=== PATIENT | female | born 2005 | race Caucasian/White ===

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

== ENCOUNTER 2024-03-15 19:47 | Emergency (ER) | payer SELFPAY ==
[2024-03-15 19:48] VITALS: BP 137/76; PULSE 86; RESP 18; TEMP 36.6; O2SAT 100; BMI 19.6
--- NOTE | 2024-03-15 20:03 | US_ITS ---
INDICATION: vaginal bleeding EXAMINATION: US OB Transvaginal TECHNIQUE: Transvaginal (for optimal evaluation of the adnexa) pelvic ultrasound was performed. Grayscale, spectral waveform, and color flow Doppler evaluation of the adnexa. COMPARISON: None. FINDINGS: UTERUS: Measures 6.8 cm in length.. RIGHT OVARY: Measures 2.8 x 2.5 x 2.4 cm. Normal. LEFT OVARY: Measures 3.8 x 2.1 x 1.5 cm. Normal. FREE FLUID: None. INTRAUTERINE GESTATIONAL SAC(s) (size/shape): Not visualized. No adnexal ectopic visualized. US/Transvaginal w/Preg US IMPRESSION: of unknown location. No intrauterine gestational sac or adnexal ectopic visualized. Recommend serial beta hCGs and follow-up OB ultrasound in 2 weeks. Electronically Signed: Donte Jimenez MD at 22:51 EST ,
--- NOTE | 2024-03-15 20:08 | ED.VIS.FEGU ---
HPI <ANNI rCuz - Last Filed: 03/15/24 22:04> HPI - Female History of Present Illness Chief Complaint: Vag Bld, Preg Narrative Narrative: Patient presenting today due to concerns for vaginal bleeding that started yesterday. She reports that she is about 6 weeks , her LMP was about 2 months ago. She has not yet had an ultrasound to confirm intrauterine , she does not have an OB. She reports that the bleeding is mild in severity, she has had a pad on but has not had to change this pad today. She reports morning sickness throughout her with intermittent nausea and vomiting. She denies any fevers or chills. She reports low back pain. She denies any chronic medical conditions. PFSH <ANNI Cruz - Last Filed: 03/15/24 22:04> [facility] Medical History (Updated 03/15/24 @ 23:[address] Marcello Huggins MD) Substance abuse Bipolar disorder Anxiety Depression Home Medications ?Medication ?Instructions ?Recorded ?Last Taken ?Type cephalexin 500 mg capsule 500 mg PO Q6 #40 caps 07/18/20 Unknown Rx ondansetron 4 mg disintegrating 4 mg PO Q8H PRN nausea and 07/18/20 Unknown Rx tablet vomiting #14 tabs multivitamin (Daily Multi-Vitamin 1 tab PO DAILY 03/15/24 Unknown History tablet) Allergy/AdvReac Type Severity Reaction Status Date / Time No Known Allergies Allergy Verified 07/18/20 12:51 Social History Smoking Status: Never smoker ROS <ANNI Cruz - Last Filed: 03/15/24 22:04> ROS ED Constitutional Constitutional ED: Denies chills or fever(s) Cardiovascular Cardiovascular: Denies chest pain Respiratory/Chest Respiratory/Chest: Denies dyspnea Gastrointestinal Gastrointestinal: Denies abdominal pain, nausea or vomiting Genitourinary Genitourinary ED: Denies dysuria, hematuria or urinary frequency Musculoskeletal Musculoskeletal: Reports back pain; Denies arthralgias or myalgias Integumentary Denies rash Neurologic Neurologic: Denies weakness EXAM <ANNI Cruz - Last Filed: 03/15/24 22:04> Physical Exam Const Vital Signs: 03/15/24 19:48 Temperature 97.8 F Temperature Source Temporal Pulse Rate 86 Respiratory Rate 18 Blood Pressure 137/76 H Blood Pressure Mean 96 Pulse Ox 100 Oxygen Delivery Method Room Air Positive well nourished, well developed and no apparent distress General Appearance ED: well developed HEENT Reports normocephalic and head/scalp atraumatic Mouth ED: Yes moist mucous membranes normal Eyes PERRL and EOMs intact bilaterally Neck full ROM and supple Chest Wall inspection of chest normal Resp normal respiratory effort and clear to auscultation bilaterally Cardio regular rate and regular rhythm GI soft to palpation, non-tender, non-distended and no masses Back/Spine normal ROM and normal to inspection Extremity normal to inspection and full ROM Neuro oriented x3, CN's II-XII intact bilaterally, moves all extremities, no focal motor deficits and no sensory deficits noted Sensorium / Orientation: awake and alert Psych mental status grossly normal and thought process normal Skin no rashes or lesions noted and no wounds <Dr. Marcello Huggins MD - Last Filed: 03/15/24 23:03> Physical Exam Const Vital Signs: 03/15/24 19:48 Temperature 97.8 F Temperature Source Temporal Pulse Rate 86 Respiratory Rate 18 Blood Pressure 137/76 H Blood Pressure Mean 96 Pulse Ox 100 Oxygen Delivery Method Room Air MDM <ANNI Cruz - Last Filed: 03/15/24 22:04> [facility] Narrative Medical decision making narrative: Patient presenting today with vaginal spotting that started yesterday. She has not bled enough to soak a pad. She has not yet had an ultrasound to confirm intrauterine . Therefore, transvaginal ultrasound will be obtained. Serum quant obtained and is less than 1. UA does not show any evidence of UTI. Her H&H is 14.2 and 42.3. She is Rh+. Transvaginal ultrasound is pending. Lab Data Labs: Laboratory Results - last 24 hr 03/15/24 03/15/24 20:17 20:24 Hgb 14.2 Hct 42.3 HCG, Quant < 1 Urine Color Yellow Urine Clarity Sl. Cloudy Urine pH 6.5 Ur Specific [place] 1.020 Urine Protein Negative Urine Glucose (UA) Normal Urine Ketones Negative Urine Occult Blood 250 H Urine Nitrite Negative Urine Bilirubin Negative Urine Urobilinogen Normal Ur Leukocyte Esterase Negative Urine RBC 5-10 SEEN Urine WBC 0-5 SEEN Ur Squamous Epith Cells 5-10 SEEN Amorphous Sediment 4+ Urine Bacteria 0 SEEN Urine Mucus 0 SEEN Blood Type O POSITIVE Radiography Diagnostic Testing: Clinical Impression(s) from Imaging Studies Obstetrics Ultrasound 03/15/24 20:03 IMPRESSION: of unknown location. No intrauterine gestational sac or adnexal ectopic visualized. Recommend serial beta hCGs and follow-up OB ultrasound in 2 weeks. Electronically Signed: Donte Jimenez MD at 22:51 EST , <Dr. Marcello Huggins MD - Last Filed: 03/15/24 23:03> [facility] Lab Data Labs: Laboratory Results - last 24 hr 03/15/24 03/15/24 20:17 20:24 Hgb 14.2 Hct 42.3 HCG, Quant < 1 Urine Color Yellow Urine Clarity Sl. Cloudy Urine pH 6.5 Ur Specific [place] 1.020 Urine Protein Negative Urine Glucose (UA) Normal Urine Ketones Negative Urine Occult Blood 250 H Urine Nitrite Negative Urine Bilirubin Negative Urine Urobilinogen Normal Ur Leukocyte Esterase Negative Urine RBC 5-10 SEEN Urine WBC 0-5 SEEN Ur Squamous Epith Cells 5-10 SEEN Amorphous Sediment 4+ Urine Bacteria 0 SEEN Urine Mucus 0 SEEN Blood Type O POSITIVE Radiography Diagnostic Testing: Clinical Impression(s) from Imaging Studies Obstetrics Ultrasound 03/15/24 20:03 IMPRESSION: of unknown location. No intrauterine gestational sac or adnexal ectopic visualized. Recommend serial beta hCGs and follow-up OB ultrasound in 2 weeks. Electronically Signed: Donte Jimenez MD at 22:51 EST , Treatment and Re-Evaluation Narrative: I have personally performed a face to face assessment of the patient and have reviewed the BEATRICE Note. I performed a substantive portion of the visit including all aspects of the following. My nuñez findings include: History is light vaginal bleeding today along with some low back discomfort no abdominal pain, syncope, fevers, chills, urinary symptoms. , last normal menstrual cycle was approximately 10-11 weeks ago. Exam is well-appearing, abdomen soft nontender nondistended no tachycardia. Medical Decison Making quantitative hCG, ultrasound, type and screen. Blood type O positive, no RhoGAM indicated at this time. Patient's quantitative hCG came back less than 1. Accordingly her ultrasound, is completely normal. I reviewed the images and the result which I agree with. There is no evidence of an ectopic nor intrauterine . The patient states her cycles are usually regular. She had a positive home test, has not seen a doctor before today, and her last cycle was almost 3 months ago. This is the first time she has had any bleeding. It is possible that she had intrauterine demise early on in , and she is either miscarrying now or having her next normal menstrual cycle, and as I discussed with her it is possible that she had a false positive test and never was in the first place. At any rate she is stable to be discharged home and follow-up with OB within the next couple weeks at the most. Other additions or changes: [None] Discharge Plan Triage Chief Complaint: Vag Bld, Preg ED Midlevel Provider: Karla Claros ED Provider: Marcello Huggins Dx/Rx/DC Orders Clinical Impression: Complete Instructions: Miscarriage Dc Prescriptions: No Action ondansetron 4 mg tablet,disintegrating 4 mg PO Q8H PRN (Reason: nausea and vomiting) Qty: 14 0RF cephalexin 500 mg capsule 500 mg PO Q6 Qty: 40 0RF multivitamin [Daily Multi-Vitamin] Tablet 1 tab PO DAILY Primary Care Provider: Trinh Hirsch Referrals: Trinh Hirsch MD [Primary Care Provider] - Yessy Centeno DO [Med Staff - Active Staff] - (call for appt for 1-2 wks) Print Language: Luxembourgish Disposition Disposition: Home, Self Care
[2024-03-15 20:27] LABS: Hematocrit 42.3 % (37-47); Hemoglobin 14.2 g/dL (12.0-15.0)
[2024-03-15 20:33] LABS: Bacteria 0 SEEN /hpf (None Seen); Mucous, Urine 0 SEEN /hpf (<or=2+)
[2024-03-15 20:35] LABS: Color, Urine Yellow (Yellow); Glucose, Dipstick Normal (Normal); Ketone-Dipstick Negative (Negative); Leukocyte Esterase-Dipstick Negative /ul (Negative); Nitrite-Dipstick Negative (Negative); Occult Blood-Urine 250 /ul (Negative); Protein-Dipstick Negative (Negative); Urine Bilirubin Dipstick Negative (Negative); Urine Clarity Sl. Cloudy (Clear); Urine Urobilinogen Normal (Normal); Urine pH 6.5 (5.0 - 8.0)
[2024-03-15 20:42] LABS: Amorphous Sediment 4+; Red Blood Cells-Urine 5-10 SEEN /hpf (0-5); Squamous Epithelial Cells - UA 5-10 SEEN /hpf (5-10); White Blood Cells 0-5 SEEN /hpf (0-5)
[2024-03-15 20:46] LABS: hCG Titer Quant., Serum < 1 mIU/mL (1-3)
[2024-03-15] MEDS: Ibuprofen 600 MG Tablet PO (23:08)
[2024-03-15 23:12] VITALS: BP 129/74; PULSE 78; RESP 16; TEMP 36.8; O2SAT 97; O2SAT 98
== END 2024-03-15 23:16 | disposition home or self-care (01) ==
PROVIDERS: Physician Assistant; Emergency Provider Emergency Medicine; PCP Pediatrics; Referring Provider Emergency Medicine; Visit Provider Emergency Medicine
DX: O03.9 Complete or unspecified spontaneous abortion without complication (principal)
CPT/HCPCS: 76817; 81001; 84702; 85014; 85018; 86900; 86901; 99283; A4216

== ENCOUNTER 2024-07-26 10:18 | Emergency (ER) | payer OTHER, SELFPAY ==
[2024-07-26 10:19] VITALS: BP 134/99; PULSE 85; RESP 14; TEMP 35.6; O2SAT 98; BMI 21.1
--- NOTE | 2024-07-26 11:23 | US_ITS ---
EXAM: US First Trimester , Transabdominal CLINICAL INDICATION: CRAMPING, 7 WEEKS BY DATES TECHNIQUE: Real-time transabdominal obstetrical ultrasound of the maternal pelvis and a first trimester with image documentation. COMPARISON: No relevant prior studies available. FINDINGS: GESTATION: Just no sac 0.16 cm. Gestational age 6 weeks and 3 days. Yolk sac 0.3 cm. CRL 0.4 cm. heart rate 109 beats per minute. ANA MARIA: ANA MARIA 03/09/25. PLACENTA/AMNIOTIC FLUID: Cannot be adequately evaluated due to the early gestational age. UTERUS/CERVIX: Unremarkable. No myometrial mass. The uterus measures 9.2 x 6.5 x 5.2 cm. OVARIES: Unremarkable. No mass. The right ovary measures 4.0 x 1.7 x 1.4 cm. The left ovary measures 2.2 x 2.0 x 1.3 cm. FREE FLUID: No free fluid. US/Transvaginal w/Preg US IMPRESSION: A single live intrauterine as above. Reading Location: [id number]
--- NOTE | 2024-07-26 11:25 | EDS_ITS ---
HPI HPI - Female History of Present Illness Chief Complaint: Female C/O Informant: patient Narrative Narrative: G2, P0 7 weeks gestation by dates. Her OB follow-up was on the 14th and [address] [facility]. Noting lower pelvic cramping for the past week on and off. No vaginal bleeding. No urinary symptoms. She history of marijuana use stopped after find out she was . Denies alcohol use. Concern for months ago similar presentation that led to a miscarriage. Denies any trauma. Denies any vaginal discharge. Denies any urinary symptoms. Prior similar symptoms: Yes PFSH PFSH Medical History Substance abuse Bipolar disorder Anxiety Depression Home Medications ?Medication ?Instructions ?Recorded ?Last Taken ?Type cephalexin 500 mg capsule 500 mg PO Q6 #40 caps Unknown Rx ondansetron 4 mg disintegrating 4 mg PO Q8H PRN nausea and 07/18/20 Unknown Rx tablet vomiting #14 tabs multivitamin (Daily Multi-Vitamin 1 tab PO DAILY 03/15 Unknown History tablet) Allergy/AdvReac Type Severity Reaction Status Date / Time No Known Allergies Allergy Verified 07/18/20 12:51 Social History Smoking Status: Never smoker ROS ROS ED Constitutional Constitutional ED: Denies chills, fever(s) or sweats ENT ENT ED: Denies sore throat Cardiovascular Cardiovascular: Denies chest pain, leg edema, palpitations or racing heartbeat Respiratory/Chest Respiratory/Chest: Denies cough, dyspnea or dyspnea on exertion Gastrointestinal Gastrointestinal: Denies abdominal pain, diarrhea, nausea or vomiting Genitourinary Genitourinary ED: Reports other Details: Pelvic cramping ; Denies dysuria, hematuria or urinary frequency Musculoskeletal Musculoskeletal: Denies back pain, extremity pain or neck pain Integumentary Denies rash or wounds Neurologic Neurologic: Denies headache(s), paresthesias or weakness EXAM Physical Exam Const Vital Signs: 07/26/24 10:19 07/26/24 12:18 07/26/24 13:39 Temperature 96.1 F L 98 F Temperature Source Temporal Pulse Rate 85 66 66 Respiratory Rate 14 18 Blood Pressure 134/99 H 118/75 118/75 Blood Pressure Mean 110 89 89 Pulse Ox 98 100 100 Oxygen Delivery Method Room Air Positive well nourished and well developed General Appearance ED: well developed and NAD HEENT Reports moist mucous membranes normocephalic and atraumatic Eyes General Eye ED: Yes normal appearance of both eyes Neck full ROM Chest Wall Chest: Negative for tenderness Resp normal respiratory effort and normal air movement Effort and Inspection: symmetric chest movement; Negative for respiratory distress Cardio regular rate, regular rhythm and no murmurs Peripheral Pulses: pulses 2+ throughout GI normal to inspection, nondistended, normoactive bowel sounds GI Narrative: Minimal tenderness lower pelvic. No guarding or rebound. Palpation: Negative for guarding or rebound tenderness present Extremity normal to inspection General Extremety ED: Negative for edema or tenderness General Extremity: Negative for edema Neuro oriented x3 and no sensory deficits noted Sensorium / Orientation: awake and alert Skin no rashes or lesions noted and no wounds MDM MDM MDM Narrative Medical decision making narrative: Interventions / MDM: Differential diagnosis: , pelvic pain Diagnosis considered but do not suspect: Ectopic however ultrasound negative. My EKG interpretation: N/A Imaging independently reviewed and interpreted by myself: Transvaginal ultrasound: 6 weeks 3-day intrauterine heart tones 109. External documents reviewed: N/A Test considered but not ordered:N/A ED course: Patient pelvic cramping over the past week no vaginal bleeding. With reported and reporting new pains,Workup initiated rule out ectopic . urine ordered, hCG quant and transvaginal ultrasound. Urine negative for infection. hCG 32,858. Transvaginal ultrasound interpreted by myself intrauterine 6 weeks 3 days with heart tones 109. Patient reassured on findings. She will continue prenatals. Discussed pelvic rest. She will keep her OB appointment in 6 days. All questions were answered. Re-evaluation: stable Disposition discussed with patient/family/significant other: Patient Case discussed with consulting clinician: N/A This note was generated with [employer] dictation software. It may contain incorrect words, spelling, and punctuation that were not noted in checking the note before signing. Lab Data Attestation: I reviewed the patient's lab results. Labs: Laboratory Results - last 24 hr 07/26/24 10:50 HCG, Quant 52471 H Urine Color Straw Urine Clarity Clear Urine pH 7.0 Ur Specific [place] 1.010 Urine Protein 15 H Urine Glucose (UA) Normal Urine Ketones Negative Urine Occult Blood Negative Urine Nitrite Negative Urine Bilirubin Negative Urine Urobilinogen Normal Ur Leukocyte Esterase Negative Urine RBC 0 SEEN Urine WBC 0-5 SEEN Ur Squamous Epith Cells 5-10 SEEN Urine Bacteria 1+ Urine Mucus 0 SEEN Discharge Plan Triage Chief Complaint: Female C/O ED Provider: Chip Ring Dx/Rx/DC Orders Clinical Impression: First trimester , Pelvic cramping Instructions: 1st Trimester Prescriptions: No Action ondansetron 4 mg tablet,disintegrating 4 mg PO Q8H PRN (Reason: nausea and vomiting) Qty: 14 0RF cephalexin 500 mg capsule 500 mg PO Q6 Qty: 40 0RF multivitamin [Daily Multi-Vitamin] Tablet 1 tab PO DAILY Primary Care Provider: Trinh Hirsch Referrals: Trinh Hirsch MD [Primary Care Provider] - Activity Restrictions/Additional Instructions: hCG 62735. Urine negative for infection. Ultrasound 6 weeks 3 days with heart rate 109. Keep your follow-up with your [facility] OB team on the . May use Tylenol as needed for cramping pain. Avoid NSAIDs with . Continue your vitamins daily. Print Language: Georgian Disposition Disposition: Home, Self Care Discharge Date/Time: 07/26/24 13:48
[2024-07-26 11:55] LABS: Mucous, Urine 0 SEEN /hpf (<or=2+); Red Blood Cells-Urine 0 SEEN /hpf (0-5)
[2024-07-26 12:09] LABS: Color, Urine Straw (Yellow); Glucose, Dipstick Normal (Normal); Ketone-Dipstick Negative (Negative); Leukocyte Esterase-Dipstick Negative /ul (Negative); Nitrite-Dipstick Negative (Negative); Occult Blood-Urine Negative /ul (Negative); Protein-Dipstick 15 mg/dl (Negative); Urine Bilirubin Dipstick Negative (Negative); Urine Clarity Clear (Clear); Urine Urobilinogen Normal (Normal)
[2024-07-26 12:18] VITALS: BP 118/75; PULSE 66; O2SAT 100
[2024-07-26 12:28] LABS: Bacteria 1+ /hpf (None Seen); Squamous Epithelial Cells - UA 5-10 SEEN /hpf (5-10); White Blood Cells 0-5 SEEN /hpf (0-5)
[2024-07-26 12:54] LABS: hCG Titer Quant., Serum 32858 mIU/mL (<9 non-preg)
[2024-07-26 13:39] VITALS: BP 118/75; PULSE 66; RESP 18; TEMP 36.6; O2SAT 100
== END 2024-07-26 13:48 | disposition home or self-care (01) ==
PROVIDERS: Emergency Provider Emergency Medicine; PCP Pediatrics; Visit Provider Emergency Medicine
DX: O26.891 Other specified pregnancy related conditions, first trimester (principal); R10.2 Pelvic and perineal pain; Z3A.01 Less than 8 weeks gestation of pregnancy
CPT/HCPCS: 76817; 81001; 84702; 99282

== ENCOUNTER 2025-02-16 13:05 | Outpatient (CLI) | payer MEDICAID, SELFPAY ==
--- OUTSIDE RECORDS SUMMARY | 2025-02-16 13:25 | XMS RPT_ITS | CCD ---
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 Congestion Onset: 09-07-2024 Unclassified (1 source) History of non-suicidal self-harm; Translations: [History of non-suicidal self-harm] Onset: 08-01-2024 Urinary tract infections (1 source) Pyelonephritis; Translations: [Tubulo-interstitial nephritis, not specified as acute or chronic] 07-19-2020 Episodic Viral infection (2 sources) Disease caused by 2019-nCoV; Translations: [COVID-19] 12-08-2023 Episodic Past or Other Problems Problem Classification Problem Date Documented Date Episodic/Chronic Fever of unknown origin (3 sources) Fever; Translations: [Fever, unspecified] Onset: 07-26-2024 07-22-2020 Episodic Immunizations and screening for infectious disease (1 source) Encounter for screening for infections with a predominantly sexual mode of transmission; Translations: [Screen for STD (sexually transmitted disease)] Onset: 08-01-2024 Episodic Inflammatory diseases of female pelvic organs (20 sources) Acute vaginitis; Translations: [Acute vaginitis] Onset: 08-01-2024 08-01-2024 Episodic Joint disorders and dislocations; trauma-related (4 sources) Unspecified subluxation of left patella, 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; Translations: [Dislocation of patella, closed] Onset: 07-04-2024 07-04-2024 Episodic Other complications of (20 sources) Vomiting of , unspecified; Translations: [Unspecified vomiting of , unspecified as to episode of care or not applicable] Onset: 08-01-2024 08-01-2024 Episodic Other complications of (1 source) Supervision of high risk , unspecified, first trimester; Translations: [Encounter for supervision of high risk in first trimester, antepartum (HCC)] Onset: 08-01-2024 Episodic Other female genital disorders (1 source) Other specified noninflammatory disorders of vagina; Translations: [Vaginal discharge] Onset: 10-22-2024 Episodic Other injuries and conditions due to external causes (19 sources) History of clinical finding in subject; Translations: [History of non-suicidal self-harm] Onset: 08-01-2024 08-01-2024 Episodic Other non-traumatic joint disorders (3 sources) Pain in left knee; Translations: [Pain in joint, lower leg] Onset: 06-29-2024 06-29-2024 Episodic Other and delivery including normal (20 sources) First trimester ; Translations: [Encounter for supervision of normal , unspecified, first trimester] Onset: 08-01-2024 07-26-2024 Episodic Residual codes; unclassified (1 source) 16 weeks gestation of ; Translations: [16 weeks gestation of ([facility])] Onset: 10-10-2024 Episodic Residual codes; unclassified (1 source) 12 weeks gestation of ; Translations: [12 weeks gestation of ([facility])] Onset: 09-12-2024 Episodic Residual codes; unclassified (1 source) Less than 8 weeks gestation of ; Translations: [6 weeks gestation of ([facility])] Onset: 09-12-2024 Episodic Screening and history of mental health and substance abuse codes (18 sources) H/O: anxiety state; Translations: [Personal history of other mental and behavioral disorders] Onset: 05-08-2018 08-01-2024 Episodic Skin and subcutaneous tissue infections (2 sources) Cellulitis of skin; Translations: [Cellulitis, unspecified] Onset: 07-24-2024 07-24-2024 Episodic Unclassified (3 sources) Acute pain of left knee 06-29-2024 Results Test Name Value Interpretation Reference Range Facility GLUCOSE GESTATIONAL, 1 HOURo n 01-07-2025 Glucose 1 Hr post Unsp challenge [Mass/Vol] 166 mg/dL Normal 74-179 [facility] Comment on above: Order Comment: Speci men Type: BLOOD SPECIMENOrdering Facility: [facility] Address: [address] [place] [address] Result Comment: [facility] Congress of Obstetricians and Gynecologists (Mehul/Leah) guidelines state gestational diabetes mellitus is present when 2 or more of the plasma glucose concentrations meet or exceed the following levels: fastin mg/dl, 1 hr: 180 mg/dl, 2 hr: 155 mg/dl, and 3 hr: 140 mg/dl. Performed By: #### G TGST1 ####[facility] [id number] [place] [address] [place] GLUCOSE GESTATIONAL, 2 HOURo n 01-07-2025 Glucose 2 Hr post Unsp challenge [Mass/Vol] 139 mg/dL Normal 74-154 [facility] Comment on above: Order Comment: Speci men Type: SWAB [facility] Address: [address] [place] [address] Result Comment: [facility] Congress of Obstetricians and Gynecologists (Carver/Leah) guidelines state gestational diabetes mellitus is present when 2 or more of the plasma glucose concentrations meet or exceed the following levels: fastin mg/dl, 1 hr: 180 mg/dl, 2 hr: 155 mg/dl, and 3 hr: 140 mg/dl. Performed By: #### B KINGSLEY CVTV #### [facility] CLIA [id number] [address] [place] [address] [place] GLUCOSE GESTATIONAL, 3 HOURo n 01-07-2025 Glucose 3 Hr post Unsp challenge [Mass/Vol] 112 mg/dL Normal 74-139 [facility] Comment on above: Order Comment: Speci men Type: BLOOD SPECIMENOrdering Facility: [facility] Address: [address] [place] [address] Result Comment: [facility] Congress of Obstetricians and Gynecologists (Carver/Leah) guidelines state gestational diabetes mellitus is present when 2 or more of the plasma glucose concentrations meet or exceed the following levels: fastin mg/dl, 1 hr: 180 mg/dl, 2 hr: 155 mg/dl, and 3 hr: 140 mg/dl. Performed By: #### G TGST3 ####[facility] [id number] [address] [facility] GLUCOSE GESTATIONAL, FASTING on 01-07-2025 Glucose post fast [Mass/Vol] 84 mg/dL Normal 74-94 [facility] Comment on above: Order Comment: Speci men Type: BLOOD SPECIMENOrdering Facility: [facility] Address: [facility] [place] [address] Result Comment: [facility] Congress of Obstetricians and Gynecologists (Mehul/Leah) guidelines state gestational diabetes mellitus is present when 2 or more of the plasma glucose concentrations meet or exceed the following levels: fastin mg/dl, 1 hr: 180 mg/dl, 2 hr: 155 mg/dl, and 3 hr: 140 mg/dl. Performed By: #### G TGSTF ####[facility] [id number] [address] CNPNon 01-04-2025 [facility] MANJINDER WINTER ([id number]) 3 F Date Time Provider Department 01/04/25 MARU ALEXANDER OBGYWM During your visit today, we recorded the following information about you: Kayleen Vizcaino RN 01/04/2025 3:38 PM Signed Maru Alexander MD to [facility] Ob-Inside Trucker Pool 01/01/25 6:18 PM Result Note Abnormal 1 hr. Needs 3hr gtt. Order entered. Maru Alexander MD GESTATIONAL GLUCOSE SCREEN, 1-HOUR, 50 GRAM, NON-FASTING ___ Kayleen Vizcaino RN 01/04/2025 3:38 PM Signed Maru Alexander MD to [facility] Ob-Inside Trucker Pool 01/01/25 6:19 PM Result Note labs are normal other than anemia. See my chart message. COMPLETE BLOOD COUNT; EXTRA TUBE ORTEGA Kayleen Vizcaino RN 01/04/2025 3:38 PM Signed Left message for patient to call office. VALERIE Vora Jennifer, RN 01/04/2025 3:44 PM Signed Patient notified of both abnormal 1 hour glucose and anemia. Reviewed Evi messages sent by . Need a 3 hour glucose order. Please file. We will then contact patient and schedule her for Tuesday. Thank you. VALERIE Monroe Jennifer, RN 01/04/2025 3:44 PM Signed Addended by: NAOMI GUERIN on: 01/04/2025 03:44 PM Modules accepted: Alana Pedro APRN.CNM 01/04/2025 4:05 PM Signed Order signed. MATTHEW Stephens Jessica, APRN.CNM 01/04/2025 4:05 PM Signed Addended by: ALANA BACON on: 01/04/2025 04:05 PM Modules accepted: Naomi Merrill RN 01/04/2025 4:13 PM Signed Thank you. Called patient and scheduled her lab visit. Naomi Guerin RN Allergies As of Date: 01/04/2025 (No Known Allergies) Date Reviewed: 01/01/2025 Reviewed by: Ang Bradley MD - Fully Assessed Reason for Visit: Results [95] Primary Visit Diagnosis:Abnormal glucose complicating (HCC) [O99.810] Order(s):GEST GLUC DIPIKA, 3-HR, 100 GM, FASTING [SQGTGST3] Order #: [id number] FUTURE Prescriptions as of 01/04/2025 - haloperidol (HALDOL) 2 mg tablet Take 2 mg by mouth daily at bedtime. - lamoTRIgine (LAMICTAL) 25 mg tablet Take 1 tablet by mouth once daily. - cyproheptadine (PERIACTIN) 4 mg tablet Take 1 tablet by mouth three times a day as needed. - ondansetron (ZOFRAN) 4 mg tablet Take 1 tablet by mouth every 8 hours as needed for nausea/vomiting. - aspirin, enteric coated (ECOTRIN LOW STRENGTH) 81 mg EC tablet Take 1 tablet by mouth once daily. - vit no.124/iron/folic ( VITAMIN ORAL) Take 1 tablet by mouth once daily. Problem List As Of Date 01/04/2025 Noted Resolved Depression with anxiety [F41.8] 05/08/2018 History of anxiety [Z86.59] 05/08/2018 with uncertain dates in first trimest*08/01/2024 01/01/2025 Acute vaginitis [N76.0] 08/01/2024 01/01/2025 Marijuana use during (HCC) [O99.320, *08/01/2024 Nausea and vomiting during (HCC) [O21*08/01/2024 History of non-suicidal self-harm [Z91.52] 08/01/2024 Bipolar 1 disorder (HCC) [F31.9] 09/12/2024 Abnormal glucose complicating (HCC) [*01/01/2025 Antepartum anemia complicating in thi*01/01/2025 Encounter Status:Closed by KAYLEEN VIZCAINO on 01/04/25 Normal [facility] CBC panel Auto (Bld)on 01-01 Erythrocyte distribution width (RBC) [Ratio] 13.2 % Normal 11.5-15.0 [facility] Comment on above: Order Comment: Speci men Type: BLOOD SPECIMENOrdering Facility: [facility] Address: [address] [place] [address] Performed By: #### 5 8410-2 ####[facility] GISEL ISRAELDILCIA [id number] [place] [id number] [place] Hematocrit (Bld) [Volume fraction] 27.4 % Low 36.0-46.0 [facility] Comment on above: Order Comment: Speci men Type: BLOOD SPECIMENOrdering Facility: [facility] Address: [address] [place] [address] Performed By: #### 5 8410-2 ####[facility] ELIUDSAVANNAHDILCIA [id number] [place] [address] [place] Hemoglobin (Bld) [Mass/Vol] 9.6 g/dL Low 11.5-15.5 [facility] Comment on above: Order Comment: Speci men Type: BLOOD SPECIMENOrdering Facility: [facility] Address: [address] [place] [address] Performed By: #### 5 8410-2 ####[facility] [id number] [place] [address] [place] MCH (RBC) [Entitic mass] 29.6 pg Normal 26.0-34.0 [facility] Comment on above: Order Comment: Speci men Type: BLOOD SPECIMENOrdering Facility: [facility] Address: [address] [place] [address] Performed By: #### 5 8410-2 ####[facility] [id number] [address] [place] MCHC (RBC) [Mass/Vol] 35.0 g/dL Normal 30.5-36.0 [facility] Comment on above: Order Comment: Speci men Type: BLOOD SPECIMENOrdering Facility: [facility] Address: [address] [place] [address] Performed By: #### 5 8410-2 ####[facility] [id number] [place] [address] [place] MCV (RBC) [Entitic vol] 84.6 fL Normal 80.0-100.0 [facility] Comment on above: Order Comment: Speci men Type: BLOOD SPECIMENOrdering Facility: [facility] Address: [address] [place] [address] Performed By: #### 5 8410-2 ####[facility] MILLWNCLIA [id number] [place] [address] [place] Nucleated RBC (Bld) [#/Vol] 10*3/uL Normal <0.01 [facility] Comment on above: Order Comment: Speci men Type: BLOOD SPECIMENOrdering Facility: [facility] Address: [address] [place] [address] Performed By: #### 5 8410-2 ####[facility] [id number] [place] [address] [place] Platelet mean volume (Bld) [Entitic vol] 9.8 fL Normal 9.0-12.7 [facility] Comment on above: Order Comment: Speci men Type: BLOOD SPECIMENOrdering Facility: [facility] Address: [address] [place] [address] Performed By: #### 5 8410-2 ####[facility] [id number] [place] [address] [place] Platelets (Bld) [#/Vol] 242 10*3/uL Normal 150-400 [facility] Comment on above: Order Comment: Speci men Type: BLOOD SPECIMENOrdering Facility: [facility] Address: [address] [place] [address] Performed By: #### 5 8410-2 ####[facility] [id number] [place] [address] [place] RBC (Bld) [#/Vol] 3.24 10*6/uL Low 3.90-5.20 [facility] Comment on above: Order Comment: Speci men Type: BLOOD SPECIMENOrdering Facility: [facility] Address: [address] [place] [address] Performed By: #### 5 8410-2 ####[facility] [id number] [place] [address] [place] WBC (Bld) [#/Vol] 8.74 10*3/uL Normal 3.70-11.00 [facility] Comment on above: Order Comment: Speci men Type: BLOOD SPECIMENOrdering Facility: [facility] Address: [facility] [place] [address] Performed By: #### 5 8410-2 ####[facility] [id number] [place] [address] [place] CNPNon 01-01-2025 CNPN Telephone (OBGYWM) MANJINDER WINTER ([id number]) 3 F Date Time Provider Department 01/01/25 ANG BRADLEY OBGYWM During your visit today, we recorded the following information about you: Naomi Guerin, VALERIE 01/01/2025 11:10 AM Signed 28w4d Patient was seen in office with Dr. Bradley today for routine OB visit. She is needing a refill of her Haldol and Lamictal. Dr. Bradley placed a consult order for behavioral health. She is asking if patient could be seen urgently as she is almost out of her medications. Thank you. VALERIE Monroe Teresa, RN 01/04/2025 8:22 AM Signed Patient called back in. Referral to Behavioral Services still pending authorization. [facility] . Patient was given ab appointment on this coming Tuesday 9:30am with Dr Hill in psychiatry. Patient informed and very receptive and accepted appointment. FYI Allergies As of Date: 01/01/2025 (No Known Allergies) Date Reviewed: 01/01/2025 Reviewed by: Ang Bradley MD - Fully Assessed Reason for Visit: Behavioral Health Consult [Other] Prescriptions as of 01/04/2025 - haloperidol (HALDOL) 2 mg tablet Take 2 mg by mouth daily at bedtime. - lamoTRIgine (LAMICTAL) 25 mg tablet Take 1 tablet by mouth once daily. - cyproheptadine (PERIACTIN) 4 mg tablet Take 1 tablet by mouth three times a day as needed. - ondansetron (ZOFRAN) 4 mg tablet Take 1 tablet by mouth every 8 hours as needed for nausea/vomiting. - aspirin, enteric coated (ECOTRIN LOW STRENGTH) 81 mg EC tablet Take 1 tablet by mouth once daily. - vit no.124/iron/folic ( VITAMIN ORAL) Take 1 tablet by mouth once daily. Problem List As Of Date 01/01/2025 Noted Resolved Depression with anxiety [F41.8] 05/08/2018 History of anxiety [Z86.59] 05/08/2018 with uncertain dates in first trimest*08/01/2024 01/01/2025 Acute vaginitis [N76.0] 08/01/2024 01/01/2025 Marijuana use during (HCC) [O99.320, *08/01/2024 Nausea and vomiting during (HCC) [O21*08/01/2024 History of non-suicidal self-harm [Z91.52] 08/01/2024 Bipolar 1 disorder (HCC) [F31.9] 09/12/2024 Abnormal glucose complicating (HCC) [*01/01/2025 Antepartum anemia complicating in thi*01/01/2025 Encounter Status:Closed by GIL MARTÍNEZ on 01/04/25 Normal [facility] Ferritin SerPl-mCncon 2024 Ferritin [Mass/Vol] 13.5 ng/mL Low 14.7-205.1 [facility] Comment on above: Order Comment: Speci men Type: BLOOD SPECIMENOrdering Facility: [facility] Address: [address] [place] [address] Performed By: #### 5 0190-8, 2276-4 ####[facility] MAIN LABCLIA [id number] [place] [address] [place] GESTATIONAL GLUCOSE SCREEN, 1-HOUR, 50 GRAM, NON-FASTINGon 01-01-2025 Glucose [Mass/Vol] 156 mg/dL High 74-134 [facility] Comment on above: Order Comment: Speci men Type: BLOOD SPECIMENOrdering Facility: [facility] Address: [address] [place] [address] Result Comment: [facility] Congress of Obstetricians and Gynecologists (Mehul/Leah) guidelines state a gestational diabetes mellitus positive screen is made, in women not previously diagnosed with overt diabetes, when the 1 hr plasma glucose level is equal to or above 140 mg/dL. The [facility] [employer] Machine T[employer] and [facility] [place] recommends a 135 mg/dL cutoff. Performed By: #### G LTGST ####[facility] [id number] [place] [address] [place] Iron and Iron binding capaci ty panelon 01-01-2025 Iron [Mass/Vol] 40 ug/dL Low 41-186 [facility] Comment on above: Order Comment: Speci men Type: BLOOD SPECIMENOrdering Facility: [facility] Address: [address] [place] [address] Performed By: #### 5 0190-8, 2275-4 ####[facility] LABCLIA [id number] [place] [address] [place] Iron binding capacity [Mass/Vol] 524 ug/dL High 232-386 [facility] Comment on above: Order Comment: Speci men Type: BLOOD SPECIMENOrdering Facility: [facility] Address: [address] [place] [address] Performed By: #### 5 0190-8, 2275-4 ####[facility] LABCLIA [id number] [place] [address] [place] Iron/TIBC [Molar ratio] 7.6 % Low 15.0-57.0 [facility] Comment on above: Order Comment: Speci men Type: BLOOD SPECIMENOrdering Facility: [facility] Address: [address] [place] [address] Performed By: #### 5 0190-8, 2276-4 ####[facility] LABCLIA [id number] [place] [address] [place] Reagin and Treponema pallidu m IgG and IgM [Interp]on 01-01-2025 T. pallidum IgG+IgM IA Ql (S) Non-Reactive Normal Nonreactive [facility] Comment on above: Order Comment: Speci men Type: BLOOD SPECIMENOrdering Facility: [facility] Address: [address] [place] [address] Performed By: #### 7 3752-8 ####[facility] LABCLIA [id number] [place] [address] [place] Reagin+T pallidum IgG+IgM Se rPl-Impon 01-01-2025 Reagin and Treponema pallidum IgG and IgM [Interp] Cannot exclude recent Treponemal infection if specimen collected within 7-10 days after appearance of suspect lesions or 2-3 weeks after an exposure. Clinical correlation is required. 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 Allergies Given mg (NOW x1) verified and confirmed 5 rights. IV patency established. IV 22:38 12/05/2024 site checked: no pain, redness, or swelling. IV flushed Maritza Mack R.N. thoroughly pre-medication administration. IVP given by Scanned nurse. Information reviewed with patient including reason for taking this medication, signs of allergic reaction and precautions. Verbalizes understanding. - 22:38 Maritza Mack R.N. Reglan IVP 10 05:50 12/06 Reglan IVP 10 mg given via Site# 1. Allergies Given mg (NOW x1) verified and confirmed 5 rights. IV patency established. IV 05:50 12/06/2024 site checked: no pain, redness, or swelling. IV flushed Maritza Mack R.N. thoroughly pre-medication administration. IVP given by Scanned nurse. Information reviewed with patient including reason for taking this medication, signs of allergic reaction and precautions. Verbalizes understanding. - 05:51 Maritza Mack R.N. 1 of 2 Human Machine Interface Engineer - MOY, FELICEHeather, : 2005, , Zofran IVP 4 mg 08:30 12/06 Zofran IVP 4 mg given via Site# 1. Allergies Given (NOW x1) verified and confirmed 5 rights. IV patency established. IV 08:30 12/06/2024 site checked: no pain, redness, or swelling. IV flushed bello Quezada pre-medication administration. Information R.N. reviewed with patient. Verbalizes understanding. - 08:31 Scanned Valorie Rodriguez R.N. 09:12/06 Medication Response: Symptoms have improved. The patient feels better. - 10:57 Valorie Rodriguez R.N. 09:12/06 Medication Response: Symptoms have improved. The patient feels better. - 10:58 Valorie Rodriguez R.N. Acetaminophen 12:23 12/06 Acetaminophen (Tylenol) PO 975 mg given. - Given (Tylenol) PO 975 12:24 Valorie Rodriguez R.N. 12:23 12/06/2024 mg (NOW x1) Valorie Rodriguez R.N. Scanned 2 of 2 Normal [facility] ED NURSES CLINICAL NOTEon ED NURSES CLINICAL NOTE Nurse Narrative - MANJINDER WINTER, : 2005, , Nurse Clinical Narrative [facility] [address] [place] [address] [id number] 12/05/2024 18:19:00 Patient: MANJINDER WINTER Sex: Female : 2005 Age: 19y Disposition: Transfer to [facility] Disposition Decision Time: 12:59 12/06/2024 Departure Time: 15:48 12/06/2024 TRIAGE Historian: (patient). Arrived with police. Primary physician (None). Triage time: 18:27 12/05/2024. Acuity: LEVEL 2. Chief Complaint: (cutting her arms). Onset. (months). The patient describes feelings of depression. -- 18:32 12/05/24 EDT Valorie Rodriguez R.N. 18:39 12/05/24. BP: 132/79 MAP: 97. HR: 98. RR: 18. O2 saturation: 100% Temperature: 98.5 F. Pain level now 0/10. -- 18:50 12/05/24 EDT Valorie Rodriguez R.N. 18:50 12/05/24. SEPSIS SCREEN: NEGATIVE. SIRS criteria negative: heart rate greater than 90. No possible sources of infection. -- 18:50 12/05/24 EDT Valorie Rodriguez R.N. Measurements: 18:31 12/05/24 Wt: 59.0 kg, Ht/Sai: 63.0 in, BMI: 23.03 -- 18:31 12/05/24 EDT Valorie Rodriguez R.N. Medications: no known home medications -- 18:29 12/05/24 EDT Valorie Rodriguez R.N. 1 of 5 Nurse Narrative - MANJINDER WINTER, : 2005, , 18:27 12/05/24. Preferred Pharmacy: ([facility]). -- 18:32 12/05/24 PHYLICIA Rodriguez R.N. Allergies: no known drug allergies -- 18:28 12/05/24 PHYLICIA Rodriguez R.N. Home Medications/Allergy Information Source: patient -- 18:28 12/05/24 PHYLICIA Rodriguez R.N. Problems: Bipolar Disorder -- 18:28 12/05/24 PHYLICIA Rodriguez R.N. Anxiety disorder -- 18:12/05/24 PHYLICIA Rodriguez R.N. Depression -- 18:12/05/24 PHYLICIA Rodriguez R.N. Surgeries: no known surgical history -- 18:12/05/24 PHYLICIA Rodriguez R.N. History 18:12/05/24. PAST MEDICAL HX: Immunizations: up-to-date. LNMP: 2. Para 0. Abortions 1. (unknown). status: currently : EDC:. SOCIAL HX: Never smoker. Alcohol use. Drug use: marijuana. The patient has not traveled outside the [place] Infectious disease exposure: No infectious disease exposure. ABUSE ASSESSMENT: The patient answered yes to the question(s) Do you feel safe in your home? and no to the question(s) Are you afraid to go home?. Abuse denied. SELF HARM ASSESSMENT: Self harm assessment was performed. The patient answered yes to the question(s) Have you recently felt down, depressed, or hopeless?, Do you have thoughts of harming or killing yourself?, Have you noticed less interest or pleasure in doing things?, Are you here because you tried to hurt yourself? and Have you ever tried to hurt yourself before today? and no to the question(s) Do you have a 2 of 5 Nurse Narrative - MANJINDER WINTER, : 2005, , plan for harming or killing yourself?, Have you recently had thoughts about harming or killing others? and Do you have any dangerous items in your possession?. A further in-depth assessment is planned. The patient has been placed under 1-on-1 and continuous supervision. The patient was placed in a safe room. Clothes and valuables were removed and placed at the nurses station. The ED physician has been notified. FALL RISK ASSESSMENT: Fall risk assessment completed. No risk factors identified. -- 18:32 12/05/24 EDT Valorie Rodriguez R.N. Interventions 18:27 12/05/24. Advanced care plan discussed with patient (Full Code). -- 18:32 12/05/24 EDT Valorie Rodriguez R.N. PHYSICAL ASSESSMENT 20:23 12/05/24. GENERAL / NEURO / PSYCH: Alert. Oriented X 4. Appears in no acute distress. Speech within normal limits. Affect appears normal. Patient appears calm and cooperative. Good eye contact. Patient appears well-nourished and neat and clean. RESPIRATORY: Respirations not labored. Breath sounds within normal limits. CVS: Normal heart rate and rhythm. Capillary refill less than 2 seconds. GI / : Abdomen soft and nontender. Bowel sounds within normal limits. SKIN: Skin intact. Skin is warm and dry. Skin color is within normal limits. -- 20:38 12/05/24 EDT Maritza Mack R.N. NURSING PROGRESS NOTES 18:36 12/05/24. Urine collected. -- 19:17 12/05/24 EDT Valorie Rodriguez R.N. 19:01 12/05/24. 12-LEAD EKG: EKG time: (19:12/05/2024). 12-Lead EKG was ordered and performed by ia. -- 19:04 12/05/24 EDT Valorie Rodriguez R.N. 22:38 12/05/24. Reglan IVP 10 mg given via Site# 1. Allergies verified and confirmed 5 rights. IV patency established. IV site checked: no pain, redness, or swelling. IV flushed thoroughly pre-medication administration. IVP given by nurse. Information reviewed with patient including reason for taking this medication, signs of allergic reaction and precautions. Ve (more content not included)... Normal [facility] ED ORDER SHEET (CPOE ONLY)on 12-24-2024 ED ORDER SHEET (CPOE ONLY) Order Sheet - MANJINDER WINTER, : 2005, , Order Sheet [address] [place] [address] [id number] 12/05/2024 Patient: MANJINDER WINTER Sex: Female : 2005 Age: 19y MEASUREMENTS: Wt: 59.0 kg, Ht/Sai: 63.0 in, BMI: 23.03 ALLERGIES: No known drug allergies MEDICATION/IV/DRIP/F LUID ORDERS Acknowledge Order Description Priority Entered d Completed Reglan IVP10 mg (NOW x1) 22:32 12/05/2024 22:32 22:38 Jaden Falcon D.O. 12/05/2024 12/05/2024 Maritza Caro R.N. R.N. Reglan IVP10 mg (NOW x1) 05:49 12/06/2024 05:49 05:51 Maritza Mack R.N. 12/06/2024 12/06/2024 Verbal Order, Auth Maritza Caro, by: Brian Corey R.N.ODelmy Read back and verified Reason for ordering with Other --05:49 12/06/2024 Maritza Mack R.N. alerts: Zofran IVP4 mg (NOW x1) 08:26 12/06/2024 Naman Gaston D.O. 1 of 3 Order Sheet - MANJINDER WINTER, : 2005, , Reason for ordering with Benefits outweigh risks --08:26 12/06/2024 Naman alerts: Jo Gaston Acetaminophen (Tylenol) 12:21 12/06/2024 PO975 mg (NOW x1) Naman Gaston D.O. LAB ORDERS Acknowledge Order Description Priority Entered d Collected Completed Blood Alcohol - Stat 18:37 19:12 19:25 ETOH Stat 12/05/2024 12/05/2024 12/05/2024 Maritza Henson R.N. Reisinger, D.O. RDelmyNDelmy Drug Screen Urine Stat 18:37 19:25 19:25 Medic Stat 12/05/2024 12/05/2024 12/05/2024 Brian Aguilar R.N. Reisinger, D.O. Urinalysis Stat Stat 18:37 19:25 19:25 12/05/2024 12/05/2024 12/05/2024 Brian Aguilar R.N. Reisinger, D.O. CBC w Diff Stat Stat 18:37 19:12 19:25 12/05/2024 12/05/2024 12/05/2024 Maritza Henson R.N. Reisinger, D.O. R.N. CMP Stat Stat 18:37 19:12 19:25 12/05/2024 12/05/2024 12/05/2024 2 of 3 Order Sheet - MANJINDER WINTER, : 2005, , Maritza Henson R.N. Reisinger, D.O. R.N. DIAGNOSTIC STUDY ORDERS Acknowledge Order Description Priority Entered d Completed STAFF ORDERS Acknowledge Order Description Priority Entered d Collected Completed [Electronically signed by Darlene Chery D.O. (12/08/2024 18:16 EDT)] [Electronically signed by Jaden Falcon D.O. (12/24/2024 23:32 EDT)] 3 of 3 [facility] ED PHYSICIAN CLINICAL REPORT on 12-24-2024 ED PHYSICIAN CLINICAL REPORT Narrative - MANJINDER WINTER, : 2005, , Physician Clinical Narrative [address] [address] [id number] 12/05/2024 18:19:00 Patient: MANJINDER WINTER Sex: Female : 2005 Age: 19y Disposition: Transfer to [facility] Decision Time: 12:59 12/06/2024 Departure Time: 15:48 12/06/2024 Measurements Wt: 59.0 kg, Ht/Sai: 63.0 in, BMI: 23.03 Initial Vital Sign Measured Abigail Time BP MAP HR RR O2Sat ETCO2 Temp n GCS RTS 18:39 132/79 97 98 18 100% 98.5 F 0 12/05/2024 Time Seen: 19:33 12/05/2024. Arrived- Police present. Historian- patient. HISTORY OF PRESENT ILLNESS Chief Complaint: ANXIOUS and DEPRESSED. (this 19-year-old female presents to ER stating that she was pink slipped from the police department after boyfriend found her at home acting out and cutting her left forearm multiple times. Patient has a history of previous psychiatric issues with bipolar depression and states this is flaring up again. Patient admits to history of previous suicide attempt with overdose and states she feels suicidal earlier but not presently. She had previously been on Lexapro and Seroquel but is approximately 6 months and is presently on no psychiatric medications.). The patient has had anxiety. Has been depressed and had suicidal thoughts. The patient inflicted self-injury. The symptoms are described as moderate. Location- (superficial lacerations left forearm). 1 of 19 Narrative - MANJINDER WINTER, : 2005, , REVIEW OF SYSTEMS NEUROLOGICAL: No headache, dizziness or weakness. CVS: No chest pain or palpitations. GI: No abdominal pain, vomiting or diarrhea. PAST HISTORY See nurses notes. Anxiety disorder Bipolar Disorder Depression Surgeries: no known surgical history Medications: no known home medications Allergies: no known drug allergies Home Medications/Allergy Information Source: patient - Valorie Rodriguez R.N., 12/05/2024 18:28 EDT SOCIAL HISTORY Smoker- current status unknown (marijuana). No alcohol use. ADDITIONAL NOTES The nursing notes have been reviewed. 2 of 19 Narrative - MANJINDER WINTER, : 2005, , PHYSICAL EXAM Vital Signs: Have been reviewed. Appearance: No acute distress. Appearance is normal. Eyes: Pupils equal, round and reactive to light. Neck: Normal inspection. Neck supple. CVS: Normal heart rate and rhythm. Heart sounds normal. Respiratory: Painless inspiration. Breath sounds normal. Chest nontender. Abdomen: Nontender. Skin: (superficial lacerations over flexor surface left forearm.). Extremities: Lower extremity edema. Calf tenderness. Psych / Neuro: Oriented X 3. Appears depressed. Speech normal. Cognition normal. The patient is not disoriented. The patient does not exhibit altered thought processes. No apparent delusions. The patient expresses suicidal thoughts (intermittently). Cranial nerves normal (as tested). No cerebellar findings. No motor deficit. No sensory deficit. LABS, X-RAYS, AND EKG Laboratory Tests: ALCOHOL-BLOOD MEDICAL Final MICHAEL: 12/05/2024 19:02:00 EDT MsgRcvd: 12/05/2024 19:46 EDT Lab Test Result Reference Status Received 12/05/2024 19:46 ALCOHOL 5 mg/dl 0 - 50 Final EDT CBC + DIFF Final MICHAEL: 12/05/2024 19:02:00 EDT MsgRcvd: 12/05/2024 19:12 EDT Lab Test Result Reference Status Received 12/05/2024 19:12 CBC + DIFF Final EDT CBC-COMPLETE BLOOD COUNT 3 of Narrative - MANJINDER WINTER, : 2005, , 12/05/2024 19:12 WBC 10.8 x 10/UL 4.5 - 10.8 Final EDT 3.83 x 10/UL 12/05/2024 19:12 RBC 4.10 - 5.30 Final Below low normal EDT 11.5 g/dl 12/05/2024 19:12 HEMOGLOBIN 12.0 - 16.0 Final Below low normal EDT 32.7 % 12/05/2024 19:12 HEMATOCRIT 34.0 - 46.0 Final Below low normal EDT 12/05/2024 19:12 MCV 86 fl 80 - 99 Final EDT 12/05/2024 19:12 MCH 30 pg 27 - 33 Final EDT 12/05/2024 19:12 MCHC 35 X10 3 32 - 36 Final EDT 12/05/2024 19:12 RDW/CV 13.4 % 12.0 - 15.6 Final EDT 12/05/2024 19:12 PLATELET 265 x10/UL 150 - 450 Final EDT 12/05/2024 19:12 MPV 8.2 fl 6.6 - 10.5 Final EDT AUTOMATED DIFFERENTIAL 78.2 % 12/05/2024 19:12 NEUT % 46.0 - 76.0 Final Above high normal EDT 14.1 % 12/05/2024 19:12 LYMPH % 20.0 - 45.0 Final Below low normal EDT 12/05/2024 19:12 MONOS % 7.0 % 0.0 - 10.0 Final EDT 4 of 19 [facility] - MANJINDER WINTER, : 2005, , 12/05/2024 19:12 EO % 0.5 % 0.0 - 7.0 Final EDT 12/05/2024 19:12 BASO % 0.2 % 0.0 - 2.0 Final EDT 12/05/2024 19:12 Lymph # 1.52 x10/UL 0.80 - 2.80 Final EDT (more content not included)... Normal [facility] ED SUPER BILL 12-24-2024 ED SUPER BILL [facility] MANJINDER WINTER, : 2005, , [address] [place] [address] [phone] 12/05/2024 Patient: MANJINDER WINTER Sex: Female : 2005 Age: 19y Item Facility Profession Category Description Code al Code Quantity Fee Total Nurse/E/M EMERGENCY 722085 1 $0.00 $0.00 DEPT VISIT [facility] (08007- 25) Nurse/IV/IM/ IVP 215642 1 $0.00 $0.00 Infusions additional push (72930) Nurse/IV/IM/ IVP initial 823753 1 $0.00 $0.00 Infusions (92441) Nurse/IV/IM/ IVP same 928177 1 $0.00 $0.00 Infusions med (31 min apart) (00117) Grand Total $0.00 Providers Darlene Chery D.O. 1 of 2 [facility] MANJINDER WINTER, : 2005, , Jaden Falcon D.O. Chief Complaints DEPRESSED. ANXIOUS and DEPRESSED. 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 ICD-10 Codes F33.3: Major depressive disorder, recurrent, severe with psychotic symptoms 2 of 2 Normal [facility] ED VISIT SUMMARYon ED VISIT SUMMARY Visit Overview - MANJINDER WINTER, : 2005, , Visit [place] [address] [place] [address] [phone] 12/05/2024 Patient: MANJINDER WINTER Sex: Female : 2005 Age: 19y 12/24/2024 11:32 PM EDT ED Arrival:18:19 12/05/2024 Status: Recent Travel:no EDT Language:eng Adv Directive: Isolation Status: Infectious Disease Ethnicity:N Fall Risk:no risk Exposure:no Measurements:5'3 / 160.0 Self-Harm Status:risk Sepsis Screen:negative cm 130.0 lb / 59.0 kg Chief Complaint:(cutting her arms ), (months), and (None) ALLERGIES No Known Drug Allergies HOME MEDICATIONS None PAST MEDICAL HISTORY / PROBLEMS 1 of 3 Visit Overview - MANJINDER WINTER, : 2005, , Anxiety disorder Bipolar Disorder Depression Immunizations: up-to-date LNMP: 2. Para 0. Abortions 1. (unknown) status: currently : EDC: See nurses notes PAST SURGICAL HISTORY No Surgeries SOCIAL HISTORY Smoking status: No Alcohol use: Yes Drug use: Yes ED COURSE MEDICATIONS GIVEN IN EMERGENCY DEPARTMENT 22:38 12/05/24 Reglan IVP 10 mg 05:50 12/06/24 Reglan IVP 10 mg 08:30 12/06/24 Zofran IVP 4 mg 12:23 12/06/24 Acetaminophen (Tylenol) PO 975 mg IV SITE INFORMATION INTAKE OUTPUT REASSESMENT (most recent) 12:26 12/06/24. ( Pt c/o back pain and medicated per orders. Pt denies a lunch tray or snack at this time). GENERAL / NEURO / PSYCH: Alert. Oriented X 4. Patient appears calm and cooperative. Affect appears normal. RESPIRATORY: No respiratory distress. SKIN: Skin is warm and dry. Skin color within normal limits. VITAL SIGNS 2 of 3 Visit Overview - MANJINDER WINTER, : 2005, , First Vitals Last Vitals Temp 18:39 12/05/24 98.5 F Temp 15:00 12/06/24 98.6 F BP 18:39 12/05/24 132/79 BP 15:00 12/06/24 93/47 HR 18:39 12/05/24 98 HR 15:00 12/06/24 95 RR 18:39 12/05/24 18 RR 15:00 12/06/24 16 O2 Sat 18:39 12/05/24 100% O2 Sat 15:00 12/06/24 100% Pain 18:39 12/05/24 0 Pain 15:00 12/06/24 0 ETCO2 18:39 12/05/24 ETCO2 15:00 12/06/24 GCS 18:39 12/05/24 GCS 15:00 12/06/24 RTS 18:39 12/05/24 RTS 15:00 12/06/24 PROCEDURES NURSING INTERVENTIONS LABS / STUDIES LABS / STUDIES ORDERED Blood Alcohol - ETOH CBC w Diff CMP Drug Screen Urine Medic Urinalysis CLINICAL IMPRESSION POSSIBLE SUICIDAL IDEATION RECURRENT MODERATE MAJOR DEPRESSIVE DISORDER WITH PSYCHOSIS AND SUICIDAL IDEATION 3 of 3 Normal [facility] ED VITALS FLOW SHEETon 12-24 ED VITALS FLOW SHEET Vitals - MANJINDER WINTER, : 2005, , Vital Sign Flow Sheet [address] [address] [id number] 12/05/2024 Patient: MANJINDER WINTER Sex: Female : 2005 Age: 19y Measurements Wt: 59.0 kg, Ht/Sai: 63.0 in, BMI: 23.03 Measured Abigail Time BP MAP HR RR O2Sat ETCO2 Temp n GCS RTS 15:00 93/47 62 95 16 100% 98.6 F 0 12/06/2024 14:17 93/47 62 95 16 100% 98.6 F 0 12/06/2024 18:39 132/79 97 98 18 100% 98.5 F 0 12/05/2024 1 of 1 Normal [facility] ALCOHOL-BLOOD MEDICALon 11-19 Ethanol [Mass/Vol] 5 mg/dL Normal 0 - 50 [facility] Comment on above: Performed By: #### 2 81315 #### [facility],[address] [place] [address] CBC + DIFFon 12-05-2024 Baso # 0.02 x10EE3/UL Normal 0.00 - 0.10 [facility] Comment on above: Performed By: #### 2 81047 #### [facility],[address] [place], [place] [id number] Basophils/100 WBC (Bld) 0.2 % Normal 0.0 - 2.0 [facility] Comment on above: Performed By: #### 2 21410 #### [facility],[address] [place] [address] CBC + DIFF Normal [facility] Comment on above: Result Comment: CBC- COMPLETE BLOOD COUNT Performed By: #### 2 21746 #### [facility],[address] [place] [address] EO # 0.06 x10EE3/UL Normal 0.00 - 0.50 [facility] Comment on above: Performed By: #### 2 15876 #### [address] [address] Eosinophils/100 WBC (Bld) 0.5 % Normal 0.0 - 7.0 [facility] Comment on above: Performed By: #### 2 95314 #### [facility],[address] [place] [address] Erythrocyte distribution width (RBC) [Ratio] 13.4 % Normal 12.0 - 15.6 [facility] Comment on above: Performed By: #### 2 21516 #### [facility],[address] [place] [address] Hematocrit (Bld) [Volume fraction] 32.7 % Low 34.0 - 46.0 [facility] Comment on above: Performed By: #### 2 10080 #### [facility],[address] [place] [address] Hemoglobin (Bld) [Mass/Vol] 11.5 g/dL Low 12.0 - 16.0 [facility] Comment on above: Performed By: #### 2 90432 #### [facility],[address] [place] [address] Lymph # 1.52 x10EE3/UL Normal 0.80 - 2.80 [facility] Comment on above: Performed By: #### 2 47222 #### [facility],[address] [place], [place] [id number] Lymphocytes/100 WBC (Bld) 14.1 % Low 20.0 - 45.0 [facility] Comment on above: Performed By: #### 2 79974 #### [facility],[address] [place], [place] [id number] MANUAL DIFF N/A Normal [facility] Comment on above: Performed By: #### 2 14655 #### [facility],[address] [place], [place] [id number] MCH (RBC) [Entitic mass] 30 pg Normal 27 - 33 [facility] Comment on above: Performed By: #### 2 60491 #### [facility],[address] [place] [address] MCHC 35 X10 3 Normal 32 - 36 [facility] Comment on above: Performed By: #### 2 94191 #### [facility],[address] [place], [place] [id number] MCV (RBC) [Entitic vol] 86 fL Normal 80 - 99 [facility] Comment on above: Performed By: #### 2 70668 #### [facility],[address] [place] [address] Throckmorton # 0.76 x10EE3/UL Normal 0.20 - 1.00 [facility] Comment on above: Performed By: #### 2 30687 #### [facility],[address] [place] [address] MONOS % 7.0 % Normal 0.0 - 10.0 [facility] Comment on above: Performed By: #### 2 75754 #### [facility],[address] [place] [address] Morphology Ravi (Bld) [Interp] N/A Normal [facility] Comment on above: Performed By: #### 2 47899 #### [facility],[address] [place] [address] Neut # 8.44 x10EE3/UL High 1.50 - 7.10 [facility] Comment on above: Performed By: #### 2 20862 #### [place] [address] Neutrophils/100 WBC (Bld) 78.2 % High 46.0 - 76.0 [facility] Comment on above: Performed By: #### 2 52580 #### [facility],[address] [place] [address] PLATELET 265 x10EE3/UL Normal 150 - 450 [facility] Comment on above: Performed By: #### 2 85118 #### [place] [address] Platelet mean volume (Bld) [Entitic vol] 8.2 fL Normal 6.6 - 10.5 [facility] Comment on above: Result Comment: AUTO MATED DIFFERENTIAL Performed By: #### 2 80257 #### [address],[place] [address] RBC 3.83 x 10EE6/UL Low 4.10 - 5.30 [facility] Comment on above: Performed By: #### 2 13593 #### [facility],[address] [place] [address] WBC 10.8 x 10EE3/UL Normal 4.5 - 10.8 [facility] Comment on above: Performed By: #### 2 16854 #### [facility],[address] [place] [address] 13566 CMP with eGFRon 12-05-2024 AGE 19 years Normal [facility] Comment on above: Performed By: #### 2 68479 #### [facility],[address] [place] [address] 77057 Albumin [Mass/Vol] 3.3 g/dL Low 3.4 - 5.0 [facility] Comment on above: Performed By: #### 2 09345 #### [facility],[address] [place] [address]23 Albumin/Globulin [Mass ratio] 0.9 {ratio} Normal 0.9 - 1.6 [facility] Comment on above: Performed By: #### 2 79268 #### [facility],[address] [place] [address] 87055 ALK PHOS 82 U/L Normal 46 - 116 [facility] Comment on above: Performed By: #### 2 57090 #### [facility],[address] [place] [address] 25250 ALT [Catalytic activity/Vol] 14 U/L Low 16 - 63 [facility] Comment on above: Performed By: #### 2 61617 #### [facility],[address] [place] [address] 65562 Anion gap [Moles/Vol] 16 mmol/L Normal 10 - 20 [facility] Comment on above: Performed By: #### 2 51237 #### [facility],[address] [place] [address] 56911 AST [Catalytic activity/Vol] 13 U/L Normal 13 - 39 [facility] Comment on above: Performed By: #### 2 74788 #### [facility],[address] [place] [address] 17431 B/C RATIO 14 ratio Normal 0 - 30 [facility] Comment on above: Performed By: #### 2 82121 #### [facility],[address] [place] [address] 86144 Bilirubin [Mass/Vol] 0.3 mg/dL Normal 0.2 - 1.0 [facility] Comment on above: Performed By: #### 2 10348 #### [facility],[address] [place] [address] Calcium [Mass/Vol] 8.7 mg/dL Normal 8.5 - 10.1 [facility] Comment on above: Performed By: #### 2 72657 #### [facility],[address] [place] [address] 65592 Chloride [Moles/Vol] 103 mmol/L Normal 98 - 107 [facility] Comment on above: Performed By: #### 2 14890 #### [facility],[address] [place] [address] 16501 CMP with eGFR Normal [facility] Comment on above: Result Comment: COMP REHENSIVE METABOLIC PANEL Performed By: #### 2 61666 #### [facility],[address] [place] [address] 618[address] CO2 [Moles/Vol] 23.8 mmol/L Normal 21.0 - 32.0 [facility] Comment on above: Performed By: #### 2 39165 #### [facility],[address] [place] [address] 78363 Creatinine [Mass/Vol] 0.35 mg/dL Low 0.55 - 1.02 [facility] Comment on above: Performed By: #### 2 00034 #### [facility],[address] [place] [address] 74165 GFR/1.73 sq M.predicted among non-blacks MDRD (S/P/Bld) [Vol rate/Area] mL/min/{1.73_m2} Normal 60 - 999 [facility] Comment on above: Performed By: #### 2 49189 #### [facility],[address] [place] [address] Result Comment: ACCO RDING TO THE NATIONAL KIDNEY DISEASE EDUCATION PROGRAM(NKDE), A NORMAL eGFR IS A VALUE GREATER THAN OR EQUAL TO 60 ML/MIN/1.73 SQ METERS. CHRONIC KIDNEY DISEASE: <60mL/MIN/1.73 SQ METERS KIDNEY FAILURE: <15mL/MIN/1.73 SQ METERS THIS TEST SHOULD ONLY BE USED FOR PATIENTS 18 YEARS OF AGE AND OLDER. Globulin (S) [Mass/Vol] 3.5 g/dL Normal 1.5 - 3.8 [facility] Comment on above: Performed By: #### 2 91632 #### [facility],[address] [place] [address] Glucose [Mass/Vol] 73 mg/dL Low 74 - 106 [facility] Comment on above: Performed By: #### 2 59974 #### [facility],[address] [place] [address] Potassium [Moles/Vol] 3.5 mmol/L Normal 3.5 - 5.1 [facility] Comment on above: Performed By: #### 2 50640 #### [facility],[address] [place] [address] Protein [Mass/Vol] 6.8 g/dL Normal 6.4 - 8.2 [facility] Comment on above: Performed By: #### 2 26082 #### [facility],[address] [place] [address] 09027 Sodium [Moles/Vol] 139 mmol/L Normal 136 - 145 [facility] Comment on above: Performed By: #### 2 21649 #### [facility],[address] [place] [address],[facility] [address] Urea nitrogen [Mass/Vol] 5 mg/dL Low - [facility] Comment on above: Performed By: #### 2 12111 #### [facility],[address] [place] [address]8412 DRUG SCREEN URINE MEDICon AMPHETAMINES Negative Normal [facility] Comment on above: Performed By: #### 2 47585 #### [facility],[address] [place] [address],[facility] [address] B-DIAZEPINES Negative Normal [facility] Comment on above: Performed By: #### 2 04525 #### [facility],[address] [place] [address] BARBITURATES Negative [facility] Comment on above: Performed By: #### 2 73581 #### [facility],[address] [place] [address] COCAINE Negative [facility] Comment on above: Performed By: #### 2 36653 #### [facility],[address] [place] [address] DRUG SCREEN URINE MEDIC Normal [facility] Comment on above: Result Comment: DRUG SCREEN - URINE Performed By: #### 2 80445 #### [facility],[address] [place] [address] 17045 METHADONE Negative [facility] Comment on above: Performed By: #### 2 37833 #### [facility],[address] [place] [address] 70153 OPIATES Negative [facility] Comment on above: Performed By: #### 2 42915 #### [facility],[address] [facility] [address] PCP Negative Normal [facility] Comment on above: Performed By: #### 2 19498 #### [facility],[address] [place] [address]257 THC Positive Normal [facility] Comment on above: Result Comment: JUAN JOSE ENTS RECEIVING PROTON PUMP INHIBITORS MAY DEMONSTRATE FALSE POSITIVE THC/CANNABINOID RESULTS. AN ALTERNATIVE CONFIRMATORY METHOD SHOULD BE CONSIDERED TO VERIFY POSITIVE RESULTS. Performed By: #### 2 38623 #### [facility],[address] [place] [address]2857 URINALYSISon 12-05-2024 Amorphous NONE Normal [facility] Comment on above: Performed By: #### 2 57803 #### [facility],[address] [place] [address] 45014 Bacteria 2+ Normal [facility] Comment on above: Performed By: #### 2 78147 #### [facility],[address] [place], [place] [phone] Bilirubin Ql (U) Negative Normal NORMAL: NEGATIVE [facility] Comment on above: Performed By: #### 2 34018 #### [facility],[address] [place], [place] [id number] Casts NONE Normal [facility] Comment on above: Performed By: #### 2 05506 #### [facility],[address] [place] [address] 46886 Clarity (U) clear Normal NORMAL: CLEAR [facility] Comment on above: Performed By: #### 2 65018 #### [facility],[address] [place] [address] 97358 Color (U) yellow Normal NORMAL: YELLOW [facility] Comment on above: Performed By: #### 2 46085 #### [facility],[address] [place] [address] 62335 Crystals LM Nom (Urine sed) NONE Normal [facility] Comment on above: Performed By: #### 2 26092 #### [facility],[address] [place] [address] 01572 Epi Cells MODERATE Normal [facility] Comment on above: Performed By: #### 2 29117 #### [facility],[address] [place] [address] 96603 Glucose Ql (U) NORM Normal NORMAL: NORMAL [facility] Comment on above: Performed By: #### 2 23559 #### [facility],[address] [place] [address] 77965 Hemoglobin Ql (U) Negative Normal NORMAL: NEGATIVE [facility] Comment on above: Performed By: #### 2 34098 #### [facility],[address] [place] [address] 55143 Ketone 15 Abnormal NORMAL: NEGATIVE [facility] Comment on above: Performed By: #### 2 03206 #### [facility],[address] [place] [address] 38373 Leukocytes 500 Abnormal NORMAL: NEGATIVE [facility] Comment on above: Performed By: #### 2 96632 #### [facility],[address] [place] [address] 42156 Mucous NONE Normal [facility] Comment on above: Performed By: #### 2 74433 #### [facility],[address] [place] [address] 76710 Nitrite Ql (U) Negative Normal NORMAL: NEGATIVE [facility] Comment on above: Performed By: #### 2 34969 #### [facility],[address] [place] [address] 96457 pH (U) 6 [pH] Normal NORMAL: 5.0-8.0 [facility] Comment on above: Performed By: #### 2 39049 #### [facility],[address] [place] [address] 83905 Protein Ql (U) 15 Abnormal NORMAL: NEGATIVE [facility] Comment on above: Performed By: #### 2 79841 #### [facility],[address] [place] [address] 56230 Rbc NONE Normal 0-3/hpf [facility] Comment on above: Performed By: #### 2 70766 #### [facility],[address] [place] [address] Sp [place] 1.015 Normal NORMAL: 1.010-1.030 [facility] Comment on above: Performed By: #### 2 78061 #### [facility],[address] [place] [address] Specimen Type R Normal [facility] Comment on above: Performed By: #### 2 09296 #### [facility],[address] [place] [address] Urinalysis dipstick W Reflex Microscopic panel (U) SEE BELOW Normal [facility] Comment on above: Result Comment: MICR OSCOPIC Performed By: #### 2 50475 #### [facility],[address] [place] [address] Urobilinog NORM Normal NORMAL: NORMAL [facility] Comment on above: Performed By: #### 2 89503 #### [facility],[address] [place] [address] Wbc 1-5 Normal 0-5/hpf [facility] Comment on above: Performed By: #### 2 42970 #### [facility],[address] [place] [address] Yeast NONE Normal [facility] Comment on above: Performed By: #### 2 99488 #### [facility],[address] [place] [address] CNPAmara 11-19-2024 JOSEFA Telephone (BULMAROGYMinalM) MANJINDER WINTER ([id number]) 3 F Date Time Provider Department 11/19/24 LOW, NAOMI OBGYWM During your visit today, we recorded the following information about you: Naomi Kelsey MD 11/19/2024 12:00 PM Signed Reglan not helping. Wants to go back to zofran Allergies As of Date: 11/19/2024 (No Known Allergies) Date Reviewed: 11/07/2024 Reviewed by: Danita Dugan LPN - Fully Assessed Order(s):ondansetron (ZOFRAN) 4 mg tabletTake 1 tablet by mouth every 8 hours as needed for nausea/vomiting.Disp : 60 tabletRfl: 1 Prescriptions as of 11/19/2024 - ondansetron (ZOFRAN) 4 mg tablet Take 1 tablet by mouth every 8 hours as needed for nausea/vomiting. - aspirin, enteric coated (ECOTRIN LOW STRENGTH) 81 mg EC tablet Take 1 tablet by mouth once daily. - vit no.124/iron/folic ( VITAMIN ORAL) Take 1 tablet by mouth once daily. Problem List As Of Date 11/19/2024 Noted Resolved Depression with anxiety [F41.8] 05/08/2018 History of anxiety [Z86.59] 05/08/2018 with uncertain dates in first trimest*08/01/2024 Acute vaginitis [N76.0] 08/01/2024 Marijuana use during (HCC) [O99.320, *08/01/2024 Nausea and vomiting during (HCC) [O21*08/01/2024 History of non-suicidal self-harm [Z91.52] 08/01/2024 Bipolar 1 disorder (HCC) [F31.9] 09/12/2024 Prescriptions ordered this encounter Disp Refills Start End ONDANSETRON HCL 4 MG TABLET 60 t* 1 11/19/2024 Route: PO Sig: Take 1 tablet by mouth every 8 hours as needed for nausea/vomiting. Medications Discontinued During This Encounter Prescriptions - metoclopramide HCl (REGLAN) 10 mg tablet (Discontinued) Take 1 tablet by mouth three times a day. Encounter Status:Closed by NAOMI KELSEY on 11/19/24 Normal [facility] Examination level ultrasound on 11-08-2024 Indication Standard anatomic survey Impression The patient is referred for a standard anatomic survey. - Single, live, intrauterine . - biometry is consistent with the established gestational age. - No malformations were visualized on a complete standard anatomic survey. - The amniotic fluid volume is normal amount. - The placenta is posterior, fundal. - The Transabdominal cervical length measures 36.3 mm with no evidence of funneling or other dynamic changes. - Not all structural malformations can be detected by ultrasound examination. Recommendations Additional follow-up as clinically indicated. Maternal Assessment Height 163 cm Height (ft) 5 ft Height (in) 4 in Physical Exam Initial weight (lb) 125 lb Initial BMI 21.46 kg/m Maternal assessment other: 1 Para 0 REMOTE READ Method Transabdominal ultrasound examination. View: Adequate visualization Carvajal . Number of fetuses: 1 Dating LMP on: 04/29/2024 GA by LMP 27 w + 3 d ANA MARIA by LMP: 02/03/2025 GA by prior assessment 20 w + 5 d ANA MARIA by prior assessment: 03/22/2025 Ultrasound examination on: 11/07/2024 GA by U/S based upon: AC, BPD, Femur, HC GA by U/S 21 w + 0 d ANA MARIA by U/S: 03/20/2025 Assigned: based on stated ANA MARIA, selected on 11/07/2024 Assigned GA 20 w + 5 d Assigned ANA MARIA: 03/22/2025 General Evaluation Cardiac activity present. FHR 137 bpm. movements: present. Presentation: cephalic Placenta: Placental site: posterior, fundal Umbilical cord: Cord vessels: 3 vessel cord Amniotic fluid: Amount of AF: normal amount. MVP 4.7 cm Growth Overview Exam date GA BPD (mm) HC (mm) AC (mm) FL (mm) HL (mm) EFW (g) 11/07/2024 20w 5d 50.9 77% 184.8 53% 161.6 62% 33.3 52% 30.7 28% 382 52% Biometry Standard BPD 50.9 mm 21w 3d 77% Hadlock OFD 64.3 mm 20w 3d 62% Nicolaides HC 184.8 mm 20w 6d 53% Marianne Cerebellum tr 22.0 mm 20w 4d 65% Hill Nuchal fold 4.0 mm AC 161.6 mm 21w 2d 62% Hadlock Femur 33.3 mm 20w 4d 52% Marianne Humerus 30.7 mm 20w 1d 28% Marianne EFW 382 g 20w 5d 52% Hadlock EFW (lb) 0 lb EFW (oz) 13 oz EFW by: Hadlock (HC-AC-FL) Extended Child Welfare Specialist 5.8 mm CM 2.7 mm 1% Nicolaides Extremities / Bony Struc FL / HC 0.18 15% Hadlock Other Structures FHR 137 bpm Anatomy Cranium: normal Lateral ventricles: normal Choroid plexus: normal Midline falx: normal Cavum septi pellucidi: normal Cerebellum: normal Cisterna magna: normal Head / Neck Vermis: Normal but not required for a standard anatomy exam Neck: Normal but not required for a standard anatomy exam Nuchal fold: Normal but not required for a standard anatomy exam Lips: normal Profile: Normal but not required for a standard anatomy exam Nose: Normal but not required for a standard anatomy exam Face Maxilla: Normal but not required for a standard anatomy exam Mandible: Normal but not required for a standard anatomy exam Orbits: Normal but not required for a standard anatomy exam Lens: Normal but not required for a standard anatomy exam 4-chamber view: normal RVOT view: normal LVOT view: normal 3-vessel view: normal 1-wfszoe-svqjewk view: normal Heart / Thorax Situs: situs solitus (normal) Aortic arch view: Normal but not required for a standard anatomy exam SVC: Normal but not required for a standard anatomy exam IVC: Normal but not required for a standard anatomy exam Cardiac axis: normal Rt lung: Normal but not required for a standard anatomy exam Lt lung: Normal but not required for a standard anatomy exam Diaphragm: normal Cord insertion: normal Stomach: normal Kidneys: normal Bladder: normal Genitals: normal Abdomen Abdom. wall: normal Cervical spine: normal Thoracic spine: normal Lumbar spine: normal Sacral spine: normal Arms: normal Legs: normal Rt upper arm: normal Rt forearm: normal Rt hand: normal Rt fingers: normal Lt upper arm: normal Lt forearm: normal Lt hand: normal Lt fingers: normal Rt upper leg: normal Rt lower leg: normal Rt foot: normal Lt upper leg: normal Lt lower leg: normal Lt foot: normal sex: male Wants to know sex: yes Maternal Structures Uterus / Cervix Uterus: Visualized Cervix: Visualized Approach: Transabdominal Cervical length 36.3 mm Other: Patient declined transvaginal ultrasound for cervical length. Ovaries / Tubes / Adnexa Rt ovary: Visualized Lt ovary: Visualized Performed By: Minoo Bullard RDMS, RVT Read By: Hi Connolly M.D. MATERNAL MEDICINE [facility] Examination level ultrasound on 11-07-2024 Radiology Study observation (narrative) [facility] BACTERIAL VAGINOSIS NAATon 0 10-22-2024 Lactobacillus crispatus+gasseri+cano ii + Gardnerella vaginalis + Atopobium vaginae rRNA NICO+probe Ql (Vag fld) Not detected Normal Not detected [facility] Comment on above: Order Comment: Speci men Type: SWAB Ordering Facility: [facility] Address: [address] [place] [address] Performed By: #### B VAMP, CVTV #### [facility] CLIA [id number] [address] [place] [address] [place] Bacteria Ur Culton Bacteria identified Cx Nom (U) ORGANISM ID: 1 50,000-<100,000 CFU/ml Normal urogenital jovana Normal [facility] Comment on above: Performed By: #### 6 30-4 ####[facility] [id number] [place] [address] [place] BHARATHI/TRICHOMONAS NAATon 0 10-22-2024 C. glabrata RNA NICO+probe Ql (Vag fld) Not detected Normal Not detected [facility] Comment on above: Order Comment: Speci men Type: SWAB Ordering Facility: [facility] Address: [address] [place] [address] Performed By: #### B VAMP, CVTV #### [facility] CLIA [id number] [address] [place] [address] [place] Bharathi sp DNA NICO+probe Ql (Vag fld) Detected Abnormal Not detected [facility] Comment on above: Order Comment: Speci men Type: SWAB Ordering Facility: [facility] Address: [address] [place] [address] Result Comment: The Bharathi species group target includes C. albicans, C. tropicalis, C. parapsilosis, and C. dubliniensis. Performed By: #### B VAMP, CVTV #### [facility] CLIA [id number] [address] [place] [address] [place] T. vaginalis DNA NICO+probe Ql (Unsp spec) Not detected Normal Not detected [facility] Comment on above: Order Comment: Speci men Type: SWAB Ordering Facility: [facility] Address: [address] [place] [address] Performed By: #### B VAMP, CVTV #### [facility] CLIA [id number] [address] [place] [address] [place] CNOVon 10-22-2024 CNOV Office Visit (WOUCA) MANJINDER WINTER ([id number]) 3 F Date Time Provider Department 10/22/24 3:30 PM RITESH WASHBURN During your visit today, we recorded the following information about you: Temperature Pulse Respiration Blood pressure 98.8 degrees 104/minute 17/minute 110/80 Weight 57.9 kg Ritesh Washburn APRN.BORDER MACHINE OPERATOR 10/22/2024 4:09 PM Signed [facility] Subjective Manjinder Sanders Moy is a 19 year old female. Patient presents with: Vaginal Problem: Possible peroneal tear x 1 day HPI 18-week female presents urgent care chief complaint vaginal irritation. Concerned about possible vaginal tear. Presents today for evaluation. States area feels tender and swollen. Has noticed some vaginal discharge. Describes as white. Possible some blood. Denies any vaginal injuries or recent sexual intercourse. No fevers. No dysuria or frequency. Past medical history prescription medications allergies reviewed. Review of Systems Constitutional: Negative for chills, fatigue and fever. Gastrointestinal: Negative for abdominal distention, abdominal pain, nausea, rectal pain and vomiting. Genitourinary: Positive for vaginal discharge and vaginal pain. Negative for difficulty urinating, dyspareunia, dysuria, flank pain, frequency, genital sores, hematuria, urgency and vaginal bleeding. Objective BP 110/80 Pulse 104 Temp 37.1 ?C (98.8 ?F) Resp 17 Wt 57.9 kg (127 lb 10.3 oz) LMP 04/29/2024 (Exact Date) SpO2 99% BMI 21.77 kg/m? Hr 90 Physical Exam Exam conducted with a business controller present. Constitutional: Appearance: Normal appearance. HENT: Mouth/Throat: Mouth: Mucous membranes are moist. Cardiovascular: Rate and Rhythm: Normal rate. Pulmonary: Effort: Pulmonary effort is normal. Breath sounds: Normal breath sounds. Abdominal: Tenderness: There is no abdominal tenderness. There is no right CVA tenderness, left CVA tenderness, guarding or rebound. Genitourinary: Labia: Right: Tenderness present. Left: Tenderness present. Comments: White vaginal discharge noted on external exam. Vaginal swelling noted. Moderate tenderness with external exam Lymphadenopathy: Lower Body: No right inguinal adenopathy. No left inguinal adenopathy. Neurological: Mental Status: She is alert. {ASSESSMENT/PLAN: 1. Vaginal discharge - ICD9: 623.5, ICD10: N89.8 - BHARATHI/TRICHOMONAS NAAT - BACTERIAL VAGINOSIS NAAT - UA DIP, URINE (POC) - BACTERIAL CULTURE, URINE Diagnosed with vaginal discharge. Small leukocytes noted on urine dip. Keflex sent to the pharmacy. Treat accordingly urine culture results. Additionally treat accordingly to vaginal swab test results. Patient is currently 18 weeks . When I discussed management with patient patient states pain is 10 out of 10. With 10 out of 10 vaginal discomfort recommend patient be seen in the ED for further evaluation care. Verbalized understanding agrees with plan of care. Ritesh Washburn APRN.BORDER MACHINE OPERATOR History and Record Review Clinical information obtained from an independent historian. History obtained from or confirmed by: parent. External record(s) reviewed: prior outpatient record. Disposition The patient was discharged. Procedures Allergies As of Date: 10/22/2024 (No Known Allergies) Date Reviewed: 10/22/2024 Reviewed by: Lana Briceno MA - Fully Assessed Reason for Visit: Vaginal Problem [117] Cmt: Possible peroneal tear x 1 day Primary Visit Diagnosis:Vaginal discharge [N89.8] Order(s):BHARATHI/TRI CHOMONAS NAAT [SQCVTV] Order #: [id number]. #:[id number] BACTERIAL VAGINOSIS NAAT [SQBVAMP] Order #: [id number]. #:[id number] cephALEXin (KEFLEX) 500 mg capsuleTake 1 capsule by mouth two times a day for 5 days.Disp: 10 capsuleRfl: 0 UA DIP, URINE (POC) [] Order #: [id number]. #:[id number] UA DIP, URINE (POC) [] Order #: [id number] BACTERIAL CULTURE, URINE [SQURCUL] Order #: [id number]. #:[id number] Prescriptions as of 10/22/2024 - cephALEXin (KEFLEX) 500 mg capsule Take 1 capsule by mouth two times a day for 5 days. - ondansetron (ZOFRAN) 4 mg tablet Take 1 tablet by mouth every 8 hours as needed for nausea/vomiting. - aspirin, enteric coated (ECOTRIN LOW STRENGTH) 81 mg EC tablet Take 1 tablet by mouth once daily. - vit no.124/iron/folic ( VITAMIN ORAL) Take 1 tablet by mouth once daily. 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 Normal [facility] UA DIP, URINE (POC)on 2024 BILIRUBIN UA (POCT) Negative Negative [place] CLARITY UA (POCT) [facility] COLOR UA (POCT) Yellow [facility] GLUCOSE UA (POCT) Negative Negative mg/dL [facility] Hemoglobin Ql (U) Negative Negative [facility] Interpretation and review of laboratory results Abnormal [facility] KETONE UA (POCT) Negative Negative mg/dL [facility] LEUKOCYTES UA (POCT) Small Abnormal Negative [facility] NITRITE UA (POCT) Negative Negative [facility] PH UA (POCT) 7.5 4.5 - 8.0 [facility] Protein Ql (U) Negative Negative mg/dL [facility] SPECIFIC GRAVITY UA (POCT) 1.02 1.005 - 1.030 [facility] UROBILINOGEN UA (POCT) 0.2 Normal E.U./d L [facility] Location:[address], [place], [place], [address] [place] [address] POINT OF CARE [facility] 09-25-2024 CNPN Telephone (PSWSTR) MANJINDER WINTER ([id number]) 3 F Date Time Provider Department 09/25/24 RHYS MORAN PSWSTR During your visit today, we recorded the following information about you: Blank Tiwari LPN 09/25/2024 10:50 AM Signed This is a formerly [facility] referral for you to review. LC Ayon Nishi J, SHIP WIRER.BORDER MACHINE OPERATOR 09/25/2024 3:58 PM Signed Upon chart review, it was noted that patient used to get services at [facility] for both medication management and therapy and had agreed to reach out to them again to resume services. If patient is not able to re establish care at [facility], please schedule her for a new patient appointment with me. Allergies As of Date: 09/25/2024 (No Known Allergies) Date Reviewed: 09/12/2024 Reviewed by: Job Dueñas MA - Fully Assessed Prescriptions as of 09/25/2024 - ondansetron (ZOFRAN) 4 mg tablet Take 1 tablet by mouth every 8 hours as needed for nausea/vomiting. - aspirin, enteric coated (ECOTRIN LOW STRENGTH) 81 mg EC tablet Take 1 tablet by mouth once daily. - vit no.124/iron/folic ( VITAMIN ORAL) Take 1 tablet by mouth once daily. 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 - Single, live, intrauterine . - Mayfair rump length measurement is consistent with the established gestational age. - A qualitative screen of the nuchal translucency and other anatomic structures was unremarkable on an incomplete first trimester anatomic assessment. - Not all structural malformations can be detected by ultrasound examination. - An anatomic survey at 18-20 weeks is recommended given no identified risk factors. Recommendations - An anatomic survey at 18-20 weeks given no identified risk factors. - Additional follow up as clinically indicated. Maternal Assessment Height 163 cm Height (ft) 5 ft Height (in) 4 in Physical Exam Initial weight (lb) 125 lb Initial BMI 21.46 kg/m Maternal assessment other: 1 Para 0 REMOTE READ Method Transabdominal ultrasound examination Carvajal . Number of fetuses: 1 Dating LMP on: 04/29/2024 GA by LMP 19 w + 3 d ANA MARIA by LMP: 02/03/2025 GA by prior assessment 12 w + 5 d ANA MARIA by prior assessment: 03/22/2025 Ultrasound examination on: 09/12/2024 GA by U/S based upon: CRL GA by U/S 13 w + 3 d ANA MARIA by U/S: 03/17/2025 Assigned: based on stated ANA MARIA, selected on 09/12/2024 Assigned GA 12 w + 5 d Assigned ANA MARIA: 03/22/2025 General Evaluation Cardiac activity present Placenta: posterior Cord vessels: 3 vessel cord Amniotic fluid: normal amount Biometry Standard FHR 152 bpm CRL 72.1 mm 13w 3d 86% Hadlock First Trimester Anatomy Calvarium: normal Falx cerebri: normal Choroid plexus: normal Profile: normal Nasal bone: normal Retronasal triangle: normal Maxilla: normal Mandible: normal Nuchal translucency: Unremarkable Situs: normal Cardiac position: normal Cardiac axis: normal 4-chamber view: normal 4-chamber view with color: normal 9-btaeuw-otrhmcp view: normal Abdominal cord insertion: normal Stomach: normal Kidneys: normal Bladder: normal Color doppler of perivesical umbilical arteries: normal Vertebral alignment: normal Arms: normal Hands: normal Legs: normal Feet: normal Maternal Structures Uterus / Cervix Uterus: Visualized Uterus length 129 mm Uterus width 101 mm Uterus height 100 mm Uterus Vol 681.7 cm Ovaries / Tubes / Adnexa Rt ovary: Visualized Rt ovary D1 43 mm Rt ovary D2 20 mm Rt ovary D3 26 mm Rt ovary Vol 11.6 cm Lt ovary: Visualized Lt ovary D1 24 mm Lt ovary D2 12 mm Lt ovary D3 17 mm Lt ovary Vol 2.6 cm Performed By: Minoo Bullard RDMS, RVT Read By: Hi Connolly M.D. MATERNAL MEDICINE [facility] CBC W Auto Differential pane l (Bld)on 09-12-2024 Basophils (Bld) [#/Vol] 10*3/uL Normal <0.11 C [facility] Comment on above: Order Comment: Speci men Type: BLOOD SPECIMENOrdering Facility: [facility] Address: [address] [place] [address] Performed By: #### 5 7021-8 ####[facility] [id number] [place] [address] [place] Basophils/100 WBC (Bld) 0.1 % Normal [facility] Comment on above: Order Comment: Speci men Type: BLOOD SPECIMENOrdering Facility: [facility] Address: [address] [place] [address] Performed By: #### 5 7021-8 ####[facility] N[facility]LES[facility]CL[facility] [id number] [place] [address] [place] Differential cell count method Nom (Bld) Auto Normal [facility] Comment on above: Order Comment: Speci men Type: BLOOD SPECIMENOrdering Facility: [facility] Address: [address] [place] [address] Performed By: #### 5 7021-8 ####[facility] [id number] [place] [address] [place] Eosinophils (Bld) [#/Vol] 0.06 10*3/uL Normal <0.46 [facility] Comment on above: Order Comment: Speci men Type: BLOOD SPECIMENOrdering Facility: [facility] Address: [address] [place] [address] Performed By: #### 5 7021-8 ####[facility] [id number] [place] [address] [place] Eosinophils/100 WBC (Bld) 0.8 % Normal [facility] Comment on above: Order Comment: Speci men Type: BLOOD SPECIMENOrdering Facility: [facility] Address: [address] [place] [address] Performed By: #### 5 7021-8 ####[facility] [id number] [place] [address] [place] Erythrocyte distribution width (RBC) [Ratio] 12.7 % Normal 11.5-15.0 [facility] Comment on above: Order Comment: Speci men Type: BLOOD SPECIMENOrdering Facility: [facility] Address: [address] [place] [address] Performed By: #### 5 7021-8 ####[facility] MISTINALLELYLIA [id number] [place] [address] [place] Hematocrit (Bld) [Volume fraction] 35.4 % Low 36.0-46.0 [facility] Comment on above: Order Comment: Speci men Type: BLOOD SPECIMENOrdering Facility: [facility] Address: [address] [place] [address] Performed By: #### 5 7021-8 ####[facility] ELIUDSAVANNAHNCLIA [id number] [place] [address] [place] Hemoglobin (Bld) [Mass/Vol] 12.6 g/dL Normal 11.5-15.5 [facility] Comment on above: Order Comment: Speci men Type: BLOOD SPECIMENOrdering Facility: [facility] Address: [address] [place] [address] Performed By: #### 5 7021-8 ####[facility] ELIUDSAVANNAHNALLELYLIA [id number] [place] [address] [place] Immature granulocytes (Bld) [#/Vol] 10*3/uL Normal <0.10 [facility] Comment on above: Order Comment: Speci men Type: BLOOD SPECIMENOrdering Facility: [facility] Address: [address] [place] [address] Performed By: #### 5 7021-8 ####[facility] ELIUDSAVANNAHNALLELYLIA [id number] [place] [address] [place] Immature granulocytes/100 WBC (Bld) 0.3 % Normal [facility] Comment on above: Order Comment: Speci men Type: BLOOD SPECIMENOrdering Facility: [facility] Address: [address] [place] [address] Performed By: #### 5 7021-8 ####[facility] [id number] [place] [address] [place] Lymphocytes (Bld) [#/Vol] 1.78 10*3/uL Normal 1.00-4.00 [facility] Comment on above: Order Comment: Speci men Type: BLOOD SPECIMENOrdering Facility: [facility] Address: [address] [place] [address] Performed By: #### 5 7021-8 ####[facility] [id number] [place] [address] [place] Lymphocytes/100 WBC (Bld) 22.8 % Normal [facility] Comment on above: Order Comment: Speci men Type: BLOOD SPECIMENOrdering Facility: [facility] Address: [address] [place] [address] Performed By: #### 5 7021-8 ####[facility] [id number] [place] [address] [place] MCH (RBC) [Entitic mass] 29.5 pg Normal 26.0-34.0 [facility] Comment on above: Order Comment: Speci men Type: BLOOD SPECIMENOrdering Facility: [facility] Address: [address] [place] [address] Performed By: #### 5 7021-8 ####[facility] [id number] [place] [address] [place] MCHC (RBC) [Mass/Vol] 35.6 g/dL Normal 30.5-36.0 [facility] Comment on above: Order Comment: Speci men Type: BLOOD SPECIMENOrdering Facility: [facility] Address: [address] [place] [address] Performed By: #### 5 7021-8 ####[facility] N[facility]LESNCL[facility] [id number] [place] [address] [place] MCV (RBC) [Entitic vol] 82.9 fL Normal 80.0-100.0 [facility] Comment on above: Order Comment: Speci men Type: BLOOD SPECIMENOrdering Facility: [facility] Address: [address] [place] [address] Performed By: #### 5 7021-8 ####[facility] [id number] [place] [address] [place] Monocytes (Bld) [#/Vol] 0.43 10*3/uL Normal <0.87 [facility] Comment on above: Order Comment: Speci men Type: BLOOD SPECIMENOrdering Facility: [facility] Address: [address] [place] [address] Performed By: #### 5 7021-8 ####[facility] [id number] [place] [address] [place] Monocytes/100 WBC (Bld) 5.5 % Normal [facility] Comment on above: Order Comment: Speci men Type: BLOOD SPECIMENOrdering Facility: [facility] Address: [address] [place] [address] Performed By: #### 5 7021-8 ####[facility] [id number] [place] [address] [place] Neutrophils (Bld) [#/Vol] 5.52 10*3/uL Normal 1.45-7.50 [facility] Comment on above: Order Comment: Speci men Type: BLOOD SPECIMENOrdering Facility: [facility] Address: [address] [place] [address] Performed By: #### 5 7021-8 ####[facility] [id number] [place] [address] [place] Neutrophils/100 WBC (Bld) 70.5 % Normal [facility] Comment on above: Order Comment: Speci men Type: BLOOD SPECIMENOrdering Facility: [facility] Address: [address] [place] [address] Performed By: #### 5 7021-8 ####[facility] ELIUDWNCLIA [id number] [place] [address] [place] Nucleated RBC (Bld) [#/Vol] 10*3/uL Normal <0.01 [facility] Comment on above: Order Comment: Speci men Type: BLOOD SPECIMENOrdering Facility: [facility] Address: [address] [place] [address] Performed By: #### 5 7021-8 ####[facility] NAPLESNCSARAHA [id number] [place] [address] [place] Nucleated RBC/100 WBC (Bld) [Ratio] 0.0 /100 WBC Normal [facility] Comment on above: Order Comment: Speci men Type: BLOOD SPECIMENOrdering Facility: [facility] Address: [address] [place] [address] Performed By: #### 5 7021-8 ####[facility]LES[facility]CL[facility] [id number] [place] [address] [place] Platelet mean volume (Bld) [Entitic vol] 9.9 fL Normal 9.0-12.7 [facility] Comment on above: Order Comment: Speci men Type: BLOOD SPECIMENOrdering Facility: [facility] Address: [address] [place] [address] Performed By: #### 5 7021-8 ####[facility]LES[facility]CL[facility] [id number] [place] [address] [place] Platelets (Bld) [#/Vol] 281 10*3/uL Normal 150-400 [facility] Comment on above: Order Comment: Speci men Type: BLOOD SPECIMENOrdering Facility: [facility] Address: [address] [place] [address] Performed By: #### 5 7021-8 ####[facility]LESNCA [id number] [place] [address] [place] RBC (Bld) [#/Vol] 4.27 10*6/uL Normal 3.90-5.20 [facility] Comment on above: Order Comment: Speci men Type: BLOOD SPECIMENOrdering Facility: [facility] Address: [address] [place] [address] Performed By: #### 5 7021-8 ####[facility] [id number] [place] [address] [place] WBC (Bld) [#/Vol] 7.82 10*3/uL Normal 3.70-11.00 [facility] Comment on above: Order Comment: Speci men Type: BLOOD SPECIMENOrdering Facility: [facility] Address: [address] [place] [address] Performed By: #### 5 7021-8 ####[facility] [id number] [place] [address] [place] Examination level ultrasound on 09-12-2024 Radiology Study observation (narrative) [facility] HBV surface Ag Ser Qlon 08-20 HBV surface Ag Ql (S) Negative Normal Negative [facility] Comment on above: Order Comment: Speci men Type: BLOOD SPECIMENOrdering Facility: [facility] Address: [address] [place] [address] Performed By: #### 5 195-3, 52525-9, 07664-9 ####[facility] LABCLIA [id number] [place] [address] [place] HCV Ab Ser Qlon 09-12-2024 HCV Ab Ql (S) Negative Normal Negative [facility] Comment on above: Order Comment: Speci men Type: BLOOD SPECIMENOrdering Facility: [facility] Address: [address] [place] [address] Result Comment: The result suggests no evidence of infection with Hepatitis C virus. Should recent infection be suspected, repeat testing may be considered 4-6 weeks after this draw. Performed By: #### 1 6128-1 ####[facility] LABIA [id number] [place] [address] [place] HIV 1+2 Ab IA Qlon 5 HIV 1 and 2 Ab IA.rapid Nom (S/P/Bld) Normal [facility] Comment on above: Order Comment: Speci men Type: BLOOD SPECIMENOrdering Facility: [facility] Address: [address] [place] [address] Result Comment: Test not indicated. Performed By: #### 5 195-3, 42171-8, 96679-1 ####[facility] [id number] [address] [place] HIV 1+2 Ab+HIV1 p24 Ag IA Ql Non-Reactive Normal Nonreactive [facility] Comment on above: Order Comment: Speci men Type: BLOOD SPECIMENOrdering Facility: [facility] Address: [address] [place] [address] Performed By: #### 5 195-3, 60225-7, 20264-7 ####[facility] [id number] [address] [place] HIV immunoassay testing algorithm interpretation (S/P/Bld) [Interp] Normal [facility] Comment on above: Order Comment: Speci men Type: BLOOD SPECIMENOrdering Facility: [facility] Address: [address] [place] [address] Result Comment: No e vidence of HIV-1 or HIV-2 infection. Should recent infection be suspected, repeat testing may be considered 2-3 weeks after this draw. [place] Rev. Code 3701.243(E): This information has been disclosed to you from confidential records protected from disclosure by state law. You shall make no further disclosure of this information without the specific, written, and informed release of the individual to whom it pertains or as otherwise permitted by state law. A general authorization for the release of medical or other information is not sufficient for the purpose of the release of HIV test results or diagnoses. Performed By: #### 5 195-3, 36051-8, 91738-6 ####[facility] LABSOU[facility] [id number] [place] [address] [place] HbA1c (Bld)on 09-12-2024 Average glucose Estimated from glycated hemoglobin (Bld) [Mass/Vol] 97 mg/dL Normal [facility] Comment on above: Order Comment: Speci men Type: BLOOD SPECIMENOrdering Facility: [facility] Address: [address] [place] [address] Result Comment: eAG: (Estimated average glucose) is a calculated value from HgbA1c and is account services representative of the average blood glucose level in the last 2-3 month period. Performed By: #### 5 5454-3 ####[facility] [id number] [address] [facility] HbA1c (Bld) [Mass fraction] 5.0 % Normal 4.3-5.6 [facility] Comment on above: Order Comment: Speci men Type: BLOOD SPECIMENOrdering Facility: [facility] Address: [address] [place] [address] Result Comment: Amer [place] Diabetes Association guidelines indicate that patients with HgbA1c in the range 5.7-6.4% are at increased risk for development of diabetes, and intervention by lifestyle modification may be beneficial. HgbA1c greater or equal to 6.5% is considered diagnostic of diabetes. Performed By: #### 5 5454-3 ####[facility] LABIA [id number] [place] [id number] [place] [id number] PLUSon 09-12-2024 Cell-free DNA./Cell-free DNA.total Dosage of chromosome-specific cfDNA (cfDNA) [Molar fraction] 20% Normal [facility] Comment on above: Order Comment: Speci men Type: BLOOD SPECIMENOrdering Facility: [facility] Address: [address] [place] [address] Performed By: #### M AT21 ####[facility] LABCLIA [id number] [place] [address] Chr 13+18+21+X+Y aneuploidy Dosage of chromosome-specific cfDNA Ql (cfDNA) Negative Normal [facility] Comment on above: Order Comment: Speci men Type: BLOOD SPECIMENOrdering Facility: [facility] Address: [address] [place] [address] Performed By: #### M AT21 ####[facility] LABCLIA [id number] [place] [address] Chr 21 trisomy Dosage of chromosome-specific cfDNA Ql (cfDNA) Negative Normal [facility] Comment on above: Order Comment: Speci men Type: BLOOD SPECIMENOrdering Facility: [facility] Address: [address] [place] [address] Performed By: #### M AT21 ####[facility] LABCLIA [id number] [place] [address] Chr X and Y aneuploidy risk Sequencing Ql (cfDNA) [Interp] Not detected Normal [facility] Comment on above: Order Comment: Speci men Type: BLOOD SPECIMENOrdering Facility: [facility] Address: [address] [place] [address] Result Comment: Not Detected Not Detected Performed By: #### M AT21 ####[facility] LABCLIA [id number] [place] [address] Citation Ravi (Reference lab test) Comment Normal [facility] Comment on above: Order Comment: Speci men Type: BLOOD SPECIMENOrdering Facility: [facility] Address: [address] [place] [address] Result Comment: 1. P star WATKINS, et al. Ramandeep Med. 2012;14(3):296-305. 2. Nicolas WEEKS et al. Prenat Diag. 2013;33(6):591-597. 3. Johan Pickett et al. Clin Chem. 2015 Apr;61(4):608-616. 4. Deangelo WATKINS, et al. Ramandeep Med. 2011;13(11):913-920. 5. ACOG/SMFM Practice Bulletin No. 226, Dec 2019. Performed By: #### M AT21 ####[facility] LABCLIA [id number] [place] [address] Gestational age Estimated from conception date Carvajal Normal [facility] Comment on above: Order Comment: Speci men Type: BLOOD SPECIMENOrdering Facility: [facility] Address: [address] [place] [address] Performed By: #### M AT21 ####[facility] LABCLIA [id number] [place] [address] GESTATIONALAGE AGE > OR = 9W Yes Normal [facility] Comment on above: Order Comment: Speci men Type: BLOOD SPECIMENOrdering Facility: [facility] Address: [address] [place] [address] Performed By: #### M AT21 ####[facility] LABCLIA [id number] [place] [id number] Laboratory comment Ravi (Report) Comment Normal [facility] Comment on above: Order Comment: Speci men Type: BLOOD SPECIMENOrdering Facility: [facility] Address: [address] [place] [address] Result Comment: The MaterniT(R) 21 PLUS laboratory-developed test (LDT) analyzes circulating cell-free DNA from a maternal blood sample. This test is used for screening purposes and not diagnostic. Clinical correlation is recommended. Validation data on twin pregnancies is limited and the ability of this test to detect aneuploidy in higher multiple gestations has not yet been validated. Performed By: #### M AT21 ####[facility] LABCLIA [id number] [place] [address] alliance director name Nom (Provider) Comment Normal [facility] Comment on above: Order Comment: Speci men Type: BLOOD SPECIMENOrdering Facility: [facility] Address: [address] [place] [address] Result Comment: This specimen showed an expected representation of chromosome 21, 18 and 13 material. Clinical correlation is suggested. Comment Ric Torres MD, PhD, Director, [facility] Performed By: #### M AT21 ####[facility] LABIA [id number] [place] [address] LIMITATIONS OF THE TEST Comment Normal C [facility] Comment on above: Order Comment: Speci men Type: BLOOD SPECIMENOrdering Facility: [facility] Address: [address] [place] [address] Result Comment: Tramaine samuel the results of these tests are highly reliable, discordant results, including inaccurate sex prediction, may occur due to placental, maternal, or mosaicism or neoplasm; vanishing twin; prior maternal organ transplant; or other causes. These tests are screening tests and not diagnostic; they do not replace the accuracy and precision of diagnosis with CVS or amniocentesis. A patient with a positive test result should be referred for genetic counseling and offered invasive diagnosis for confirmation of test results.[5] The results of this testing, including the benefits and limitations, should be discussed with a qualified healthcare provider. management decisions, including termination of the , should not be based on the results of these tests alone. The healthcare provider is responsible for the use of this information in the management of their patient. Sex chromosomal aneuploidies are not reportable for known multiple gestations. A negative result does not ensure an unaffected nor does it exclude the possibility of other chromosomal abnormalities or defects which are not a part of these tests. An uninformative result may be reported, the causes of which may include, but are not limited to, insufficient sequencing coverage, noise or artifacts in the region, amplification or sequencing bias, or insufficient fraction. These tests are not intended to identify pregnancies at risk for neural tube defects or ventral wall defects. Testing for whole chromosome abnormalities (including sex chromosomes) and for subchromosomal abnormalities could lead to the potential discovery of both and maternal genomic abnormalities that could have major, minor, or no, clinical significance. Evaluating the significance of a positive or a non-reportable result may involve both invasive testing and additional studies on the mother. Such investigations may lead to a diagnosis of maternal chromosomal or subchromosomal abnormalities, which on occasion may be associated with benign or malignant maternal neoplasms. These tests may not accurately identify triploidy, balanced rearrangements, or the precise location of subchromosomal duplications or deletions; these may be detected by diagnosis with CVS or amniocentesis. The ability to report results may be impacted by maternal BMI, maternal weight, maternal systemic lupus erythematosus (SLE) and/or by certain pharmaceutical agents such as low molecular weight heparin (for example: Lovenox(R), Xaparin(R), Clexane(R) and Fragmin(R)). Performed By: #### M AT21 ####[facility] LABCLIA [id number] [place] [id number] Monosomy X risk Dosage of chromosome-specific cfDNA Ql (Plasma cell-free+WBC DNA) [Interp] Not detected Normal [facility] Comment on above: Order Comment: Tatyana morales Type: BLOOD SPECIMENOrdering Facility: [facility] Address: [address] [place] [address] Performed By: #### M AT21 ####[facility] LABCLIA [id number] [place] [address] NEGATIVE PREDICTIVE VALUE Note Normal [facility] Comment on above: Order Comment: Tatyana morales Type: BLOOD SPECIMENOrdering Facility: [facility] Address: [address] [place] [address] Result Comment: The Negative Predictive Value (NPV) for trisomy 21, 18, and 13 is greater than 99%. The NPV for SCA and ESS cannot be calculated as SCA and ESS are only reported when an abnormality is detected. Performed By: #### M AT21 ####[facility] LABCLIA [id number] [place] [address] PERFORMANCE CHARACTERISTICS Note Normal [facility] Comment on above: Order Comment: Tatyana morales Type: BLOOD SPECIMENOrdering Facility: [facility] Address: [address] [place] [address] Result Comment: ! Sex ! Accuracy: 99.4% ! ! ! ! Region (associated syndrome) ! Est. Sens# ! Est. Spec ! ! ! ! Trisomy 21 (Down Syndrome) ! 99.1% ! 99.9% ! ! ! ! Trisomy 18 (Rothman Syndrome) ! >99.9% ! 99.6% ! ! ! ! Trisomy 13 ([place] Syndrome) ! 91.7% ! 99.7% ! ! ! ! Sex Chromosome Aneuploidies## ! 96.2% ! 99.7% ! ! ! * As reported in [facility] database nstd37 [https://www.ncbi.nlm.nih.gov/dbvar/studies/nstd37/ ] # Estimated Sensitivity. Sensitivity estimated across the observed size distribution of each syndrome [per ISCA database nstd37] and across the range of fractions observed in routine clinical NIPT. Actual sensitivity can also be influenced by other factors such as the size of the event, total sequence counts, amplification bias, or sequence bias. ## Carvajal gestation only. Performed By: #### M AT21 ####[facility] LABCLIA [id number] [place] [address] POSITIVE PREDICTIVE VALUE N/A Normal [facility] Comment on above: Order Comment: Speci men Type: BLOOD SPECIMENOrdering Facility: [facility] Address: [address] [place] [address] Performed By: #### M AT21 ####[facility] LABCLIA [id number] [place] [address] Reference Lab Test Method Comment Normal [facility] Comment on above: Order Comment: Speci men Type: BLOOD SPECIMENOrdering Facility: [facility] Address: [address] [place] [address] Result Comment: Circ ulating cell-free DNA was purified from the plasma component of maternal blood. The extracted DNA was then converted into a genomic DNA library for aneuploidy analysis of chromosomes 21, 18, and 13 via next generation sequencing.[1] Optional findings based on the test order include sex chromosome aneuploidy (SCA)[2], and enhanced sequencing series (ESS)[3], which will only be reported on as an additional finding when an abnormality is detected. SCA testing includes information on X and Y representation, while ESS testing includes deletions in selected regions (22q, 15q, 11q, 8q, 5p, 4p, 1p) and trisomy of chromosomes 16 and 22. Performed By: #### M AT21 ####[facility] LABCLIA [id number] [place] [address] Service comment (Unsp spec) [Interp] Comment Normal [facility] Comment on above: Order Comment: Speci men Type: BLOOD SPECIMENOrdering Facility: [facility] Address: [address] [place] [address] Result Comment: [employer] is a subsidiary of [employer], using the brand [employer]. This test was developed and its performance characteristics determined by [employer]. It has not been cleared or approved by the Food and Drug Administration. This laboratory is certified under the Clinical Laboratory Improvement Amendments (CLIA) as qualified to perform high complexity clinical laboratory testing and accredited by the [employer] (CAP). If there is future clinical need for adding MaterniT GENOME testing, this specimen will be available until term. [facility] samples will not be retained beyond 60 days. [facility] patients will have to send a new sample for re-sequencing ([facility] Test Code: [id number]). Performed By: #### M AT21 ####[facility] LABCLIA [id number] [place] [address] Sex Dosage of chromosome-specific cfDNA Nom (cfDNA) Comment Normal [facility] Comment on above: Order Comment: Speci men Type: BLOOD SPECIMENOrdering Facility: [facility] Address: [address] [place] [address] Result Comment: Cons istent with Male Performed By: #### M AT21 ####[facility] LABCLIA [id number] [place] [address] Test performance information Ravi (Unsp spec) Comment Normal [facility] Comment on above: Order Comment: Speci men Type: BLOOD SPECIMENOrdering Facility: [facility] Address: [address] [place] [address] Result Comment: The performance characteristics of the MaterniT(R) 21 PLUS laboratory-developed test (LDT) have been determined in a clinical validation study with women at increased risk for chromosomal aneuploidy.[1-4] Performed By: #### M AT21 ####[facility] LABCLIA [id number] [place] [address] Trisomy 13 risk Dosage of chromosome-specific cfDNA Ql (cfDNA) [Interp] Negative Normal [facility] Comment on above: Order Comment: Speci men Type: BLOOD SPECIMENOrdering Facility: [facility] Address: [address] [place] [address] Performed By: #### M AT21 ####[facility] LABCLIA [id number] [place] [address] Trisomy 18 risk Dosage of chromosome-specific cfDNA Ql (Plasma cell-free+WBC DNA) [Interp] Negative Normal [facility] Comment on above: Order Comment: Speci men Type: BLOOD SPECIMENOrdering Facility: [facility] Address: [address] [place] [address] Performed By: #### M AT21 ####[employer] [facility] LABCLIA [id number] [place] [address] RUBELLA IGG ANTIBODYon 09-12 RUBELLA IGG AB, QUAL Positive Normal Positive [facility] Comment on above: Order Comment: Speci men Type: BLOOD SPECIMENOrdering Facility: [facility] Address: [address] [place] [address] Result Comment: The result suggests recent or past exposure to Rubella virus or history of Rubella vaccination. Positive result may also be seen due to presence of passively-transferred antibodies. Please correlate with patient's history. Performed By: #### R UBIGG ####[facility] LABCLIA [id number] [place] [address] [place] Reagin and Treponema pallidu m IgG and IgM [Interp]on 09-12-2024 T. pallidum IgG+IgM IA Ql (S) Non-Reactive Normal Nonreactive [facility] Comment on above: Order Comment: Speci men Type: BLOOD SPECIMENOrdering Facility: [facility] Address: [address] [place] [address] Performed By: #### 5 195-3, 40470-1, 75467-3 ####[facility] LABCLIA [id number] [place] [address] [place] Reagin+T pallidum IgG+IgM Se rPl-Impon 09-12-2024 Reagin and Treponema pallidum IgG and IgM [Interp] Cannot exclude recent Treponemal infection if specimen collected within 7-10 days after appearance of suspect lesions or 2-3 weeks after an exposure. Clinical correlation is required. Normal [facility] Comment on above: Order Comment: Speci [facility] Type: BLOOD SPECIMENOrdering Facility: [facility] Address: [address] [place] [address] Performed By: #### 5 195-3, 07450-7, 18325-2 ####[facility] LABCLIA [id number] [place] [address] [place] TYPE + SCREEN PRENATALon -2024 ABO O Normal [facility] Comment on above: Order Comment: Speci men Type: SWAB [facility] Address: [address] [place] [address] Performed By: #### B VAMP, CVTV #### [facility] CLIA [id number] [address] [place] [address] [place] Rh Nom (Bld) Positive Normal [facility] Comment on above: Order Comment: Speci men Type: SWAB [facility] Address: [address] [place] [address] Performed By: #### B VAMP, CVTV #### [facility] CLIA [id number] [address] [place] [address] [place] TYPE AND SCREEN EXPIRATION 09/15/2024 23:59 Normal [facility] Comment on above: Order Comment: Speci men Type: SWAB [facility] Address: [address] [place] [address] Performed By: #### B VAMP, CVTV #### [facility] CLIA [id number] [address] [place] [address] [place] CNOVon 09-07-2024 CNOV Office Visit (UCWSTR) MANJINDER WINTER ([id number]) 3 F Date Time Provider Department 6/20/25 5:45 PM [facility] During your visit today, we recorded the following information about you: Temperature Pulse Respiration Blood pressure 98.6 degrees 98/minute 20/minute 114/70 Weight 55 kg Ritesh Washburn APRN.BORDER MACHINE OPERATOR 09/07/2024 6:53 PM Signed Subjective HPI Nontoxic-appearing 19-year-old female who is currently 12 weeks presents urgent care chief complaint URI-like symptoms. Duration of symptoms 1 week. Associated symptoms cough nasal congestion. Initially did have sore throat headache nasal congestion that has improved. Cough is lingering. Denies any chest pain shortness of breath pleuritic pain or hemoptysis. No fevers. Initially had a fever that has dissipated. Use of Mucinex. Past medical history prescription medications allergies reviewed. No vaginal discharge leaking of fluid dysuria .Patient presents with: Chest Congestion: Nasal congestion, cough, runny nose, fever on and off headache on and off, chest tightness and pressure, x 1 week PAST MEDICAL HISTORY Diagnosis Date Anemia History of non-suicidal self-harm 08/01/2024 NEGATIVE MEDICAL HISTORY normal color vision PAST SURGICAL HISTORY Procedure Laterality Date NONE ALLERGIES Patient has no known allergies. MEDICATIONS ondansetron orally disintegrating (ZOFRAN ODT) 4 mg disintegrating tablet Take 4 mg by mouth every 6 hours as needed for nausea/vomiting. vit no.124/iron/folic ( VITAMIN ORAL) Take 1 tablet by mouth once daily. aspirin, enteric coated (ECOTRIN LOW STRENGTH) 81 mg EC tablet Take 1 tablet by mouth once daily. (Patient not taking: Reported on 09/07/2024) FAMILY HISTORY Problem Relation Age of Onset Bipolar disorder Mother Cancer Other [facility] - Breast Cancer Cancer Other [facility] - Prostate Cancer other (congestive heart failure) Other [facility] Social History Tobacco Use Smoking status: Never Passive exposure: Yes Smokeless tobacco: Never Tobacco comments: smokers outside Vaping Use Vaping status: Never Used Substance Use Topics Alcohol use: No Drug use: No BP 114/70 Pulse 98 Temp 37 ?C (98.6 ?F) Resp 20 Wt 55 kg (121 lb 4.1 oz) LMP 04/29/2024 (Exact Date) SpO2 99% BMI 20.68 kg/m? Review of Systems Constitutional: Negative for chills, fever and malaise/fatigue. HENT: Positive for congestion. Negative for ear discharge, ear pain, sinus pain and sore throat. Eyes: Negative for blurred vision, pain, discharge and redness. Respiratory: Positive for cough. Negative for hemoptysis, sputum production, shortness of breath, wheezing and stridor. Cardiovascular: Negative for chest pain. Gastrointestinal: Negative for abdominal pain, diarrhea, nausea and vomiting. Musculoskeletal: Negative for myalgias. Skin: Negative for itching and rash. Neurological: Positive for headaches. Negative for dizziness. Objective Physical Exam HENT: Head: Normocephalic. Jaw: No trismus, tenderness, swelling or pain on movement. Right Ear: Tympanic membrane, ear canal and external ear normal. Left Ear: Tympanic membrane, ear canal and external ear normal. Nose: Congestion present. Mouth/Throat: Mouth: Mucous membranes are moist. Pharynx: Oropharynx is clear. Uvula midline. No oropharyngeal exudate or posterior oropharyngeal erythema. Eyes: Pupils: Pupils are equal, round, and reactive to light. Cardiovascular: Rate and Rhythm: Normal rate. Pulmonary: Effort: Pulmonary effort is normal. No accessory muscle usage, respiratory distress or retractions. Breath sounds: No stridor. No wheezing, rhonchi or rales. Abdominal: Palpations: Abdomen is soft. Tenderness: There is no abdominal tenderness. There is no guarding or rebound. Musculoskeletal: Cervical back: No erythema or tenderness. No pain with movement. Normal range of motion. Lymphadenopathy: Cervical: No cervical adenopathy. Neurological: General: No focal deficit present. Mental Status: She is alert and oriented to person, place, and time. Mental status is at baseline. ASSESSMENT/PLAN: 1. URI with cough and congestion - ICD9: 465.9, ICD10: J06.9 - Discussed viral etiology and rationale for treatment. - Symptomatic treatment with prn analgesia - Supportive care with fluids and rest No evidence of bacterial infection. Treat as viral etiology. Patient was educated on supportive therapies. Patient will follow up with primary care provider as needed. Patient was instructed to immediately proceed to emergency room for any new, worsening, or symptoms lasting longer than anticipated. The patient's clinical presentation is otherwise unremarkable at this time. Based on exam and clinical finding, the patient is stable for discharge. Plan of care was discussed with p (more content not included)... Normal [facility] 09-04-2024 CNPN Telephone (OBGYWM) MANJINDER WINTER ([id number]) 3 F Date Time Provider Department 09/04/24 MARU ALEXANDER OBGYWM During your visit today, we recorded the following information about you: Kayleen Vizcaino RN 09/04/2024 4:58 PM Signed 11w4d Pt called stating she has a cold/congestion and asking what she can take OTC. Reviewed healthy guide safe medications she can take. Advised Pt that I could send link via Frequent Browser. Texted link to activate Frequent Browser to Pt. Pt denies additional questions at this time. Kayleen Vizcaino RN Allergies As of Date: 09/04/2024 (No Known Allergies) Date Reviewed: 08/01/2024 Reviewed by: Darvin Peng APRN.BORDER MACHINE OPERATOR - Fully Assessed Reason for Visit: Cold [4225] Prescriptions as of 09/04/2024 - aspirin, enteric coated (ECOTRIN LOW STRENGTH) 81 mg EC tablet Take 1 tablet by mouth once daily. - vit no.124/iron/folic ( VITAMIN ORAL) Take 1 tablet by mouth once daily. 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, *08/01/2024 Nausea and vomiting during (HCC) [O21*08/01/2024 History of non-suicidal self-harm [Z91.52] 08/01/2024 Encounter Status:Closed by KAYLEEN VIZCAINO on 09/04/24 Normal [facility] Urine Cultureon 08-19-2024 URC Urine Culture Urine Culture Urine Culture Streptococcus agalactiae (B) Cisco Count <1000 Streptococcus agalactiae (B): REACTION Ampicillin Islt LEE ANN <=0.25 cefTRIAXone Islt LEE ANN <=0.12 S Clindamycin.induced Susc Islt NEG Linezolid Islt LEE ANN <=2 S Vancomycin Islt LEE ANN 0.5 S Normal [facility] Comment on above: Performed By: #### M 100.2200 #### [facility] [address] [place], [address] Anion gap in Serum or Plasma Ordered By: Alvaro Carlton on 08-16-2024 Anion gap [Moles/Vol] 13 mmol/L - [facility] BUN/creatinine ratioOrdered By: Alvaro Carlton on 08-16-2024 Urea nitrogen/Creatinine [Mass ratio] 9.0 mg/mg Low 10- [facility] Basic Metabolic Profile (BMP )on 08-16-2024 BUN/CRE 9.0 RATIO Low - [facility] Comment on above: Performed By: #### L 500.2500 ####[facility] [address] [place], [address] Performed By: #### L 500.2500 #### [facility] [address] [place], [address] Calcium [Mass/Vol] 9.3 mg/dL Normal 7.6-11.0 [facility] Comment on above: Performed By: #### L 500.2500 ####[facility] [address] [place], [address] Performed By: #### L 500.2500 #### [facility] [address] [place], [address] Chloride [Moles/Vol] 103 mmol/L Normal 98-108 [facility] Comment on above: Performed By: #### L 500.2500 ####[facility] [address] [place], [address] Performed By: #### L 500.2500 #### [facility] [address] [place], [address] CO2 [Moles/Vol] 19.3 mmol/L Low 21.0-32.0 [facility] Comment on above: Performed By: #### L 500.2500 ####[facility] [address] [place], [address] Performed By: #### L 500.2500 #### [facility] [address] [place], [address] Creatinine [Mass/Vol] 0.39 mg/dL Low 0.70-1.20 [facility] Comment on above: Performed By: #### L 500.2500 ####[facility] [address] [place], [address] Performed By: #### L 500.2500 #### [facility] [address] [place], [address] ECRCL 190.34 ml/min Normal 50-250 [facility] Comment on above: Performed By: #### L 500.2500 ####[facility] [address] [place], [address] Performed By: #### L 500.2500 #### [facility] [address] [place], [address] GAP 13 Normal 5-15 [facility] Comment on above: Performed By: #### L 500.2500 ####[facility] [address] [place], [address] Performed By: #### L 500.2500 #### [facility] [address] [place], [address] GFR/1.73 sq M.predicted among non-blacks MDRD (S/P/Bld) [Vol rate/Area] 146 mL/min/{1.73_m2} Normal >60 [facility] Comment on above: Result Comment: mL/m in/1.73m2 CKD-EPI Creatinine Equation (2020) Performed By: #### L 500.2500 ####[facility] [address] [place], [address] Performed By: #### L 500.2500 #### [facility] [address] [place], [address] Glucose [Mass/Vol] 87 mg/dL Normal 70-99 [facility] Comment on above: Performed By: #### L 500.2500 ####[facility] [address] [place], [address] Performed By: #### L 500.2500 #### [facility] [address] [place], [address] Potassium [Moles/Vol] 3.4 mmol/L Normal 3.3-5.1 [facility] Comment on above: Performed By: #### L 500.2500 ####[facility] [address] [place], [address] Performed By: #### L 500.2500 #### [facility] [address] [place], [address] Sodium [Moles/Vol] 135 mmol/L Normal 133-145 [facility] Comment on above: Performed By: #### L 500.2500 ####[facility] [address] [place], [address] Performed By: #### L 500.2500 #### [facility] [address] [place], [address] Urea nitrogen [Mass/Vol] 4 mg/dL Normal 4-19 [facility] Comment on above: Performed By: #### L 500.2500 ####[facility] [address] [place], [address] Performed By: #### L 500.2500 #### [facility] [address] [place], [address] Bilirubin Test strip Ql (U)O rdered By: Alvaro Carlton on 08-16-2024 Bilirubin Ql (U) Negative Negative [facility] CNPNon 08-16-2024 CNPN Telephone (OBGYWM) MANJINDER WINTER ([id number]) 3 F Date Time Provider Department 08/16/24 MARU ALEXANDER OBGYWM During your visit today, we recorded the following information about you: Barbara Loomis RN 08/16/2024 2:21 PM Signed 8w6d Calling c/o n/v. Has been trying vitamin B6 with no improvement. Unable to keep anything down in over 24 hours, not even water today so far. Advised to go to ER and call back to schedule f/u nausea appt if needed. Patient agreed. VALERIE Manley Rebecca L, MD 08/16/2024 3:17 PM Signed agree. needs a f/u before 08/30 to discuss treatment regimen/plan. Maru Alexander MD Allergies As of Date: 08/16/2024 (No Known Allergies) Date Reviewed: 08/01/2024 Reviewed by: Darvin Peng APRN.BORDER MACHINE OPERATOR - Fully Assessed Reason for Visit: Early OB N/V [Other] Prescriptions as of 08/16/2024 - aspirin, enteric coated (ECOTRIN LOW STRENGTH) 81 mg EC tablet Take 1 tablet by mouth once daily. - vit no.124/iron/folic ( VITAMIN ORAL) Take 1 tablet by mouth once daily. Problem List As Of Date 08/16/2024 Noted Resolved Depression with anxiety [F41.8] 05/08/2018 History of anxiety [Z86.59] 05/08/2018 with uncertain dates in first trimest*08/01/2024 Encounter for supervision of high risk pregnanc*08/01/2024 Acute vaginitis [N76.0] 08/01/2024 Marijuana use during (HCC) [O99.320, *08/01/2024 Nausea and vomiting during (HCC) [O21*08/01/2024 History of non-suicidal self-harm [Z91.52] 08/01/2024 Encounter Status:Closed by BARBARA LOOMIS on 08/16/24 [facility] Carbon dioxide, total [Moles /volume] in Central venous bloodOrdered By: Alvaro Carlton on 08-16-2024 CO2 [Moles/Vol] 19.3 mmol/L Low 21.0-32.0 [facility] Chloride assayOrdered By: Cholo Carlton on 08-16-2024 Chloride [Moles/Vol] 103 mmol/L 98-108 [facility] Emergency Department Summary on 08-16-2024 Emergency Department Summary [facility] Medical Records Department [address] [place] [address] Emergency Department Summary 08/16/24 MR#: [id number] Acct: [id number] Name: MANJINDER WINTER Rep #: [id number] : 2005 19 From: Alvaro Carlton DO PCP: Care Physician,No Primary Status:REG ER Location: ED HPI History of Present Illness Chief Complaint: Nausea/Vomiting/Diar angela Narrative Narrative: Patient is a 19-year-old female with no known significant past medical history who is currently 9 weeks G1, P0 with 1 miscarriage previously. She presents to the emergency department this evening with a chief complaint of nausea vomiting diarrhea. Patient states that she has had nausea vomiting for several weeks she states that she is on vitamin B12 and Zofran as well as vitamins. She states that she has not been able to keep ending down for the past few days and she called her OB therefore she came here for further evaluation management. States that she already had an appointment with her PRE K TEACHER and they had a ultrasound performed and this did confirm intrauterine per the patient. Patient denies or sick contacts denies abdominal pain. [facility] Medical History History of miscarriage Home Medications ???Medication ???Instructions ???Recorded ???Last Taken ???Type etonogestrel 0.12 mg-ethinyl 1 vag ring vaginal QMONTH 12/15/21 Unknown History estradiol 0.015 mg/24 hr vaginal ring (NuvaRing) ondansetron 4 mg disintegrating 4 mg PO Q8H PRN PRN Nausea #10 tab s 12/08/23 Unknown Rx tablet cephalexin 500 mg capsule 500 mg PO BID 7 days #14 caps 07/20 04/14 Unknown Rx cephalexin 500 mg capsule 500 mg PO BID 5 days #10 caps 07/20 12/13 Unknown Rx ondansetron 4 mg disintegrating 4 mg PO Q6H PRN nausea and 5 Unknown Rx tablet vomiting #20 tabs Allergy/AdvReac Type Severity Reaction Status Date / Time No Known Allergies Allergy Verified 08/16/24 16:41 Social History Smoking Status: Former smoker substance use type: marijuana ROS ROS ED ROS Narrative Constitutional: Denies fevers, chills, headaches Abdomen: Complains of nausea vomiting diarrhea as noted above denies any abdominal pain : Denies painful urination, hematuria, polyuria, vaginal spotting, vaginal discharge Neurological: Denies numbness, weakness, tingling Musculoskeletal: Denies back pain Skin: Denies any rashes or lesions EXAM Physical Exam Narrative Exam Narrative: General: Patient lying in bed rest comfortably did not appear to be acute distress Head: Atraumatic, normocephalic Eyes: PERRL bilaterally, EOMI bilateral, no conjunctival injection noted Neck: Soft, supple, trachea midline Cardiovascular: Regular rate and rhythm no murmurs gallops rubs noted Respiratory: Clear to auscultation bilaterally Abdomen: Soft, nondistended, no tenderness palpation Extremities: +5/5 strength noted in the bilateral upper and lower extremities Neurological: Patient following commands knew that she was at [place] [facility] year is 2024 Skin: Warm, dry, intact no rashes or lesions noted Const Vital Signs: 08/16/24 16:38 08/16/24 18:46 08/16/24 20:00 Temperature 97.7 F L 98.7 F Temperature Source Oral Oral Pulse Rate 88 70 77 Respiratory Rate 13 15 14 Blood Pressure 127/73 H 91/64 117/69 Blood Pressure Mean 91 73 85 Pulse Ox 100 97 100 Oxygen Delivery Method Room Air Room Air Room Air 08/16/24 20:44 Temperature 98.7 F Temperature Source Pulse Rate 77 Respiratory Rate 14 Blood Pressure 117/69 Blood Pressure Mean 85 Pulse Ox 100 Oxygen Delivery Method MDM MDM MDM Narrative Medical decision making narrative: Patient is a 19-year-old female who presents to the emergency department chief complaint of nausea vomiting diarrhea in the setting of . On the differential diagnose includes but not limited to viral gastroenteritis, electrolyte abnormality, UTI, asymptomatic bacteria in . Once workup is obtained reviewed she will be reevaluated. Patient will be given IV fluids Patient's urinalysis reviewed and showed 25 leukocyte esterase 0-5 white cells however she had 2+ bacteria she was given a gram of Rocephin this send for culture. Patient's sodium normal 135, potassium normal 3.4, creatinine was 0.39. On reevaluation the patient she is feeling much improved and she would like to go home. Patient will be given prescription for Keflex as well as Zofran ODT. She is advised to follow-up with her PRE K TEACHER and return with worsening symptoms or concerns. She is agreeable to plan all course concerns answered she is discharged home in stable condition. Lab Data Labs: Laboratory R (more content not included)... Normal [facility] Emergency Department Summary [facility] Medical Records Department [address] [place] [address] Emergency Department Summary 08/16/24 MR#: [id number] Acct: [id number] Name: MANJINDER WINTER Rep #: [id number] : 2005 19 From: Alvaro Carlton DO PCP: Care Physician,No Primary Status:DEP ER Location: ED HPI History of Present Illness Chief Complaint: Nausea/Vomiting/Diar angela Narrative Narrative: Patient is a 19-year-old female with no known significant past medical history who is currently 9 weeks G1, P0 with 1 miscarriage previously. She presents to the emergency department this evening with a chief complaint of nausea vomiting diarrhea. Patient states that she has had nausea vomiting for several weeks she states that she is on vitamin B12 and Zofran as well as vitamins. She states that she has not been able to keep ending down for the past few days and she called her OB therefore she came here for further evaluation management. States that she already had an appointment with her PRE K TE[employer]ER and they had a ultrasound performed and this did confirm intrauterine per the patient. Patient denies or sick contacts denies abdominal pain. [facility] Medical History History of miscarriage Home Medications ???Medication ???Instructions ???Recorded ???Last Taken ???Type etonogestrel 0.12 mg-ethinyl 1 vag ring vaginal QMONTH 12/15/21 Unknown History estradiol 0.015 mg/24 hr vaginal ring (NuvaRing) ondansetron 4 mg disintegrating 4 mg PO Q8H PRN PRN Nausea #10 tab s 12/08/23 Unknown Rx tablet cephalexin 500 mg capsule 500 mg PO BID 7 days #14 caps 07/20 04/14 Unknown Rx cephalexin 500 mg capsule 500 mg PO BID 5 days #10 caps 07/20 12/13 Unknown Rx ondansetron 4 mg disintegrating 4 mg PO Q6H PRN nausea and 5 Unknown Rx tablet vomiting #20 tabs Allergy/AdvReac Type Severity Reaction Status Date / Time No Known Allergies Allergy Verified 08/16/24 16:41 Social History Smoking Status: Former smoker substance use type: marijuana ROS ROS ED ROS Narrative Constitutional: Denies fevers, chills, headaches Abdomen: Complains of nausea vomiting diarrhea as noted above denies any abdominal pain : Denies painful urination, hematuria, polyuria, vaginal spotting, vaginal discharge Neurological: Denies numbness, weakness, tingling Musculoskeletal: Denies back pain Skin: Denies any rashes or lesions EXAM Physical Exam Narrative Exam Narrative: General: Patient lying in bed rest comfortably did not appear to be acute distress Head: Atraumatic, normocephalic Eyes: PERRL bilaterally, EOMI bilateral, no conjunctival injection noted Neck: Soft, supple, trachea midline Cardiovascular: Regular rate and rhythm no murmurs gallops rubs noted Respiratory: Clear to auscultation bilaterally Abdomen: Soft, nondistended, no tenderness palpation Extremities: +5/5 strength noted in the bilateral upper and lower extremities Neurological: Patient following commands knew that she was at [facility] year is 2024 Skin: Warm, dry, intact no rashes or lesions noted Const Vital Signs: 08/16/24 16:38 08/16/24 18:46 08/16/24 20:00 Temperature 97.7 F L 98.7 F Temperature Source Oral Oral Pulse Rate 88 70 77 Respiratory Rate 13 15 14 Blood Pressure 127/73 H 91/64 117/69 Blood Pressure Mean 91 73 85 Pulse Ox 100 97 100 Oxygen Delivery Method Room Air Room Air Room Air 08/16/24 20:44 Temperature 98.7 F Temperature Source Pulse Rate 77 Respiratory Rate 14 Blood Pressure 117/69 Blood Pressure Mean 85 Pulse Ox 100 Oxygen Delivery Method MDM MDM MDM Narrative Medical decision making narrative: Patient is a 19-year-old female who presents to the emergency department chief complaint of nausea vomiting diarrhea in the setting of . On the differential diagnose includes but not limited to viral gastroenteritis, electrolyte abnormality, UTI, asymptomatic bacteria in . Once workup is obtained reviewed she will be reevaluated. Patient will be given IV fluids Patient's urinalysis reviewed and showed 25 leukocyte esterase 0-5 white cells however she had 2+ bacteria she was given a gram of Rocephin this send for culture. Patient's sodium normal 135, potassium normal 3.4, creatinine was 0.39. On reevaluation the patient she is feeling much improved and she would like to go home. Patient will be given prescription for Keflex as well as Zofran ODT. She is advised to follow-up with her PRE K TEACHER and return with worsening symptoms or concerns. She is agreeable to plan all course concerns answered she is discharged home in stable condition. Lab Data Labs: Laboratory R (more content not included)... Normal [facility] Glomerular filtration rate ( GFR) estimation/1.73 sq m using serum, plasma, or whole bOrdered By: Alvaro Carlton on 08-16-2024 GFR/1.73 sq M.predicted among non-blacks MDRD (S/P/Bld) [Vol rate/Area] 146 mL/min/{1.73_m2} >60 [facility] [facility] Comment on above: mL/min/1.73m2 CKD-EP I Creatinine Equation (2020) Ketones Test strip Ql (U)Ord ered By: Alvaro Carlton on 08-16-2024 Ketones Ql (U) 50 mg/dl High Negative [facility] Microscopic analysis of urin e for red blood cells (RBC)Ordered By: Alvaro Carlton on 08-16-2024 Microscopic analysis of urine for red blood cells (RBC) 0 SEEN /hpf 0-5 [facility] Mucus LM Ql (Urine sed)Order ed By: Alvaro Carlton on 08-16-2024 Mucus Ql (Urine sed) 0 SEEN /hpf [facility] Nitrite Test strip Ql (U)Ord ered By: Alvaro Carlton on 08-16-2024 Nitrite Ql (U) Negative Negative [facility] Potassium measurement (mass/ volume)Ordered By: Alvaro Carlton on 08-16-2024 Potassium (Unsp spec) [Mass/Vol] 3.4 mmol/L 3.3-5.1 [facility] Protein Test strip Ql (U)Ord ered By: Alvaro Carlton on 08-16-2024 Protein Ql (U) 15 mg/dl High Negative [facility] Serum creatinine measurement (mass/volume)Ordered By: Alvaro Carlton on 08-16-2024 Creatinine [Mass/Vol] 0.39 mg/dL Low 0.70-1.20 [facility] Serum glucose measurement (m ass/volume)Ordered By: Alvaro Carlton on 08-16-2024 Glucose [Mass/Vol] 87 mg/dL 70-99 [facility] Serum or plasma calcium rigo urement (mass/volume)Ordered By: Alvaro Carlton on 08-16-2024 Calcium [Mass/Vol] 9.3 mg/dL 7.6-11.0 [facility] Serum or plasma urea nitroge n measurement (mass/volume)Ordered By: Alvaro Carlton on 08-16-2024 Urea nitrogen [Mass/Vol] 4 mg/dL 4-19 [facility] Sodium levelOrdered By: Chintan Carlton on 08-16-2024 Sodium [Moles/Vol] 135 mmol/L 133-145 [facility] Squamous epithelial cells de tection in urine sediment by light microscopyOrdered By: Alvaro Carlton on 08-16-2024 Epithelial cells.squamous LM Ql (Urine sed) 5-10 SEEN /hpf 5-10 [facility] Urinalysis, Completeon 08-16 BACTERIA 2+ /hpf Normal None Seen [facility] Comment on above: Order Comment: CLEAN CATCH Performed By: #### L 400.0001 ####[facility] [address] [place], [address] Performed By: #### L 400.0001 #### [facility] [address] [place], [address] EPI,SQUAMOUS 5-10 SEEN Normal 5-10 [facility] Comment on above: Order Comment: CLEAN CATCH Performed By: #### L 400.0001 ####[facility] [address] [place], [address] Performed By: #### L 400.0001 #### [facility] [address] [place], [address] WBC 0-5 SEEN Normal 0-5 [facility] Comment on above: Order Comment: CLEAN CATCH Performed By: #### L 400.0001 ####[facility] [address] [place], [address] Performed By: #### L 400.0001 #### [facility] [address] [place], [address] Mucus Ql (Urine sed) 0 SEEN Normal [facility] Comment on above: Order Comment: CLEAN CATCH Performed By: #### L 400.0001 ####[facility] [address] [place], [address] Performed By: #### L 400.0001 #### [facility] [address] [place], [place], [id number] RBC 0 SEEN Normal 0-5 [facility] Comment on above: Order Comment: CLEAN CATCH Performed By: #### L 400.0001 ####[facility] [address] [place], [address] Performed By: #### L 400.0001 #### [facility] [address] [place], [place], [id number] Urine clarityOrdered By: Kayy Carlton on 08-16-2024 Clarity (U) Sl. Cloudy Clear [facility] Urine color determinationOrd ered By: Alvaro Carlton on 08-16-2024 Color (U) Yellow Yellow [facility] Urine glucose detectionOrder ed By: Alvaro Carlton on 08-16-2024 Glucose Ql (U) Normal mg/dl Normal [facility] Urine leukocyte esterase det ection by dipstickOrdered By: Alvaro Carlton on 08-16-2024 Leukocyte esterase Test strip Ql (U) 25 /ul High Negative [facility] Urine pHOrdered By: Alvaro morgan on 08-16-2024 pH (U) 6.5 [pH] 5.0 - 8.0 [facility] Urine sediment bacteria coun t by microscopy (number/high power field)Ordered By: Alvaro Carlton on 08-16-2024 Bacteria LM.HPF (Urine sed) [#/Area] 2 /[HPF] None Seen [facility] Urine specific gravity measu rementOrdered By: Alvaro Carlton on 08-16-2024 Specific gravity (U) [Rel density] 1.015 1.002-1.030 [facility] Urine urobilinogen measureme ntOrdered By: Alvaro Carlton on 08-16-2024 Urobilinogen Ql (U) Normal mg/dl Normal [facility] White blood cell countOrdere d By: Alvaro Carlton on 08-16-2024 White blood cell count 0-5 SEEN /hpf 0-5 [facility] CNPNon 08-10-2024 CNPN Telephone (PSYRMN) MANJINDER WINTER ([id number]) 3 F Date Time Provider Department 08/10/24 REYNALDO BEARD PSYRMN During your visit today, we recorded the following information about you: Reynaldo Beard LISW 08/10/2024 3:16 PM Signed Integrated Mental Health Plan of Care Review of referral with patient. Was patient aware of [facility] referral placement by provider?Yes Is the patient currently connected for care : No If not connected to Care are they agreeable to referral?Yes If agreeable to referral, are they:External Comment: Pt preference Assisted in making appt at: Other Providers name: [facility] Location address: [address] [place] [address] Phone number: Appointment date and time: Pt to call to schedule Current priority status of the referral Medium Additional information Patient and SW discussed [facility] referral. Patient noted she is open to both counseling and psychiatry services. Patient noted previously being established with [facility]. Patient reported happy with services received, doesn't know why she stopped going. SW and patient discussed resuming services at [facility] or new provider. Patient noted preference for resuming care at [facility]. SW encouraged patient to call to schedule or complete appointment form online. Pt to schedule with [facility] for counseling and psychiatry. Allergies As of Date: 08/10/2024 (No Known Allergies) Date Reviewed: 08/01/2024 Reviewed by: Darvin Peng APRN.BORDER MACHINE OPERATOR - Fully Assessed Reason for Visit: Integrated Mental Health Plan of Care [Other] Prescriptions as of 08/10/2024 - aspirin, enteric coated (ECOTRIN LOW STRENGTH) 81 mg EC tablet Take 1 tablet by mouth once daily. - vit no.124/iron/folic ( VITAMIN ORAL) Take 1 tablet by mouth once daily. Problem List As Of Date 08/10/2024 Noted Resolved Depression with anxiety [F41.8] 05/08/2018 History of anxiety [Z86.59] 05/08/2018 with uncertain dates in first trimest*08/01/2024 Encounter for supervision of high risk pregnanc*08/01/2024 Acute vaginitis [N76.0] 08/01/2024 Marijuana use during (HCC) [O99.320, *08/01/2024 Nausea and vomiting during (HCC) [O21*08/01/2024 History of non-suicidal self-harm [Z91.52] 08/01/2024 Encounter Status:Closed by REYNALDO BEARD on 08/10/24 [facility] CNPNon 08-09-2024 CNPN Telephone (OBGYWM) MANJINDER WINTER ([id number]) 3 F Date Time Provider Department 08/09/24 NAOMI KELSEY During your visit today, we recorded the following information about you: Naomi Guerin RN 08/09/2024 4:47 PM Signed 7w6d Patient called to report that she was seen at [facility] yesterday for bleeding. Was dx with a subchorionic hematoma. Calling today to report that she is having some pain and dark brown bleeding. Following pelvic rest precautions. Reassurance given. Recommended patient to let the office know if her pain increases or if she has bright red bleeding. Patient states that she is passing some chunks with the bleeding. Has had a missed AB prior and it does not resemble that. Her next OB visit is on 09/06/24. Would you like patient to have a sooner appointment. Aware she may not receive a response from the office before the end of day. Patient voiced understanding. VALERIE Monroe Jennifer, MD 08/09/2024 4:57 PM Signed Yes, she can be seen sooner to check for a FHR Naomi Guerin RN 08/10/2024 8:28 AM Signed Attempted to reach patient. No answer and unable to leave a voicemail. Mailbox is full. Mychart not set up yet. VALERIE Monroe Jennifer, RN 08/16/2024 3:19 PM Signed See 08/16/24 phone note. Naomi Guerin RN Allergies As of Date: 08/09/2024 (No Known Allergies) Date Reviewed: 08/01/2024 Reviewed by: Darvin Peng APRN.BORDER MACHINE OPERATOR - Fully Assessed Reason for Visit: Early OB Bleeding [Other] Prescriptions as of 09/04/2024 - aspirin, enteric coated (ECOTRIN LOW STRENGTH) 81 mg EC tablet Take 1 tablet by mouth once daily. - vit no.124/iron/folic ( VITAMIN ORAL) Take 1 tablet by mouth once daily. Problem List As Of Date 08/09/2024 Noted Resolved Depression with anxiety [F41.8] 05/08/2018 History of anxiety [Z86.59] 05/08/2018 with uncertain dates in first trimest*08/01/2024 Encounter for supervision of high risk pregnanc*08/01/2024 Acute vaginitis [N76.0] 08/01/2024 Marijuana use during (HCC) [O99.320, *08/01/2024 Nausea and vomiting during (HCC) [O21*08/01/2024 History of non-suicidal self-harm [Z91.52] 08/01/2024 Encounter Status:Closed by NAOMI GUERIN on 08/16/24 Normal [facility] Absolute lymphocyte countOrd ered By: Rupert Guerra on 08-08-2024 Lymphocytes Auto (Unsp spec) [#/Vol] 2.06 10*3/uL 0.83-4.51 [facility] Absolute neutrophil countOrd ered By: Rupert Guerra on 08-08-2024 Neutrophils (Bld) [#/Vol] 7.8 10*3/uL High 2.0-7.7 [facility] Anion gap in Serum or Plasma Ordered By: Rupert Guerra on 08-08-2024 Anion gap [Moles/Vol] 12 mmol/L 5-15 [facility] Automated lymphocyte count a s percentage of total leukocytesOrdered By: Rupert Guerra on 08-08-2024 Lymphocytes/100 WBC Auto (Unsp spec) 19.2 % [facility] BUN/creatinine ratioOrdered By: [facility] on 08-08-2024 Urea nitrogen/Creatinine [Mass ratio] 22.8 mg/mg High 01-07 [facility] Basic Metabolic Profile (BMP )on 08-08-2024 BUN/CRE 22.8 RATIO High 01-07 [facility] Comment on above: Performed By: #### L 700.8000, L500.2500, L100.0100 ####[facility] [address] [place], [address] Performed By: #### M 100.2200 #### [facility] [address] [place], [address] Calcium [Mass/Vol] 9.8 mg/dL Normal 7.6-11.0 [facility] Comment on above: Performed By: #### L 700.8000, L500.2500, L100.0100 ####[facility] [address] [place], [address] Performed By: #### M 100.2200 #### [facility] [address] [place], [address] Chloride [Moles/Vol] 102 mmol/L Normal 98-108 [facility] Comment on above: Performed By: #### L 700.8000, L500.2500, L100.0100 ####[facility] [address] [place], [address] Performed By: #### M 100.2200 #### [facility] [address] [place], [address] CO2 [Moles/Vol] 21.8 mmol/L Normal 21.0-32.0 [facility] Comment on above: Performed By: #### L 700.8000, L500.2500, L100.0100 ####[facility] [address] [place], [address] Performed By: #### M 100.2200 #### [facility] [address] [place], [address] Creatinine [Mass/Vol] 0.49 mg/dL Low 0.70-1.20 [facility] Comment on above: Performed By: #### L 700.8000, L500.2500, L100.0100 ####[facility] [address] [place], [address] Performed By: #### M 100.2200 #### [facility] [address] [place], [address] ECRCL 151.50 ml/min Normal 50-250 [facility] Comment on above: Performed By: #### L 700.8000, L500.2500, L100.0100 ####[facility] [address] [place], [address] Performed By: #### M 100.2200 #### [facility] [address] [place], [address] GAP 12 Normal 5-15 [facility] Comment on above: Performed By: #### L 700.8000, L500.2500, L100.0100 ####[facility] [address] [place], [address] Performed By: #### M 100.2200 #### [facility] [address] [place], [address] GFR/1.73 sq M.predicted among non-blacks MDRD (S/P/Bld) [Vol rate/Area] 138 mL/min/{1.73_m2} Normal >60 [facility] Comment on above: Result Comment: mL/m in/1.73m2 CKD-EPI Creatinine Equation (2020) Performed By: #### L 700.8000, L500.2500, L100.0100 ####[facility] [address] [place], [address] Performed By: #### M 100.2200 #### [facility] [address] [place], [address] Glucose [Mass/Vol] 93 mg/dL Normal 70-99 [facility] Comment on above: Performed By: #### L 700.8000, L500.2500, L100.0100 ####[facility] [address] [place], [address] Performed By: #### M 100.2200 #### [facility] [address] [place], [address] Potassium [Moles/Vol] 3.8 mmol/L Normal 3.3-5.1 [facility] Comment on above: Result Comment: Hemo lysis present, Results??could be affected. ?? Performed By: #### L 700.8000, L500.2500, L100.0100 ####[facility] [address] [place], [address] Performed By: #### M 100.2200 #### [facility] [address] [place], [address] Sodium [Moles/Vol] 136 mmol/L Normal 133-145 [facility] Comment on above: Performed By: #### L 700.8000, L500.2500, L100.0100 ####[facility] [address] [place], [address] Performed By: #### M 100.2200 #### [facility] [address] [place], [address] Urea nitrogen [Mass/Vol] 11 mg/dL Normal 4-19 [facility] Comment on above: Performed By: #### L 700.8000, L500.2500, L100.0100 ####[facility] [address] [place], [address] Performed By: #### M 100.2200 #### [facility] [address] [place], [address] Basophil percentageOrdered B y: Rupert Guerra on 08-08-2024 Basophils/100 WBC (Bld) 0.3 % 0-1 [facility] Bilirubin Test strip Ql (U)O rdered By: Rupert Guerra on 08-08-2024 Bilirubin Ql (U) Negative Negative [facility] CBC W/Diff, Automatedon 07-20 Absolute Lymph 2.06 X10 3/uL Normal 0.83-4.51 [facility] Comment on above: Performed By: #### L 700.8000, L500.2500, L100.0100 ####[facility] [address] [place], [address] Performed By: #### M 100.2200 #### [facility] [address] [place], [address] Absolute Neut 7.8 X10 3/uL High 2.0-7.7 [facility] Comment on above: Performed By: #### L 700.8000, L500.2500, L100.0100 ####[facility] [address] [place], [address] Performed By: #### M 100.2200 #### [facility] [address] [place], [address] Basophils/100 WBC (Bld) 0.3 % Normal 0-1 [facility] Comment on above: Performed By: #### L 700.8000, L500.2500, L100.0100 ####[facility] [address] [place], [address] Performed By: #### M 100.2200 #### [facility] [address] [place], [address] Eosinophils/100 WBC (Bld) 0.5 % Normal 0-5 [facility] Comment on above: Performed By: #### L 700.8000, L500.2500, L100.0100 ####[facility] [address] [place], [address] Performed By: #### M 100.2200 #### [facility] [address] [place], [address] Erythrocyte distribution width (RBC) [Ratio] 12.5 % Normal 11.6-14.6 [facility] Comment on above: Performed By: #### L 700.8000, L500.2500, L100.0100 ####[facility] [address] [place], [address] Performed By: #### M 100.2200 #### [facility] [address] [place], [address] Hematocrit (Bld) [Volume fraction] 36.9 % Low 37-47 [facility] Comment on above: Performed By: #### L 700.8000, L500.2500, L100.0100 ####[facility] [address] [place], [address] Performed By: #### M 100.2200 #### [facility] [address] [place], [address] Hemoglobin (Bld) [Mass/Vol] 13.0 g/dL Normal 12.0-15.0 [facility] Comment on above: Performed By: #### L 700.8000, L500.2500, L100.0100 ####[facility] [address] [place], [address] Performed By: #### M 100.2200 #### [facility] [address] [place], [address] IG% 0.200 Normal 0.0-0.9 [facility] Comment on above: Result Comment: IG% - Immature Granulocytes (promyelocytes, myelocytes and metamyelocytes) > 1% indicates that a LEFT SHIFT is Present. Performed By: #### L 700.8000, L500.2500, L100.0100 ####[facility] [address] [place], [address] Performed By: #### M 100.2200 #### [facility] [address] [place], [address] Lymphocytes/100 WBC (Bld) 19.2 % Normal 19-41 [facility] Comment on above: Performed By: #### L 700.8000, L500.2500, L100.0100 ####[facility] [address] [place], [address] Performed By: #### M 100.2200 #### [facility] [address] [place], [address] MCH (RBC) [Entitic mass] 30.2 pg Normal 27.0-32.0 [facility] Comment on above: Performed By: #### L 700.8000, L500.2500, L100.0100 ####[facility] [address] [place], [address] Performed By: #### M 100.2200 #### [facility] [address] [place], [address] MCHC (RBC) [Mass/Vol] 35.2 g/dL Normal 32-36 [facility] Comment on above: Performed By: #### L 700.8000, L500.2500, L100.0100 ####[facility] [address] [place], [address] Performed By: #### M 100.2200 #### [facility] [address] [place], [address] MCV (RBC) [Entitic vol] 85.8 fL Normal 81-99 [facility] Comment on above: Performed By: #### L 700.8000, L500.2500, L100.0100 ####[facility] [address] [place], [address] Performed By: #### M 100.2200 #### [facility] [address] [place], [address] Monocytes/100 WBC (Bld) 7.2 % Normal 0-10 [facility] Comment on above: Performed By: #### L 700.8000, L500.2500, L100.0100 ####[facility] [address] [place], [address] Performed By: #### M 100.2200 #### [facility] [address] [place], [address] Neutrophils/100 WBC (Bld) 72.6 % High 47-70 [facility] Comment on above: Performed By: #### L 700.8000, L500.2500, L100.0100 ####[facility] [address] [place], [address] Performed By: #### M 100.2200 #### [facility] [address] [place], [address] Nucleated RBC (Bld) [#/Vol] 0 10*3/uL Normal 0-5 [facility] Comment on above: Performed By: #### L 700.8000, L500.2500, L100.0100 ####[facility] [address] [place], [address] Performed By: #### M 100.2200 #### [facility] [address] [place], [address] Platelet mean volume (Bld) [Entitic vol] 10.2 fL Normal 6.2-12.0 [facility] Comment on above: Performed By: #### L 700.8000, L500.2500, L100.0100 ####[facility] [address] [place], [address] Performed By: #### M 100.2200 #### [facility] [address] [place], [address] Platelets (Bld) [#/Vol] 282 10*3/uL Normal 150-450 [facility] Comment on above: Performed By: #### L 700.8000, L500.2500, L100.0100 ####[facility] [address] [place], [address] Performed By: #### M 100.2200 #### [facility] [address] [place], [address] RBC (Bld) [#/Vol] 4.30 10*6/uL Normal 4.2-5.4 [facility] Comment on above: Performed By: #### L 700.8000, L500.2500, L100.0100 ####[facility] [address] [place], [address] Performed By: #### M 100.2200 #### [facility] [address] [place], [address] RDW SD 39.2 fl Normal 35.1-43.9 [facility] Comment on above: Performed By: #### L 700.8000, L500.2500, L100.0100 ####[facility] [address] [place], [address] Performed By: #### M 100.2200 #### [facility] [address] [place], [address] WBC (Bld) [#/Vol] 10.7 10*3/uL Normal 4.4-11.0 [facility] Comment on above: Performed By: #### L 700.8000, L500.2500, L100.0100 ####[facility] [address] [place], [address] Performed By: #### M 100.2200 #### [facility] [address] [place], [address] Carbon dioxide, total [Moles /volume] in Central venous bloodOrdered By: Rupert Guerra on 08-08-2024 CO2 [Moles/Vol] 21.8 mmol/L 21.0-32.0 [facility] Chloride assayOrdered By: Manolo Guerra on 08-08-2024 Chloride [Moles/Vol] 102 mmol/L 98-108 [facility] Emergency Department Summary on 08-08-2024 Emergency Department Summary [facility] Medical Records Department [address] [place] [address] Emergency Department Summary 08/08/24 MR#: [id number] Acct: [id number] Name: MANJINDER WINTER Rep #: [id number] : 2005 19 From: Rupert Guerra DO PCP: Care Physician,No Primary Status:DEP ER Location: ED HPI HPI - Female History of Present Illness Chief Complaint: Vag Bld, Preg Narrative Narrative: Chief complaint and HPI: Vaginal bleeding in early . 19-year-old female who is A1 and 9 weeks presents for evaluation of vaginal bleeding. Patient states that she had a early miscarriage in January. States she follows with [facility] [employer]. States she had an ultrasound performed approximately 1 week ago that showed viable IUP. Patient states this evening she developed small amounts of blood in her underwear in which she became worried and presented for evaluation. She denies any significant bleeding. Denies any fever, chills, shortness of breath, chest pain, abdominal/pelvic pain, dysuria. Review of systems: See HPI Medications: As listed on the chart Allergies: As listed on the chart PFSH: Per chart Vital signs: As listed on the chart. Reviewed. Physical exam: Gen: A O x3, NAD Head: Normocephalic, atraumatic Eyes: No sclera icterus, conjunctiva clear ENT: Moist mucous membranes Neck: Trachea midline, No JVD CV: RRR, no murmurs, no peripheral edema Resp: Lungs CTA BL, no w/r/c GI: Abd soft, non-distended, non-tender, no r/r/g : No CVA tenderness. Pelvic: Normal external genitalia. No lesions, masses, or rashes appreciated. + Vaginal bleeding from the cervix. Cervix is non-friable and closed. No cervical motion tenderness appreciated. Musc: Full ROM, no deformity Skin: Warm, dry Neuro: Alert, oriented, grossly intact, sensation intact Psych: Cooperative, appropriate mood and affect [facility] Home Medications ???Medication ???Instructions ???Recorded ???Last Taken ???Type etonogestrel 0.12 mg-ethinyl 1 vag ring vaginal QMONTH 12/15/21 Unknown History estradiol 0.015 mg/24 hr vaginal ring (NuvaRing) ondansetron 4 mg disintegrating 4 mg PO Q8H PRN PRN Nausea #10 tab s 12/08/23 Unknown Rx tablet cephalexin 500 mg capsule 500 mg PO BID 7 days #14 caps 07/20 04/14 Unknown Rx Allergy/AdvReac Type Severity Reaction Status Date / Time No Known Allergies Allergy Verified 08/08/24 19:48 Social History (Updated 12/08/23 @ 07:[address] Noe Ryan, DO) Smoking Status: Current every day smoker tobacco type: e-cigarettes substance use type: marijuana EXAM Physical Exam Const Vital Signs: 08/08/24 19:48 08/08/24 21:47 08/08/24 23:12 Temperature 96.8 F L 98.0 F Temperature Source Temporal Pulse Rate 100 74 70 Respiratory Rate 20 H 16 18 Blood Pressure 136/53 H 112/82 H 118/62 Blood Pressure Mean 80 92 80 Pulse Ox 99 98 100 Oxygen Delivery Method Room Air MDM MDM MDM Narrative Medical decision making narrative: 19-year-old female who is A1 and 9 weeks presents for evaluation of vaginal bleeding. Denies any abdominal pain. Differential diagnosis includes but is not limited to normal bleeding in first trimester, miscarriage, subchorionic hematoma, UTI. Laboratory workup ordered including transvaginal ultrasound. CBC without leukocytosis or anemia. BMP relatively unremarkable. Quantitative hCG 128,005. UA shows mild ketones with blood. This is consistent with patient's vaginal bleeding. However she does have 1+ bacteria without obvious signs of infection. Given patient is however will treat for asymptomatic bacteriuria with Keflex. She will be given first dose here. She was informed of this and confirmed understanding. Ultrasound shows a single live intrauterine . She has a small subchorionic hematoma. heart rate 169. ANA MARIA by ultrasound is 03/19/2025. She is 8 weeks and 0 days. Patient's vaginal bleeding is likely secondary to this. I did consult her [employer] office and spoke to the major account representative. She agrees no further management at this time. No need for blood typing or RhoGAM given that patient is only 8 weeks. Follow-up in their office. Return precautions explained. Patient agreement understands plan. Impression: 1. Subchorionic hematoma 2. Vaginal bleeding in first trimester 3. Asymptomatic bacteriuria in Lab Data Labs: Laboratory Results - last 24 hr 08/08/24 21:15 WBC 10.7 RBC 4.30 Hgb 13.0 Hct 36.9 L MCV 85.8 MCH 30.2 MCHC 35.2 RDW Std Deviation 39.2 RDW Coeff of Eve 12.5 Plt Count 282 MPV 10.2 Immature Gran % (Auto) 0.200 Neut % (Auto) 72.6 H Lymph % (Auto) 19.2 Throckmorton % (Auto) 7.2 Eos % (Auto) 0.5 Baso % (Auto) 0.3 Absolute Neuts (au (more content not included)... Normal [facility] Emergency Department Summary [facility] Medical Records Department [address] [place] [address] Emergency Department Summary 08/08/24 MR#: [id number] Acct: [id number] Name: MANJINDER WINTER Rep #: [id number] : 2005 19 From: Rupert Guerra DO PCP: Care Physician,No Primary Status:DEP ER Location: ED HPI HPI - Female History of Present Illness Chief Complaint: Vag Bld, Preg Narrative Narrative: Chief complaint and HPI: Vaginal bleeding in early . 19-year-old female who is A1 and 9 weeks presents for evaluation of vaginal bleeding. Patient states that she had a early miscarriage in January. States she follows with [facility]. States she had an ultrasound performed approximately 1 week ago that showed viable IUP. Patient states this evening she developed small amounts of blood in her underwear in which she became worried and presented for evaluation. She denies any significant bleeding. Denies any fever, chills, shortness of breath, chest pain, abdominal/pelvic pain, dysuria. Review of systems: See HPI Medications: As listed on the chart Allergies: As listed on the chart PFSH: Per chart Vital signs: As listed on the chart. Reviewed. Physical exam: Gen: A O x3, NAD Head: Normocephalic, atraumatic Eyes: No sclera icterus, conjunctiva clear ENT: Moist mucous membranes Neck: Trachea midline, No JVD CV: RRR, no murmurs, no peripheral edema Resp: Lungs CTA BL, no w/r/c GI: Abd soft, non-distended, non-tender, no r/r/g : No CVA tenderness. Pelvic: Normal external genitalia. No lesions, masses, or rashes appreciated. + Vaginal bleeding from the cervix. Cervix is non-friable and closed. No cervical motion tenderness appreciated. Musc: Full ROM, no deformity Skin: Warm, dry Neuro: Alert, oriented, grossly intact, sensation intact Psych: Cooperative, appropriate mood and affect PFSH PFSH Home Medications ???Medication ???Instructions ???Recorded ???Last Taken ???Type etonogestrel 0.12 mg-ethinyl 1 vag ring vaginal QMONTH 12/15/21 Unknown History estradiol 0.015 mg/24 hr vaginal ring (NuvaRing) ondansetron 4 mg disintegrating 4 mg PO Q8H PRN PRN Nausea #10 tab s 12/08/23 Unknown Rx tablet cephalexin 500 mg capsule 500 mg PO BID 7 days #14 caps 07/20 04/14 Unknown Rx Allergy/AdvReac Type Severity Reaction Status Date / Time No Known Allergies Allergy Verified 08/08/24 19:48 Social History (Updated 12/08/23 @ 07:[address] Noe Ryan, DO) Smoking Status: Current every day smoker tobacco type: e-cigarettes substance use type: marijuana EXAM Physical Exam Const Vital Signs: 08/08/24 19:48 08/08/24 21:47 08/08/24 23:12 Temperature 96.8 F L 98.0 F Temperature Source Temporal Pulse Rate 100 74 70 Respiratory Rate 20 H 16 18 Blood Pressure 136/53 H 112/82 H 118/62 Blood Pressure Mean 80 92 80 Pulse Ox 99 98 100 Oxygen Delivery Method Room Air MDM MDM MDM Narrative Medical decision making narrative: 19-year-old female who is A1 and 9 weeks presents for evaluation of vaginal bleeding. Denies any abdominal pain. Differential diagnosis includes but is not limited to normal bleeding in first trimester, miscarriage, subchorionic hematoma, UTI. Laboratory workup ordered including transvaginal ultrasound. CBC without leukocytosis or anemia. BMP relatively unremarkable. Quantitative hCG 128,005. UA shows mild ketones with blood. This is consistent with patient's vaginal bleeding. However she does have 1+ bacteria without obvious signs of infection. Given patient is however will treat for asymptomatic bacteriuria with Keflex. She will be given first dose here. She was informed of this and confirmed understanding. Ultrasound shows a single live intrauterine . She has a small subchorionic hematoma. heart rate 169. ANA MARIA by ultrasound is 03/19/2025. She is 8 weeks and 0 days. Patient's vaginal bleeding is likely secondary to this. I did consult her [employer] office and spoke to the major account representative. She agrees no further management at this time. No need for blood typing or RhoGAM given that patient is only 8 weeks. Follow-up in their office. Return precautions explained. Patient agreement understands plan. Impression: 1. Subchorionic hematoma 2. Vaginal bleeding in first trimester 3. Asymptomatic bacteriuria in Lab Data Labs: Laboratory Results - last 24 hr 08/08/24 21:15 WBC 10.7 RBC 4.30 Hgb 13.0 Hct 36.9 L MCV 85.8 MCH 30.2 MCHC 35.2 RDW Std Deviation 39.2 RDW Coeff of Eve 12.5 Plt Count 282 MPV 10.2 Immature Gran % (Auto) 0.200 Neut % (Auto) 72.6 H Lymph % (Auto) 19.2 Throckmorton % (Auto) 7.2 Eos % (Auto) 0.5 Baso % (Auto) 0.3 Absolute Neuts (au (more content not included)... Normal [facility] Eosinophil percentageOrdered By: Rupert Guerra on 08-08-2024 Eosinophils/100 WBC (Bld) 0.5 % 0-5 [facility] Erythrocyte distribution wid th ratioOrdered By: [place] Mari on 08-08-2024 Erythrocyte distribution width (RBC) [Ratio] 12.5 % 11.6-14.6 [facility] Erythrocyte distribution wid th standard deviationOrdered By: [place] Jerald Tolbert on 08-08-2024 Erythrocyte distribution width (RBC) [Ratio] 39.2 fl 35.1-43.9 [facility] Glomerular filtration rate ( GFR) estimation/1.73 sq m using serum, plasma, or whole bOrdered By: Rupert Guerra on 08-08-2024 GFR/1.73 sq M.predicted among non-blacks MDRD (S/P/Bld) [Vol rate/Area] 138 mL/min/{1.73_m2} >60 [facility] Comment on above: mL/min/1.73m2 CKD-EP I Creatinine Equation (2020) Hematocrit Auto (Bld) [Volum e fraction]Ordered By: Rupert Guerra on 08-08-2024 Hematocrit (Bld) [Volume fraction] 36.9 % Low 37-47 [facility] Hemoglobin measurementOrdere d By: Rupert Guerra on 08-08-2024 Hemoglobin (Bld) [Mass/Vol] 13.0 g/dL 12.0-15.0 [facility] Immature granulocytes/100 WB C Auto (Bld)Ordered By: Rupert Guerra on 08-08-2024 Immature granulocytes/100 WBC (Bld) 0.200 % 0.0-0.9 [facility] Comment on above: IG% - Immature Granu locytes (promyelocytes, myelocytes and metamyelocytes) > 1% indicates that a LEFT SHIFT is Present. Ketones Test strip Ql (U)Ord ered By: Rupert Guerra on 08-08-2024 Ketones Ql (U) 5 mg/dl High Negative [facility] MCV (mean corpuscular volume ) determinationOrdered By: Rupert Guerra on 08-08-2024 MCV (RBC) [Entitic vol] 85.8 fL 81-99 [facility] Mean corpuscular hemoglobin (MCH) determinationOrdered By: Rupert Guerra on 08-08-2024 MCH (RBC) [Entitic mass] 30.2 pg 27.0-32.0 [facility] Mean corpuscular hemoglobin concentration (MCHC) determinationOrdered By: Rupert Guerra on 08-08-2024 MCHC (RBC) [Mass/Vol] 35.2 g/dL 32-36 [facility] Mean platelet volume determi nationOrdered By: Rupert Guerra on 08-08-2024 Platelet mean volume (Bld) [Entitic vol] 10.2 fL 6.2-12.0 [facility] Microscopic analysis of urin e for red blood cells (RBC)Ordered By: Rupert Guerra on 08-08-2024 Microscopic analysis of urine for red blood cells (RBC) 0-5 SEEN /hpf 0-5 [facility] Monocyte percentageOrdered B y: Rupert Guerra on 08-08-2024 Monocytes/100 WBC (Bld) 7.2 % 0-10 [facility] Mucus LM Ql (Urine sed)Order ed By: Rupert Guerra on 08-08-2024 Mucus Ql (Urine sed) 0 SEEN /hpf [facility] Neutrophil percentageOrdered By: Rupert Guerra on 08-08-2024 Neutrophils/100 WBC (Bld) 72.6 % High 47-70 [facility] Nitrite Test strip Ql (U)Ord ered By: Rupert Guerra on 08-08-2024 Nitrite Ql (U) Negative Negative [facility] Nucleated red blood cell per centageOrdered By: Rupert Guerra on 08-08-2024 Nucleated RBC/100 WBC (Bld) [Ratio] 0 % 0-5 [facility] Platelet countOrdered By: Manolo Guerra on 08-08-2024 Platelets (Bld) [#/Vol] 282 10*3/uL 150-450 [facility] Potassium measurement (mass/ volume)Ordered By: Rupert Guerra on 08-08-2024 Potassium (Unsp spec) [Mass/Vol] 3.8 mmol/L 3.3-5.1 [facility] Comment on above: Hemolysis present, R esults could be affected. Protein Test strip Ql (U)Ord ered By: Rupert Guerra on 08-08-2024 Protein Ql (U) 15 mg/dl High Negative [facility] RBC Auto (Bld) [#/Vol]Ordere d By: Rupert Guerra on 08-08-2024 RBC (Bld) [#/Vol] 4.30 10*6/uL 4.2-5.4 [facility] Serum creatinine measurement (mass/volume)Ordered By: Rupert Guerra on 08-08-2024 Creatinine [Mass/Vol] 0.49 mg/dL Low 0.70-1.20 [facility] Serum glucose measurement (m ass/volume)Ordered By: Rupert Guerra on 08-08-2024 Glucose [Mass/Vol] 93 mg/dL 70-99 [facility] Serum human chorionic gonado tropin detection for pregnancyOrdered By: Rupert Guerra on 08-08-2024 HCG ( test) Ql 420669 mIU/mL High <9 [facility] Comment on above: Gestational Age0.2-1 Week: 5-50 mIU/mL1-2 Weeks: 50-500 mIU/mL2-3 Weeks: 100-5000 mIU/mL3-4 Weeks: 500-10,000 mIU/mL4-5 Weeks:1000-50,000 mIU/mL5-6 Weeks: 10,000-100,000 mIU/mL6-8 Weeks: 15,000-200,000 mIU/mL2-3 Months:10,000-100,000 mIU/mL Serum or plasma calcium rigo urement (mass/volume)Ordered By: Rupert Tolbert on 08-08-2024 Calcium [Mass/Vol] 9.8 mg/dL 7.6-11.0 [facility] Serum or plasma urea nitroge n measurement (mass/volume)Ordered By: Rupert Guerra on 08-08-2024 Urea nitrogen [Mass/Vol] 11 mg/dL 4-19 [facility] Sodium levelOrdered By: Tu Guerra on 08-08-2024 Sodium [Moles/Vol] 136 mmol/L 133-145 [facility] Squamous epithelial cells de tection in urine sediment by light microscopyOrdered By: Rupert Guerra on 08-08-2024 Epithelial cells.squamous LM Ql (Urine sed) 0-5 SEEN /hpf 5-10 [facility] Transvaginal w/Preg USon Transvaginal w/Preg US [facility] [address] [place] [address] Transvaginal w/Preg US MR#: [id number] Acct: [id number] Name: MANJINDER WINTER Rep #: [id number] : 2005 F 19 From: Abelardo Morfin MD PCP: Care Physician,No Primary Status: REG ER Study: Transvaginal w/Preg US Date of Exam: 08/08/24 Exam# [id number] Ordering Dr: Rupert Guerra DO PROCEDURE: TRANSVAGINAL W/PREG US 08/08/2024 REASON FOR EXAM: VAGINAL BLEEDING TECHNIQUE: High resolution obstetric ultrasound performed using a 2D transducer. Standard views obtained, including biometry, anatomy survey, and Doppler studies. COMPARISON: None. FINDINGS Single live intrauterine with a gestational sac measuring 3.1 cm. Estimated gestational age by crown-rump length is 8 weeks 0 days. A yolk sac is visualized. heart rate is 169 beats per minute. ANA MARIA by ultrasound 03/19/2025. ANA MARIA by LMP 03/21/2025. Small anechoic 1.00.5 x 0.3 cm region adjacent to the gestational sac likely representing subchorionic hematoma. Uterus measures 10.8 x 9.0 x 6.1 cm. No masses. No free fluid in the cul-de-sac. Right ovary measures 3.9 x 2.7 x 1.7 cm. Small follicle. Preserved vascular flow. Left ovary measures 2.9 x 2.0 x 1.6 cm. Preserved vascular flow. US/Transvaginal w/Preg US IMPRESSION: Single live intrauterine . Small subchorionic hematoma. Reading Location: [place] [address] CC: Dr. Rupert Guerra DO; No Primary Care Physician Hand Touch Up Painter: Signed Normal [facility] Transvaginal w/Preg US [facility] [address] [place] [id number] Transvaginal w/Preg US MR#: [id number] Acct: [id number] Name: MANJINDER WINTER Rep #: [id number] : 2005 F 19 From: Abelardo Morfin MD PCP: Care Physician,No Primary Status: [facility] ER Study: Transvaginal w/Preg US Date of Exam: 08/08/24 Exam# [id number] Ordering Dr: Rupert Guerra DO PROCEDURE: TRANSVAGINAL W/PREG US 08/08/2024 REASON FOR EXAM: VAGINAL BLEEDING TECHNIQUE: High resolution obstetric ultrasound performed using a 2D transducer. Standard views obtained, including biometry, anatomy survey, and Doppler studies. COMPARISON: None. FINDINGS Single live intrauterine with a gestational sac measuring 3.1 cm. Estimated gestational age by crown-rump length is 8 weeks 0 days. A yolk sac is visualized. heart rate is 169 beats per minute. ANA MARIA by ultrasound 03/19/2025. ANA MARIA by LMP 03/21/2025. Small anechoic 1.00.5 x 0.3 cm region adjacent to the gestational sac likely representing subchorionic hematoma. Uterus measures 10.8 x 9.0 x 6.1 cm. No masses. No free fluid in the cul-de-sac. Right ovary measures 3.9 x 2.7 x 1.7 cm. Small follicle. Preserved vascular flow. Left ovary measures 2.9 x 2.0 x 1.6 cm. Preserved vascular flow. US/Transvaginal w/Preg US IMPRESSION: Single live intrauterine . Small subchorionic hematoma. Reading Location: [id number] CC: Dr. Rupert Guerra, DO; No Primary Care Physician Hand Touch Up Painter: Signed Normal [facility] Urinalysis, Completeon 08-08 BACTERIA 1+ /hpf Normal None Seen [facility] Comment on above: Order Comment: CLEAN CATCH Performed By: #### L 400.0001 #### [facility] [address] [place], [address] EPI,SQUAMOUS 0-5 SEEN Normal 5-10 [facility] Comment on above: Order Comment: CLEAN CATCH Performed By: #### L 400.0001 #### [facility] [address] [place], [address] RBC 0-5 SEEN Normal 0-5 [facility] Comment on above: Order Comment: CLEAN CATCH Performed By: #### L 400.0001 #### [facility] [address] [place], [address] Mucus Ql (Urine sed) 0 SEEN Normal [facility] Comment on above: Order Comment: CLEAN CATCH Performed By: #### L 400.0001 #### [facility] [address] [place], [address] WBC 0 SEEN Normal 0-5 [facility] Comment on above: Order Comment: CLEAN CATCH Performed By: #### L 400.0001 #### [facility] [place], [address] Urine clarityOrdered By: Oz Guerra on 08-08-2024 Clarity (U) Sl. Cloudy Clear [facility] Urine color determinationOrd ered By: Rupert Guerra on 08-08-2024 Color (U) Yellow Yellow [facility] Urine glucose detectionOrder ed By: Rupert Guerra on 08-08-2024 Glucose Ql (U) Normal mg/dl Normal [facility] Urine leukocyte esterase det ection by dipstickOrdered By: Rupert Guerra on 08-08-2024 Leukocyte esterase Test strip Ql (U) Negative Negative [facility] Urine pHOrdered By: Rupert Roman on 08-08-2024 pH (U) 6.0 [pH] 5.0 - 8.0 [facility] Urine sediment bacteria coun t by microscopy (number/high power field)Ordered By: Rupert Guerra on 08-08-2024 Bacteria LM.HPF (Urine sed) [#/Area] 1 /[HPF] None Seen [facility] Urine specific gravity measu rementOrdered By: Rupert Guerra on 08-08-2024 Specific gravity (U) [Rel density] 1.025 1.002-1.030 [facility] Urine urobilinogen measureme ntOrdered By: Rupert Guerra on 08-08-2024 Urobilinogen Ql (U) Normal mg/dl Normal [facility] White blood cell (WBC) count Ordered By: Rupert Guerra on 08-08-2024 WBC (Bld) [#/Vol] 10.7 10*3/uL 4.4-11.0 [facility] White blood cell countOrdere d By: Rupert Guerra on 08-08-2024 White blood cell count 0 SEEN /hpf 0-5 [facility] hCG Titer Quant., Serumon HCG QUANT. 480324 mIU/mL High <9 non-preg [facility] Comment on above: Result Comment: Gest ational Age 0.2-1 Week: 5-50 mIU/mL 1-2 Weeks: 50-500 mIU/mL 2-3 Weeks: 100-5000 mIU/mL 3-4 Weeks: 500-10,000 mIU/mL 4-5 Weeks:1000-50,000 mIU/mL 5-6 Weeks: 10,000-100,000 mIU/mL 6-8 Weeks: 15,000-200,000 mIU/mL 2-3 Months:10,000-100,000 mIU/mL Performed By: #### L 700.8000, L500.2500, L100.0100 ####[facility] [address] [place], [place], [address] Performed By: #### M 100.2200 #### [facility] [address] [place], [address] [facility] CNPN Telephone (PSYRMN) MANJINDER WINTER ([id number]) 3 F Date Time Provider Department 08/02/24 REYNALDO BEARD PSYRMN During your visit today, we recorded the following information about you: Reynaldo Beard LISW 08/02/2024 1:18 PM Signed Phone call to patient regarding [facility] referral. Patient did not answer, left message. 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 - miconazole (MONISTAT 7) 2 % vaginal cream Use 1 applicator vaginally daily at bedtime for 7 days. - vit no.124/iron/folic ( VITAMIN ORAL) Take 1 tablet by mouth once daily. 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, *08/01/2024 Nausea and vomiting during (HCC) [O21*08/01/2024 History of non-suicidal self-harm [Z91.52] 08/01/2024 Encounter Status:Closed by REYNALDO BEARD on 08/02/24 Normal [facility] BACTERIAL VAGINOSIS NAATon 0 08-01-2024 Lactobacillus crispatus+gasseri+cano ii + Gardnerella vaginalis + Atopobium vaginae rRNA NICO+probe Ql (Vag fld) Not detected Normal Not detected [facility] Comment on above: Order Comment: Speci men Type: SWABOrdering Facility: [facility] Address: [address] [place] [address] Performed By: #### B KINGSLEY, 49631-1 ####[facility] LABCLIA [id number] [place] [address] [place] Bacteria Ur Culton 5 Bacteria identified Cx Nom (U) ORGANISM ID: 1 <10,000 CFU/ml Normal urogenital jovana Normal [facility] Comment on above: Performed By: #### 6 30-4 ####[facility] LABCLIA [id number] [id number], [place] [address] [place] C. trachomatis+N. gonorrhoea e DNA NICO+probe Ql (Unsp spec)on 08-01-2024 C. trachomatis rRNA NICO+probe Ql (Unsp spec) Not detected Normal Not detected [facility] Comment on above: Order Comment: Speci men Type: SWABOrdering Facility: [facility] Address: [address] [place] [address] Performed By: #### B VAMP, 93590-6 ####[facility] LABCLIA [id number] [address] N. gonorrhoeae rRNA NICO+probe Ql (Unsp spec) Not detected Normal Not detected [facility] Comment on above: Order Comment: Speci men Type: SWABOrdering Facility: [facility] Address: [address] [place] [address] Performed By: #### B VAMP, 81789-9 ####[facility] LABCLIA [id number] [address] [place] BHARATHI/TRICHOMONAS NAATon 0 08-01-2024 C. glabrata RNA NICO+probe Ql (Vag fld) Not detected Normal Not detected [facility] Comment on above: Order Comment: Speci men Type: SWABOrdering Facility: [facility] Address: [address] [place] [address] Performed By: #### C VTV ####[facility] LABCLIA [id number] [address] [place] Bharathi sp DNA NICO+probe Ql (Vag fld) Detected Abnormal Not detected [facility] Comment on above: Order Comment: Speci men Type: SWABOrdering Facility: [facility] Address: [address] [place] [address] Result Comment: The Bharathi species group target includes C. albicans, C. tropicalis, C. parapsilosis, and C. dubliniensis. Performed By: #### C VTV ####[facility] LABCLIA [id number] [address] [place] T. vaginalis DNA NICO+probe Ql (Unsp spec) Not detected Normal Not detected [facility] Comment on above: Order Comment: Speci men Type: SWABOrdering Facility: [facility] Address: [address] [place] [address] Performed By: #### C VTV ####[facility] LABCLIA [id number] [address] [place] CNCOon 08-01-2024 CNCO Letter Text Normal [facility] POC WELDER TACK ULTRASOUNDon 08-02-19 Indication Viability; confirm cardiac activity Impression Single intrauterine gestational sac, CRL indicates discrepancy from clinical dates, ANA MARIA 03/22/2025 based on today's ultrasound, cardiac activity is visualized Recommendations Follow up for 1st Trimester Anatomy with Nuchal Translucency as clinically indicated if desired. Method Transabdominal ultrasound examination, Transvaginal ultrasound examination. View: Adequate visualization Carv[place]al . Number of embryos: 1 Dating LMP on: 04/29/2024 GA by LMP 13 w + 3 d ANA MARIA by LMP: 02/03/2025 Ultrasound examination on: 08/01/2024 GA by U/S based upon: CRL GA by U/S 6 w + 5 d ANA MARIA by U/S: 03/22/2025 Assigned: based on ultrasound (CRL), selected on 08/01/2024 Assigned GA 6 w + 5 d Assigned ANA MARIA: 03/22/2025 Biometry Standard FHR 127 bpm CRL 7.9 mm 6w 5d 82% [place]lock Assessment Gestational sac: visualized Location: intrauterine Yolk sac: visualized Embryo: visualized CRL 7.9 mm 6w 5d 82% [place] Cardiac activity: present FHR 127 bpm General Evaluation Cardiac activity present. FHR 127 bpm Performed By: Darvin Peng NP Read By: Darvin Peng NP MATERNAL MEDICINE [facility] Radiology Study observation (narrative) [facility] B. burgdorferi IgG and IgM p anitha (S)on 07-26-2024 B. burgdorferi IgG+IgM Qn (S) Negative Normal Negative [facility] Comment on above: Order Comment: Speci men Type: BLOOD SPECIMENOrdering Facility: [facility] Address: [address] [place] [address] Result Comment: Rece nt infection with B. burgdorferi sensu lato cannot be excluded if the specimen collected within four weeks after the onset of signs and symptoms or within six weeks after a known tick exposure. Clinical and epidemiological correlation is required. Performed By: #### 3 4942-3 ####[facility] [facility] LABCLIA [id number] [address] [place] Bilirubin Test strip Ql (U)O rdered By: Chip Ring on 07-26-2024 Bilirubin Ql (U) Negative Negative [facility] CBC W Auto Differential pane l (Bld)on 07-26-2024 Basophils (Bld) [#/Vol] 0.05 10*3/uL [facility] Basophils/100 WBC (Bld) 0.7 % [facility] Differential cell count method Nom (Bld) Auto [facility] Eosinophils (Bld) [#/Vol] 0.03 10*3/uL [facility] Eosinophils/100 WBC (Bld) 0.4 % [facility] Erythrocyte distribution width (RBC) [Ratio] 12.6 % 11.5 - 15.0 % [facility] Hematocrit (Bld) [Volume fraction] 37.4 % 36.0 - 46.0 % [facility] Hemoglobin (Bld) [Mass/Vol] 12.7 g/dL 11.5 - 15.5 g/dL [facility] Immature granulocytes (Bld) [#/Vol] [facility] Immature granulocytes/100 WBC (Bld) 0.3 % [facility] Lymphocytes (Bld) [#/Vol] 1.67 10*3/uL [facility] Lymphocytes/100 WBC (Bld) 23 % [facility] MCH (RBC) [Entitic mass] 29.3 pg 26.0 - 34.0 pg [facility] MCHC (RBC) [Mass/Vol] 34 g/dL 30.5 - 36.0 g/dL [facility] MCV (RBC) [Entitic vol] 86.4 fL 80.0 - 100.0 fL [facility] Monocytes (Bld) [#/Vol] 0.52 10*3/uL [facility] Monocytes/100 WBC (Bld) 7.2 % C [facility] Neutrophils (Bld) [#/Vol] 4.97 10*3/uL [facility] Neutrophils/100 WBC (Bld) 68.4 % [facility] Nucleated RBC (Bld) [#/Vol] NINF [facility] Nucleated RBC/100 WBC (Bld) [Ratio] 0 % /100 WBC [facility] Platelet mean volume (Bld) [Entitic vol] 11 fL 9.0 - 12.7 fL [facility] Platelets (Bld) [#/Vol] 240 10*3/uL [facility] RBC (Bld) [#/Vol] 4.33 10*6/uL 3.90 - 5.2 0 m/uL [facility] WBC (Bld) [#/Vol] 7.26 10*3/uL [facility] Basophils (Bld) [#/Vol] 0.05 10*3/uL Normal <0.11 [facility] Comment on above: Order Comment: Speci men Type: BLOOD SPECIMEN Ordering Facility: [facility] Address: [address] [place] [address] Performed By: #### 5 7021-8 #### [facility] [id number] [address] [place] [address] [place] Basophils/100 WBC (Bld) 0.7 % Normal [facility] Comment on above: Order Comment: Speci men Type: BLOOD SPECIMEN Ordering Facility: [facility] Address: [address] [place] [address] Performed By: #### 5 7021-8 #### [facility] CLIA [id number] [address] [place] [address] [place] Differential cell count method Nom (Bld) Auto Normal [facility] Comment on above: Order Comment: Speci men Type: BLOOD SPECIMEN Ordering Facility: [facility] Address: [address] [place] [address] Performed By: #### 5 7021-8 #### [facility] CLIA [id number] [address] [place], [place] [id number] [place] Eosinophils (Bld) [#/Vol] 0.03 10*3/uL Normal <0.46 [facility] Comment on above: Order Comment: Speci men Type: BLOOD SPECIMEN Ordering Facility: [facility] Address: [address] [place] [address] Performed By: #### 5 7021-8 #### [facility] CLIA [id number] [address] [place] [address] [place] Eosinophils/100 WBC (Bld) 0.4 % Normal [facility] Comment on above: Order Comment: Speci men Type: BLOOD SPECIMEN Ordering Facility: [facility] Address: [address] [place] [address] Performed By: #### 5 7021-8 #### [facility] CLIA [id number] [address] [place] [address] [place] Erythrocyte distribution width (RBC) [Ratio] 12.6 % Normal 11.5-15.0 [facility] Comment on above: Order Comment: Speci men Type: BLOOD SPECIMEN Ordering Facility: [facility] Address: [address] [place] [address] Performed By: #### 5 7021-8 #### [facility] CLIA [id number] [address] [place] [address] [place] Hematocrit (Bld) [Volume fraction] 37.4 % Normal 36.0-46.0 [facility] Comment on above: Order Comment: Speci men Type: BLOOD SPECIMEN Ordering Facility: [facility] Address: [address] [place] [address] Performed By: #### 5 7021-8 #### [facility] [id number] [address] [place] [address] [place] Hemoglobin (Bld) [Mass/Vol] 12.7 g/dL Normal 11.5-15.5 [facility] Comment on above: Order Comment: Speci men Type: BLOOD SPECIMEN Ordering Facility: [facility] Address: [address] [place] [address] Performed By: #### 5 7021-8 #### [facility] CLIA [id number] [address] [place] [address] [place] Immature granulocytes (Bld) [#/Vol] 10*3/uL Normal <0.10 [facility] Comment on above: Order Comment: Speci men Type: BLOOD SPECIMEN Ordering Facility: [facility] Address: [address] [place] [address] Performed By: #### 5 7021-8 #### [facility] CLIA [id number] [address] [place] [address] [place] Immature granulocytes/100 WBC (Bld) 0.3 % Normal [facility] Comment on above: Order Comment: Speci men Type: BLOOD SPECIMEN Ordering Facility: [facility] Address: [address] [place] [address] Performed By: #### 5 7021-8 #### [facility] CLIA [id number] [address] [place] [address] [place] Lymphocytes (Bld) [#/Vol] 1.67 10*3/uL Normal 1.00-4.00 [facility] Comment on above: Order Comment: Speci men Type: BLOOD SPECIMEN Ordering Facility: [facility] Address: [address] [place] [address] Performed By: #### 5 7021-8 #### [facility] CLIA [id number] [address] [place] [address] [place] Lymphocytes/100 WBC (Bld) 23.0 % Normal [facility] Comment on above: Order Comment: Speci men Type: BLOOD SPECIMEN Ordering Facility: [facility] Address: [address] [place] [address] Performed By: #### 5 7021-8 #### [facility] CLIA [id number] [address] [place] [address] [place] MCH (RBC) [Entitic mass] 29.3 pg Normal 26.0-34.0 [facility] Comment on above: Order Comment: Speci men Type: BLOOD SPECIMEN Ordering Facility: [facility] Address: [address] [place] [address] Performed By: #### 5 7021-8 #### [facility] CLIA [id number] [address] [place] [address] [place] MCHC (RBC) [Mass/Vol] 34.0 g/dL Normal 30.5-36.0 [facility] Comment on above: Order Comment: Speci men Type: BLOOD SPECIMEN Ordering Facility: [facility] Address: [address] [place] [address] Performed By: #### 5 7021-8 #### [facility] [id number] [address] [place] [address] [place] MCV (RBC) [Entitic vol] 86.4 fL Normal 80.0-100.0 C [facility] Comment on above: Order Comment: Speci men Type: BLOOD SPECIMEN Ordering Facility: [facility] Address: [address] [place] [address] Performed By: #### 5 7021-8 #### [facility] [id number] [address] [place] [address] [place] Monocytes (Bld) [#/Vol] 0.52 10*3/uL Normal <0.87 [facility] Comment on above: Order Comment: Speci men Type: BLOOD SPECIMEN Ordering Facility: [facility] Address: [address] [place] [address] Performed By: #### 5 7021-8 #### [facility] [id number] [address] [place] [address] [place] Monocytes/100 WBC (Bld) 7.2 % Normal C [facility] Comment on above: Order Comment: Speci men Type: BLOOD SPECIMEN Ordering Facility: [facility] Address: [address] [place] [address] Performed By: #### 5 7021-8 #### [facility] CLIA [id number] [address] [place] [address] [place] Neutrophils (Bld) [#/Vol] 4.97 10*3/uL Normal 1.45-7.50 [facility] Comment on above: Order Comment: Speci men Type: BLOOD SPECIMEN Ordering Facility: [facility] Address: [address] [place] [address] Performed By: #### 5 7021-8 #### [facility] CLIA [id number] [address] [place] [address] [place] Neutrophils/100 WBC (Bld) 68.4 % Normal [facility] Comment on above: Order Comment: Speci men Type: BLOOD SPECIMEN Ordering Facility: [facility] Address: [address] [place] [address] Performed By: #### 5 7021-8 #### [facility] CLIA [id number] [address] [place] [address] [place] Nucleated RBC (Bld) [#/Vol] 10*3/uL Normal <0.01 [facility] Comment on above: Order Comment: Speci men Type: BLOOD SPECIMEN Ordering Facility: [facility] Address: [address] [place] [address] Performed By: #### 5 7021-8 #### [facility] CLIA [id number] [address] [place] [address] [place] Nucleated RBC/100 WBC (Bld) [Ratio] 0.0 /100 WBC Normal [facility] Comment on above: Order Comment: Speci men Type: BLOOD SPECIMEN Ordering Facility: [facility] Address: [address] [place] [address] Performed By: #### 5 7021-8 #### [facility] CLIA [id number] [address] [place] [address] [place] Platelet mean volume (Bld) [Entitic vol] 11.0 fL Normal 9.0-12.7 [facility] Comment on above: Order Comment: Speci men Type: BLOOD SPECIMEN Ordering Facility: [facility] Address: [address] [place] [address] Performed By: #### 5 7021-8 #### [facility] CLIA [id number] [address] [place] [address] [place] Platelets (Bld) [#/Vol] 240 10*3/uL Normal 150-400 [facility] Comment on above: Order Comment: Speci men Type: BLOOD SPECIMEN Ordering Facility: [facility] Address: [address] [place] [address] Performed By: #### 5 7021-8 #### [facility] CLIA [id number] [address] [place] [address] [place] RBC (Bld) [#/Vol] 4.33 10*6/uL Normal 3.90-5.20 [facility] Comment on above: Order Comment: Speci men Type: BLOOD SPECIMEN Ordering Facility: [facility] Address: [address] [place], [place] [address] Performed By: #### 5 7021-8 #### [facility] CLIA [id number] [address] [place] [address] [place] WBC (Bld) [#/Vol] 7.26 10*3/uL Normal 3.70-11.00 [facility] Comment on above: Order Comment: Speci men Type: BLOOD SPECIMEN Ordering Facility: [facility] Address: [address] [place] [address] Performed By: #### 5 7021-8 #### [facility] CLIA [id number] [place] [id number] [place] [address] [place] [facility] CNOVon 07-26-2024 CNOV Office Visit (UCWSTR) MANJINDER WINTER ([id number]) 3 F Date Time Provider Department 07/26/24 9:15 AM RITESH WASHBURN RUST During your visit today, we recorded the following information about you: Temperature Pulse Respiration Blood pressure 98.1 degrees 70/minute 16/minute 120/68 Weight 53.7 kg Ritesh Washburn APRN.BORDER MACHINE OPERATOR 07/26/2024 11:41 AM Signed Subjective HPI Nontoxic-appearing 19-year-old female who is currently 7 weeks presents urgent care chief complaints fever. Patient states has had a fever headache and joint pain for around 2 weeks. Highest recorded temperature 101. States had a fever consistent for 3 to 4 days. Has been fever free for the past 24 hours. Was seen here on 24 July. Diagnosed with cellulitis. At that time patient thought she was bit by a spider. Placed on Keflex. Has taken antibiotics for 1 day. States pain has improved on spider bite area. Still slightly red. Additionally has had vomiting. This has been present for around a week to week and a half. Does not know if this is morning sickness. No blood in vomit. No vaginal discharge. Fever free today. Staying hydrated. No urinary symptoms. Denies any rashes. No cough chest pain shortness of breath abdominal pain. Past medical history prescription medications allergies reviewed. has had a early miscarriage a couple months ago. 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 Upcoming appointment on the .Patient presents with: Vomiting: Headache and fever x 2 weeks, patient is 7 weeks , started on abx 5/7 for insect bite PAST MEDICAL HISTORY Diagnosis Date NEGATIVE MEDICAL HISTORY normal color vision PAST SURGICAL HISTORY Procedure Laterality Date NONE ALLERGIES Patient has no known allergies. MEDICATIONS vit no.124/iron/folic ( VITAMIN ORAL) Take 1 tablet by mouth once daily. cephALEXin (KEFLEX) 500 mg capsule Take 1 capsule by mouth four times daily for 5 days. diclofenac, EC, (VOLTAREN) 75 mg EC tablet Take 1 tablet by mouth two times a day. FOR PAIN (Patient not taking: Reported on 07/24/2024) FAMILY HISTORY Problem Relation Age of Onset Cancer Other MGGMo - Breast Cancer Cancer Other MGGFa - Prostate Cancer other (congestive heart failure) Other PGGMo Social History Tobacco Use Smoking status: Never Passive exposure: Yes Smokeless tobacco: Never Tobacco comments: smokers outside Vaping Use Vaping status: Never Used Substance Use Topics Alcohol use: No Drug use: No BP 120/68 (BP Site: Left Arm, BP Position: Sitting) Pulse 70 Temp 36.7 ?C (98.1 ?F) Resp 16 Wt 53.7 kg (118 lb 6.2 oz) LMP 04/29/2024 SpO2 99% Review of Systems Constitutional: Positive for fever and malaise/fatigue. Negative for chills. HENT: Negative for congestion, ear discharge, ear pain, sinus pain and sore throat. Eyes: Negative for blurred vision, pain, discharge and redness. Respiratory: Negative for cough, hemoptysis, sputum production, shortness of breath, wheezing and stridor. Cardiovascular: Negative for chest pain. Gastrointestinal: Positive for vomiting. Negative for abdominal pain, diarrhea and nausea. Musculoskeletal: Positive for myalgias. Skin: Negative for itching and rash. Neurological: Positive for headaches. Negative for dizziness. Objective Physical Exam Constitutional: General: She is not in acute distress. Appearance: She is not diaphoretic. HENT: Head: Normocephalic. Jaw: No trismus, tenderness, swelling or pain on movement. Mouth/Throat: Mouth: Mucous membranes are moist. Pharynx: Oropharynx is clear. Uvula midline. No pharyngeal swelling, oropharyngeal exudate, posterior oropharyngeal erythema or uvula swelling. Eyes: Conjunctiva/sclera: Conjunctivae normal. Pupils: Pupils are equal, round, and reactive to light. Cardiovascular: Rate and Rhythm: Normal rate and regular rhythm. Heart sounds: Normal heart sounds. Pulmonary: Effort: Pulmonary effort is normal. No tachypnea, accessory muscle usage or respiratory distress. Breath sounds: Normal breath sounds. No stridor. No wheezing, rhonchi or rales. Abdominal: General: There is no distension. Palpations: Abdomen is soft. Tenderness: There is no abdominal tenderness. There is no guarding or rebound. Musculoskeletal: Cervical back: Normal range of motion and neck supple. No edema, erythema, rigidity or tenderness. No pain with movement. Normal range of motion. Lymphadenopathy: Cervical: No cervical adenopathy. Skin: General: Skin is warm and dry. Comments: Approximately a 2 cm x 2 cm area of redness noted. Small amount of induration approximately 5 mm x 5 mm noted. No fluctuance. No inguinal adenopathy. No remote redness. No rashes. Neurological: Mental Status: She is alert and oriented to person, place, and time. (more content not included)... [facility] Telephone (UCWSTR) MANJINDER WINTER ([id number]) 3 F Date Time Provider Department 07/26/24 RITESH WASHBURN RUST During your visit today, we recorded the following information about you: Ritesh Washburn APRN.LUIGI 07/26/2024 11:40 AM Signed Please inform patient that CMP and CBC was within normal limits. No abnormal findings noted on today's labs. Lyme test pending. Continue plan of care as discussed. Continue taking oral antibiotics as previously prescribed. Ritesh Washburn APRN.Meagan Espitia OCCA 07/26/2024 12:15 PM Signed TC to patient with no answer. Left VM to return call. AYUSH Bueno Melissa, MA 07/31/2024 10:06 AM Signed Unable to reach patient. Mailbox full/Mailbox not set up/ Number incorrect. Please try again later. MELINDA Gudino Alexandra, MA 07/31/2024 2:58 PM Signed Patient presented to ED same day as [facility] visit for different symptoms, have not received a return call from patient in 6 days and all testing done with [facility] negative, closing encounter. Latha Obrien MA Allergies As of Date: 07/26/2024 (No Known Allergies) Date Reviewed: 07/26/2024 Reviewed by: Ritesh Washburn APRN.BORDER MACHINE OPERATOR - Fully Assessed Reason for Visit: Results [95] Prescriptions as of 07/31/2024 - vit no.124/iron/folic ( VITAMIN ORAL) Take 1 tablet by mouth once daily. - mupirocin (BACTROBAN) 2 % ointment Apply to affected area three times a day for 5 days. - diclofenac, EC, (VOLTAREN) 75 mg EC tablet Take 1 tablet by mouth two times a day. FOR PAIN Problem List As Of Date 07/26/2024 Noted Resolved Current moderate episode of major depressive di*05/08/2018 ELIU (generalized anxiety disorder) [F41.1] 05/08/2018 Encounter Status:Closed by LATHA OBRIEN on 07/31/24 Normal [facility] Comprehensive metabolic 2000 panelOrdered By: Sierra Maradiaga on 07-26-2024 Albumin [Mass/Vol] 4.7 g/dL 3.9 - 4.9 g/dL [facility] ALP [Catalytic activity/Vol] 75 U/L 34 - 123 U/L [facility] ALT [Catalytic activity/Vol] 14 U/L 7 - 38 U/L [facility] Anion gap [Moles/Vol] 8 mmol/L 8 - 15 mmol/L [facility] AST [Catalytic activity/Vol] 14 U/L 13 - 35 U/L [facility] Bilirubin [Mass/Vol] 0.2 mg/dL 0.2 - 1 .3 mg/dL [facility] Calcium [Mass/Vol] 9.9 mg/dL 8.5 - 10. 2 mg/dL [facility] Chloride [Moles/Vol] 102 mmol/L 98 - 10 7 mmol/L [facility] CO2 [Moles/Vol] 26 mmol/L 22 - 30 mmol/L [place] Creatinine [Mass/Vol] 0.46 mg/dL Low 0.58 - 0.96 mg/dL [facility] GFR/1.73 sq M.predicted among non-blacks MDRD (S/P/Bld) [Vol rate/Area] 141 mL/min/{1.73_m2} - PINF [facility] Comment on above: Estimated Glomerular Filtration Rate (eGFR) is calculated using the 202 CKD-EPI creatinine equation. This equation utilizes serum creatinine, sex, and age as parameters. The creatinine assay has traceable calibration to isotope dilution-mass spectrometry. Refer to KDIGO guidelines for clinical interpretation. In patients with unstable renal function, e.g. those with acute kidney injury, the eGFR may not accurately reflect actual GFR. Glucose [Mass/Vol] 91 mg/dL 74 - 99 mg/dL [facility] Comment on above: The [place] Diabete s Association (ADA) provides guidance for cutoff values for fasting glucose and random glucose. The ADA defines fasting as no caloric intake for at least 8 hours. Fasting plasma glucose results between 100 to 125 mg/dL indicate increased risk for diabetes (prediabetes). Fasting plasma glucose results greater than or equal to 126 mg/dL meet the criteria for diagnosis of diabetes. In the absence of unequivocal hyperglycemia, results should be confirmed by repeat testing. In a patient with classic symptoms of hyperglycemia or hyperglycemic crisis, random plasma glucose results greater than or equal to 200 mg/dL meet the criteria for diagnosis of diabetes. Reference: Standards of Medical Care in Diabetes 2016, [place] [employer]. Diabetes Care. 2016.39(Suppl 1). Interpretation and review of laboratory results Abnormal [facility] Potassium [Moles/Vol] 4 mmol/L 3.7 - 5.1 mmol/L [facility] Protein [Mass/Vol] 7.5 g/dL 6.3 - 8.0 g/dL [facility] Sodium [Moles/Vol] 136 mmol/L 136 - 144 mmol/L [facility] Urea nitrogen [Mass/Vol] 12 mg/dL 7 - 21 mg/d L [facility] Comprehensive metabolic 2000 panelon 07-26-2024 Albumin [Mass/Vol] 4.7 g/dL Normal 3.9-4.9 [facility] Comment on above: Order Comment: Speci men Type: BLOOD SPECIMENOrdering Facility: [facility] Address: [facility] [place] [address] Performed By: #### 2 4323-8 ####[facility] GISEL ANTONYLIA [id number] [place] [address] [place] ALP [Catalytic activity/Vol] 75 U/L Normal 34-123 [facility] Comment on above: Order Comment: Speci men Type: BLOOD SPECIMENOrdering Facility: [facility] Address: [address] [place] [address] Performed By: #### 2 4323-8 ####[facility] MILLTOWNCLIA [id number] [place] [address] [place] ALT [Catalytic activity/Vol] 14 U/L Normal 7-38 [facility] Comment on above: Order Comment: Speci men Type: BLOOD SPECIMENOrdering Facility: [facility] Address: [address] [place] [address] Performed By: #### 2 4323-8 ####[facility] NAPLESNCLIA [id number] [place] [address] [place] Anion gap [Moles/Vol] 8 mmol/L Normal 8-15 [facility] Comment on above: Order Comment: Speci men Type: BLOOD SPECIMENOrdering Facility: [facility] Address: [address] [place] [address] Performed By: #### 2 4323-8 ####[facility] [id number] [place] [address] [place] AST [Catalytic activity/Vol] 14 U/L Normal 13-35 [facility] Comment on above: Order Comment: Speci men Type: BLOOD SPECIMENOrdering Facility: [facility] Address: [address] [place] [address] Performed By: #### 2 4323-8 ####[facility] MILLSAVANNAHNCLIA [id number] [place] [address] [place] Bilirubin [Mass/Vol] 0.2 mg/dL Normal 0.2-1.3 [facility] Comment on above: Order Comment: Speci men Type: BLOOD SPECIMENOrdering Facility: [facility] Address: [address] [place] [address] Performed By: #### 2 4323-8 ####[facility] GISEL MISTINCLIA [id number] [place] [address] [place] Calcium [Mass/Vol] 9.9 mg/dL Normal 8.5-10.2 [facility] Comment on above: Order Comment: Speci men Type: BLOOD SPECIMENOrdering Facility: [facility] Address: [address] [place] [address] Performed By: #### 2 4323-8 ####[facility] NAPLESNCLIA [id number] [place] [address] [place] Chloride [Moles/Vol] 102 mmol/L Normal 98-107 [facility] Comment on above: Order Comment: Speci men Type: BLOOD SPECIMENOrdering Facility: [facility] Address: [address] [place] [address] Performed By: #### 2 4323-8 ####[facility] NAPLESNCLIA [id number] [place] [address] [place] CO2 [Moles/Vol] 26 mmol/L Normal 22-30 [facility] Comment on above: Order Comment: Speci men Type: BLOOD SPECIMENOrdering Facility: [facility] Address: [address] [place] [address] Performed By: #### 2 4323-8 ####[facility] NAPLESNCLIA [id number] [place] [address] [place] Creatinine [Mass/Vol] 0.46 mg/dL Low 0.58-0.96 [facility] Comment on above: Order Comment: Speci men Type: BLOOD SPECIMENOrdering Facility: [facility] Address: [address] [place] [address] Performed By: #### 2 4323-8 ####[facility] [id number] [place] [address] [place] Creatinine and Glomerular filtration rate.predicted panel (S/P/Bld) 141 mL/min/1.73m??? Normal >=60 [facility] Comment on above: Order Comment: Tatyana morales Type: BLOOD SPECIMENOrdering Facility: [facility] Address: [address] [place] [address] Result Comment: Dagmar mated Glomerular Filtration Rate (eGFR) is calculated using the 2020 CKD-EPI creatinine equation. This equation utilizes serum creatinine, sex, and age as parameters. The creatinine assay has traceable calibration to isotope dilution-mass spectrometry. Refer to KDIGO guidelines for clinical interpretation. In patients with unstable renal function, e.g. those with acute kidney injury, the eGFR may not accurately reflect actual GFR. Performed By: #### 2 4323-8 ####[facility] [id number] [place] [address] [place] Glucose [Mass/Vol] 91 mg/dL Normal 74-99 [facility] Comment on above: Order Comment: Tatyana morales Type: BLOOD SPECIMENOrdering Facility: [facility] Address: [address] [place] [address] Result Comment: The [place] Diabetes Association (ADA) provides guidance for cutoff values for fasting glucose and random glucose. The ADA defines fasting as no caloric intake for at least 8 hours. Fasting plasma glucose results between 100 to 125 mg/dL indicate increased risk for diabetes (prediabetes). Fasting plasma glucose results greater than or equal to 126 mg/dL meet the criteria for diagnosis of diabetes. In the absence of unequivocal hyperglycemia, results should be confirmed by repeat testing. In a patient with classic symptoms of hyperglycemia or hyperglycemic crisis, random plasma glucose results greater than or equal to 200 mg/dL meet the criteria for diagnosis of diabetes. Reference: Standards of Medical Care in Diabetes 2016, [place] [employer] Association. Diabetes Care. 2016.39(Suppl 1). Performed By: #### 2 4323-8 ####[facility] [id number] [place] [address] [place] Potassium [Moles/Vol] 4.0 mmol/L Normal 3.7-5.1 [facility] Comment on above: Order Comment: Speci men Type: BLOOD SPECIMENOrdering Facility: [facility] Address: [address] [place] [address] Performed By: #### 2 4323-8 ####[facility] MILLWNALLELYLIA [id number] [place] [address] [place] Protein [Mass/Vol] 7.5 g/dL Normal 6.3-8.0 [facility] Comment on above: Order Comment: Speci men Type: BLOOD SPECIMENOrdering Facility: [facility] Address: [address] [place] [address] Performed By: #### 2 4323-8 ####[facility] MILLWNALLELYLIA [id number] [place] [address] [place] Sodium [Moles/Vol] 136 mmol/L Normal 136-144 [facility] Comment on above: Order Comment: Speci men Type: BLOOD SPECIMENOrdering Facility: [facility] Address: [address] [place] [address] Performed By: #### 2 4323-8 ####[facility] ELIUDCANDIDOWNCLIA [id number] [place] [address] [place] Urea nitrogen [Mass/Vol] 12 mg/dL Normal 7-21 [facility] Comment on above: Order Comment: Speci men Type: BLOOD SPECIMENOrdering Facility: [facility] Address: [address] [place] [address] Performed By: #### 2 4323-8 ####[facility] MILLWNCLIA [id number] [place] [address] [place] Emergency Department Summary on 07-26-2024 Emergency Department Summary [facility] Medical Records Department [address] [place] [address] Emergency Department Summary 07/26/24 MR#: [id number] Acct: [id number] Name: MANJINDER WINTER Rep #: [id number] : 2005 19 From: Chip Bonilla PCP: Dr. Hi Wyatt MD Status:DEP ER Location: ED HPI HPI - Female History of Present Illness Chief Complaint: Female C/O Informant: patient Narrative Narrative: G2, P0 7 weeks gestation by dates. Her OB follow-up was on the 14 and 6 days with [facility]. Noting lower pelvic cramping for the past week on and off. No vaginal bleeding. No urinary symptoms. She history of marijuana use stopped after find out she was . Denies alcohol use. Concern for months ago similar presentation that led to a miscarriage. Denies any trauma. Denies any vaginal discharge. Denies any urinary symptoms. Prior similar symptoms: Yes PFSH PFSH Medical History Substance abuse Bipolar disorder Anxiety Depression Home Medications ???Medication ???Instructions ???Recorded ???Last Taken ???Type cephalexin 500 mg capsule 500 mg PO Q6 #40 caps 07/18/20 Unk nown Rx ondansetron 4 mg disintegrating 4 mg PO Q8H PRN nausea and 1 Unknown Rx tablet vomiting #14 tabs multivitamin (Daily Multi-Vitamin 1 tab PO DAILY 03/15/24 Unknown H istory tablet) Allergy/AdvReac Type Severity Reaction Status Date / Time No Known Allergies Allergy Verified 07/18/20 12:51 Social History Smoking Status: Never smoker ROS ROS ED Constitutional Constitutional ED: Denies chills, fever(s) or sweats ENT ENT ED: Denies sore throat Cardiovascular Cardiovascular: Denies chest pain, leg edema, palpitations or racing heartbeat Respiratory/Chest Respiratory/Chest: Denies cough, dyspnea or dyspnea on exertion Gastrointestinal Gastrointestinal: Denies abdominal pain, diarrhea, nausea or vomiting Genitourinary Genitourinary ED: Reports other Details: Pelvic cramping ; Denies dysuria, hematuria or urinary frequency Musculoskeletal Musculoskeletal: Denies back pain, extremity pain or neck pain Integumentary Denies rash or wounds Neurologic Neurologic: Denies headache(s), paresthesias or weakness EXAM Physical Exam Const Vital Signs: 07/26/24 10:19 07/26/24 12:18 07/26/24 13:39 Temperature 96.1 F L 98 F Temperature Source Temporal Pulse Rate 85 66 66 Respiratory Rate 14 18 Blood Pressure 134/99 H 118/75 118/75 Blood Pressure Mean 110 89 89 Pulse Ox 98 100 100 Oxygen Delivery Method Room Air Positive well nourished and well developed General Appearance ED: well developed and NAD HEENT Reports moist mucous membranes normocephalic and atraumatic Eyes General Eye ED: Yes normal appearance of both eyes Neck full ROM Chest Wall Chest: Negative for tenderness Resp normal respiratory effort and normal air movement Effort and Inspection: symmetric chest movement; Negative for respiratory distress Cardio regular rate, regular rhythm and no murmurs Peripheral Pulses: pulses 2+ throughout GI normal to inspection, nondistended, normoactive bowel sounds GI Narrative: Minimal tenderness lower pelvic. No guarding or rebound. Palpation: Negative for guarding or rebound tenderness present Extremity normal to inspection General Extremety ED: Negative for edema or tenderness General Extremity: Negative for edema Neuro oriented x3 and no sensory deficits noted Sensorium / Orientation: awake and alert Skin no rashes or lesions noted and no wounds MDM MDM MDM Narrative Medical decision making narrative: Interventions / MDM: Differential diagnosis: , pelvic pain Diagnosis considered but do not suspect: Ectopic however ultrasound negative. My EKG interpretation: N/A Imaging independently reviewed and interpreted by myself: Transvaginal ultrasound: 6 weeks 3-day intrauterine heart tones 109. External documents reviewed: N/A Test considered but not ordered:N/A ED course: Patient pelvic cramping over the past week no vaginal bleeding. With reported and reporting new pains,Workup initiated rule out ectopic . urine ordered, hCG quant and transvaginal ultrasound. Urine negative for infection. hCG 32,858. Transvaginal ultrasound interpreted by myself intrauterine 6 weeks 3 days with heart tones 109. Patient reassured on findings. She will continue prenatals. Discussed pelvic rest. She will keep her OB appointment in 6 days. All questions were answered. Re-evaluation: stable Disposition discussed with patient/family/signi ficant other: Patient Case discussed with consulting clinician: N/A (more content not included)... Normal [facility] Ketones Test strip Ql (U)Ord ered By: Chip Ring on 07-26-2024 Ketones Ql (U) Negative Negative [facility] Microscopic analysis of urin e for red blood cells (RBC)Ordered By: Chip Ring on 07-26-2024 Microscopic analysis of urine for red blood cells (RBC) 0 SEEN /hpf 0-5 [facility] Mucus LM Ql (Urine sed)Order ed By: Chip Ring on 07-26-2024 Mucus Ql (Urine sed) 0 SEEN /hpf [facility] Nitrite Test strip Ql (U)Ord ered By: Chip Ring on 07-26-2024 Nitrite Ql (U) Negative Negative [facility] Protein Test strip Ql (U)Ord ered By: Chip Ring on 07-26-2024 Protein Ql (U) 15 mg/dl High Negative [facility] Serum human chorionic gonado tropin detection for pregnancyOrdered By: Chip Ring on 07-26-2024 HCG ( test) [place]l [address] mIU/mL High <9 [facility] Comment on above: Gestational Age0.2-1 Week: 5-50 mIU/mL1-2 Weeks: 50-500 mIU/mL2-3 Weeks: 100-5000 mIU/mL3-4 Weeks: 500-10,000 mIU/mL4-5 Weeks:1000-50,000 mIU/mL5-6 Weeks: 10,000-100,000 mIU/mL6-8 Weeks: 15,000-200,000 mIU/mL2-3 Months:10,000-100,000 mIU/mL Squamous epithelial cells de tection in urine sediment by light microscopyOrdered By: Chip Ring on 07-26-2024 Epithelial cells.squamous LM Ql (Urine sed) 5-10 SEEN /hpf 5-10 [facility] Transvaginal w/Preg USon Transvaginal w/Preg US [facility] [address] [place] [address] Transvaginal w/Preg US MR#: [id number] Acct: [id number] Name: MANJINDER WINTER Rep #: [id number] : 2005 F 19 From: Venkat Ring MD PCP: Dr. Hi Wyatt MD Status: DEP ER Study: Transvaginal w/Preg US Date of Exam: 07/26/24 Exam# [id number] Ordering Dr: Chip Ring DO EXAM: US First Trimester , Transabdominal CLINICAL INDICATION: CRAMPING, 7 WEEKS BY DATES TECHNIQUE: Real-time transabdominal obstetrical ultrasound of the maternal pelvis and a first trimester with image documentation. COMPARISON: No relevant prior studies available. FINDINGS: GESTATION: Just no sac 0.16 cm. Gestational age 6 weeks and 3 days. Yolk sac 0.3 cm. CRL 0.4 cm. heart rate 109 beats per minute. ANA MARIA: ANA MARIA 03/09/25. PLACENTA/AMNIOTIC FLUID: Cannot be adequately evaluated due to the early gestational age. UTERUS/CERVIX: Unremarkable. No myometrial mass. The uterus measures 9.2 x 6.5 x 5.2 cm. OVARIES: Unremarkable. No mass. The right ovary measures 4.0 x 1.7 x 1.4 cm. The left ovary measures 2.2 x 2.0 x 1.3 cm. FREE FLUID: No free fluid. US/Transvaginal w/Preg US IMPRESSION: A single live intrauterine as above. Reading Location: [facility] CC: Dr. Hi Wyatt MD; Dr. Chip Ring DO Hand Touch Up Painter: Signed Normal [facility] Urinalysis, Completeon 07-26 BACTERIA 1+ /hpf Normal None Seen [facility] Comment on above: Order Comment: CLEAN CATCH Performed By: #### L 400.0001 #### [facility] [address] [place], [place], [id number] EPI,SQUAMOUS 5-10 SEEN Normal 5-10 [facility] Comment on above: Order Comment: CLEAN CATCH Performed By: #### L 400.0001 #### [facility] [address] [place], [place], [id number] WBC 0-5 SEEN Normal 0-5 [facility] Comment on above: Order Comment: CLEAN CATCH Performed By: #### L 400.0001 #### [facility] [address] [place], [place], [id number] Mucus Ql (Urine sed) 0 SEEN Normal [facility] Comment on above: Order Comment: CLEAN CATCH Performed By: #### L 400.0001 #### [facility] [address] [place], [place], [id number] RBC 0 SEEN Normal 0-5 [facility] Comment on above: Order Comment: CLEAN CATCH Performed By: #### L 400.0001 #### [facility] [address] [place], [address] Urine clarityOrdered By: Victor Hugo Ring on 07-26-2024 Clarity (U) Clear Clear [facility] Urine color determinationOrd ered By: Chip Ring on 07-26-2024 Color (U) Straw Yellow [facility] Urine glucose detectionOrder ed By: Chip Ring on 07-26-2024 Glucose Ql (U) Normal mg/dl Normal [facility] Urine leukocyte esterase det ection by dipstickOrdered By: Chip Ring on 07-26-2024 Leukocyte esterase Test strip Ql (U) Negative Negative [facility] Urine pHOrdered By: Chip Ring on 07-26-2024 pH (U) 7.0 [pH] 5.0 - 8.0 [facility] Urine sediment bacteria coun t by microscopy (number/high power field)Ordered By: Chip Ring on 07-26-2024 Bacteria LM.HPF (Urine sed) [#/Area] 1 /[HPF] None Seen [facility] Urine specific gravity measu rementOrdered By: Chip Ring on 07-26-2024 Specific gravity (U) [Rel density] 1.010 1.002-1.030 [facility] Urine urobilinogen measureme ntOrdered By: Chip Ring on 07-26-2024 Urobilinogen Ql (U) Normal mg/dl Normal [facility] White blood cell countOrdere d By: Chip Ring on 07-26-2024 White blood cell count 0-5 SEEN /hpf 0-5 [facility] hCG Titer Quant., Serumon HCG QUANT. 57015 mIU/mL High <9 non-preg [facility] Comment on above: Result Comment: Gest ational Age 0.2-1 Week: 5-50 mIU/mL 1-2 Weeks: 50-500 mIU/mL 2-3 Weeks: 100-5000 mIU/mL 3-4 Weeks: 500-10,000 mIU/mL 4-5 Weeks:1000-50,000 mIU/mL 5-6 Weeks: 10,000-100,000 mIU/mL 6-8 Weeks: 15,000-200,000 mIU/mL 2-3 Months:10,000-100,000 mIU/mL Performed By: #### M 100.2200 #### [facility] [place], [address] CNOVon 07-24-2024 [facility] Office Visit (UCTR) MANJINDER WINTER ([id number]) 3 F Date Time Provider Department 07/24/24 6:30 PM DONYA MACHADO RUST During your visit today, we recorded the following information about you: Temperature Pulse Respiration Blood pressure 99.2 degrees 110/minute 18/minute 128/72 Weight Last Period 54.7 kg 04/29/24 Donya Machado APRN.[facility] 07/24/2024 6:39 PM Signed [facility] Subjective Manjinder Sanders Moy is a 19 year old female. Patient presents with: Derm Problem: redness, swelling and warm to touch area on left hip x 3 days-7 weeks Presents for 3 day history of red swollen area to upper left thigh. Patient thinks she may have gotten bit by a spider. Denies fevers. The history is provided by the patient. Review of Systems Constitutional: Negative for chills and fever. Skin: Positive for rash. Objective BP 128/72 Pulse 110 Temp 37.3 ?C (99.2 ?F) Resp 18 Wt 54.7 kg (120 lb 9.5 oz) LMP 04/29/2024 SpO2 100% Physical Exam Skin: General: Skin is warm and dry. Findings: Erythema (quarter size area to left lateral thigh with hard center. Hot and tender to touch, no discharge) present. Neurological: Mental Status: She is alert. {ASSESSMENT/PLAN: 1. 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 Differential Diagnoses - cellulitis is more likely for the following reason(s): suggested by HANDP Procedures Allergies As of Date: 07/24/2024 (No Known Allergies) Date Reviewed: 07/24/2024 Reviewed by: Hi Magaña MA - Fully Assessed Reason for Visit: Derm Problem [33] Cmt: redness, swelling and warm to touch area on left hip x 3 days-7 weeks Primary Visit Diagnosis:Cellulitis of skin [L03.90] Order(s):cephALEXin (KEFLEX) 500 mg capsuleTake 1 capsule by mouth four times daily for 5 days.Disp: 20 capsuleRfl: 0 Prescriptions as of 07/24/2024 - cephALEXin (KEFLEX) 500 mg capsule Take 1 capsule by mouth four times daily for 5 days. - diclofenac, EC, (VOLTAREN) 75 mg EC tablet Take 1 tablet by mouth two times a day. FOR PAIN Problem List As Of Date 07/24/2024 Noted Resolved Current moderate episode of major depressive di*05/08/2018 ELIU (generalized anxiety disorder) [F41.1] 05/08/2018 Prescriptions ordered this encounter Disp Refills Start End CEPHALEXIN 500 MG CAPSULE 20 c* 0 07/24/2024 07/29/2024 Route: ORAL Sig: Take 1 capsule by mouth four times daily for 5 days. Disposition: Return if symptoms worsen or fail to improve. Follow-up and Disposition History for Encounter Date Provider Department Center 07/24/2024 [id number] MACHADO UCWSTR G[facility] Encounter Status:Closed by DONYA MACHADO on 07/24/24 [facility] 07-20-2024 CNPN Telephone (OBGYWM) MANJINDER WINTER ([id number]) 3 F Date Time Provider Department 07/20/24 RAGHAVENDRA CENTENO OBGYWM During your visit today, we recorded the following information about you: Lora Hull LPN 07/20/2024 1:29 PM Signed Lmp was 04/29/2024. Patient had positive test and a few weeks ago and called c/o nausea, stomach cramping, and loose stools that began this morning. Has not been able to keep any solid food down today and limited fluid intake. Denies fever. Patient instructed to take frequent sips of fluids gatorade, maryellen katerine, water and solid foods as tolerated and to call if vaginal bleeding or if vomiting greater than 24 hours. Patient has new ob 08/01/2024 Jack Kaplan APRN.CNM 07/20/2024 3:39 PM Signed Agree with plan of care. Jack Kaplan APRN.CNM Allergies As of Date: 07/20/2024 (No Known Allergies) Date Reviewed: 07/04/2024 Reviewed by: Alma Singh MA - Fully Assessed Reason for Visit: [587] Prescriptions as of 07/20/2024 - diclofenac, EC, (VOLTAREN) 75 mg EC tablet Take 1 tablet by mouth two times a day. FOR PAIN Problem List As Of Date 07/20/2024 Noted Resolved Current moderate episode of major depressive di*05/08/2018 ELIU (generalized anxiety disorder) [F41.1] 05/08/2018 Encounter Status:Closed by JACK KAPLAN on 07/20/24 [facility] CNOVon 07-04-2024 [facility] Office Visit (FRFHWS) AMNJINDER WINTER ([id number]) 3 F Date Time Provider Department 07/04/24 2:30 PM [facility] During your visit today, we recorded the following information about you: Alma Singh MA 07/04/2024 3:57 PM Signed Patient presents with: Left Knee Pain: Referred by Geo Washburn AMB ROOMING INTAKE FLOWSHEET DATA Pain Pain Level: 8 Pain Location: Knee-Left Description: Sharp, Numbness Duration Amount of Time: 6 Duration Units: Days Frequency: Intermittent Intervention/Comfort measure: Medication (Agustin wrap) X-rays done on 06/29/24 Armando Corcoran V, DO 07/04/2024 3:57 PM Signed SERVICE DATE: July 04, 2024 PCP: Hi Wyatt MD Subjective Patient ID: Manjinder is a 19 year old female. Chief Complaint: Patient presents with: Left Knee Pain: Referred by Geo Washburn PAIN EVALUATION 07/04/2024 1436 Pain Level: 8 Pain Location: Knee-Left Description: Sharp;Numbness Duration Amount of Time: 6 Duration Units: Days Frequency: Intermittent Intervention/Comfort measure: Medication Agustin wrap HPI Knee Injury: - Injury occurred last while pushing heavy equipment into the house; slipped in the rain, causing the knee to almost pop out of place. - Describes the knee as having buckled. - Pain localized to the lateral aspect of the knee, radiating to the hip when ambulating. - Reports significant swelling and fluid accumulation in the knee. - Pain severity rated as 9/10 at times; constant throughout the day. - Pain exacerbated by ambulation; attempts to keep weight off the knee have reduced swelling slightly. - Has tried OTC analgesics (naproxen, ibuprofen, Advil) with no relief. - Has been using an AGUSTIN wrap with minimal reduction in swelling. - Lost knee brace; no longer using it. - No previous surgical interventions on the knee. - Denies possibility of . 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) Eliu (Generalized Anxiety Disorder) PAST MEDICAL HISTORY Diagnosis Date NEGATIVE MEDICAL HISTORY normal color vision PAST SURGICAL HISTORY Procedure Laterality Date NONE FAMILY HISTORY Problem Relation Age of Onset Cancer Other MGGMo - Breast Cancer Cancer Other MGGFa - Prostate Cancer other (congestive heart failure) Other PGGMo Social History Tobacco Use Smoking status: Never Passive exposure: Yes Smokeless tobacco: Never Tobacco comments: smokers outside Vaping Use Vaping status: Never Used Substance Use Topics Alcohol use: No Drug use: No ALLERGIES No Known Allergies MEDICATIONS: diclofenac, EC, (VOLTAREN) 75 mg EC tablet Take 1 tablet by mouth two times a day. FOR PAIN Allergies, medications, past surgical history, family history and past medical history were reviewed per this encounter. Objective Ortho Exam General: No acute distress. MSK/Ext: Swelling in knee; tenderness to palpation; pain with quadriceps contraction; pain with passive knee flexion; increased pain with patellar manipulation. Imaging: - X-ray: No fractures or dislocation. Shadows consistent with swelling. Assessment/Plan ASSESSMENT Diagnosis (S83.002A) Patellar subluxation, left, 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 (primary encounter diagnosis) No orders found for this visit on 07/04/24. PLAN 1. Patellar subluxation, left, 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 (S83.002A) 2. Subluxation of left patella, 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 (S83.002A) - Exam reveals tenderness and swelling in the left knee, with pain exacerbated by movement of the patella. X-ray shows no fractures or dislocations, but evidence of swelling is present. - Diagnosed with subluxation of the left patella, likely due to weakened quadriceps muscles allowing the patella to deviate from its normal track. - Discussed the importance of strengthening the quadriceps to prevent further subluxations and potential cartilage damage leading to arthritis. - Prescribed diclofenac for pain and inflammation management; prescription sent to [facility] pharmacy. - Fitted with a J-brace to stabilize the patella and prevent further subluxations. - Advised to monitor symptoms and report any persistent or worsening pain. - If current management is ineffective, discussed the possibility of corticosteroid injection for symptom relief. - Informed about potential surgical intervention for patellar stabilization if conservative measures fail. FOLLOW-UP: No follow-ups on file. You have been prescribed diclofenac for knee pain and inflammation; please take it as directed by your pharmacy. You are provided with a J-brace to help stabilize your kneecap; please use it as instructed today. Continue to keep weight off your knee as much as possible and monitor your symptoms. If you notice that your p (more content not included)... Normal [facility] CNOVon 06-29-2024 CN[facility] Office Visit (UCTR) MANJINDER WINTER ([id number]) 3 F Date Time Provider Department 06/29/24 10:45 AM RITESH WASHBURN RUST During your visit today, we recorded the following information about you: Temperature Pulse Respiration Blood pressure 97.9 degrees 67/minute 18/minute 123/67 Weight 55.6 kg Ritesh Washburn APRN.BORDER MACHINE OPERATOR 06/29/2024 11:48 AM Signed Subjective HPI Nontoxic-appearing 19-year-old female presents urgent care chief complaint left knee pain. Duration of symptoms 24 hours. Associated symptoms left knee discomfort. States was walking yesterday when she slipped twisting her left knee. Presents today for evaluation. Has noticed some swelling. No other injuries. No numbness or tingling. No decrease sensation. Is not is not breast-feeding. Past medical history prescription medications allergies reviewed. .Patient presents with: Left Knee Pain: X1 day, twisted knee, pain shooting up to buttocks with walking PAST MEDICAL HISTORY Diagnosis Date NEGATIVE MEDICAL HISTORY normal color vision PAST SURGICAL HISTORY Procedure Laterality Date NONE ALLERGIES Patient has no known allergies. MEDICATIONS norgestimate 0.25 mg-ethinyl estradiol 35 mcg (SPRINTEC) 0.25-35 mg-mcg per tablet Take 1 tablet by mouth once daily. (Patient not taking: Reported on 09/19/2023) melatonin 10 mg tab Take by mouth. (Patient not taking: Reported on 02/18/2023) benzonatate (TESSALON PERLES) 100 mg capsule Take 1 capsule by mouth three times daily as needed for cough. (Patient not taking: Reported on 02/18/2023) fluticasone (FLONASE) 50 mcg/actuation nasal spray Use 2 Sprays in each nostril once daily. Rinse mouth after use. (Patient not taking: Reported on 12/16/2023) polyethylene glycol 3350 (MIRALAX) 17 gram/dose powder Take 1 capful 1-2 times per day for goal of soft and daily BM (Patient not taking: Reported on 02/23/2021) FAMILY HISTORY Problem Relation Age of Onset Cancer Other MGGMo - Breast Cancer Cancer Other MGGFa - Prostate Cancer other (congestive heart failure) Other PGGMo Social History Tobacco Use Smoking status: Never Passive exposure: Yes Smokeless tobacco: Never Tobacco comments: smokers outside Vaping Use Vaping status: Never Used Substance Use Topics Alcohol use: No Drug use: No BP 123/67 Pulse 67 Temp 36.6 ?C (97.9 ?F) Resp 18 Wt 55.6 kg (122 lb 9.2 oz) LMP (LMP Unknown) SpO2 100% Review of Systems Constitutional: Negative for chills, fever and malaise/fatigue. Musculoskeletal: Positive for joint pain. Negative for back pain, falls, myalgias and neck pain. Neurological: Negative for dizziness, loss of consciousness, weakness and headaches. Objective Physical Exam Constitutional: General: She is not in acute distress. Appearance: She is not toxic-appearing. HENT: Head: Normocephalic. Nose: Nose normal. Eyes: Pupils: Pupils are equal, round, and reactive to light. Cardiovascular: Rate and Rhythm: Normal rate. Pulmonary: Effort: Pulmonary effort is normal. No respiratory distress. Musculoskeletal: Cervical back: Normal range of motion. Left hip: Tenderness present. No bony tenderness. Normal range of motion. Normal strength. Left upper leg: Normal. Left knee: Swelling present. No deformity, effusion, erythema or ecchymosis. Normal range of motion. Tenderness present over the medial joint line, lateral joint line and patellar tendon. Left lower leg: Normal. Skin: General: Skin is warm and dry. Neurological: General: No focal deficit present. Mental Status: She is alert. ASSESSMENT/PLAN: 1. Acute pain of left knee - ICD9: 719.46, ICD10: M25.562 - XR KNEE GENERAL 4V AP BOTH/PA BOTH/LAT/MERC LEFT IMPRESSION: No acute osseous abnormality. Small LEFT knee joint effusion Small joint effusion noted. sprain. Concern about ligament tendon injury. Referred to orthopedic. Patient was educated on supportive therapies. Patient will follow up with primary care provider as needed. Patient was instructed to immediately proceed to emergency room for any new, worsening, or symptoms lasting longer than anticipated. The patient's clinical presentation is otherwise unremarkable at this time. Based on exam and clinical finding, the patient is stable for discharge. Plan of care was discussed with patient. Patient verbalizes understanding and agrees to plan of care. This note was generated using [employer] software. It may contain errors in wording, punctuation, or spelling. Ritesh Washburn APRN.BORDER MACHINE OPERATOR Allergies As of Date: 06/29/2024 (No Known Allergies) Date Reviewed: 06/29/2024 Reviewed by: Ritesh Washburn APRN.BORDER MACHINE OPERATOR - Fully Assessed Reason for Visit: Left Knee Pain [1208] Cmt: X1 day, twisted knee, pain shooting up to buttocks with walking Primary Visit Diagnosis:Acute pain of left knee [ (more content not included)... Normal [facility] XR KNEE 4V AP/PA BOTH+LAT/ME R LTon 06-29-2024 XR KNEE 4V AP/PA BOTH+LAT/MELITON LT * * *Final Report* * * DATE OF EXAM: Jun 29 2024 11:26AM WOX 5202 - XR KNEE 4V AP/PA BOTH+LAT/MELITON LT / PROCEDURE REASON: Acute pain of left knee * * * * Physician Interpretation * * * * EXAMINATION: XR KNEE 4V AP/PA BOTH+LAT/MELITON LT PATIENT/TECHNOLOGIST PROVIDED HISTORY: left anterior knee pain. Pt twisted her knee yesterday and states she feels a pop around her patella when walking. CLINICAL INFORMATION: 19 years old Female with Acute pain of left knee TECHNIQUE: XR KNEE 4V AP/PA BOTH+LAT/MELITON LT Laterality: LEFT Number of different views (projections): 4 COMPARISON: Radiographs 02/23/2021: RESULT: No acute fracture. Small joint effusion. Joint spaces are maintained. Bipartite patella. IMPRESSION: No acute osseous abnormality. Small LEFT knee joint effusion. Hand Touch Up Painter: TR Transcribe Date/Time: Jun 29 2024 11:32A Dictated by : DAYANNA MADRIGAL DO This examination was interpreted and the report reviewed and electronically signed by: DAYANNA MADRIGAL DO on Jun 29 2024 11:35AM EST [id number] CN Normal [facility] XR Knee - left 4 Viewson IMPRESSION: No acute osseous abnormality. Small LEFT knee joint effusion. Hand Touch Up Painter: TR Transcribe Date/Time: Jun 29 2024 11:32A Dictated by : DAYANNA MADRIGAL DO This examination was interpreted and the report reviewed and electronically signed by: DAYANNA MADRIGAL DO on Jun 29 2024 11:35AM EST DIVISION OF RADIOLOGY * * *Final Report* * * DATE OF EXAM: Jun 29 2024 11:26AM WOX 5202 - XR KNEE 4V AP/PA BOTH+LAT/MELITON LT / PROCEDURE REASON: Acute pain of left knee * * * * Physician Interpretation * * * * EXAMINATION: XR KNEE 4V AP/PA BOTH+LAT/MELITON LT PATIENT/TECHNOLOGIST PROVIDED HISTORY: left anterior knee pain. Pt twisted her knee yesterday and states she feels a pop around her patella when walking. CLINICAL INFORMATION: 19 years old Female with Acute pain of left knee TECHNIQUE: XR KNEE 4V AP/PA BOTH+LAT/MELITON LT Laterality: LEFT Number of different views (projections): 4 COMPARISON: Radiographs 02/23/2021: RESULT: No acute fracture. Small joint effusion. Joint spaces are maintained. Bipartite patella. DIVISION OF RADIOLOGY Provider, [facility] [place] - 06/29/2024 * * *Final Report* * * DATE OF EXAM: Jun 29 2024 11:26AM WOX 5202 - XR KNEE 4V AP/PA BOTH+LAT/MELITON LT / PROCEDURE REASON: Acute pain of left knee * * * * Physician Interpretation * * * * EXAMINATION: XR KNEE 4V AP/PA BOTH+LAT/MELITON LT PATIENT/TECHNOLOGIST PROVIDED HISTORY: left anterior knee pain. Pt twisted her knee yesterday and states she feels a pop around her patella when walking. CLINICAL INFORMATION: 19 years old Female with Acute pain of left knee TECHNIQUE: XR KNEE 4V AP/PA BOTH+LAT/MELITON LT Laterality: LEFT Number of different views (projections): 4 COMPARISON: Radiographs 02/23/2021: RESULT: No acute fracture. Small joint effusion. Joint spaces are maintained. Bipartite patella. IMPRESSION IMPRESSION: No acute osseous abnormality. Small LEFT knee joint effusion. Hand Touch Up Painter: PSCB Transcribe Date/Time: Jun 29 2024 11:32A Dictated by : DAYANNA MADRIGAL DO This examination was interpreted and the report reviewed and electronically signed by: DAYANNA MADRIGAL DO on Jun 29 2024 11:35AM EST [facility] Radiology Study [facility] (narrative) [facility] X[facility] Knee - left 4 ViewsOrdere d By: Ccf Provider on 06-29-2024 [facility] [id number] 03-15-2024 ABO and Rh group Nom (Bld) Blood group O Rh(D) positive Normal [facility] Comment on above: Performed By: #### L 100.0600, L700.8000, B882-1 #### [facility] [address] [place], [address] CNOVon 03-15-2024 [facility] MAN[facility] WINTER ([id number]) 3 F Date Time Provider Department 03/15/24 7:45 PM SEVERINO TUCKER RUST During your visit today, we recorded the following information about you: Severino Tucker MD 03/15/2024 7:40 PM Signed [facility] Care Triage Note: Patient presents to the [facility] care with complaint of vaginal bleeding. She reports she is 6 weeks . She has some abdominal pain with it. Referred to the ED to rule out ectopic . Referring Provider: SELF [[id number]] Allergies As of Date: 03/15/2024 (No Known Allergies) Date Reviewed: 12/16/2023 Reviewed by: Latha Obrien MA - Fully Assessed Primary Visit Diagnosis:Vaginal bleeding affecting early [O20.9] Prescriptions as of 03/15/2024 - norgestimate 0.25 mg-ethinyl estradiol 35 mcg (SPRINTEC) 0.25-35 mg-mcg per tablet Take 1 tablet by mouth once daily. - melatonin 10 mg tab Take by mouth. - benzonatate (TESSALON PERLES) 100 mg capsule Take 1 capsule by mouth three times daily as needed for cough. - fluticasone (FLONASE) 50 mcg/actuation nasal spray Use 2 Sprays in each nostril once daily. Rinse mouth after use. - polyethylene glycol 3350 (MIRALAX) 17 gram/dose powder Take 1 capful 1-2 times per day for goal of soft and daily BM Problem List As Of Date 03/15/2024 Noted Resolved Current moderate episode of major depressive di*05/08/2018 ELIU (generalized anxiety disorder) [F41.1] 05/08/2018 Encounter Status:Closed by SEVERINO TUCKER on 03/15/24 Normal [facility] Emergency Department Summary on 03-15-2024 Emergency Department Summary [facility] Medical Records Department [address] [place] [id number] Emergency Department Summary 03/15/24 MR#: [id number] Acct: [id number] Name: MANJINDER WINTER Rep #: [id number] : 2005 18 From: Karla HUTTON PCP: Dr. Hi Wyatt MD Status:REG ER Location: ED HPI HPI - Female History of Present Illness Chief Complaint: Vag Bld, Preg Narrative Narrative: Patient presenting today due to concerns for vaginal bleeding that started yesterday. She reports that she is about 6 weeks , her LMP was about 2 months ago. She has not yet had an ultrasound to confirm intrauterine , she does not have an OB. She reports that the bleeding is mild in severity, she has had a pad on but has not had to change this pad today. She reports morning sickness throughout her with intermittent nausea and vomiting. She denies any fevers or chills. She reports low back pain. She denies any chronic medical conditions. [facility] Medical History (Updated 03/15/24 @ 23:[address] Marcello Huggins MD) Substance abuse Bipolar disorder Anxiety Depression Home Medications ???Medication ???Instructions ???Recorded ???Last Taken ???Type cephalexin 500 mg capsule 500 mg PO Q6 #40 caps 07/18/20 Unknown Rx ondansetron 4 mg disintegrating 4 mg PO Q8H PRN nausea and 07/18/20 Unknown Rx tablet vomiting #14 tabs multivitamin (Daily Multi-Vitamin 1 tab PO DAILY 03/15/24 Unknown History tablet) Allergy/AdvReac Type Severity Reaction Status Date / Time No Known Allergies Allergy Verified 07/18/20 12:51 Social History Smoking Status: Never smoker ROS ROS ED Constitutional Constitutional ED: Denies chills or fever(s) Cardiovascular Cardiovascular: Denies chest pain Respiratory/Chest Respiratory/Chest: Denies dyspnea Gastrointestinal Gastrointestinal: Denies abdominal pain, nausea or vomiting Genitourinary Genitourinary ED: Denies dysuria, hematuria or urinary frequency Musculoskeletal Musculoskeletal: Reports back pain; Denies arthralgias or myalgias Integumentary Denies rash Neurologic Neurologic: Denies weakness EXAM Physical Exam Const Vital Signs: 03/15/24 19:48 Temperature 97.8 F Temperature Source Temporal Pulse Rate 86 Respiratory Rate 18 Blood Pressure 137/76 H Blood Pressure Mean 96 Pulse Ox 100 Oxygen Delivery Method Room Air Positive well nourished, well developed and no apparent distress General Appearance ED: well developed HEENT Reports normocephalic and head/scalp atraumatic Mouth ED: Yes moist mucous membranes normal Eyes PERRL and EOMs intact bilaterally Neck full ROM and supple Chest Wall inspection of chest normal Resp normal respiratory effort and clear to auscultation bilaterally Cardio regular rate and regular rhythm GI soft to palpation, non-tender, non-distended and no masses Back/Spine normal ROM and normal to inspection Extremity normal to inspection and full ROM Neuro oriented x3, CN's II-XII intact bilaterally, moves all extremities, no focal motor deficits and no sensory deficits noted Sensorium / Orientation: awake and alert Psych mental status grossly normal and thought process normal Skin no rashes or lesions noted and no wounds Physical Exam Const Vital Signs: 03/15/24 19:48 Temperature 97.8 F Temperature Source Temporal Pulse Rate 86 Respiratory Rate 18 Blood Pressure 137/76 H Blood Pressure Mean 96 Pulse Ox 100 Oxygen Delivery Method Room Air MDM MDM MDM Narrative Medical decision making narrative: Patient presenting today with vaginal spotting that started yesterday. She has not bled enough to soak a pad. She has not yet had an ultrasound to confirm intrauterine . Therefore, transvaginal ultrasound will be obtained. Serum quant obtained and is less than 1. UA does not show any evidence of UTI. Her H H is 14.2 and 42.3. She is Rh+. Transvaginal ultrasound is pending. Lab Data Labs: Laboratory Results - last 24 hr 03/15/24 03/15/24 20:17 20:24 Hgb 14.2 Hct 42.3 HCG, Quant < 1 Urine Color Yellow Urine Clarity Sl. Cloudy Urine pH 6.5 Ur Specific [place] 1.020 Urine Protein Negative Urine Glucose (UA) Normal Urine Ketones Negative Urine Occult Blood 250 H Urine Nitrite Negative Urine Bilirubin Negative Urine Urobilinogen Normal Ur Leukocyte Esterase Negative Urine RBC 5-10 SEEN Urine WBC 0-5 SEEN Ur Squamous Epith Cells 5-10 SEEN Amorphous Sediment 4+ Urine Bacteria 0 SEEN Urine Mucus 0 SEEN Blood Type O POSITIVE Radiography Diagnostic Testing: Clinical Impression(s) f (more content not included)... Normal [facility] HH, Hemoglobin AND Hematocri ton 03-15-2024 Hematocrit (Bld) [Volume fraction] 42.3 % Normal 37-47 [facility] Comment on above: Performed By: #### L 100.0600, L700.8000, B882-1 #### [facility] [address] [place], [place], [id number] Hemoglobin (Bld) [Mass/Vol] 14.2 g/dL Normal 12.0-15.0 [facility] Comment on above: Performed By: #### L 100.0600, L700.8000, B882-1 #### [facility] [address] [place], [place], [address] Transvaginal w/Preg USon Transvaginal w/Preg US [facility] Services [address] [place] [address] Transvaginal w/Preg US MR#: [id number] Acct: [id number] Name: MANJINDER WINTER Rep #: [id number] : 2005 F 18 From: Donte ryan MD PCP: Dr. Hi Wyatt MD Status: REG ER Study: Transvaginal w/Preg US Date of Exam: 03/15/24 Exam# [id number] Ordering Dr: Karla Claros [id number] INDICATION: vaginal bleeding EXAMINATION: US OB Transvaginal TECHNIQUE: Transvaginal (for optimal evaluation of the adnexa) pelvic ultrasound was performed. Grayscale, spectral waveform, and color flow Doppler evaluation of the adnexa. COMPARISON: None. ____ FINDINGS: UTERUS: Measures 6.8 cm in length.. RIGHT OVARY: Measures 2.8 x 2.5 x 2.4 cm. Normal. LEFT OVARY: Measures 3.8 x 2.1 x 1.5 cm. Normal. FREE FLUID: None. INTRAUTERINE GESTATIONAL SAC(s) (size/shape): Not visualized. No adnexal ectopic visualized. US/Transvaginal w/Preg US IMPRESSION: of unknown location. No intrauterine gestational sac or adnexal ectopic visualized. Recommend serial beta hCGs and follow-up OB ultrasound in 2 weeks. Electronically Signed: Donte Jimenez MD at 22:51 EST , CC: Dr. Hi Wyatt MD; ANNI Cruz Hand Touch Up Painter: Signed Normal [facility] Urinalysis, Completeon 03-15 AMORPHOUS 4+ Normal [facility] Comment on above: Order Comment: CLEAN CATCH Performed By: #### L 400.0001 #### [facility] [address] [place], [address] EPI,SQUAMOUS 5-10 SEEN Normal 5-10 [facility] Comment on above: Order Comment: CLEAN CATCH Performed By: #### L 400.0001 #### [facility] [address] [place], [address] RBC 5-10 SEEN Normal 0-5 [facility] Comment on above: Order Comment: CLEAN CATCH Performed By: #### L 400.0001 #### [facility] [address] [place], [address] WBC 0-5 SEEN Normal 0-5 [facility] Comment on above: Order Comment: CLEAN CATCH Performed By: #### L 400.0001 #### [facility] [address] [place], [address] BACTERIA 0 SEEN Normal None Seen [facility] Comment on above: Order Comment: CLEAN CATCH Performed By: #### L 400.0001 #### [facility] [address] [place], [address] Mucus Ql (Urine sed) 0 SEEN Normal [facility] Comment on above: Order Comment: CLEAN CATCH Performed By: #### L 400.0001 #### [facility] [address] [place], [address] hCG Titer Quant., Serumon HCG QUANT. < 1 Normal 1-3 [facility] Comment on above: Result Comment: hCG levels with Gestational Age Gestational Age hCG mIU/mL (IU/L) 0.2 - 1 week 5 - 50 1-2 weeks 50 - 500 2-3 weeks 100 - 5000 3-4 weeks 500 - 28876 4-5 weeks 1000 - 76368 5-6 weeks 59608 - 100,000 6-8 weeks 93076 - 200,000 2-3 months 14251 - 100,000 Performed By: #### L 100.0600, L700.8000, B882-1 #### [facility] [address] [place], [address] XR Chest PA and Lateralon IMPRESSION: No acute radiographic abnormality. Hand Touch Up Painter: PSCB Transcribe Date/Time: Dec 16 2023 3:42P Dictated by : JED IGLESIAS MD This examination was interpreted and the report reviewed and electronically signed by: JED IGLESIAS MD on Dec 16 2023 3:42PM [facility] DIVISION OF RADIOLOGY * * *Final Report* * * DATE OF EXAM: Dec 16 2023 3:33PM WOX 5291 - XR CHEST 2V FRONTAL/LAT / PROCEDURE REASON: Acute cough * * * * Physician Interpretation * * * * EXAMINATION: CHEST RADIOGRAPH (2 VIEW FRONTAL & LATERAL) CLINICAL HISTORY: Acute cough MQ: XC2_6 EXAM DATE/TIME: 12/16/2023 3:33 PM COMPARISON: Chest x-ray on 07/22/2020 RESULT: Lines, tubes, and devices: None. Lungs and pleura: No consolidation. No lung mass. No pleural effusion. No pneumothorax. Cardiomediastinal silhouette: Normal cardiomediastinal silhouette. Bones and soft tissues: Unremarkable. DIVISION OF RADIOLOGY Provider, [facility] - 12/16/2023 * * *Final Report* * * DATE OF EXAM: Dec 16 2023 3:33PM WOX 5291 - XR CHEST 2V FRONTAL/LAT / PROCEDURE REASON: Acute cough * * * * Physician Interpretation * * * * EXAMINATION: CHEST RADIOGRAPH (2 VIEW FRONTAL & LATERAL) CLINICAL HISTORY: Acute cough MQ: XC2_6 EXAM DATE/TIME: 12/16/2023 3:33 PM COMPARISON: Chest x-ray on 07/22/2020 RESULT: Lines, tubes, and devices: None. Lungs and pleura: No consolidation. No lung mass. No pleural effusion. No pneumothorax. Cardiomediastinal silhouette: Normal cardiomediastinal silhouette. Bones and soft tissues: Unremarkable. IMPRESSION IMPRESSION: No acute radiographic abnormality. Hand Touch Up Painter: PSCB Transcribe Date/Time: Dec 16 2023 3:42P Dictated by : JED IGLESIAS MD This examination was interpreted and the report reviewed and electronically signed by: JED IGLESIAS MD on Dec 16 2023 3:42PM EST [facility] Radiology Study observation (narrative) [facility] XR Chest PA and LateralOrder ed By: Ccf Provider on 12-16-2023 [facility] CBC W/Diff, Automatedon 11-19 Absolute Lymph 1.27 X10 3/uL Normal 0.83-4.51 [facility] Comment on above: Performed By: #### L 700.6800, L100.0100, L501.2450, L500.4050 #### [facility] [address] [place], [address] Performed By: #### L 500.4050, L700.6800, L100.0100, L501.2450 #### [facility] [address] [place], [address] Absolute Neut 7.7 X10 3/uL Normal 2.0-7.7 [facility] Comment on above: Performed By: #### L 700.6800, L100.0100, L501.2450, L500.4050 #### [facility] [address] [place], [address] Performed By: #### L 500.4050, L700.6800, L100.0100, L501.2450 #### [facility] [address] [place], [address] Basophils/100 WBC (Bld) 0.5 % Normal 0-1 [facility] Comment on above: Performed By: #### L 700.6800, L100.0100, L501.2450, L500.4050 #### [facility] [address] [place], [address] Performed By: #### L 500.4050, L700.6800, L100.0100, L501.2450 #### [facility] [address] [place], [address] Eosinophils/100 WBC (Bld) 0.1 % Normal 0-5 [facility] Comment on above: Performed By: #### L 700.6800, L100.0100, L501.2450, L500.4050 #### [facility] [address] [place], [address] Performed By: #### L 500.4050, L700.6800, L100.0100, L501.2450 #### [facility] [address] [place], [address] Erythrocyte distribution width (RBC) [Ratio] 13.1 % Normal 11.6-14.6 [facility] Comment on above: Performed By: #### L 700.6800, L100.0100, L501.2450, L500.4050 #### [facility] [address] [place], [address] Performed By: #### L 500.4050, L700.6800, L100.0100, L501.2450 #### [facility] [address] [place], [address] Hematocrit (Bld) [Volume fraction] 42.0 % Normal 37-47 [facility] Comment on above: Performed By: #### L 700.6800, L100.0100, L501.2450, L500.4050 #### [facility] [address] [place], [address] Performed By: #### L 500.4050, L700.6800, L100.0100, L501.2450 #### [facility] [address] [place], [address] Hemoglobin (Bld) [Mass/Vol] 14.2 g/dL Normal 12.0-15.0 [facility] Comment on above: Performed By: #### L 700.6800, L100.0100, L501.2450, L500.4050 #### [facility] [address] [place], [address] Performed By: #### L 500.4050, L700.6800, L100.0100, L501.2450 #### [facility] [address] [place], [address] IG% 0.300 Normal 0.0-0.9 [facility] Comment on above: Result Comment: IG% - Immature Granulocytes (promyelocytes, myelocytes and metamyelocytes) > 1% indicates that a LEFT SHIFT is Present. Performed By: #### L 700.6800, L100.0100, L501.2450, L500.4050 #### [facility] [address] [place], [address] Performed By: #### L 500.4050, L700.6800, L100.0100, L501.2450 #### [facility] [address] [place], [address] Lymphocytes/100 WBC (Bld) 12.7 % Low 19-41 [facility] Comment on above: Performed By: #### L 700.6800, L100.0100, L501.2450, L500.4050 #### [facility] [address] [place], [address] Performed By: #### L 500.4050, L700.6800, L100.0100, L501.2450 #### [facility] [address] [place], [address] MCH (RBC) [Entitic mass] 28.1 pg Normal 27.0-32.0 [facility] Comment on above: Performed By: #### L 700.6800, L100.0100, L501.2450, L500.4050 #### [facility] [address] [place], [address] Performed By: #### L 500.4050, L700.6800, L100.0100, L501.2450 #### [facility] [address] [place], [address] MCHC (RBC) [Mass/Vol] 33.8 g/dL Normal 32-36 [facility] Comment on above: Performed By: #### L 700.6800, L100.0100, L501.2450, L500.4050 #### [facility] [address] [place], [address] Performed By: #### L 500.4050, L700.6800, L100.0100, L501.2450 #### [facility] [address] [place], [address] MCV (RBC) [Entitic vol] 83.2 fL Normal 81-99 [facility] Comment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 COMPARISON: None. RESULT: FRACTURE: None. ALIGNMENT: Bilateral lateral patellar tilt. Left patella bere. EFFUSION: No left knee joint effusion. SOFT TISSUES: Moderate anterior knee soft tissue swelling. OTHER FINDINGS: Well-corticated body at the lateral aspect of the left patella with mildly hypertrophic contour. DIVISION OF RADIOLOGY Provider, [facility] [place] - 02/23/2021 * * *Final Report* * * DATE OF EXAM: Feb 23 2021 5:07PM WOX 5202 - XR KNEE 4V AP/PA BOTH+LAT/MELITON LT / PROCEDURE REASON: Acute pain of left knee * * * * Physician Interpretation * * * * EXAMINATION: XR KNEE 4V AP/PA BOTH+LAT/MELITON LT HISTORY: Hx of chronic left knee pain but today patient felt a sudden pop and has not been able to bear weight and a lot of diffuse pain. Acute pain of left knee . TECHNIQUE: XR KNEE 4V AP/PA BOTH+LAT/MELITON LT Laterality: LEFT Number of different views (projections): 4 M: XB_1 COMPARISON: None. RESULT: FRACTURE: None. ALIGNMENT: Bilateral lateral patellar tilt. Left patella bere. EFFUSION: No left knee joint effusion. SOFT TISSUES: Moderate anterior knee soft tissue swelling. OTHER FINDINGS: Well-corticated body at the lateral aspect of the left patella with mildly hypertrophic contour. IMPRESSION IMPRESSION: * Soft tissue swelling, but no acute fracture. * Appearance of the left patella may represent a normal variant bipartite patella or evidence of a remote injury. Hand Touch Up Painter: PSCB Transcribe Date/Time: Feb 23 2021 5:10P Dictated by : MIKAEL SALES MD This examination was interpreted and the report reviewed and electronically signed by: MIKAEL SALES MD on Feb 23 2021 5:12PM EST [facility] Radiology Study observation (narrative) [facility] XR Knee - left 4 ViewsOrdere d By: [facility] Provider on 02-23-2021 [facility] No Panel Informationon 07-22 Radiology Study observation (narrative) [facility] XR Abdomen Supine and Uprigh ton 07-22-2020 IMPRESSION: 1. Non-obstructive bowel gas pattern. 2. Moderate stool burden. Hand Touch Up Painter: [facility] Transcribe Date/Time: Jul 22 2020 11:10A Dictated by : NAMAN PEREZ MD This examination was interpreted and the report reviewed and electronically signed by: YULIA DIAZ DO on Jul 22 2020 12:04PM [facility] DIVISION OF RADIOLOGY * * *Final Report* * * DATE OF EXAM: Jul 22 2020 10:31AM WOX 5289 - XR ABDOMEN 1V SUPINE / PROCEDURE REASON: multiple diagnoses * * * * Physician Interpretation * * * * TECHNIQUE: XR ABDOMEN 1V SUPINE - 1 View EXAM DATE: 07/22/2020 10:31 AM CLINICAL HISTORY: Fever, unspecified fever cause Constipation, unspecified constipation type COMPARISON: None. RESULT: The bowel gas pattern is nonobstructive. There is no evidence of pneumoperitoneum. No abnormal intra abdominal calcification, organomegaly or abdominal mass is identified. There is a moderate amount of stool in the colon. The visualized lung bases are clear. Focal small sclerosis along the proximal right femoral shaft likely represents a benign bone island. The osseous structures are otherwise unremarkable. DIVISION OF RADIOLOGY Provider, [facility] [place] - 07/22/2020 * * *Final Report* * * DATE OF EXAM: Jul 22 2020 10:31AM WOX 5289 - XR ABDOMEN 1V SUPINE / PROCEDURE REASON: multiple diagnoses * * * * Physician Interpretation * * * * TECHNIQUE: XR ABDOMEN 1V SUPINE - 1 View EXAM DATE: 07/22/2020 10:31 AM CLINICAL HISTORY: Fever, unspecified fever cause Constipation, unspecified constipation type COMPARISON: None. RESULT: The bowel gas pattern is nonobstructive. There is no evidence of pneumoperitoneum. No abnormal intra abdominal calcification, organomegaly or abdominal mass is identified. There is a moderate amount of stool in the colon. The visualized lung bases are clear. Focal small sclerosis along the proximal right femoral shaft likely represents a benign bone island. The osseous structures are otherwise unremarkable. IMPRESSION IMPRESSION: 1. Non-obstructive bowel gas pattern. 2. Moderate stool burden. Hand Touch Up Painter: TR Transcribe Date/Time: Jul 22 2020 11:10A Dictated by : NAMAN PEREZ MD This examination was interpreted and the report reviewed and electronically signed by: YULIA DIAZ DO on Jul 22 2020 12:04PM EST [facility] XR Chest PA and Lateralon IMPRESSION: No focal airspace opacity. Hand Touch Up Painter: TR Transcribe Date/Time: Jul 22 2020 10:38A Dictated by : NAMAN PEREZ MD This examination was interpreted and the report reviewed and electronically signed by: YULIA DIAZ DO on Jul 22 2020 11:04AM [facility] DIVISION OF RADIOLOGY * * *Final Report* * * DATE OF EXAM: Jul 22 2020 10:31AM WOX 5291 - XR CHEST 2V FRONTAL/LAT / PROCEDURE REASON: multiple diagnoses * * * * Physician Interpretation * * * * EXAMINATION: CHEST RADIOGRAPH (2 VIEW FRONTAL & LATERAL) CLINICAL HISTORY: Fever, unspecified fever cause Cough MQ: XC2_6 EXAM DATE/TIME: 07/22/2020 10:31 AM COMPARISON: 03/19/2017 RESULT: Lines, tubes, and devices: None. Lungs and pleura: No focal consolidation. No pleural effusion. No pneumothorax. Cardiomediastinal silhouette: Normal cardiomediastinal silhouette. Bones and soft tissues: There is suggestion of a mild scoliosis. DIVISION OF RADIOLOGY Provider, [facility] [place] - 07/22/2020 * * *Final Report* * * DATE OF EXAM: Jul 22 2020 10:31AM WOX 5291 - XR CHEST 2V FRONTAL/LAT / PROCEDURE REASON: multiple diagnoses * * * * Physician Interpretation * * * * EXAMINATION: CHEST RADIOGRAPH (2 VIEW FRONTAL & LATERAL) CLINICAL HISTORY: Fever, unspecified fever cause Cough MQ: XC2_6 EXAM DATE/TIME: 07/22/2020 10:31 AM COMPARISON: 03/19/2017 RESULT: Lines, tubes, and devices: None. Lungs and pleura: No focal consolidation. No pleural effusion. No pneumothorax. Cardiomediastinal silhouette: Normal cardiomediastinal silhouette. Bones and soft tissues: There is suggestion of a mild scoliosis. IMPRESSION IMPRESSION: No focal airspace opacity. Hand Touch Up Painter: TR Transcribe Date/Time: Jul 22 2020 10:38A Dictated by : NAMAN PEREZ MD This examination was interpreted and the report reviewed and electronically signed by: YULIA DIAZ DO on Jul 22 2020 11:04AM EST [facility] XR Chest PA and LateralOrder ed By: Lurdes Provider on 07-22-2020 [facility] Vital Signs Date Time Vital Sign Value Performing Clinician Facility 11-07-2024 14:46-0400 Body mass index (BMI) [Ratio] 22.41 kg/m2 Jack Kaplan SHIP WIRER.CNM Work Phone: [facility] 11-07-2024 14:46-0400 Body weight 59.6 kg Jack Kaplan SHIP WIRER.CNM Work Phone: [facility] 11-07-2024 14:46-0400 Diastolic blood pressure 66 mm[Hg] Jack Kaplan SHIP WIRER.CNM Work Phone: [facility] 11-07-2024 14:46-0400 Systolic blood pressure 112 mm[Hg] Jack Kaplan SHIP WIRER.CNM Work Phone: [facility] 10-22-2024 15:34-0400 Body mass index (BMI) [Ratio] 21.77 kg/m2 Ritesh Washburn SHIP WIRER.BORDER MACHINE OPERATOR Work Phone: [facility] 10-22-2024 15:34-0400 Body temperature 98.8 [degF] Ritesh Washburn SHIP WIRER.BORDER MACHINE OPERATOR Work Phone: [facility] 10-22-2024 15:34-0400 Body weight 57.9 kg Ritesh Washburn SHIP WIRER.BORDER MACHINE OPERATOR Work Phone: [facility] 10-22-2024 15:34-0400 Diastolic blood pressure 80 mm[Hg] Ritesh Washburn SHIP WIRER.BORDER MACHINE OPERATOR Work Phone: [facility] 10-22-2024 15:34-0400 Heart rate 104 /min Ritesh Almanzaryu SHIP WIRER.BORDER MACHINE OPERATOR Work Phone: [facility] 10-22-2024 15:34-0400 Respiratory rate 17 /min Ritesh Almanzaryu SHIP WIRER.BORDER MACHINE OPERATOR Work Phone: [facility] 10-22-2024 15:34-0400 SaO2% (BldA) [Mass fraction] 99 % Ritesh Almanzaryu SHIP WIRER.BORDER MACHINE OPERATOR Work Phone: [facility] 10-22-2024 15:34-0400 Systolic blood pressure 110 mm[Hg] Ritesh Almanzaryu SHIP WIRER.BORDER MACHINE OPERATOR Work Phone: [facility] 10-10-2024 14:29-0400 Body mass index (BMI) [Ratio] 21.14 kg/m2 Luz Marina Connors MD Work Phone: [facility] 10-10-2024 14:29-0400 Body weight 56.25 kg Luz Marina Connors MD Work Phone: [facility] 10-10-2024 14:29-0400 Diastolic blood pressure 62 mm[Hg] Luz Marina Connors MD Work Phone: [facility] 10-10-2024 14:29-0400 Systolic blood pressure 118 mm[Hg] Luz Marina Connors MD Work Phone: [facility] 09-12-2024 14:43-0400 Body mass index (BMI) [Ratio] 20.46 kg/m2 Alana Bacon SHIP WIRER.CNM Work Phone: [facility] 09-12-2024 14:43-0400 Body weight 54.43 kg Alana Bacon APRN.CNM Work Phone: [facility] 09-12-2024 14:43-0400 Diastolic blood pressure 68 mm[Hg] Alana Bacon SHIP WIRER.CNM Work Phone: [facility] 09-12-2024 14:43-0400 Systolic blood pressure 112 mm[Hg] Alana Bacon SHIP WIRER.CNM Work Phone: [facility] 09-07-2024 17:49-0400 Body mass index (BMI) [Ratio] 20.68 kg/m2 Ritesh Washburn SHIP WIRER.BORDER MACHINE OPERATOR Work Phone: [facility] 09-07-2024 17:49-0400 Body temperature 98.6 [degF] Ritesh Washburn SHIP WIRER.BORDER MACHINE OPERATOR Work Phone: [facility] 09-07-2024 17:49-0400 Body weight 55 kg Ritesh Washburn SHIP WIRER.BORDER MACHINE OPERATOR Work Phone: [facility] 09-07-2024 17:49-0400 Diastolic blood pressure 70 mm[Hg] Ritesh Washburn SHIP WIRER.BORDER MACHINE OPERATOR Work Phone: [facility] 09-07-2024 17:49-0400 Heart rate 98 /min Ritesh Washburn SHIP WIRER.BORDER MACHINE OPERATOR Work Phone: [facility] 09-07-2024 17:49-0400 Respiratory rate 20 /min Ritesh Washburn SHIP WIRER.BORDER MACHINE OPERATOR Work Phone: [facility] 09-07-2024 17:49-0400 SaO2% (BldA) [Mass fraction] 99 % Ritesh Washburn SHIP WIRER.BORDER MACHINE OPERATOR Work Phone: [facility] 09-07-2024 17:49-0400 Systolic blood pressure 114 mm[Hg] Ritesh Washburn SHIP WIRER.BORDER MACHINE OPERATOR Work Phone: [facility] 08-16-2024 20:44-0400 Body temperature 98.7 [degF] No Primary Care Physician [facility] 08-16-2024 20:44-0400 Diastolic blood pressure 69 mm[Hg] No Primary Care Physician [facility] 08-16-2024 20:44-0400 Heart rate 77 /min No Primary Care Physician [facility] 08-16-2024 20:44-0400 Respiratory rate 14 /min No Primary Care Physician [facility] 08-16-2024 20:44-0400 SaO2% (BldA) [Mass fraction] 100 % No Primary Care Physician [facility] 08-16-2024 20:44-0400 Systolic blood pressure 117 mm[Hg] No Primary Care Physician [facility] 08-16-2024 16:38-0400 Body height 160.02 cm No Primary Care Physician [facility] 08-16-2024 16:38-0400 Body mass index (BMI) [Ratio] 21.2 kg/m2 No Primary Care Physician [facility] 08-16-2024 16:38-0400 Body weight 54.43 kg No Primary Care Physician [facility] 08-08-2024 23:12-0400 Body temperature 98 [degF] No Primary Care Physician [facility] 08-08-2024 23:12-0400 Diastolic blood pressure 62 mm[Hg] No Primary Care Physician [facility] 08-08-2024 23:12-0400 Heart rate 70 /min No Primary Care Physician [facility] 08-08-2024 23:12-0400 Respiratory rate 18 /min No Primary Care Physician [facility] 08-08-2024 23:12-0400 SaO2% (BldA) [Mass fraction] 100 % No Primary Care Physician [facility] 08-08-2024 23:12-0400 Systolic blood pressure 118 mm[Hg] No Primary Care Physician [facility] 08-08-2024 19:48-0400 Body height 160.02 cm No Primary Care Physician [facility] 08-08-2024 19:48-0400 Body mass index (BMI) [Ratio] 21.3 kg/m2 No Primary Care Physician [facility] 08-08-2024 19:48-0400 Body weight 54.6 kg No Primary Care Physician [facility] 08-01-2024 13:57-0400 Body height 163.1 cm Darvin Peng APRN.BORDER MACHINE OPERATOR Work Phone: [facility] 08-01-2024 13:57-0400 Body mass index (BMI) [Ratio] 20.46 kg/m2 Darvin Peng SHIP WIRER.BORDER MACHINE OPERATOR Work Phone: [facility] 08-01-2024 13:57-0400 Body weight 54.43 kg Darvin Peng SHIP WIRER.BORDER MACHINE OPERATOR Work Phone: [facility] 08-01-2024 13:57-0400 Diastolic blood pressure 58 mm[Hg] Darvin Peng SHIP WIRER.BORDER MACHINE OPERATOR Work Phone: [facility] 08-01-2024 13:57-0400 Systolic blood pressure 110 mm[Hg] Darvin Peng SHIP WIRER.BORDER MACHINE OPERATOR Work Phone: [phone] [place] [address] 07-26-2024 13:39-0400 Body temperature 98 [degF] Dr. Hi Wyatt MD Work Phone: 6(513)407-193234 [place] [address] 07-26-2024 13:39-0400 Diastolic blood pressure 75 mm[Hg] Dr. Hi Wyatt MD Work Phone: 3(244)335-633126 [place] [address] 07-26-2024 13:39-0400 Heart rate 66 /min Dr. Hi Wyatt MD Work Phone: 7(095)[phone] [place] [address] 07-26-2024 13:39-0400 Respiratory rate 18 /min Dr. Hi Wyatt MD Work Phone: 1(556)[phone] [place] [address] 07-26-2024 13:39-0400 SaO2% (BldA) [Mass fraction] 100 % Dr. Hi Wyatt MD Work Phone: 0(702)[phone] [place] [address] 07-26-2024 13:39-0400 Systolic blood pressure 118 mm[Hg] Dr. Hi Wyatt MD Work Phone: 4(301)737-737926 [place] [address] 07-26-2024 10:19-0400 Body height 160.[address] Hi Wyatt MD Work Phone: [phone] [address] [place] [address] 07-26-2024 10:19-0400 Body mass index (BMI) [Ratio] 21.1 kg/m2 Dr. Hi Wyatt MD Work Phone: [phone] [place] [address] 07-26-2024 10:19-0400 Body weight 54.[address] Hi Wyatt MD Work Phone: [facility] 07-26-2024 09:21-0400 Body temperature 98.1 [degF] Ritesh Washburn SHIP WIRER.BORDER MACHINE OPERATOR Work Phone: [facility] 07-26-2024 09:21-0400 Body weight 53.7 kg Ritesh Washburn SHIP WIRER.BORDER MACHINE OPERATOR Work Phone: [facility] 07-26-2024 09:21-0400 Diastolic blood pressure 68 mm[Hg] Ritesh Washburn SHIP WIRER.BORDER MACHINE OPERATOR Work Phone: [facility] 07-26-2024 09:21-0400 Heart rate 70 /min Ritesh Washburn SHIP WIRER.BORDER MACHINE OPERATOR Work Phone: [facility] 07-26-2024 09:21-0400 Respiratory rate 16 /min Ritesh Washburn SHIP WIRER.BORDER MACHINE OPERATOR Work Phone: [facility] 07-26-2024 09:21-0400 SaO2% (BldA) [Mass fraction] 99 % Ritesh Washburn SHIP WIRER.BORDER MACHINE OPERATOR Work Phone: [facility] 07-26-2024 09:21-0400 Systolic blood pressure 120 mm[Hg] Ritesh Washburn SHIP WIRER.BORDER MACHINE OPERATOR Work Phone: [facility] 07-24-2024 18:22-0400 Body temperature 99.19 [degF] Donya Machado SHIP WIRER.BORDER MACHINE OPERATOR Work Phone: [facility] 07-24-2024 18:22-0400 Body weight 54.7 kg Donya Machado SHIP WIRER.BORDER MACHINE OPERATOR Work Phone: [facility] 07-24-2024 18:22-0400 Diastolic blood pressure 72 mm[Hg] Donya Machado SHIP WIRER.BORDER MACHINE OPERATOR Work Phone: [facility] 07-24-2024 18:22-0400 Heart rate 110 /min Donya Machdao SHIP WIRER.BORDER MACHINE OPERATOR Work Phone: [facility] 07-24-2024 18:22-0400 Respiratory rate 18 /min Donya Machado SHIP WIRER.BORDER MACHINE OPERATOR Work Phone: [facility] 07-24-2024 18:22-0400 SaO2% (BldA) [Mass fraction] 100 % Donya Machado SHIP WIRER.BORDER MACHINE OPERATOR Work Phone: [facility] 07-24-2024 18:22-0400 Systolic blood pressure 128 mm[Hg] Donya Machado SHIP WIRER.BORDER MACHINE OPERATOR Work Phone: [facility] 06-29-2024 10:58-0400 Body temperature 97.9 [degF] Ritesh Washburn SHIP WIRER.BORDER MACHINE OPERATOR Work Phone: [facility] 06-29-2024 10:58-0400 Body weight 55.6 kg Ritesh Washburn SHIP WIRER.BORDER MACHINE OPERATOR Work Phone: [facility] 06-29-2024 10:58-0400 Diastolic blood pressure 67 mm[Hg] Ritesh Washburn SHIP WIRER.BORDER MACHINE OPERATOR Work Phone: [facility] 06-29-2024 10:58-0400 Heart rate 67 /min Ritesh Washburn SHIP WIRER.BORDER MACHINE OPERATOR Work Phone: [facility] 06-29-2024 10:58-0400 Respiratory rate 18 /min Ritesh Washburn SHIP WIRER.BORDER MACHINE OPERATOR Work Phone: [facility] 06-29-2024 10:58-0400 SaO2% (BldA) [Mass fraction] 100 % Ritesh Washburn SHIP WIRER.BORDER MACHINE OPERATOR Work Phone: [facility] 06-29-2024 10:58-0400 Systolic blood pressure 123 mm[Hg] Ritesh Washburn SHIP WIRER.BORDER MACHINE OPERATOR Work Phone: [facility] 12-16-2023 14:57-0400 Body temperature 98.2 [degF] Macarena Bradley SHIP WIRER.BORDER MACHINE OPERATOR Work Phone: [facility] 12-16-2023 14:57-0400 Body weight 46.2 kg Macarena Bradley APRN.BORDER MACHINE OPERATOR Work Phone: [facility] 12-16-2023 14:57-0400 Diastolic blood pressure 88 mm[Hg] Macarena Bradley APRN.BORDER MACHINE OPERATOR Work Phone: [facility] 12-16-2023 14:57-0400 Heart rate 79 /min Macarena Bradley APRN.BORDER MACHINE OPERATOR Work Phone: [facility] 12-16-2023 14:57-0400 Respiratory rate 18 /min Macarena Bradley APRN.BORDER MACHINE OPERATOR Work Phone: [facility] 12-16-2023 14:57-0400 SaO2% (BldA) [Mass fraction] 98 % Macarena Bradley APRN.BORDER MACHINE OPERATOR Work Phone: [facility] 12-16-2023 14:57-0400 Systolic blood pressure 137 mm[Hg] Macarena Bradley APRN.BORDER MACHINE OPERATOR Work Phone: [facility] 09-19-2023 16:20-0400 Body temperature 98.8 [degF] Krislyn Aberegg PA Work Phone: [facility] 09-19-2023 16:20-0400 Body weight 48.7 kg Krislyn Aberegg PA Work Phone: [facility] 09-19-2023 16:20-0400 Diastolic blood pressure 62 mm[Hg] Krislyn Aberegg PA Work Phone: [facility] 09-19-2023 16:20-0400 Heart rate 86 /min Krislyn Aberegg PA Work Phone: [facility] 09-19-2023 16:20-0400 Respiratory rate 21 /min Krislyn Aberegg PA Work Phone: [facility] 09-19-2023 16:20-0400 SaO2% (BldA) [Mass fraction] 99 % Krislyn Aberegg PA Work Phone: [facility] 09-19-2023 16:20-0400 Systolic blood pressure 110 mm[Hg] Krislyn Aberegg PA Work Phone: [facility] 02-18-2023 13:27-0500 Body weight 49.9 kg Alana Bacon SHIP WIRER.CNM Work Phone: [facility] 02-18-2023 13:27-0500 Diastolic blood pressure 60 mm[Hg] Alana Bacon SHIP WIRER.CNM Work Phone: [facility] 02-18-2023 13:27-0500 Systolic blood pressure 104 mm[Hg] Alana Bacon SHIP WIRER.CNM Work Phone: [facility] 01-31-2023 14:32-0500 Body weight 51.53 kg Alana Bacon SHIP WIRER.CNM Work Phone: [facility] 01-31-2023 14:32-0500 Diastolic blood pressure 68 mm[Hg] Alana Bacon SHIP WIRER.CNM Work Phone: [facility] 01-31-2023 14:32-0500 Systolic blood pressure 120 mm[Hg] Alana Bacon SHIP WIRER.CNM Work Phone: [facility] 03-03-2022 17:50-0500 Body temperature 99 [degF] Juliet Praisler-Wood SHIP WIRER.BORDER MACHINE OPERATOR Work Phone: [facility] 03-03-2022 17:50-0500 Body weight 59.15 kg Juliet Praisler-Wood SHIP WIRER.BORDER MACHINE OPERATOR Work Phone: [facility] 03-03-2022 17:50-0500 Diastolic blood pressure 78 mm[Hg] Juliet Praisler-Wood SHIP WIRER.BORDER MACHINE OPERATOR Work Phone: [facility] 03-03-2022 17:50-0500 Heart rate 87 /min Juliet Praisler-Wood SHIP WIRER.BORDER MACHINE OPERATOR Work Phone: [facility] 03-03-2022 17:50-0500 Respiratory rate 20 /min Juliet Praisler-Wood SHIP WIRER.BORDER MACHINE OPERATOR Work Phone: [facility] 03-03-2022 17:50-0500 SaO2% (BldA) [Mass fraction] 99 % Juliet Elias SHIP WIRER.BORDER MACHINE OPERATOR Work Phone: [facility] 03-03-2022 17:50-0500 Systolic blood pressure 110 mm[Hg] Julietdemario Maher-Guru SHIP WIRER.BORDER MACHINE OPERATOR Work Phone: [facility] 12-29-2021 08:15-0400 Body temperature 98.6 [degF] Evi Shah MD Work Phone: [facility] 12-29-2021 08:15-0400 Diastolic blood pressure 62 mm[Hg] Evi Shah MD Work Phone: [facility] 12-29-2021 08:15-0400 Heart rate 74 /min Evi Shah MD Work Phone: [facility] 12-29-2021 08:15-0400 Respiratory rate 18 /min Evi Shah MD Work Phone: [facility] 12-29-2021 08:15-0400 SaO2% (BldA) [Mass fraction] 99 % Evi Shah MD Work Phone: [facility] 12-29-2021 08:15-0400 Systolic blood pressure 111 mm[Hg] Evi Shah MD Work Phone: [facility] 12-27-2021 11:05-0400 Body mass index (BMI) [Percentile] Per age and sex 48.9 % Evi Shah MD Work Phone: [facility] 12-27-2021 11:05-0400 Body mass index (BMI) [Ratio] 21.01 kg/m2 Evi Shah MD Work Phone: [facility] 12-27-2021 11:05-0400 Body weight 55 kg Evi Shah MD Work Phone: [facility] 12-26-2021 17:25-0400 Body height 161.8 cm Evi Shah MD Work Phone: [facility] 12-15-2021 17:05-0400 Diastolic blood pressure 79 mm[Hg] [facility] Work Phone: 12-15-2021 17:05-0400 Heart rate 91 /min [facility] Work Phone: 12-15-2021 17:05-0400 Respiratory rate 19 /min [facility] Work Phone: 12-15-2021 17:05-0400 SaO2% (BldA) [Mass fraction] 93 % [facility] Work Phone: 12-15-2021 17:05-0400 Systolic blood pressure 150 mm[Hg] [facility] Work Phone: 12-15-2021 15:43-0400 Body height 157.48 cm [facility] Work Phone: 12-15-2021 15:43-0400 Body mass index (BMI) [Percentile] Per age and sex 76.4 % [facility] Work Phone: 12-15-2021 15:43-0400 Body mass index (BMI) [Ratio] 23.8 kg/m2 [facility] Work Phone: 12-15-2021 15:43-0400 Body temperature 97.9 [degF] [facility] Work Phone: 12-15-2021 15:43-0400 Body weight 59.1 kg [facility] Work Phone: Encounters Encounter Date Encounter Type Care Provider Facility Start: 01-29-2025 End: 01-29-2025 ambulatory [facility] Facility:[facility] Start: 01-15-2025 End: 01-15-2025 ambulatory [facility] Facility:[facility] Start: 01-07-2025 End: 01-07-2025 ambulatory [facility] Facility:[facility] Start: 01-01-2025 End: 01-01-2025 ambulatory [facility] Facility:[facility] Start: 12-05-2024 End: 12-06-2024 Emergency department patient visit DARLENE Samuel VIK [facility] Start: 12-04-2024 End: 12-04-2024 ambulatory [facility] Facility:[facility] Start: 11-19-2024 End: 11-19-2024 Telephone encounter Naomi Kelsey MD Work Phone: OB/Gynecology Start: 11-07-2024 End: 11-07-2024 ambulatory [facility] Facility:[facility] Start: 11-07-2024 End: 11-07-2024 Patient encounter procedure Jack Kaplan APRN.CNM Work Phone: OB/Gynecology Comment on above: 20 weeks gestation o f (HCC) (Primary Dx); Supervision of high risk in second trimester (HCC); Nausea and vomiting during (HCC); Marijuana use during ([facility]) Encounter for anatomic survey ([facility]) [Z36.89] (Primary Dx) Start: 10-29-2024 End: 10-29-2024 Refill Luz Marina Connors MD Work Phone: OB/Gynecology Comment on above: Refill Request Start: 10-23-2024 End: 10-31-2024 Follow-up encounter Juan HUTTON Work Phone: [facility] Start: 10-22-2024 End: 10-22-2024 Office outpatient visit 25 minutes Ritesh Washburn APRN.BORDER MACHINE OPERATOR Work Phone: [facility] [place] Comment on above: Vaginal discharge (P rimary Dx) Start: 10-22-2024 End: 10-22-2024 ambulatory [facility] Facility:[facility] Start: 10-10-2024 End: 10-10-2024 ambulatory [facility] Facility:[facility] Start: 10-10-2024 End: 10-10-2024 Patient encounter procedure Luz Marina Connors MD Work Phone: OB/Gynecology Comment on above: Supervision of high risk in second trimester (HCC) (Primary Dx); Depression with anxiety; Marijuana use during (HCC); Bipolar 1 disorder (HCC); 16 weeks gestation of (HCC) Refill Request Start: 09-25-2024 End: 09-25-2024 Telephone encounter Rhys Moran APRN.CNP Work Phone: Psychiatry Start: 09-19-2024 End: 11-19-2024 Follow-up encounter Alana Bacon APRN.CNM Work Phone: OB/Gynecology Start: 09-12-2024 End: 09-12-2024 ambulatory [facility] Facility:[facility] Start: 09-12-2024 End: 09-12-2024 Patient encounter procedure Alana Bacon APRN.CNM Work Phone: OB/Gynecology Comment on above: Encounter for superv ision of high risk in first trimester, antepartum (HCC) (Primary Dx); 12 weeks gestation of (HCC); Depression with anxiety; Marijuana use during (HCC); Nausea and vomiting during (HCC); Bipolar 1 disorder (HCC) Encounter for superv ision of high risk in first trimester, antepartum (HCC); 6 weeks gestation of (HCC) Start: 09-07-2024 End: 09-07-2024 Office outpatient visit 15 minutes Ritesh Washburn APRN.CNP Work Phone: [facility] Comment on above: URI with cough and c ongestion (Primary Dx) Start: 09-07-2024 End: 09-07-2024 ambulatory [facility] Facility:[facility] Start: 09-04-2024 End: 09-04-2024 Telephone encounter Maru Alexander MD Work Phone: OB/Gynecology Comment on above: Cold Start: 08-16-2024 End: 08-16-2024 Emergency department patient visit No Primary Care Physician -Emergency Department Work Phone: Start: 08-16-2024 End: 08-16-2024 Telephone encounter Maru Alexander MD Work Phone: OB/Gynecology Comment on above: Early OB N/V Start: 08-09-2024 End: 08-16-2024 Telephone encounter Naomi Kelsey MD Work Phone: OB/Gynecology Comment on above: Early OB Bleeding Start: 08-08-2024 End: 08-08-2024 Emergency department patient visit No Primary Care Physician -Emergency Department Work Phone: Start: 08-02-2024 End: 08-02-2024 Follow-up encounter Darvin Peng APRN.BORDER MACHINE OPERATOR Work Phone: OB/Gynecology Comment on above: Results Start: 08-01-2024 End: 08-01-2024 Patient encounter procedure Darvin Peng APRN.BORDER MACHINE OPERATOR Work Phone: OB/Gynecology Comment on above: Encounter for superv ision of high risk in first trimester, antepartum (HCC) (Primary Dx); 6 weeks gestation of (HCC); with uncertain dates in first trimester (HCC); Screen for STD (sexually transmitted disease);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 diphtheria, tetanus toxoids and acellular pertussis vaccine, unspecified formulation Hi Wyatt MD Work Phone: [facility] 10-18-2005 haemophilus influenz ae type b vaccine, PRP-T conjugate Hi Wyatt MD Work Phone: [facility] 10-18-2005 pneumococcal conjuga te vaccine, 7 valent Hi Wyatt MD Work Phone: [facility] 06-24-2005 measles, mumps and rubella virus vaccine Hi Wyatt MD Work Phone: [facility] 06-24-2005 varicella virus vaccine Alyssa Wyatt MD Work Phone: [facility] 03-24-2005 poliovirus vaccine, inactivated Hi Wyatt MD Work Phone: [facility] Work Phone: 2004 DTaP-hepatitis B and poliovirus vaccine Hi Wyatt MD Work Phone: [facility] Work Phone: 2004 haemophilus influenz ae type b vaccine, HbOC conjugate Hi Wyatt MD Work Phone: [facility] Work Phone: 2004 haemophilus influenz ae type b vaccine, PRP-T conjugate Hi Wyatt MD Work Phone: [facility] 2004 pneumococcal conjuga te vaccine, 7 valent Hi Wyatt MD Work Phone: [facility] Work Phone: 2004 DTaP-hepatitis B and poliovirus vaccine Hi Wyatt MD Work Phone: [facility] Work Phone: 2004 haemophilus influenz ae type b vaccine, HbOC conjugate Hi Wyatt MD Work Phone: [facility] Work Phone: 2004 haemophilus influenz ae type b vaccine, PRP-T conjugate Hi Wyatt MD Work Phone: [facility] 2004 hepatitis B vaccine, pediatric or pediatric/adolescent dosage Hi Wyatt MD Work Phone: [facility] Work Phone: 2004 pneumococcal conjuga te vaccine, 7 valent Hi Wyatt MD Work Phone: [facility] Work Phone: 2004 DTaP-hepatitis B and poliovirus vaccine Hi Wyatt MD Work Phone: [facility] Work Phone: 2004 haemophilus influenz ae type b vaccine, HbOC conjugate Hi Wyatt MD Work Phone: [facility] Work Phone: 2004 haemophilus influenz ae type b vaccine, PRP-T conjugate Hi Wyatt MD Work Phone: [facility] 2004 hepatitis B vaccine, pediatric or pediatric/adolescent dosage Hi Wyatt MD Work Phone: [facility] Work Phone: 2004 pneumococcal conjuga te vaccine, 7 valent Hi Wyatt MD Work Phone: [facility] Work Phone: 2004 hepatitis B vaccine, pediatric or pediatric/adolescent dosage Hi Wyatt MD Work Phone: [facility] Work Phone: Payers Date Payer Category Payer Private Health Insurance [facility] [employer] [id number] 2024 Self-pay [id number] 2023 Self-pay 2021 Unknown [id number] 2020 Unknown DARA BUSTAMANTE PPO [id number] 2020-Present [phone] [address] [place] [address] [facility] [id number] 2020 Unknown [id number] 2020 Unknown [id number] 2004 Unknown [id number] 1984 Unknown [id number] 1984 Unknown [id number] Unknown [id number] Unknown [id number] Unknown [id number] Unknown [id number] Unknown [id number] Unknown [id number] Unknown [id number] Unknown [id number] Unknown [id number] Unknown [id number] Social History Date Type Detail Facility Start: 05-01-2011 End: 03-03-2022 Tobacco smoking status [facility] Never smoked tobacco [facility] Work Phone: Start: 05-01-2011 End: 03-03-2022 Tobacco use and exposure Smokeless tobacco non-user [facility] Work Phone: Start: 07-22-2020 End: 09-12-2024 Alcohol intake Current non-drinker of alcohol (finding) [facility] Start: 05-01-2011 End: 03-03-2022 Tobacco Comment smokers outside [facility] Start: 2004 Sex Assigned At Not on file [facility] Start: 06-22-2020 End: 12-21-2021 Exposure to SARS-CoV-2 (event) Not sure [facility] Start: 12-15-2021 Tobacco smoking stat us MTIS Unknown if ever smoked [facility] Work Phone: Start: 2004 Sex Assigned At Female [facility] History of tobacco use Passive smoker [facility] Work Phone: Start: 01-31-2023 End: 07-04-2024 History of Social function [facility] Start: 01-31-2023 End: 07-04-2024 Tobacco use panel [facility] Start: 02-20-2012 National Score (1-100), lower number is lower risk Not on file [facility] Start: 07-18-2020 Tobacco Use Tobacco Use [facility] Start: 06-29-2024 [facility] Start: 08-08-2024 [facility] Start: 08-16-2024 [facility] Functional Status Date Assessment Result Facility 04-11-2014 Are you deaf, or do you have serious difficulty hearing No 04/11/2014 9:08 AM Shannon Saini LPN No [facility] 04-11-2014 Are you blind, or do you have serious difficulty seeing, even when wearing glasses No 04/11/2014 9:08 AM Shannon Saini LPN No [facility] 04-11-2014 Do you have serious difficulty walking or climbing stairs No 04/11/2014 9:08 AM Shannon Saini LPN No [facility] 04-11-2014 Do you have difficul ty dressing or bathing No 04/11/2014 9:08 AM Shannon Saini LPN No [facility] Mental Status Date Assessment Result Facility 04-11-2014 Because of a physica l, mental, or emotional condition, do you have serious difficulty concentrating, remembering, or making decisions No 04/11/2014 9:08 AM Shannon Saini LPN No [facility] Clinical Notes 07-22-2020 to 01-08-2025 Telephone Encounter - Naomi Kelsey MD - 11/19/2024 11:59 AM EDTTelephone Encounter - Naomi Kelsey MD - 11/19/2024 11:59 AM EDTPatient InstructionsPatient InstructionsPatient Instructions Note Date & Type Note Facility 01-08-2025 Note HNO ID: [id number] Author: NAMRATA MERCER LISW Service: ? Author Type: Panel Machine Operator Type: Progress Notes Filed: 01/08/2025 15:23 Note Text: Summary: Integrated Mental Health Plan of Care Review of referral with patient. Was patient aware of WB referral placement by provider?Yes Is the patient currently connected for care : No Was LENNOX sent to patient? No Is the patient agreeable to connecting to services? No declined Other Pt seeking care outside of [facility] system Current priority status of the referral Medium Additional information: 19 year old at 29 weeks EGA. Second [facility] referral. Pt initially contacted by [facility] NASIMA Hassan and [facility] created on 08/10/24. Plan was for Pt to establish services at [facility]. New [facility] consult placed 01/01 and Pt was low on medication. This SW did not speak with Pt directly. Pt contacted OB office and RN assisted Pt with scheduling appointment with community-based mental health provider. [facility] 11-19-2024 Telephone encount er Note Reglan not helping. Wants to go back to zofran [facility] 11-19-2024 Miscellaneous Notes Formattin g of this note might be different from the original. Reglan not helping. Wants to go back to zofran documented in this encounter [facility] 11-07-2024 Progress note Formatting of t his note might be different from the original. S: Manjinder Winter is a 19 year old female who presents at 20 weeks gestation for a routine visit. Just completed anatomy US. C/O continued daily nausea with emesis. Stated only able to eat 1 meal a day and mostly eating bites. Increased food aversions. Taking Zofran with minimal relief. Interestsed in trying a different medication. Positive movements. 03/22/2025, by Ultrasound for a routine visit. Denies headache, visual changes, chest pain, shortness of breath, vaginal bleeding, leakage of fluid, or dysuria. Feeling well, no complaints. O: See flow sheet Gen: No apparent distress Abd: Gravid, non tender S=D, TWG 6 lbs. ASSESSMENT/PLAN: 1. 20 weeks gestation of 2. Supervision of high risk in second trimester 3. Nausea and vomiting during - D/C Zofran - Rx for Reglan 10 mg PO TID - Continues to use marijuana- discussed and encouraged cessation. Reports not using daily - Discussed calling office if unable to keep any food or liquids down for >24 hours - Try sipping on protein shakes and electrolyte drinks - Feels mood is stable- no medications - Continue vitamin and ASA- when able to keep down Jack Kaplan APRN.CNM [facility] 11-07-2024 Miscellaneous Notes Formattin g of this note might be different from the original. S: Manjinder Winter is a 19 year old female who presents at 20 weeks gestation for a routine visit. Just completed anatomy US. C/O continued daily nausea with emesis. Stated only able to eat 1 meal a day and mostly eating bites. Increased food aversions. Taking Zofran with minimal relief. Interestsed in trying a different medication. Positive movements. 03/22/2025, by Ultrasound for a routine visit. Denies headache, visual changes, chest pain, shortness of breath, vaginal bleeding, leakage of fluid, or dysuria. Feeling well, no complaints. O: See flow sheet Gen: No apparent distress Abd: Gravid, non tender S=D, TWG 6 lbs. ASSESSMENT/PLAN: 1. 20 weeks gestation of 2. Supervision of high risk in second trimester 3. Nausea and vomiting during - D/C Zofran - Rx for Reglan 10 mg PO TID - Continues to use marijuana- discussed and encouraged cessation. Reports not using daily - Discussed calling office if unable to keep any food or liquids down for >24 hours - Try sipping on protein shakes and electrolyte drinks - Feels mood is stable- no medications - Continue vitamin and ASA- when able to keep down Jack Kaplan APRN.CNM documented in this encounter [facility] 11-07-2024 Instructions Danita Dugan LPN - 11/07/2024 2:22 PM EDT SEQUENTIAL SCREENINGS The [facility] offers sequential screenings for women who are interested in screenings for chromosomal abnormalities and certain defects during a . The sequential screen combines ultrasound and blood tests to determine the risk of chromosomal abnormalities, including Down's Syndrome (Trisomy 21) and Trisomy 18, as well as open neural tube defects including spina bifida. Ultrasound examination is performed between 11 weeks and 13 weeks gestational age. Blood tests are drawn after the ultrasound and again later in the between 15 and 21 weeks gestational age. Please let your physician know if you are interested in this testing. It will require an appointment with our ultrasound tech. This is not an ultrasound performed by a physician in our office during a routine visit. SIGNS AND SYMPTOMS OF LABOR 1. Contractions every 10 minutes or more often 2. Clear, pink, or brownish fluid (water) leaking from vagina 3. Feeling that baby is pushing down, pressure 4. Low, dull backache 5. Cramps that feel like a period 6. Cramps with or without diarrhea If you notice any of the above symptoms, contact our office at [phone] and ask to speak with a nurse. After hours, you can call doctors registry at [phone] OR call [facility] at [phone] and ask to have the doctor international logistics analyst paged. If you consider this an emergency, dial 11-19-9 or go to your nearest emergency department. NEED HELP? Are you dealing with a violent or abusive relationship? Are you a victim of rape or sexual assult? Call [facility] ([place]) 24 hour Crisis Hotline: 910.600.2997 or 834-615-6485. MANUAL Your Guide to a Healthy manual is now on-line. Visit [email or web address] to download your free copy documented in this encounter [facility] 10-31-2024 Telephone encount er Note Attempted again to reach patient-she finally answered and then hung up on me-tried to call her back and she would not answer-will wait for her to call us back if she continues to have problems.Humera Morel LPN [facility] 10-31-2024 Miscellaneous Notes Formattin g of this note might be different from the original. Attempted again to reach patient-she finally answered and then hung up on me-tried to call her back and she would not answer-will wait for her to call us back if she continues to have problems.Humera Morel LPN MyChart message sent to patient to try to reach her as we have been trying to contact her by phone with no success and she has NOT picked up any of her medications from [facility] in [place]. Latha Obrien MA Still unable to reach patient.Humera Morel LPN Unable to reach patient. Please try again later. Alejandra Baron LPN Unable to reach patient and mailbox is full-try later.Humera Morel LPN Please let patient know she tested positive for yeast. BV was negative. I have sent cream to her pharmacy. Please advise patient to update OB that she is being treated for this. documented in this encounter [facility] 10-30-2024 Telephone encount er Note MyChart message sent to patient to try to reach her as we have been trying to contact her by phone with no success and she has NOT picked up any of her medications from [facility] in [place]. Latha Obrien MA [facility] 10-29-2024 Telephone encount er Note Still unable to reach patient.Humera Morel LPN [facility] 10-29-2024 Telephone encount er Note 19w3d Last OV 10/10/24 Requested Prescriptions Pending Prescriptions Disp Refills ondansetron (ZOFRAN) 4 mg tablet 30 tablet 0 Sig: Take 1 tablet by mouth every 8 hours as needed for nausea/vomiting. Pt asking just this one time Rx go to [facility] in [place]. Kayleen Vizcaino RN [facility] 10-29-2024 Miscellaneous Notes Formattin g of this note is different from the original. 19w3d Last OV 10/10/24 Requested Prescriptions Pending Prescriptions Disp Refills ondansetron (ZOFRAN) 4 mg tablet 30 tablet 0 Sig: Take 1 tablet by mouth every 8 hours as needed for nausea/vomiting. Pt asking just this one time Rx go to [facility] in [place]. Kayleen Vizcaino RN documented in this encounter [facility] 10-26-2024 Telephone encount er Note Unable to reach patient. Please try again later. Alejandra Baron LPN [facility] 10-23-2024 Telephone encount er Note Unable to reach patient and mailbox is full-try later.Humera Morel LPN [facility] 10-23-2024 Telephone encount er Note Please let patient know she tested positive for yeast. BV was negative. I have sent cream to her pharmacy. Please advise patient to update OB that she is being treated for this. [facility] 10-22-2024 Note HNO ID: [id number] Author: RITESH WASHBURN APRN.[facility] Service: ? Author Type: Nurse Practitioner Type: Progress Notes Filed: 10/22/2024 16:09 Note Text: URGENT CARE GISEL Winter is a 19 year old female. Patient presents with: Vaginal Problem: Possible peroneal tear x 1 day HPI 18-week female presents urgent care chief complaint vaginal irritation. Concerned about possible vaginal tear. Presents today for evaluation. States area feels tender and swollen. Has noticed some vaginal discharge. Describes as white. Possible some blood. Denies any vaginal injuries or recent sexual intercourse. No fevers. No dysuria or frequency. Past medical history prescription medications allergies reviewed. Review of Systems Constitutional: Negative for chills, fatigue and fever. Gastrointestinal: Negative for abdominal distention, abdominal pain, nausea, rectal pain and vomiting. Genitourinary: Positive for vaginal discharge and vaginal pain. Negative for difficulty urinating, dyspareunia, dysuria, flank pain, frequency, genital sores, hematuria, urgency and vaginal bleeding. Objective BP 110/80 Pulse 104 Temp 37.1 ?C (98.8 ?F) Resp 17 Wt 57.9 kg (127 lb 10.3 oz) LMP 04/29/2024 (Exact Date) SpO2 99% BMI 21.77 kg/m? Hr 90 Physical Exam Exam conducted with a business controller present. Constitutional: Appearance: Normal appearance. HENT: Mouth/Throat: Mouth: Mucous membranes are moist. Cardiovascular: Rate and Rhythm: Normal rate. Pulmonary: Effort: Pulmonary effort is normal. Breath sounds: Normal breath sounds. Abdominal: Tenderness: There is no abdominal tenderness. There is no right CVA tenderness, left CVA tenderness, guarding or rebound. Genitourinary: Labia: Right: Tenderness present. Left: Tenderness present. Comments: White vaginal discharge noted on external exam. Vaginal swelling noted. Moderate tenderness with external exam Lymphadenopathy: Lower Body: No right inguinal adenopathy. No left inguinal adenopathy. Neurological: Mental Status: She is alert. {ASSESSMENT/PLAN: 1. Vaginal discharge - ICD9: 623.5, ICD10: N89.8 - BHARATHI/TRICHOMONAS NAAT - BACTERIAL VAGINOSIS NAAT - UA DIP, URINE (POC) - BACTERIAL CULTURE, URINE Diagnosed with vaginal discharge. Small leukocytes noted on urine dip. Keflex sent to the pharmacy. Treat accordingly urine culture results. Additionally treat accordingly to vaginal swab test results. Patient is currently 18 weeks . When I discussed management with patient patient states pain is 10 out of 10. With 10 out of 10 vaginal discomfort recommend patient be seen in the ED for further evaluation care. Verbalized understanding agrees with plan of care. Ritesh Washburn APRN.BORDER MACHINE OPERATOR History and Record Review Clinical information obtained from an independent historian. History obtained from or confirmed by: parent. External record(s) reviewed: prior outpatient record. Disposition The patient was discharged. Procedures [facility] 10-22-2024 History of Presen t illness Narrative URGENT CARE GISEL Julia Winter is a 19 year old female. Patient presents with: Vaginal Problem: Possible peroneal tear x 1 day HPI 18-week female presents urgent care chief complaint vaginal irritation. Concerned about possible vaginal tear. Presents today for evaluation. States area feels tender and swollen. Has noticed some vaginal discharge. Describes as white. Possible some blood. Denies any vaginal injuries or recent sexual intercourse. No fevers. No dysuria or frequency. Past medical history prescription medications allergies reviewed. Review of Systems Constitutional: Negative for chills, fatigue and fever. Gastrointestinal: Negative for abdominal distention, abdominal pain, nausea, rectal pain and vomiting. Genitourinary: Positive for vaginal discharge and vaginal pain. Negative for difficulty urinating, dyspareunia, dysuria, flank pain, frequency, genital sores, hematuria, urgency and vaginal bleeding. Objective BP 110/80 Pulse 104 Temp 37.1 C (98.8 F) Resp 17 Wt 57.9 kg (127 lb 10.3 oz) LMP 04/29/2024 (Exact Date) SpO2 99% BMI 21.77 kg/m Hr 90 Physical Exam Exam conducted with a business controller present. Constitutional: Appearance: Normal appearance. HENT: Mouth/Throat: Mouth: Mucous membranes are moist. Cardiovascular: Rate and Rhythm: Normal rate. Pulmonary: Effort: Pulmonary effort is normal. Breath sounds: Normal breath sounds. Abdominal: Tenderness: There is no abdominal tenderness. There is no right CVA tenderness, left CVA tenderness, guarding or rebound. Genitourinary: Labia: Right: Tenderness present. Left: Tenderness present. Comments: White vaginal discharge noted on external exam. Vaginal swelling noted. Moderate tenderness with external exam Lymphadenopathy: Lower Body: No right inguinal adenopathy. No left inguinal adenopathy. Neurological: Mental Status: She is alert. {ASSESSMENT/PLAN: 1. Vaginal discharge - ICD9: 623.5, ICD10: N89.8 - BHARATHI/TRICHOMONAS NAAT - BACTERIAL VAGINOSIS NAAT - UA DIP, URINE (POC) - BACTERIAL CULTURE, URINE Diagnosed with vaginal discharge. Small leukocytes noted on urine dip. Keflex sent to the pharmacy. Treat accordingly urine culture results. Additionally treat accordingly to vaginal swab test results. Patient is currently 18 weeks . When I discussed management with patient patient states pain is 10 out of 10. With 10 out of 10 vaginal discomfort recommend patient be seen in the ED for further evaluation care. Verbalized understanding agrees with plan of care. Ritesh Washburn APRN.BORDER MACHINE OPERATOR History and Record Review Clinical information obtained from an independent historian. History obtained from or confirmed by: parent. External record(s) reviewed: prior outpatient record. Disposition The patient was discharged. Procedures documented in this encounter [facility] 10-10-2024 Telephone encount er Note Ob patient is 16w5d and seen today for ob appointment. patient called requesting refll of zofran. [facility] 10-10-2024 Miscellaneous Notes Formattin g of this note might be different from the original. Ob patient is 16w5d and seen today for ob appointment. patient called requesting refll of zofran. documented in this encounter [facility] 10-10-2024 Progress note Formatting of t his note might be different from the original. DM-Pt doing well. Denies vaginal Bleeding, Leaking fluid, or regular Contractions. Pt reports good movement Physical Exam: Gen: female in no apparent distress Abd: soft, Gravid. Non tender to palpation. See flow sheet @ 16.5 wks Assessment & Plan Supervision of high risk in second trimester (HCC) Depression with anxiety Previously went to [facility]- has not been seen for awhile- reports will schedule. Reports overall feeling ok but is more emotional lately. - discussed risk is high as progresses and PP Marijuana use during ([facility]) Reviewed recommend cessation- using occasionally per patient Bipolar 1 disorder (HCC) 16 weeks gestation of ([facility]) Anatomy us in 4 week RTO 4 wks Luz Marina Candelaria MD [facility] 10-10-2024 Miscellaneous Notes Formattin g of this note might be different from the original. DM-Pt doing well. Denies vaginal Bleeding, Leaking fluid, or regular Contractions. Pt reports good movement Physical Exam: Gen: female in no apparent distress Abd: soft, Gravid. Non tender to palpation. See flow sheet @ 16.5 wks Assessment & Plan Supervision of high risk in second trimester (HCC) Depression with anxiety Previously went to [facility]- has not been seen for awhile- reports will schedule. Reports overall feeling ok but is more emotional lately. - discussed risk is high as progresses and PP Marijuana use during ([facility]) Reviewed recommend cessation- using occasionally per patient Bipolar 1 disorder (HCC) 16 weeks gestation of ([facility]) Anatomy us in 4 week RTO 4 wks Luz Marina Candelaria MD documented in this encounter [facility] 10-10-2024 Instructions Ute Hardin MA - 10/10/2024 2:27 PM EDT SEQUENTIAL SCREENINGS The [facility] offers sequential screenings for women who are interested in screenings for chromosomal abnormalities and certain defects during a . The sequential screen combines ultrasound and blood tests to determine the risk of chromosomal abnormalities, including Down's Syndrome (Trisomy 21) and Trisomy 18, as well as open neural tube defects including spina bifida. Ultrasound examination is performed between 11 weeks and 13 weeks gestational age. Blood tests are drawn after the ultrasound and again later in the between 15 and 21 weeks gestational age. Please let your physician know if you are interested in this testing. It will require an appointment with our ultrasound tech. This is not an ultrasound performed by a physician in our office during a routine visit. SIGNS AND SYMPTOMS OF LABOR 1. Contractions every 10 minutes or more often 2. Clear, pink, or brownish fluid (water) leaking from vagina 3. Feeling that baby is pushing down, pressure 4. Low, dull backache 5. Cramps that feel like a period 6. Cramps with or without diarrhea If you notice any of the above symptoms, contact our office at [phone] and ask to speak with a nurse. After hours, you can call doctors registry at [phone] OR call [facility] at [phone] and ask to have the doctor international logistics analyst paged. If you consider this an emergency, dial 9--1 or go to your nearest emergency department. NEED HELP? Are you dealing with a violent or abusive relationship? Are you a victim of rape or sexual assult? Call [facility] ([place]) 24 hour Crisis Hotline: 245.728.2989 or 854-593-2926. MANUAL Your Guide to a Healthy manual is now on-line. Visit [email or web address] to download your free copy documented in this encounter [facility] 09-25-2024 Telephone encount er Note Upon chart review, it was noted that patient used to get services at [facility] for both medication management and therapy and had agreed to reach out to them again to resume services. If patient is not able to re establish care at [facility], please schedule her for a new patient appointment with me. [facility] Work Phone: 09-25-2024 Miscellaneous Notes Formattin g of this note might be different from the original. Upon chart review, it was noted that patient used to get services at [facility] for both medication management and therapy and had agreed to reach out to them again to resume services. If patient is not able to re establish care at [facility], please schedule her for a new patient appointment with me. This is a formerly [facility] referral for you to review. Blank Tiwari LPN documented in this encounter [facility] 09-25-2024 Telephone encount er Note This is a formerly [facility] referral for you to review. lBank Tiwari LPN [facility] 09-12-2024 Progress note Formatting of t his note might be different from the original. NICOLE-S: Manjinder Winter is a 19 year old female who presents at 12w5d with ANA MARIA:03/22/2025, by Ultrasound for a routine visit. Denies headache, visual changes, chest pain, shortness of breath, vaginal bleeding, leakage of fluid, or dysuria. Feeling well, no complaints. Continues to smoke marijuana twice a day. O: See flow sheet Gen: No apparent distress Abd: nontender First trimester anatomy US today ASSESSMENT/PLAN: 1. Encounter for supervision of high risk in first trimester, antepartum -Continue PNV -Will start ASA today -Anatomy US scheduled -PN labs and NIPT today 2. 12 weeks gestation of 3. Depression with anxiety 4. Marijuana use during -Reviewed risks of marijuana use to baby and recommend cessation. 5. Nausea and vomiting during -Continues Zofran 6. Bipolar 1 -History of Bipolar 1 managed by [facility], last visit 2 years ago. Took zoloft and lexapro in the past. Willing to see provider, psych consult placed. PTL precautions reviewed and when to call RTO in 4 weeks Alana Bacon APRN.DAGBOERTO [facility] 09-12-2024 Miscellaneous Notes Formattin g of this note might be different from the original. RONYS: Manjinder Winter is a 19 year old female who presents at 12w5d with ANA MARIA:03/22/2025, by Ultrasound for a routine visit. Denies headache, visual changes, chest pain, shortness of breath, vaginal bleeding, leakage of fluid, or dysuria. Feeling well, no complaints. Continues to smoke marijuana twice a day. O: See flow sheet Gen: No apparent distress Abd: nontender First trimester anatomy US today ASSESSMENT/PLAN: 1. Encounter for supervision of high risk in first trimester, antepartum -Continue PNV -Will start ASA today -Anatomy US scheduled -PN labs and NIPT today 2. 12 weeks gestation of 3. Depression with anxiety 4. Marijuana use during -Reviewed risks of marijuana use to baby and recommend cessation. 5. Nausea and vomiting during -Continues Zofran 6. Bipolar 1 -History of Bipolar 1 managed by [facility], last visit 2 years ago. Took zoloft and lexapro in the past. Willing to see provider, psych consult placed. PTL precautions reviewed and when to call RTO in 4 weeks Alana Bacon APRN.CNM documented in this encounter [facility] 09-12-2024 Instructions Job Dueñas MA - 09/12/2024 2:44 PM EDT SEQUENTIAL SCREENINGS The [facility] offers sequential screenings for women who are interested in screenings for chromosomal abnormalities and certain defects during a . The sequential screen combines ultrasound and blood tests to determine the risk of chromosomal abnormalities, including Down's Syndrome (Trisomy 21) and Trisomy 18, as well as open neural tube defects including spina bifida. Ultrasound examination is performed between 11 weeks and 13 weeks gestational age. Blood tests are drawn after the ultrasound and again later in the between 15 and 21 weeks gestational age. Please let your physician know if you are interested in this testing. It will require an appointment with our ultrasound tech. This is not an ultrasound performed by a physician in our office during a routine visit. SIGNS AND SYMPTOMS OF LABOR 1. Contractions every 10 minutes or more often 2. Clear, pink, or brownish fluid (water) leaking from vagina 3. Feeling that baby is pushing down, pressure 4. Low, dull backache 5. Cramps that feel like a period 6. Cramps with or without diarrhea If you notice any of the above symptoms, contact our office at [phone] and ask to speak with a nurse. After hours, you can call doctors registry at [phone] OR call [facility] at [phone] and ask to have the doctor international logistics analyst paged. If you consider this an emergency, dial [phone] or go to your nearest emergency department. NEED HELP? Are you dealing with a violent or abusive relationship? Are you a victim of rape or sexual assult? Call [facility] ([place]) 24 hour Crisis Hotline: 856.225.5042 or 341-849-9023. MANUAL Your Guide to a Healthy manual is now on-line. Visit [email or web address] to download your free copy documented in this encounter [facility] 09-07-2024 Note HNO ID: [id number] Author: RITESH WASHBURN APRN.BORDER MACHINE OPERATOR Service: ? Author Type: Nurse Practitioner Type: Progress Notes Filed: 09/07/2024 18:53 Note Text: Subjective HPI Nontoxic-appearing 19-year-old female who is currently 12 weeks presents urgent care chief complaint URI-like symptoms. Duration of symptoms 1 week. Associated symptoms cough nasal congestion. Initially did have sore throat headache nasal congestion that has improved. Cough is lingering. Denies any chest pain shortness of breath pleuritic pain or hemoptysis. No fevers. Initially had a fever that has dissipated. Use of Mucinex. Past medical history prescription medications allergies reviewed. No vaginal discharge leaking of fluid dysuria .Patient presents with: Chest Congestion: Nasal congestion, cough, runny nose, fever on and off headache on and off, chest tightness and pressure, x 1 week PAST MEDICAL HISTORY Diagnosis Date Anemia History of non-suicidal self-harm 08/01/2024 NEGATIVE MEDICAL HISTORY normal color vision PAST SURGICAL HISTORY Procedure Laterality Date NONE ALLERGIES Patient has no known allergies. MEDICATIONS ondansetron orally disintegrating (ZOFRAN ODT) 4 mg disintegrating tablet Take 4 mg by mouth every 6 hours as needed for nausea/vomiting. vit no.124/iron/folic ( VITAMIN ORAL) Take 1 tablet by mouth once daily. aspirin, enteric coated (ECOTRIN LOW STRENGTH) 81 mg EC tablet Take 1 tablet by mouth once daily. (Patient not taking: Reported on 09/07/2024) FAMILY HISTORY Problem Relation Age of Onset Bipolar disorder Mother Cancer Other MGGMo - Breast Cancer Cancer Other MGGFa - Prostate Cancer other (congestive heart failure) Other PGGMo Social History Tobacco Use Smoking status: Never Passive exposure: Yes Smokeless tobacco: Never Tobacco comments: smokers outside Vaping Use Vaping status: Never Used Substance Use Topics Alcohol use: No Drug use: No BP 114/70 Pulse 98 Temp 37 ?C (98.6 ?F) Resp 20 Wt 55 kg (121 lb 4.1 oz) LMP 04/29/2024 (Exact Date) SpO2 99% BMI 20.68 kg/m? Review of Systems Constitutional: Negative for chills, fever and malaise/fatigue. HENT: Positive for congestion. Negative for ear discharge, ear pain, sinus pain and sore throat. Eyes: Negative for blurred vision, pain, discharge and redness. Respiratory: Positive for cough. Negative for hemoptysis, sputum production, shortness of breath, wheezing and stridor. Cardiovascular: Negative for chest pain. Gastrointestinal: Negative for abdominal pain, diarrhea, nausea and vomiting. Musculoskeletal: Negative for myalgias. Skin: Negative for itching and rash. Neurological: Positive for headaches. Negative for dizziness. Objective Physical Exam HENT: Head: Normocephalic. Jaw: No trismus, tenderness, swelling or pain on movement. Right Ear: Tympanic membrane, ear canal and external ear normal. Left Ear: Tympanic membrane, ear canal and external ear normal. Nose: Congestion present. Mouth/Throat: Mouth: Mucous membranes are moist. Pharynx: Oropharynx is clear. Uvula midline. No oropharyngeal exudate or posterior oropharyngeal erythema. Eyes: Pupils: Pupils are equal, round, and reactive to light. Cardiovascular: Rate and Rhythm: Normal rate. Pulmonary: Effort: Pulmonary effort is normal. No accessory muscle usage, respiratory distress or retractions. Breath sounds: No stridor. No wheezing, rhonchi or rales. Abdominal: Palpations: Abdomen is soft. Tenderness: There is no abdominal tenderness. There is no guarding or rebound. Musculoskeletal: Cervical back: No erythema or tenderness. No pain with movement. Normal range of motion. Lymphadenopathy: Cervical: No cervical adenopathy. Neurological: General: No focal deficit present. Mental Status: She is alert and oriented to person, place, and time. Mental status is at baseline. ASSESSMENT/PLAN: 1. URI with cough and congestion - ICD9: 465.9, ICD10: J06.9 - Discussed viral etiology and rationale for treatment. - Symptomatic treatment with prn analgesia - Supportive care with fluids and rest No evidence of bacterial infection. Treat as viral etiology. Patient was educated on supportive therapies. Patient will follow up with primary care provider as needed. Patient was instructed to immediately proceed to emergency room for any new, worsening, or symptoms lasting longer than anticipated. The patient's clinical presentation is otherwise unremarkable at this time. Based on exam and clinical finding, the patient is stable for discharge. Plan of care was discussed with patient. Patient verbalizes understanding and agrees to plan of care. This note was generated using [employer] software. It may contain errors in wording, punctuation, or spelling. Ritesh Washburn APRN.[facility] 09-07-2024 History of Presen t illness Narrative Subjective HPI Nontoxic-appearing 19-year-old female who is currently 12 weeks presents urgent care chief complaint URI-like symptoms. Duration of symptoms 1 week. Associated symptoms cough nasal congestion. Initially did have sore throat headache nasal congestion that has improved. Cough is lingering. Denies any chest pain shortness of breath pleuritic pain or hemoptysis. No fevers. Initially had a fever that has dissipated. Use of Mucinex. Past medical history prescription medications allergies reviewed. No vaginal discharge leaking of fluid dysuria .Patient presents with: Chest Congestion: Nasal congestion, cough, runny nose, fever on and off headache on and off, chest tightness and pressure, x 1 week PAST MEDICAL HISTORY Diagnosis Date Anemia History of non-suicidal self-harm 08/01/2024 NEGATIVE MEDICAL HISTORY normal color vision PAST SURGICAL HISTORY Procedure Laterality Date NONE ALLERGIES Patient has no known allergies. MEDICATIONS ondansetron orally disintegrating (ZOFRAN ODT) 4 mg disintegrating tablet Take 4 mg by mouth every 6 hours as needed for nausea/vomiting. vit no.124/iron/folic ( VITAMIN ORAL) Take 1 tablet by mouth once daily. aspirin, enteric coated (ECOTRIN LOW STRENGTH) 81 mg EC tablet Take 1 tablet by mouth once daily. (Patient not taking: Reported on 09/07/2024) FAMILY HISTORY Problem Relation Age of Onset Bipolar disorder Mother Cancer Other MGGMo - Breast Cancer Cancer Other MGGFa - Prostate Cancer other (congestive heart failure) Other PGGMo Social History Tobacco Use Smoking status: Never Passive exposure: Yes Smokeless tobacco: Never Tobacco comments: smokers outside Vaping Use Vaping status: Never Used Substance Use Topics Alcohol use: No Drug use: No BP 114/70 Pulse 98 Temp 37 C (98.6 F) Resp 20 Wt 55 kg (121 lb 4.1 oz) LMP 04/29/2024 (Exact Date) SpO2 99% BMI 20.68 kg/m Review of Systems Constitutional: Negative for chills, fever and malaise/fatigue. HENT: Positive for congestion. Negative for ear discharge, ear pain, sinus pain and sore throat. Eyes: Negative for blurred vision, pain, discharge and redness. Respiratory: Positive for cough. Negative for hemoptysis, sputum production, shortness of breath, wheezing and stridor. Cardiovascular: Negative for chest pain. Gastrointestinal: Negative for abdominal pain, diarrhea, nausea and vomiting. Musculoskeletal: Negative for myalgias. Skin: Negative for itching and rash. Neurological: Positive for headaches. Negative for dizziness. Objective Physical Exam HENT: Head: Normocephalic. Jaw: No trismus, tenderness, swelling or pain on movement. Right Ear: Tympanic membrane, ear canal and external ear normal. Left Ear: Tympanic membrane, ear canal and external ear normal. Nose: Congestion present. Mouth/Throat: Mouth: Mucous membranes are moist. Pharynx: Oropharynx is clear. Uvula midline. No oropharyngeal exudate or posterior oropharyngeal erythema. Eyes: Pupils: Pupils are equal, round, and reactive to light. Cardiovascular: Rate and Rhythm: Normal rate. Pulmonary: Effort: Pulmonary effort is normal. No accessory muscle usage, respiratory distress or retractions. Breath sounds: No stridor. No wheezing, rhonchi or rales. Abdominal: Palpations: Abdomen is soft. Tenderness: There is no abdominal tenderness. There is no guarding or rebound. Musculoskeletal: Cervical back: No erythema or tenderness. No pain with movement. Normal range of motion. Lymphadenopathy: Cervical: No cervical adenopathy. Neurological: General: No focal deficit present. Mental Status: She is alert and oriented to person, place, and time. Mental status is at baseline. ASSESSMENT/PLAN: 1. URI with cough and congestion - ICD9: 465.9, ICD10: J06.9 - Discussed viral etiology and rationale for treatment. - Symptomatic treatment with prn analgesia - Supportive care with fluids and rest No evidence of bacterial infection. Treat as viral etiology. Patient was educated on supportive therapies. Patient will follow up with primary care provider as needed. Patient was instructed to immediately proceed to emergency room for any new, worsening, or symptoms lasting longer than anticipated. The patient's clinical presentation is otherwise unremarkable at this time. Based on exam and clinical finding, the patient is stable for discharge. Plan of care was discussed with patient. Patient verbalizes understanding and agrees to plan of care. This note was generated using [employer] software. It may contain errors in wording, punctuation, or spelling. Ritesh Washburn APRN.LUIGI documented in this encounter [facility] 09-04-2024 Telephone encount er Note 11w4d Pt called stating she has a cold/congestion and asking what she can take OTC. Reviewed healthy guide safe medications she can take. Advised Pt that I could send link via Frequent Browser. Texted link to activate Frequent Browser to Pt. Pt denies additional questions at this time. Kayleen Vizcaino RN [facility] 09-04-2024 Miscellaneous Notes Formattin g of this note might be different from the original. 11w4d Pt called stating she has a cold/congestion and asking what she can take OTC. Reviewed healthy guide safe medications she can take. Advised Pt that I could send link via Frequent Browser. Texted link to activate Bdayt to Pt. Pt denies additional questions at this time. Kayleen Vizcaino RN documented in this encounter [facility] 08-16-2024 Discharge summary [facility] 08-16-2024 Telephone encounter Note See 08/16/24 phone note. Naomi Guerin RN [facility] 08-16-2024 Miscellaneous Notes See 08/16/24 phone note. Naomi Guerin RN Attempted to reach patient. No answer and unable to leave a voicemail. Mailbox is full. BuyMyHomehart not set up yet. Naomi Guerin RN Yes, she can be seen sooner to check for a FHR 7w6d Patient called to report that she was seen at [facility] ER yesterday for bleeding. Was dx with a subchorionic hematoma. Calling today to report that she is having some pain and dark brown bleeding. Following pelvic rest precautions. Reassurance given. Recommended patient to let the office know if her pain increases or if she has bright red bleeding. Patient states that she is passing some chunks with the bleeding. Has had a missed AB prior and it does not resemble that. Her next OB visit is on 09/06/24. Would you like patient to have a sooner appointment. Aware she may not receive a response from the office before the end of day. Patient voiced understanding. Naomi Guerin RN documented in this encounter [facility] 08-16-2024 Telephone encounter Note agree. needs a f/u before 6/12 to discuss treatment regimen/plan. Maru Alexander MD [facility] Work Phone: 08-16-2024 Miscellaneous Notes agree. needs a f/u before 6/12 to discuss treatment regimen/plan. Maru Alexander MD 8w6d Calling c/o n/v. Has been trying vitamin B6 with no improvement. Unable to keep anything down in over 24 hours, not even water today so far. Advised to go to ER and call back to schedule f/u nausea appt if needed. Patient agreed. Barbara Loomis RN documented in this encounter [facility] 08-16-2024 Telephone encounter Note 8w6d Calling c/o n/v. Has been trying vitamin B6 with no improvement. Unable to keep anything down in over 24 hours, not even water today so far. Advised to go to ER and call back to schedule f/u nausea appt if needed. Patient agreed. Barbara Loomis RN [facility] 08-16-2024 Discharge summary Note Date/Time August 16, 2024 9:16p [facility] Medical Records Department [address] [place] [address] Emergency Department Summary 08/16/24 MR#: [id number] Acct: [id number] Name: MANJINDER WINTER Rep #:[id number] : 2005 19 From: Alvaro Carlton DO PCP: Care Physician,No Primary Status :REG ER Location: ED HPI History of Present Illness Chief Complaint: Nausea/Vomiting/Diarrhea Narrative Narrative: Patient is a 19-year-old female with no known significant past medical history who is currently 9 weeks G1, P0 with 1 miscarriage previously. She presents to the emergency department this evening with a chief complaint of nausea vomiting diarrhea. Patient states that she has had nausea vomiting for several weeks she states that she is on vitamin B12 and Zofran as well as vitamins. She states that she has not been able to keep ending down for the past few days and she called her OB therefore she came here for further evaluation management. States that she already had an appointment with her PRE K TEACHER and they had a ultrasound performed and this did confirm intrauterine per the patient. Patient denies or sick contacts denies abdominal pain. PFSH PFSH Medical History History of miscarriage Home Medications ?Medication ?Instructions ?Recorded ?Last Taken ?Type etonogestrel 0.12 mg-ethinyl 1 vag ring vaginal QMONTH 12/15/21 Unknown History estradiol 0.015 mg/24 hr vaginal ring (NuvaRing) ondansetron 4 mg disintegrating 4 mg PO Q8H PRN PRN Na usea #10 tabs 12/08/23 Unknown Rx tablet cephalexin 500 mg capsule 500 mg PO BID 7 days #14 cap s 08/08/24 Unknown Rx cephalexin 500 mg capsule 500 mg PO BID 5 days #10 cap s 08/16/24 Unknown Rx ondansetron 4 mg disintegrating 4 mg PO Q6H PRN nausea and 08/16/24 Unknown Rx tablet vomiting #20 tabs Allergy/AdvReac Type Severity Reaction Status Date / Time No Known Allergies Allergy Verified 08/16/24 16:41 Social History Smoking Status: Former smoker substance use type: marijuana ROS ROS ED ROS Narrative Constitutional: Denies fevers, chills, headaches Abdomen: Complains of nausea vomiting diarrhea as noted above denies any abdominal pain : Denies painful urination, hematuria, polyuria, vaginal spotting, vaginal discharge Neurological: Denies numbness, weakness, tingling Musculoskeletal: Denies back pain Skin: Denies any rashes or lesions EXAM Physical Exam Narrative Exam Narrative: General: Patient lying in bed rest comfortably did not appear to be acute distress Head: Atraumatic, normocephalic Eyes: PERRL bilaterally, EOMI bilateral, no conjunctival injection noted Neck: Soft, supple, trachea midline Cardiovascular: Regular rate and rhythm no murmurs gallops rubs noted Respiratory: Clear to auscultation bilaterally Abdomen: Soft, nondistended, no tenderness palpation Extremities: +5/5 strength noted in the bilateral upper and lower extremities Neurological: Patient following commands knew that she was at [facility] year is 2024 Skin: Warm, dry, intact no rashes or lesions noted Const Vital Signs: 08/16/24 16:38 08/16/24 18:46 08/16/24 20:00 Temperature 97.7 F L 98.7 F Temperature Source Oral Oral Pulse Rate 88 70 77 Respiratory Rate 13 15 14 Blood Pressure 127/73 H 91/64 117/69 Blood Pressure Mean 91 73 85 Pulse Ox 100 97 100 Oxygen Delivery Method Room Air Room Air Room Air 08/16/24 20:44 Temperature 98.7 F Temperature Source Pulse Rate 77 Respiratory Rate 14 Blood Pressure 117/69 Blood Pressure Mean 85 Pulse Ox 100 Oxygen Delivery Method MDM MDM MDM Narrative Medical decision making narrative: Patient is a 19-year-old female who presents to the emergency department chief complaint of nausea vomiting diarrhea in the setting of . On the differential diagnose includes but not limited to viral gastroenteritis, electrolyteabnormality, UTI, asymptomatic bacteria in . Once workup is obtained reviewed she will be reevaluated. Patient will be given IV fluids Patient's urinalysis reviewed and showed 25 leukocyte esterase 0-5 white cells however she had 2+ bacteria she was given a gram of Rocephin this send for culture. Patient's sodium normal 135, potassium normal 3.4, creatinine was 0.39. On reevaluation the patient she is feeling much improved and she would like to go home. Patient will be given prescription for Keflex as well as Zofran ODT. She is advised to follow-up with her PRE K TEACHER and return with worsening symptoms or concerns. She is agreeable to plan all course concerns answered she is discharged home in stable condition. Lab Data Labs: Laboratory Results - last 24 hr 08/16/24 08/16/24 17:33 18:56 Sodium 135 Potassium 3.4 Chloride 103 Carbon Dioxide 19.3 L Anion Gap 13 BUN 4 Creatinine 0.39 L Estim Creat Clear Calc 190.34 Est GFR (MDRD) Non-Af 146 BUN/Creatinine Ratio 9.0 L Glucose 87 Calcium 9.3 Urine Color Yellow Urine Clarity Sl. Cloudy Urine pH 6.5 Ur Specific [place] 1.015 Urine Protein 15 H Urine Glucose (UA) Normal Urine Ketones 50 H Urine Occult Blood 25 H Urine Nitrite Negative Urine Bilirubin Negative Urine Urobilinogen Normal Ur Leukocyte Esterase 25 H Urine RBC 0 SEEN Urine WBC 0-5 SEEN Ur Squamous Epith Cells 5-10 SEEN Urine Bacteria 2+ Urine Mucus 0 SEEN Discharge Plan Triage Chief Complaint: Nausea/Vomiting/Diarrhea ED Provider: Alvaro Carlton Dx/Rx/DC Orders Clinical Impression: Nausea & vomiting, Currently Prescriptions: New cephalexin 500 mg capsule 500 mg PO BID 5 Days Qty: 10 0RF ondansetron 4 mg tablet,disintegrating 4 mg PO Q6H PRN (Reason: nausea and vomiting) Qty: 20 0RF No Action etonogestrel-ethinyl estradiol [NuvaRing] 0.12-0.015 mg/24 hr Ring 1 vag ring VAGINAL QMONTH ondansetron 4 mg tablet,disintegrating 4 mg PO Q8H PRN PRN (Reason: Nausea) Qty: 10 0RF cephalexin 500 mg capsule 500 mg PO BID 7 Days Qty: 14 0RF Primary Care Provider: Care Physician,No Primary Referrals: Care Physician,No Primary [Primary Care Provider] - Activity Restrictions/Additional Instructions: Follow-up with your PRE K TEACHER. Use Zofran as prescribed it is a dissolvable tabletthat goes under your tongue. Take the antibiotic that was sent to your pharmacyas prescribed. Follow-up on the culture results with your doctor as well to ensure that you are on the appropriate antibiotic. Return with any other concerns Print Language: Canadian Disposition Disposition: Home, Self Care What to do if you have Problems For any increased pain, shortness of breath, bleeding, nausea or vomiting, chestpain, or any unexpected problems, contact your Primary Care Provider. Call [facility] ([phone]) or report to the closest Emergency Room. Call 911 if necessary. 05/29/25 2116 <Electronically signed by Alvaro Carlton DO> Cosigner Signature (if applicable): CC: No Primary Care Physician ~ Signed [facility] Work Phone: [phone]) 731-578405-23-2025 Telephone encounter Note* Telephone Encounter - Naomi Guerin RN - 08/10/2024 8:28 AM EDT Attempted to reach patient. No answer and unable to leave a voicemail. Mailbox is full. Mychart notset up yet. Naomi Guerin RN [facility]05-22-2025 Telephone encounter Note* Telephone Encounter - Naomi Kelsey MD - 08/09/2024 4:56 PM EDT Yes, she can be seen sooner to check for a FHR [facility] Work Phone: [phone]) 390-302105-22-2025 Telephone encounter Note* Telephone Encounter - Naomi Guerin RN - 08/09/2024 4:43 PM EDT 7w6d Patient called to report that she was seen at [facility] ER yesterday for bleeding. Was dx with a subchorionic hematoma. Calling today to report that she is having some pain and dark brown bleeding. Following pelvic rest precautions. Reassurance given. Recommended patient to let the office know if her pain increases or if she has bright red bleeding. Patient states that she is passing some chunks withthe bleeding. Has had a missed AB prior and it does not resemble that. Her next OB visit is on 09/06/24. Would you like patient to have a sooner appointment. Aware she may not receive a response from the office before the end of day. Patient voiced understanding. Naomi Guerin RN [facility]05-21-2025 Radiology Diagnostic study note [facility] Imaging Services [address] [place] [address] Transvaginal w/Preg US MR#: [id number] Acct: [id number] Name: MANJINDER WINTER Rep #: [id number] : 2005 F 19 From: Ag Morfin MD PCP: Care Physician,No Primary Status: REG ER Study:Transvaginal w/Preg US Date of Exam: 08/08/24 Exam# [id number] Ordering Dr: Rupert Hernandez DO PROCEDURE: TRANSVAGINAL W/PREG US 08/08/2024 REASON FOR EXAM: VAGINAL BLEEDING TECHNIQUE: High resolution obstetric ultrasound performed using a 2D transducer. Standard views obtained, including biometry, anatomy survey, and Doppler studies. COMPARISON: None. FINDINGS Single live intrauterine with a gestational sac measuring 3.1 cm. Estimated gestational age by crown-rump length is 8 weeks 0 days. A yolk sac is visualized. heart rate is 169 beats per minute. ANA MARIA by pbhgaqjrav37/30/2025. ANA MARIA by LMP 03/21/2025. Small anechoic 1.00.5 x 0.3 cm region adjacent to the gestational sac likely representing subchorionic hematoma. Uterus measures 10.8 x 9.0 x 6.1 cm. No masses. No free fluid in the cul-de-sac. Right ovary measures 3.9 x 2.7 x 1.7 cm. Small follicle. Preserved vascular flow. Left ovary measures 2.9 x 2.0 x 1.6 cm. Preserved vascular flow. US/Transvaginal w/Preg US IMPRESSION: Single live intrauterine . Small subchorionic hematoma. Reading Location: [id number] CC: Dr. Rupert Guerra DO; No Primary Care Physician ~ Hand Touch Up Painter: Signed [facility]05-15-2025 Telephone encounter Note* Telephone Encounter - Kayleen Vizcaino RN - 08/02/2024 9:15 AM EDT Pt notified and states she started it yesterday. Kayleen Vizcaino RN [facility]05-15-2025 Miscellaneous Notes* Telephone Encounter - Kayleen Vizcaino RN - 08/02/2024 9:15 AM EDT Pt notified and states she started it yesterday. Kayleen Vizcaino RN * Telephone Encounter - Barbara Loomis RN - 08/02/2024 9:00 AM EDT Left message for patient to call office. Barbara Loomis RN * Telephone Encounter - Darvin Peng APRN.CNP - 08/02/2024 7:07 AM EDT Please notify patient: Culture confirms yeast. Monistat 7 has been sent to pharmacy. Darvin Peng APRN.CNP [facility] Telephone encounter Note * Telephone Encounter - Barbara Loomis RN - 08/02/2024 9:00 AM EDT Left message for patient to call office. Barbara Loomis RN [facility]05-15-2025 Telephone encounter Note* Telephone Encounter - Darvin Peng APRN.CNP - 08/02/2024 7:07 AM EDT Please notify patient: Culture confirms yeast. Monistat 7 has been sent to pharmacy. Darvin Peng APRN.CNP [facility]05-14-2025 NoteHNO ID: [id number] Author: DARVIN PENG APRN.BORDER MACHINE OPERATOR Service: ? Author Type: Nurse Practitioner Type: Progress Notes Filed: 08/01/2024 14:39 Note Text: I&C Tech offered: Patient declines. INITIAL OB ASSESSMENT HPI: Manjinder is a 19 year old White here to establish Obstetrical Care. Patient's last menstrual period was 04/29/2024 (exact date). from OB Dating Form. was unplanned but accepted Complaints: vaginal itching and discharge OB History Gravida1 Para0 Term0 Preterm0 AB0 Living0 SAB0 IAB0 Ectopic0 Multiple0 Live Births0 Previous history: Prior : never History of 4th degree laceration: No History of shoulder dystocia: No History of Hypertensive disorders including pre-eclampsia or gestational hypertension: NA History of gestational diabetes: NA Patient's Risk Screening for delivery: Have you had a prior carvajal between 20w and 36w6d? No How many pregnancies have you had before? 0 Did you have a previous baby with a GBS Infection? No Please select all that apply for any prior : N/A MEDICAL/PSYCHOSOCIAL HISTORY: History of hemorrhage or bleeding concerns: No Thyroid Disease: No History of chronic hypertension: No History of pre-existing diabetes: No No results found for: ABORHD BMI 20.46 kg/(m2) Last Pap: never done History of abnormal pap: No Prior treatment for cervical dysplasia: none. Last HPV: never done History of STDs: None Partner History of STDs: None Did you have a partner with Herpes? No Tobacco use: No E-Cigarette/Vaping Use: No Caffeine use: Yes Drug use: No Alcohol use: No Multivitamin with Folic acid: Yes Would refuse blood transfusion if medically necessary: No Social Needs: How often does this describe you? I don't have enough money to pay my bills: Never Within the past 12 months, have you worried that your food would run out before you had money to buy more? Never In the past 12 months, has lack of reliable transportation kept you from going to medical appointments or work, or from getting things needed for daily living? Never In the past 12 months, have you had any concerns about having a place to live, or about the condition or quality of your housing? Never Would you like more information on any of the following (please check all that apply)? Not interested Social History: Do you have any history of depression, anxiety, PTSD, or other mood problems? Yes Do you have a history of abuse or trauma that may impact your experience? No Are you currently employed? Yes Depression/Anxiety Screening: denies symptoms of depression. OB Depression and Anxiety Screening- This Encounter Over the past 2 weeks have you felt down, depressed, or hopeless? Negative Over the past two weeks, have you felt little interest or pleasure in doing things?? Negative Feeling nervous, anxious or on edge 0-Not at all Not being able to stop or control worrying 0-Not al all Anxiety Pre-Screening Total (If >/= 3 additional questions will be reviewed) 0 Genetic Screening: Partner present: No Patient verbalized knowledge of partner family health history: Yes Do you or your partner have any personal or family history of defects not previously discussed: No Do you have history of a complicated by anomaly, genetic condition, or demise: No Preeclampsia Risk Screening: Screening for prevention of preeclampsia: High risk factors: None Moderate risk ractors: Nulliparity OB Risk Screening: Completed, no positive findings documented. Marital Status:Committed relationship Partner: Name: Raffy Age: 20 Occupation: [employer] Gender: Male PAST MEDICAL HISTORY Diagnosis Date Anemia NEGATIVE MEDICAL HISTORY normal color vision PAST SURGICAL HISTORY Procedure Laterality Date NONE Current Outpatient Medications Medication Sig Dispense Refill vit no.124/iron/folic ( VITAMIN ORAL) Take 1 tablet by mouth once daily. aspirin, enteric coated (ECOTRIN LOW STRENGTH) 81 mg EC tablet Take 1 tablet by mouth once daily. 90 tablet 3 miconazole (MONISTAT 7) 2 % vaginal cream Use 1 applicator vaginally daily at bedtime for 7 days. 45 g 0 No current facility-administered medications for this visit. Allergies As of Date: 08/01/2024 (No Known Allergies) Fully Assessed 08/01/2024 SBIRT Manjinder Winter was given the 4's screening tool. Manjinder answered as follows: OB Opioid Screening - Last Recorded (since 11/05/2023) Did any of your parents have a problem with alcohol or other drug use? No Does your partner have a problem with alcohol or other drug use? No In the past, have you had difficulties in your life because of alcohol or other drugs, including prescription medications? No In the past month have you drunk any alcohol or used other drugs? Yes Are you taking medic (more content not included)...[facility] 08-01-2024 History of Present illness Narrative* Darvin Peng APRN.BORDER MACHINE OPERATOR - 08/01/2024 1:39 PM EDT Images from the original note were not included. I&C Tech offered: Patient declines. INITIAL OB ASSESSMENT HPI: Manjinder is a 19 year old White here to establish Obstetrical Care. Patient's last menstrual period was 04/29/2024 (exact date). from OB Dating Form. was unplanned but accepted Complaints: vaginal itching and discharge OB History Gravida1 Para0 Term0 Preterm0 AB0 Living0 SAB0 IAB0 Ectopic0 Multiple0 Live Births0 Previous history: Prior : never History of 4th degree laceration: No History of shoulder dystocia: No History of Hypertensive disorders including pre-eclampsia or gestational hypertension: NA History of gestational diabetes: NA Patient's Risk Screening for delivery: Have you had a prior carvajal between 20w and 36w6d? No How many pregnancies have you had before? 0 Did you have a previous baby with a GBS Infection? No Please select all that apply for any prior : N/A MEDICAL/PSYCHOSOCIAL HISTORY: History of hemorrhage or bleeding concerns: No Thyroid Disease: No History of chronic hypertension: No History of pre-existing diabetes: No No results found for: ABORHD BMI 20.46 kg/(m^2) Last Pap: never done History of abnormal pap: No Prior treatment for cervical dysplasia: none. Last HPV: never done History of STDs: None Partner History of STDs: None Did you have a partner with Herpes? No Tobacco use: No E-Cigarette/Vaping Use: No Caffeine use: Yes Drug use: No Alcohol use: No Multivitamin with Folic acid: Yes Would refuse blood transfusion if medically necessary: No Social Needs: How often does this describe you? I don't have enough money to pay my bills: Never Within the past 12 months, have you worried that your food would run out before you had money to buy more? Never In the past 12 months, has lack of reliable transportation kept you from going to medical appointments or work, or from getting things needed for daily living? Never In the past 12 months, have you had any concerns about having a place to live, or about the condition or quality of your housing? Never Would you like more information on any of the following (please check all that apply)? Not interested Social History: Do you have any history of depression, anxiety, PTSD, or other mood problems? Yes Do you have a history of abuse or trauma that may impact your experience? No Are you currently employed? Yes Depression/Anxiety Screening: denies symptoms of depression. OB Depression and Anxiety Screening- This Encounter Over the past 2 weeks have you felt down, depressed, or hopeless? Negative Over the past two weeks, have you felt little interest or pleasure in doing things? Negative Feeling nervous, anxious or on edge 0-Not at all Not being able to stop or control worrying 0-Not al all Anxiety Pre-Screening Total (If >/= 3 additional questions will be reviewed) 0 Genetic Screening: Partner present: No Patient verbalized knowledge of partner family health history: Yes Do you or your partner have any personal or family history of defects not previously discussed: No Do you have history of a complicated by anomaly, genetic condition, or demise: No Preeclampsia Risk Screening: Screening for prevention of preeclampsia: High risk factors: None Moderate risk ractors: Nulliparity OB Risk Screening: Completed, no positive findings documented. Marital Status:Committed relationship Partner: Name: Raffy Age: 20 Occupation: [employer] Gender: Male PAST MEDICAL HISTORY Diagnosis Date Anemia NEGATIVE MEDICAL HISTORY normal color vision PAST SURGICAL HISTORY Procedure Laterality Date NONE Current Outpatient Medications Medication Sig Dispense Refill vit no.124/iron/folic ( VITAMIN ORAL) Take 1 tablet by mouth once daily. aspirin, enteric coated (ECOTRIN LOW STRENGTH) 81 mg EC tablet Take 1 tablet by mouth once daily. 90 tablet 3 miconazole (MONISTAT 7) 2 % vaginal cream Use 1 applicator vaginally daily at bedtime for 7 days. 45 g 0 No current facility-administered medications for this visit. Allergies As of Date: 08/01/2024 (No Known Allergies) Fully Assessed 08/01/2024 SBIRT Manjinder Winter was given the 's screening tool. Manjinder answered as follows: OB Opioid Screening - Last Recorded (since 11/05/2023) Did any of your parents have a problem with alcohol or other drug use? No Does your partner have a problem with alcohol or other drug use? No In the past, have you had difficulties in your life because of alcohol or other drugs, including prescription medications? No In the past month have you drunk any alcohol or used other drugs? Yes Are you taking medication for pain during the either prescribed or not? No Based on the screen and further questions, she is considered at high risk due to continued use. Encouraged cessation. Darvin Peng, CONI.BORDER MACHINE OPERATOR Does patient have penicillin allergy: No REVIEW OF SYSTEMS: GENERAL: Negative for: Fever or Chills HEENT: Negative for: Headache, Impaired Vision, Ringing in Ears, Nosebleeds NECK: Negative for: Swelling, Pain, Stiffness RESPIRATORY: Negative for: Cough, Shortness of breath, Wheezing GASTROINTESTINAL: Negative for: Heartburn, Constipation, Diarrhea, Blood in stool + nausea MUSCULOSKELETAL: Negative for: Muscle or joint pain, stiffness, Joint swelling NEUROLOGIC/PSYCHIATRIC: Negative for: Weakness, Paralysis, Numbness, Tingling, Tremor, Anxiety, Memory loss + depression SKIN: Negative for: Rash, Itching GENITOURINARY: Negative for: vaginal itching, hematuria or dysuria + vaginal discharge SENSITIVE EXAM: The sensitive examination was discussed with the Patient or Patient's Authorized Nut Sifter. As applicable, any other physician, advance practice provider, medical student, or other health professional student that will be observing or involved in the sensitive examination for educational or training purposes was discussed with the Patient or Authorized Nut Sifter. The Patient or Authorized Nut Sifter has agreed to proceed with the sensitive examination. (Sensitive examination includes inspection and/or palpation of the breasts, pelvis, prostate and anorectal regions). PHYSICAL EXAM: BP 110/58 Ht 5' 4.213 (1.63m) Wt 120 lb (54.4kg) LMP 04/29/2024 BMI 20.46 kg/(m^2). GENERAL: pleasant in no apparent distress DERMATOLOGY: Normal, without lesions, non-icteric, and non-hirsute + well healed self harm scars noted to thighs bilaterally NECK: Supple, full range of motion, no adenopathy, and thyroid normal CHEST: Normal inspiratory effort BREAST: soft, non-tender, symmetric, no dominant mass, normal nipple-areolar complex, no lymphadenopathy, and no nipple discharge ABDOMEN: soft, non-tender, and no masses NEURO: alert and oriented x3,exam grossly non-focal PELVIS: External genitalia normal without lesions. Perineal body intact. No vaginal or cervical lesions. Cervix exam limited due to patient discomfort. Uterus <8 week size. No adnexal masses or tenderness. Clinical Pelvimetry: limited Limited OB ultrasound exam: single intrauterine and positive cardiac activity ASSESSMENT: 19 year old at 6w5d wks gestational age PLAN: 1) Patient oriented to practice. Patient given new OB orientation folder. Discussed nutrition, folic acid supplementation, dietary guidelines, exercise, smoking, alcohol, caffeine, and drug use. Discussed gestational weight gain guidelines. Discussed routine OB labs including STD/HIV. Discussed how to access Your guide to a health and the Stripping Cutter And Winder. Discussed hemoglobin electrophoresis. Patient: is considering Reviewed midwifery and machinist mechanic services that are available. 2) Screening: Hemoglobin A1C: ordered Baby Aspirin: The patient has been counseled about the potential benefits of low dose aspirin in and our recommendation that this be offered to all patients, regardless of whether they meet the high risk criteria specified above. She Accepts Aneuploidy Screening: Discussed aneuploidy screening, nuchal translucency/first trimester early anatomy ultrasound and NIPT. The risks/benefits and limitations of NIPT/aneuploidy screening were reviewed including the potential for false negative and false positive results. The availability of genetic counseling was reviewed. Information on aneuploidy screening was provided. The patient chooses toproceed with First trimester early anatomy ultrasound (12-13w6d) Myriad Carrier Screening: Discussed myriad carrier screening. We discussed the availability of professional-society guided carrier screening and reviewed the conditions screened and limitations of screening. The availability of genetic counseling was reviewed. Information on carrier screening was provided. The patient is considering 3) Patient offered option of Virtual Visits. Patient unsure. May consider in future. ACTIVE PROBLEM LIST Encounter for Supervision of High Risk in First Trimester, Antepartum (Hcc) - 08/01/2024 Comment: Care Checklist Vaccines: [] Flu vaccine [] declined [] RSV vaccine 32 0/7 - 36 6/ (Nov - Apr) [] declined [] COVID vaccine [] declined [] TDaP 27-36 [] declined First trimester: [x] Dating US [] 1st tri labs [] Pap smear [] Carrier screening - considering [] declined [] NIPT screening - considering [] declined [x] First trimester anatomy scan [] declined [x] universal ASA ordered (start 12w-16w) [] declined [] M Power Consult [] not indicated [] declined Second trimester: [] Anatomy scan [] Mode of Delivery - [] Feeding - [] Pump ordered [] Diabetes screen [] CBC, RPR [] Behavioral Health Screening Third trimester (28-30 weeks): [] Consent [] Contraception [] Type Copy Examiner [] TeamBirth handout Third trimester (36-40 weeks): [] GBS [] Presentation - [] Scheduled [] yes - Hibiclens, pre-op instructions, CBC, T&S ordered [] no [] H&P [] Preferences workshe With Uncertain Dates in First Trimester ([facility]) - 08/01/2024 Comment: August 01, 2024 POCUS not consistent with LMP. Confirm ANA MARIA with NT. Darvin Peng APRN.LUIGI Acute Vaginitis - 08/01/2024 Comment: August 01, 2024 Exam consistent with yeast. Rx for Monistat 7 sent. Darvin Peng APRN.CNP Marijuana Use During ([facility]) - 08/01/2024 Comment: August 01, 2024 Discussed risks, encouraged decreasing use or cessation. States helps with nausea. Written info provided. Darvin Peng APRN.CNP Nausea and Vomiting During ([facility]) - 08/01/2024 Comment: August 01, 2024 Vitamin B6 doses reviewed. To notify if prescription is needed. Darvin Peng APRN.CNP History of Non-Suicidal Self-Harm - 08/01/2024 Comment: August 01, 2024 Scars to bilateral legs noted. Well healed. Darvin Peng APRN.BORDER MACHINE OPERATOR Depression With Anxiety - 05/08/2018 Comment: August 01, 2024 PHQ 2 negative, but admits to symptoms of depression to provider. Reports feeling down. Has tried Zoloft in the past. Reports mom has bipolar disorder and reports she thinks she has symptoms: mood swings (describes amplified since become ), impulsivity, hypersexuality, flight of ideas. Has been to psychiatrist in the past - [facility]. Reports history of self harm and did cut herself 4-5 weeks ago. Denies thoughts of self harm today. [facility] consult placed. Mental health resources provided, including crisis line. States boyfriend is supportive of her. Darvin Peng APRN.CNP Follow up in 4 weeks or sooner prn. Plan for NT scan between 12w0d and 13w6d gestation. Darvin Peng APRN.CNP [facility] Instructions* Patient Instructions* Darvin Peng APRN.CNP - 08/01/2024 1:39 PM EDT Images from the original note were not included. Please select the following link to access the [facility] Your Guide to a Healthy . [email or web address]/healthypregnancyguide Psychotherapy Services at [facility] Call Behavioral Health Access Line at [phone] to schedule Individual psychotherapy In-person or virtual Wait time for first evaluation may be 12 or more weeks. Wait list spots may be available. Due to the high volume of patients this option is recommended if you are looking for short term acute symptomcoping strategies. 6-535-8-WRFY4PAAG - [place] Maternal Mental Health Hotline If you are in suicidal crisis, please call or text 9-640-520-ZWUI ( ) or visit the National Suicide Prevention Lifeline website. [facility].gov If you are in crisis, call 911 or go to your nearest Emergency Department Here are some links for wonderful Providers here in the community and surrounding areas. Do not hesitate to contact their offices, many are offering virtual visits during this time. Psychotherapy Services outside of [facility] Support International Online Provider Directory https://SciAps.com/ - can assist in finding providers in your area that might be more extensive then the list below. [facility] [place] [address] [place] [address] [id number] [facility] [address] [place], [place] [address] [address] [address] Ara Ruby MD [address] [place] [address] [facility] [address] [facility], [address] [place] [address] [facility] [address] [place] [address] [facility] [place] / [place] [phone]/ [phone] Zenobia Vazquezmaryjimmie [address] [facility] [phone] [facility] and Mediation [place] / [place] [phone] Behavioral [facility] services of [facility] [address] [place] [address]/ [place] [facility] [place] [phone] Miriam Guzman, DEN, CLC [facility] Workshops, telehealth and at home visits. [phone] Humanistic counseling center 20 locations [facility], [place], [place], [place], [place], [place], [facility], [place], [place], [place], [place], [place], [place], [facility], [place], [place] ,[facility], [place], [place],[facility], [facility], [place], [facility], [facility], [place] www.Tamatem Inc. [phone] Psychotherapy resources outside of [facility] are listed below [facility] Fangxinmei Psychotherapy Web: https://www.WordWatch/ Support International Online Provider Directory https://Mouth Party/ [facility] https://SHINE Medical Technologies.batterii/ Partners for Behavioral Health and Wellness Web: https://Mandata (Management & Data Services)/ Center for Effective Living Web: https://www.effectiveF-Originliving.batterii/ [facility] Web: https://Securus.batterii/location/state/[place]/ [facility] Web: https://www.signaturehealthinc.org/ The Centers Web: https://[facility].org/ Recovery Resources Mental health and substance abuse help Web: https://www.Sangarts.org & RESOURCES Support International Direct peer support and connection to professional resources Non-Emergency Helpline Phone: / Text: [phone] Web: https://www..net/ Online Provider Directory: https://Mouth Party/ Online Support Meetings: https://www..net/get-help/lav-utzxiq-abnqidj-meetings/ IZABELLA Baby and Web Applications Administrator Services Web: https://Razume/ MotherToBaby Expert information on medication use during and Text: [phone] Web: https://Tracky/ NATIONAL REGISTRY FOR PSYCHIATRIC MEDICATIONS Currently studying the safety of antidepressants, ADHD medications and atypical antipsychotics taken during TO PARTICIPATE CALL TOLL-FREE: Web: https://womensmentalhealth.org/research/pregnancyregistry/ Support Groups: [facility]- Follow on facebook Baby Bistro support group led by [facility] department [facility] Mamas - Support Group [facility].org The POEM support group [phone] Www.poemonline.org Follow on facebook - POZAK ledezma chapter Online support meetings PSI https://www..net/get-help/ssb-olazvq-sswnnkz-meetings/ [facility] mommy and me virtual support group 11:30-1pm Support for mothers and new babies and toddlers Keyes childbirth education: Childbirth @ccf.org or call [phone] CRISIS: CRISIS HOTLINE [phone], 911 or go to the nearest ER. [facility] [phone] / [facility] [phone] https://www.[facility].org Crisis text line text the word HOME to [phone] [facility] [address] [facility] [address] www.Cell Therapeutics Gabbi Gray clinical counseling [address] [facility] [address] [place] [address] www.ARTENCY.COM [phone] Holding space psychotherapy Meena Cadet GUSSET MAKER MANAGER RADIATION-S [address] [facility] www.Happy Cosas [phone]/ [place] [phone] They all offer virtual. All work with trauma Support groups Online support meetings PSI https://www..net/get-help/evg-turysa-ppskgzx-meetings/ Here are the support groups they offer: Support of parents of 1 to 4 years old children POEM ( Outreach and Encouragement for Moms) offers free support for mothers experiencing depression, anxiety, and other mood and anxiety disorders. Masks are recommended but not required. No pre-registration required. Babies in arms welcome. meetings now take place on the and Tuesday of each month Location: [facility] [address] [place] [address] Room 122 (library room) 7-8:00 p.m. When you enter the [facility] parking lot off of [address] the entrance door closest to our meeting room is on the front of the building toward the right. For those who are more comfortable with a virtual platform, POEM offers online support group options several days of the week. To register for an online group or to find out more about POEM, website at: https://mhaohio.org/get-help/zbzlovqb-qgbqyg-rrhmhg/poem-services/ offer a confidential helpline: private Facebook group is called ELPIDIO Del [place] Here are the groups they offer: Traumatic childbirth resources: Http://pattch.org/ https://www.Comet SolutionsveronicaMaestroDevpattiMeetMoi.batterii/ Name Location (s) Phone # (s) Services Website CompareNetworks [facility] [address], [place], [place] - [phone]; [address] [address], [place]- [phone] In-Person GROUPS INDIVIDUAL THERAPY MATERNAL-INFANT MENTAL HEALTH MEDICATION MANAGEMENT PLAY AND ART THERAPY TELETHERAPY https://www.WordWatch/services/ Nilesh LEDEZMA? [address] [place], [place] [address] ? [place] [address] [facility], [address] [place], [place] [address] ? [place] [address] [place], [place] [address]? Grief Support Groups Individual Grief Counseling Spiritual Care Memorial Events https://ledezma.[facility].org/grief-services [facility] [address] [place], [place] [address]; ; Email: gaby@FoodyDirect Women's Mental Health; Couples Counseling; Trauma (EMDR); Stress Management; Mood and Anxiety Related Disorders- and much more https://www.VoluBill/ LifeStance Numerous as they have contract providers: access website to find specific providers nearyou Counseling including CBT and EMDR as well as many more modalities; Medication Management; Telehealth and In-Person https://Reclamador/ Innoverne for Behavioral Health and Wellness [address] [place] [address]; [phone] Personal, Family and Group Therapy; Psychological Testing and Diagnosis; Medication Management; Life and Career Coaching; Psychoanalysis; Literacy Testing; Yoga and Meditation [email or web address] Fit [facility] [address] [facility] [address], [place] [address] [address] ; [address] [facility], [address] [place] [address]; Office # for both sites: Individual and Couples Counseling [email or web address] OCD & Anxiety [facility] [address] [facility], [address], [place] [address]; Specialize in Cognitive-Behavioral Therapy (CBT) for the treatment of anxiety disorders across the lifespan. TELEHEALTH ONLY. [email or web address] [facility] [address] [place], [address] [place] [address] [facility] [place], [address] [place] [address] [place], [address] [place] [address] [place], [address], [address] [place] [address] [facility] [place], [address] [place] [address] [place], [place], [id number] Transportation Services To minimize patient barriers, [facility] provides transportation services to patients who qualify. If you are unable to get to your appointment at any of our facilities, please let us know. Need help now? Stop by one of our walk-in clinics to establish behavioral health care. Counseling Indvidual, Group, Couples and Family Counseling and EMDR. Medication Management Case Management benefits applications housing assistance Substance abuse treatment Medication assisted treatment [email or web address] [facility] OFFICE AT [facility] [address] [place] [address] [facility] OFFICE [address] [place] [address] [facility] OFFICE [address] [place] [address] [facility] OFFICE (at [facility]) [address] [place] [address] [facility] EXCHANGE PROGRAM & HIV SCREENING [address] [place] [address] [place] EXCHANGE PROGRAM [address] [place] [address] Behavioral Health Urgent Care: [facility] Counseling Indvidual and Group Medication Management Case Management benefits applications housing assistance Substance abuse treatment Medication assisted treatment Employment Services/ Job Training [email or web address] [facility] [address] [place], [place] [address]: P: [phone] [address] [facility], [address], [place], [place] [address] P: [phone] Our services include: Addiction Mental Health Treatment Assessment Psychiatry Medical Care Employment Housing Drug and Alcohol Prevention HIV/AIDS Prevention [email or web address] [email or web address] [place] [address] [place] [address] [place] [address] [place], [place] [address] [place] [address] [place] [address] [place] [address] [facility] [address] [place] [address] [place] [address] [place] [address] TMS Therapy/ Counseling Psychocological Testing for ADHD Medication Management In-Person/ Telemedicine [email or web address] Memory & Psychological services [address], [place] [address] Neuropsychological Testing For ADHD [email or web address] [facility] Office [address] [place] [id number] [address] Providing lxia-ya-iwjg and telehealth services. Adult Case Management Community Education and Prevention Employment Outpatient Treatment - Counseling & Psychotherapy Psychiatric Services [email or web address] [facility] [place] [address] [place] [address] [facility] [address] [place] [address] Virtual Appointments! Now offering safe and convenient virtual client appointments to anyone in [place]! Individual Therapy Couples/Relationship Therapy Trauma/EMDR Therapy Art Therapy Play Therapy Oil Developer Support: Parenting Skills, Parent Child Interaction Therapy, Parent Infant Interaction Therapy Meditation Dietitian/Employment Manager Services Group Therapy Yoga [email or web address] Tala Hernandez [phone] Private Practice: Telehealth Only Specializes in EMDR for Trauma None MORNING SICKNESS IN by Hallie Lee M.D. for [employer] As you may already know, morning sickness can often be more appropriately called evening sickness or vnpnm-ebceit-am-the-day sickness. While there are the [place] few, most women (50-90%) experience some degree of nausea, some have vomiting, and a few develop a severe form of vomiting duringpregnancy called hyperemesis gravidarum. What causes the nausea and vomiting of ? We can't explain why some people feel fine and others are green for months. Even the same woman mayfeel vastly different in each . There is some relationship between nausea and the level ofthe hormone hCG. In twin pregnancies, and in other situations where the hCG is greater than expected, nausea and vomiting tend to be worse. In a destined for miscarriage, hCG levels tend to be low, and nausea is often less severe. This being said, a lack of nausea doesn't guarantee that the is destined for miscarriage. The fact that nausea and vomiting are often signs of a healthy can offer a silver lining in the dark cloud of miserable nausea. How long will the nausea last? Fortunately, for most women, nausea and vomiting are a first trimester event, peaking at week 9-10 and waning by week 14-16. When you are feeling bad the weeks can go by slowly but most momsdo feel tremendously better by the middle of the . Whether morning sickness is a brief experience or lasts through most of the , there are treatments that can make the weeks or months more tolerable. What can you do about it? Diet: See what works for you. Try eating bland dry foods, and avoid fatty or spicy foods. It is okay to eat a less than perfectly balanced diet in the first trimester. Have your liquids separately from dry foods. Try sports drinks, water, clear juices, Viktor-aid, or non-caffeinated tea. Avoid carbonated beverages that fill up your stomach. Try eating lots of little meals. If you tend to feel sick when you first wake up, leave crackers next to the bed for a quick snack before rising. Keeping healthy snacks with you all day to nibble when you feel queasy can sometimes even prevent nausea from starting. vitamins and nausea: Pre-mitchell vitamins can sometimes worsen nausea in . While folate is necessary, especially early in the , it comes as a smaller pill that many people find more tolerable than the complete vitamin pill. Ask your practitioner if it is okay to temporarilyreplace vitamins and iron with just a folate pill if you find a significant worsening in the level of your nausea from the vitamins. Alternative therapies: Acupressure may be used to treat nausea in , and is not known to have any risks for the fetus. Wristbands (marketed for seasickness) that put pressure on an acupressure point at the wrist are often available at drugstores or travel stores. Maryellen root is used for nausea in many traditional cultures. Some women take fresh grated maryellen or maryellen tablets. It is possible that the pill form contains other ingredients or contaminants, so you may want to try fresh maryellen first. Medications: Emetrol is the only nausea medication approved for use in . It is available over the counter and is soothing to the stomach. A prescription medication called Bendectin was available in the 1970s-1979's and was shown to be safe in , but the company stopped marketing it in the [place] due to the costs of liability coverage. Bendectin contained 10 milligrams of vitamin B6 and 10 milligrams of Doxylamine. Two tablets were given at bedtime and a total of up to 4 tablets could be used in a 24-hour period. Interestingly, Unisom , which contains a higher dose (25 mg.) of the same medication, Doxylamine, is currently marketed as an ghjp-jpj-qzyuzke sleeping pill. Ask your practitioner if creating a vitamin B6/Doxylaminecombination with cjji-zqq-yprfzkq medications would be safe for you. Prescription medications like Compazine and Phenergan can be used if the benefits outweigh possiblerisks, but these have not been clearly shown to be safe in . Zofran , an expensive anti-nausea medication often used to treat nausea from chemotherapy, can also be used. Can I throw up so much it harms the baby? The act of vomiting cannot hurt your fetus, which is protected inside the uterus. If you get dehydrated or develop a metabolic imbalance, this can be unhealthy. As long as you can keep down liquids, you and your baby will generally do all right. Eat when you feel able. If you are unable to keep anyt jose e down, or if you notice potential signs of dehydration such as lightheadedness, or concentratedand/or infrequent urination, call your practitioner. Some women need brief hospital admission for intravenous fluids and anti-nausea medications if their condition becomes severe. This severe form ofnausea and vomiting is called Hyperemesis Gravidarum. As with many symptoms of , remind yourself that this, too, shall pass, and you'll have a wonderful baby to show for it! TREATMENT OPTIONS, SHORT VERSION: Frequent small meals Hydrate throughout day [employer]ands wrist pressure point applicators Maryellen root (powdered, in capsules) 250mg four times a day Vitamin B6 25 mg tablet three times a day Also may be taken with half a tablet of Unisom three times a day (Doxylamine 12.5 mg) If severe (weight loss, dehydration), call us and come in for IV hydration and possible medication in the form of injections. Prescription medications such as Phenergan, Compazine, Reglan Marijuana (Cannabis) January 19, 2019 This sheet talks about exposure to marijuana in and while . This informationshould not take the place of medical care and advice from your health care provider. What is marijuana? Marijuana, also called pot, weed, or cannabis, is a drug that comes from a plant called cannabis. Marijuana can either be smoked (inhaled) or eaten (edibles). Marijuana is an illegal substance in parts of the [place]. However, some states allow marijuana use by prescription for medical purposes, and some states allow the sale of marijuana for recreational use. The main active chemical in marijuana is gzkdq-5-vjoxdwxzxykjaeubbqfk (THC), which is what causes you to feel high. Another major component of marijuana is cannabidiol (CBD). The U.S. Food and Drug Administration (FDA) advises against the use of CBD, THC, and marijuana in any form during a or while . What do we know about cannabidiol (CBD)? CBD use is becoming popular in [place] society and can be found in many products ranging from coffee and chocolate, to supplements and tinctures, cosmetics, lotions, suppositories, and bath salts. Studies on THC free products find that many actually contain a measurable amount of THC. Unfortunately there are no studies looking at the use of CBD during or while at this time. How much is known about the effects of marijuana on a ? It is difficult to study marijuana use during . Marijuana contains about 400 different chemicals, and some marijuana preparations can be contaminated with other drugs, pesticides, and/or fungi. Most of the older studies focus on women who inhale marijuana, not ingest (eat) it. Taking edibles might lead to higher levels of marijuana in the body. We also know that the THC in marijuana has become more potent (stronger) over the years. Therefore, studies done years ago on marijuana with lower THC levels may not accurately reflect the possible risks for current marijuana users. Some womenwho use marijuana during may have other risk factors such as use of alcohol, tobacco, or other drugs, medical conditions, and/or lack of care. Finally, information on the amount used and how much is used can be difficult for researchers to accurately collect. All of these factorsexplain why studies looking at marijuana use during sometimes find different results. I am using marijuana, but I would like to stop before becoming . How long could it stay in my body? People eliminate drugs at different rates. This is particularly true for marijuana and its metabolites (breakdown products). The way you use marijuana (inhale, ingest, topical) and how often you use it and how much you take can affect how long its metabolites can stay in your body. For some people,it might take up to 30 days for the THC metabolite to be gone from the body. I use marijuana. Can it make it harder for me to become ? Long-term use of marijuana might affect the menstrual cycle, which could make it more difficult to get . The effects on fertility appear to go away when marijuana use is stopped, or once a woman develops tolerance to the drug. Does using marijuana increase the risk for miscarriage? Miscarriage can occur in any . One study found that women who used marijuana were at an increased risk of having a miscarriage. Other studies have not confirmed this finding. Does using marijuana in the first trimester increase the chance of defects? In every , a woman starts with a 3-5% chance of having a baby with a defect. This iscalled her background risk. Most studies have not found an increase in the chance for defectsamong babies prenatally exposed to occasional marijuana use. A few studies have suggested a small increase in the chance for gastroschisis (a rare defect in which the infants intestines stick out of an opening in the abdominal wall). However, it can be difficult to draw conclusions from thesestudies because of the limitations outlined above. While most studies are reassuring regarding defects, without good studies among heavy marijuana users, the fact that marijuana is thought to be more potent now, and because of other potential complications it is best to avoid marijuana during . Could using marijuana in the second or third trimester cause other complications? Possibly. Similar to what is seen with cigarette smoking, smoking marijuana may increase carbon monoxide levels in the blood, which can decrease the amount of oxygen the baby receives. Some studies have suggested that among women who smoke marijuana regularly, there is an increased chance for complications such as premature , low weight, small length, small head size, and stillbirth. Babies that are born prematurely or with low weight can have higher rates of learningproblems or other disabilities. In some studies, a dose- response relationship was seen, meaning themore a woman smoked, the higher her risk for these complications to occur. More research is needed to confirm if these complications are caused by the marijuana use itself, or if the women in these studies may have had other risk factors (such as smoking cigarettes). Both THC and CBD might affect how the placenta works. The placenta is the organ that grows during apregnancy and controls what can pass from mother to baby and baby to mother. Studies have also shown that THC can cross the placenta during and reach the baby s system. If I smoke marijuana in the third trimester, can it cause my baby to go through withdrawal after ? Some newborns exposed to marijuana have been reported to have temporary withdrawal-like symptoms, such as increased tremors, changes in sleeping patterns, and crying. These symptoms usually go away within 30 days. Does using marijuana in cause long-term problems in behavior or learning for the baby? Possibly. Three studies have followed children prenatally exposed to marijuana, and found that theyare at higher risk for problems such as impaired executive functioning (the ability to plan, focus,remember, and multi task), impulsivity, hyperactivity, aggression, depression, and anxiety. These children were also more likely to have problems with attention (ability to pay attention), memory, and academic achievement. When these children reached adulthood, some studies suggest that they are more likely to misuse substances themselves. The problems noted here have been seen more often in children whose mothers were heavy marijuana users (smoked one or more marijuana cigarettes per day). Theevidence is not conclusive and some studies report conflicting results. What happens if I use marijuana when I m ? THC has been detected in breast milk. In one recent study, researchers found that breastfed babies ingest approximately 2.5% of the mother s THC dose. The amount of time THC remains in the milk ranges from 6 days to 6 weeks. Available research has not demonstrated clear health concerns except for apossible delay in motor development (learning to crawl and walk on time) when a woman reports smoking marijuana on a daily basis. Because the baby s brain continues to develop during the time that they are being breastfed, experts are worried about the possible effects this drug may have on a nursing infant when a mother uses it during . Other factors to consider are possible legal implications if a breastfed baby tests positive for marijuana, the fact that there may be other contaminants (mentioned above) in the marijuana, thereby exposing the breastfed baby to other substances, and the possibility that the baby will be directly exposed to second hand smoke. Most professional organizations such as the [place] [employer], the Academy of Medicine, and the [place] [employer] Obstetricians and Gynecologists advise that mothers avoid using marijuana. Be sure to talk to your healthcare provider about all your questions. Because marijuana can affect prolactin (a hormone that tells your body to make milk), there is a concern that frequent marijuana users may see a negative effect on the quality and quantity of milk they produce. If a man uses marijuana could it affect his fertility (ability to get partner ) or increasethe chance for defects? In men, marijuana use may decrease sperm count (the number of sperm), and motility (the ability forthose sperm to reach the egg). These factors could make it more difficult for a man to get his partner . These effects are thought to be temporary, and sperm function is expected to return tonormal once a man stops using marijuana. In general, exposures that fathers have are unlikely to increase risks to a . For more information, please see the MotherToBaby fact sheet Paternal Exposures and at [email or web address]/fact-sheets/frpgidfx-bjjxajtbc-tddtjwlug/pdf/. [facility] Telephone encounter Note * Telephone Encounter - Latha Obrien MA - 07/31/2024 2:56 PM EDT Patient presented to ED same day as [facility] visit for different symptoms, have not received a return call from patient in 6 days and all testing done with [facility] negative, closing encounter. Latha Obrien MA [facility]05-13-2025 Miscellaneous Notes* Telephone Encounter - Latha Obrien MA - 07/31/2024 2:56 PM EDT Patient presented to ED same day as [facility] visit for different symptoms, have not received a return call from patient in 6 days and all testing done with [facility] negative, closing encounter. Latha Obrien MA * Telephone Encounter - Hi Magaña MA - 07/31/2024 10:06 AM EDT Unable to reach patient. Mailbox full/Mailbox not set up/ Number incorrect. Please try again later. Hi Magaña MA * Telephone Encounter - Meagan Jiménez OCCA - 07/26/2024 12:14 PM EDT TC to patient with no answer. Left VM to return call. AYUSH Bueno * Telephone Encounter - Ritesh Washburn APRN.CNP - 07/26/2024 11:39 AM EDT Please inform patient that CMP and CBC was within normal limits. No abnormal findings noted on today's labs. Lyme test pending. Continue plan of care as discussed. Continue taking oral antibiotics aspreviously prescribed. Ritesh Washburn APRN.CNP documented in this [facility] Telephone encounter Note * Telephone Encounter - Hi Magaña MA - 07/31/2024 10:06 AM EDT Unable to reach patient. Mailbox full/Mailbox not set up/ Number incorrect. Please try again later. Hi Magaña MA [facility]05-08-2025 Telephone encounter Note* Telephone Encounter - Meagan Jiménez OCCA - 07/26/2024 12:14 PM EDT TC to patient with no answer. Left VM to return call. AYUSH Bueno [facility]05-08-2025 Telephone encounter Note* Telephone Encounter - Ritesh Washburn APRN.CNP - 07/26/2024 11:39 AM EDT Please inform patient that CMP and CBC was within normal limits. No abnormal findings noted on today's labs. Lyme test pending. Continue plan of care as discussed. Continue taking oral antibiotics aspreviously prescribed. Ritesh Washburn APRN.CNP [facility]05-08-2025 NoteHNO ID: [id number] Author: RITESH WASHBURN APRN.BORDER MACHINE OPERATOR Service: ? Author Type: Nurse Practitioner Type: Progress Notes Filed: 07/26/2024 11:41 Note Text: Subjective HPI Nontoxic-appearing 19-year-old female who is currently 7 weeks presents urgent care chief complaints fever. Patient states has had a fever headache and joint pain for around 2 weeks. Highest recorded temperature 101. States had a fever consistent for 3 to 4 days. Has been fever free for the past 24 hours. Was seen here on 24 July. Diagnosed with cellulitis. At that time patient thought she was bit by a spider. Placed on Keflex. Has taken antibiotics for 1 day. States pain has improved on spider bite area. Still slightly red. Additionally has had vomiting. This has been present for around a week to week and a half. Does not know if this is morning sickness. No blood in vomit. No vaginal discharge. Fever free today. Staying hydrated. No urinary symptoms. Denies any rashes. No cough chest pain shortness of breath abdominal pain. Past medical history prescription medications allergies reviewed. States has had a early miscarriage a couple months ago. 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 Upcoming appointment on the .Patient presents with: Vomiting: Headache and fever x 2 weeks, patient is 7 weeks , started on abx 5/7 for insect bite PAST MEDICAL HISTORY Diagnosis Date NEGATIVE MEDICAL HISTORY normal color vision PAST SURGICAL HISTORY Procedure Laterality Date NONE ALLERGIES Patient has no known allergies. MEDICATIONS vit no.124/iron/folic ( VITAMIN ORAL) Take 1 tablet by mouth once daily. cephALEXin (KEFLEX) 500 mg capsule Take 1 capsule by mouth four times daily for 5 days. diclofenac, EC, (VOLTAREN) 75 mg EC tablet Take 1 tablet by mouth two times a day. FOR PAIN (Patient not taking: Reported on 07/24/2024) FAMILY HISTORY Problem Relation Age of Onset Cancer Other MGGMo - Breast Cancer Cancer Other MGGFa - Prostate Cancer other (congestive heart failure) Other PGGMo Social History Tobacco Use Smoking status: Never Passive exposure: Yes Smokeless tobacco: Never Tobacco comments: smokers outside Vaping Use Vaping status: Never Used Substance Use Topics Alcohol use: No Drug use: No BP 120/68 (BP Site: Left Arm, BP Position: Sitting) Pulse 70 Temp 36.7 ?C (98.1 ?F) Resp 16 Wt 53.7 kg (118 lb 6.2 oz) LMP 04/29/2024 SpO2 99% Review of Systems Constitutional: Positive for fever and malaise/fatigue. Negative for chills. HENT: Negative for congestion, ear discharge, ear pain, sinus pain and sore throat. Eyes: Negative for blurred vision, pain, discharge and redness. Respiratory: Negative for cough, hemoptysis, sputum production, shortness of breath, wheezing and stridor. Cardiovascular: Negative for chest pain. Gastrointestinal: Positive for vomiting. Negative for abdominal pain, diarrhea and nausea. Musculoskeletal: Positive for myalgias. Skin: Negative for itching and rash. Neurological: Positive for headaches. Negative for dizziness. Objective Physical Exam Constitutional: General: She is not in acute distress. Appearance: She is not diaphoretic. HENT: Head: Normocephalic. Jaw: No trismus, tenderness, swelling or pain on movement. Mouth/Throat: Mouth: Mucous membranes are moist. Pharynx: Oropharynx is clear. Uvula midline. No pharyngeal swelling, oropharyngeal exudate, posterior oropharyngeal erythema or uvula swelling. Eyes: Conjunctiva/sclera: Conjunctivae normal. Pupils: Pupils are equal, round, and reactive to light. Cardiovascular: Rate and Rhythm: Normal rate and regular rhythm. Heart sounds: Normal heart sounds. Pulmonary: Effort: Pulmonary effort is normal. No tachypnea, accessory muscle usage or respiratory distress. Breath sounds: Normal breath sounds. No stridor. No wheezing, rhonchi or rales. Abdominal: General: There is no distension. Palpations: Abdomen is soft. Tenderness: There is no abdominal tenderness. There is no guarding or rebound. Musculoskeletal: Cervical back: Normal range of motion and neck supple. No edema, erythema, rigidity or tenderness. No pain with movement. Normal range of motion. Lymphadenopathy: Cervical: No cervical adenopathy. Skin: General: Skin is warm and dry. Comments: Approximately a 2 cm x 2 cm area of redness noted. Small amount of induration approximately 5 mm x 5 mm noted. No fluctuance. No inguinal adenopathy. No remote redness. No rashes. Neurological: Mental Status: She is alert and oriented to person, place, and time. ASSESSMENT/PLAN: 1. Fever, unspecified fever cause - ICD9: 780.60, ICD10: R50.9 - COMPLETE BLOOD COUNT AND DIFFERENTIAL - COMPREHENSIVE METABOLIC PANEL - LYME AB EARLY <=30 DAY SYMPTOMS Diagnosed with fever. Afebrile at this point. No evidence of abscess formation. Will test for Lym (more content not included)...[facility]05-08-2025 History of Present illness Narrative* Ritesh Washburn APRN.BORDER MACHINE OPERATOR - 07/26/2024 9:24 AM EDT Images from the original note were not included. Subjective HPI Nontoxic-appearing 19-year-old female who is currently 7 weeks presents urgent care chief complaints fever. Patient states has had a fever headache and joint pain for around 2 weeks. Highestrecorded temperature 101. States had a fever consistent for 3 to 4 days. Has been fever free for the past 24 hours. Was seen here on 24 July. Diagnosed with cellulitis. At that time patient thought she was bit by a spider. Placed on Keflex. Has taken antibiotics for 1 day. States pain has improved onspider bite area. Still slightly red. Additionally has had vomiting. This has been present for around a week to week and a half. Does not know if this is morning sickness. No blood in vomit. No vaginal discharge. Fever free today. Staying hydrated. No urinary symptoms. Denies any rashes. No cough chest pain shortness of breath abdominal pain. Past medical history prescription medications allergies reviewed. States has had a early miscarriage a couple months ago. 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 Upcoming appointment on the .Patient presents with: Vomiting: Headache and fever x 2 weeks, patient is 7 weeks , started on abx 5/7 for insect bite PAST MEDICAL HISTORY Diagnosis Date NEGATIVE MEDICAL HISTORY normal color vision PAST SURGICAL HISTORY Procedure Laterality Date NONE ALLERGIES Patient has no known allergies. MEDICATIONS vit no.124/iron/folic ( VITAMIN ORAL) Take 1 tablet by mouth once daily. cephALEXin (KEFLEX) 500 mg capsule Take 1 capsule by mouth four times daily for 5 days. diclofenac, EC, (VOLTAREN) 75 mg EC tablet Take 1 tablet by mouth two times a day. FOR PAIN (Patient not taking: Reported on 07/24/2024) FAMILY HISTORY Problem Relation Age of Onset Cancer Other MGGMo - Breast Cancer Cancer Other MGGFa - Prostate Cancer other (congestive heart failure) Other PGGMo Social History Tobacco Use Smoking status: Never Passive exposure: Yes Smokeless tobacco: Never Tobacco comments: smokers outside Vaping Use Vaping status: Never Used Substance Use Topics Alcohol use: No Drug use: No BP 120/68 (BP Site: Left Arm, BP Position: Sitting) Pulse 70 Temp 36.7 C (98.1 F) Resp 16 Wt 53.7 kg (118 lb 6.2 oz) LMP 04/29/2024 SpO2 99% Review of Systems Constitutional: Positive for fever and malaise/fatigue. Negative for chills. HENT: Negative for congestion, ear discharge, ear pain, sinus pain and sore throat. Eyes: Negative for blurred vision, pain, discharge and redness. Respiratory: Negative for cough, hemoptysis, sputum production, shortness of breath, wheezing and stridor. Cardiovascular: Negative for chest pain. Gastrointestinal: Positive for vomiting. Negative for abdominal pain, diarrhea and nausea. Musculoskeletal: Positive for myalgias. Skin: Negative for itching and rash. Neurological: Positive for headaches. Negative for dizziness. Objective Physical Exam Constitutional: General: She is not in acute distress. Appearance: She is not diaphoretic. HENT: Head: Normocephalic. Jaw: No trismus, tenderness, swelling or pain on movement. Mouth/Throat: Mouth: Mucous membranes are moist. Pharynx: Oropharynx is clear. Uvula midline. No pharyngeal swelling, oropharyngeal exudate, posterior oropharyngeal erythema or uvula swelling. Eyes: Conjunctiva/sclera: Conjunctivae normal. Pupils: Pupils are equal, round, and reactive to light. Cardiovascular: Rate and Rhythm: Normal rate and regular rhythm. Heart sounds: Normal heart sounds. Pulmonary: Effort: Pulmonary effort is normal. No tachypnea, accessory muscle usage or respiratory distress. Breath sounds: Normal breath sounds. No stridor. No wheezing, rhonchi or rales. Abdominal: General: There is no distension. Palpations: Abdomen is soft. Tenderness: There is no abdominal tenderness. There is no guarding or rebound. Musculoskeletal: Cervical back: Normal range of motion and neck supple. No edema, erythema, rigidity or tenderness. No pain with movement. Normal range of motion. Lymphadenopathy: Cervical: No cervical adenopathy. Skin: General: Skin is warm and dry. Comments: Approximately a 2 cm x 2 cm area of redness noted. Small amount of induration approximately 5 mm x 5 mm noted. No fluctuance. No inguinal adenopathy. No remote redness. No rashes. Neurological: Mental Status: She is alert and oriented to person, place, and time. ASSESSMENT/PLAN: 1. Fever, unspecified fever cause - ICD9: 780.60, ICD10: R50.9 - COMPLETE BLOOD COUNT AND DIFFERENTIAL - COMPREHENSIVE METABOLIC PANEL - LYME AB EARLY <=30 DAY SYMPTOMS Diagnosed with fever. Afebrile at this point. No evidence of abscess formation. Will test for Lyme disease with unknown insect bite and fever joint pain. Will follow-up with PRE K TE[facility]ER as scheduled. At this point we will treat as viral etiology of fever body aches. Patient was educated on supportive therapies. Patient will follow up with primary care provider as needed. Patient was instructed to immediately proceed to emergency room for any new, worsening, or symptoms lasting longer than anticipated. The patient's clinical presentation is otherwise unremarkable at this time. Based on exam and clinical finding, the patient is stable for discharge. Plan of care was discussed with patient. Patientverbalizes understanding and agrees to plan of care. This note was generated using [employer] software.It may contain errors in wording, punctuation, or spelling. Ritesh Washburn APRN.LUIGI documented in this encounterOhiohealth [facility]25 NoteHNO ID: [id number] Author: DONYA MACHADO APRN.LUIGI Service: ? Author Type: Nurse Practitioner Type: Progress Notes Filed: 07/24/2024 18:39 Note Text: [facility] Subjective Manjinder Winter is a 19 year old female. Patient presents with: Derm Problem: redness, swelling and warm to touch area on left hip x 3 days-7 weeks Presents for 3 day history of red swollen area to upper left thigh. Patient thinks she may have gotten bit by a spider. Denies fevers. The history is provided by the patient. Review of Systems Constitutional: Negative for chills and fever. Skin: Positive for rash. Objective BP 128/72 Pulse 110 Temp 37.3 ?C (99.2 ?F) Resp 18 Wt 54.7 kg (120 lb 9.5 oz) LMP 04/29/2024 SpO2 100% Physical Exam Skin: General: Skin is warm and dry. Findings: Erythema (quarter size area to left lateral thigh with hard center. Hot and tender to touch, no discharge) present. Neurological: Mental Status: She is alert. {ASSESSMENT/PLAN: 1. 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 Differential Diagnoses - cellulitis is more likely for the following reason(s): suggested by [facility]P [facility] History of Present illness Narrative* Donya Machado APRN.LUIGI - 07/24/2024 6:35 PM EDT [facility] Subjective Manjinder Winter is a 19 year old female. Patient presents with: Derm Problem: redness, swelling and warm to touch area on left hip x 3 days-7 weeks Presents for 3 day history of red swollen area to upper left thigh. Patient thinks she may have gotten bit by a spider. Denies fevers. The history is provided by the patient. Review of Systems Constitutional: Negative for chills and fever. Skin: Positive for rash. Objective BP 128/72 Pulse 110 Temp 37.3 C (99.2 F) Resp 18 Wt 54.7 kg (120 lb 9.5 oz) LMP 04/29/2024 SpO2 100% Physical Exam Skin: General: Skin is warm and dry. Findings: Erythema (quarter size area to left lateral thigh with hard center. Hot and tender to touch, no discharge) present. Neurological: Mental Status: She is alert. {ASSESSMENT/PLAN: 1. 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.CNP Differential Diagnoses - cellulitis is more likely for the following reason(s): suggested by H&P Procedures documented in this encounterOhio[facility]05-02-2025 Telephone encounter Note * Telephone Encounter - Jack Kaplan APRN.CNM - 07/20/2024 3:39 PM EDT Agree with plan of care. Jack Kaplan APRN.CNM [facility] Work Phone: [phone] Miscellaneous Notes* Telephone Encounter - Jack Kaplan APRN.CNM - 07/20/2024 3:39 PM EDT Agree with plan of care. Jack Kaplan APRN.CNM * Telephone Encounter - Lora Hull LPN - 07/20/2024 1:18 PM EDT Lmp was 04/29/2024. Patient had positive test and a few weeks ago and called c/o nausea, stomach cramping, and loose stools that began this morning. Has not been able to keep any solid food down today and limited fluid intake. Denies fever. Patient instructed to take frequent sips of fluidsgatorade, maryellen katerine, water and solid foods as tolerated and to call if vaginal bleeding or if vomiting greater than 24 hours. Patient has new ob 08/01/2024 documented in this encounterOhiohealth [facility]05-02-2025 Telephone encounter Note * Telephone Encounter - Lora Hull LPN - 07/20/2024 1:18 PM EDT Lmp was 04/29/2024. Patient had positive test and a few weeks ago and called c/o nausea, stomach cramping, and loose stools that began this morning. Has not been able to keep any solid food down today and limited fluid intake. Denies fever. Patient instructed to take frequent sips of fluidsgatorade, maryellen katerine, water and solid foods as tolerated and to call if vaginal bleeding or if vomiting greater than 24 hours. Patient has new ob 08/01/2024 [facility]04-16-2025 NoteHNO ID: [id number] Author: ALMA SINGH MA Service: ? Author Type: Digester Capper Type: Progress Notes Filed: 07/04/2024 15:57 Note Text: PT ASSESSMENT - CASTING ROOM Manjinder presents for Application of brace. Applied DonJoy Lat J hinge knee brace size small to Left knee. Patient tolerated well. Patient has been instructed in Care and proper application of brace. Patient signed [place] PPA electronically for billing and verbalized understanding. Alma Singh [facility]04-16-2025 History of Present illness Narrative* Alma Singh MA - 07/04/2024 2:57 PM EDT PT ASSESSMENT - CASTING ROOM Manjinder presents for Application of brace. Applied DonJoy Lat J hinge knee brace size small to Left knee. Patient tolerated well. Patient has been instructed in Care and proper application of brace. Patient signed DonJoy PPA electronically for billing and verbalized understanding. Alma Singh MA * Armando Corcoran V, DO - 07/04/2024 2:47 PM EDT Images from the original note were not included. SERVICE DATE: July 04, 2024 PCP: Hi Wyatt MD Subjective Patient ID: Manjinder is a 19 year old female. Chief Complaint: Patient presents with: Left Knee Pain: Referred by Geo Washburn PAIN EVALUATION 07/04/2024 1436 Pain Level: 8 Pain Location: Knee-Left Description: Sharp;Numbness Duration Amount of Time: 6 Duration Units: Days Frequency: Intermittent Intervention/Comfort measure: Medication Agustin wrap HPI Knee Injury: - Injury occurred last while pushing heavy equipment into the house; slipped in the rain, causing the knee to almost pop out of place. - Describes the knee as having buckled. - Pain localized to the lateral aspect of the knee, radiating to the hip when ambulating. - Reports significant swelling and fluid accumulation in the knee. - Pain severity rated as 9/10 at times; constant throughout the day. - Pain exacerbated by ambulation; attempts to keep weight off the knee have reduced swelling slightly. - Has tried OTC analgesics (naproxen, ibuprofen, Advil) with no relief. - Has been using an AGUSTIN wrap with minimal reduction in swelling. - Lost knee brace; no longer using it. - No previous surgical interventions on the knee. - Denies possibility of . 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) Eliu (Generalized Anxiety Disorder) PAST MEDICAL HISTORY Diagnosis Date NEGATIVE MEDICAL HISTORY normal color vision PAST SURGICAL HISTORY Procedure Laterality Date NONE FAMILY HISTORY Problem Relation Age of Onset Cancer Other MGGMo - Breast Cancer Cancer Other MGGFa - Prostate Cancer other (congestive heart failure) Other PGGMo Social History Tobacco Use Smoking status: Never Passive exposure: Yes Smokeless tobacco: Never Tobacco comments: smokers outside Vaping Use Vaping status: Never Used Substance Use Topics Alcohol use: No Drug use: No ALLERGIES No Known Allergies MEDICATIONS: diclofenac, EC, (VOLTAREN) 75 mg EC tablet Take 1 tablet by mouth two times a day. FOR PAIN Allergies, medications, past surgical history, family history and past medical history were reviewed per this encounter. Objective Ortho Exam General: No acute distress. MSK/Ext: Swelling in knee; tenderness to palpation; pain with quadriceps contraction; pain with passive knee flexion; increased pain with patellar manipulation. Imaging: - X-ray: No fractures or dislocation. Shadows consistent with swelling. Assessment/Plan ASSESSMENT Diagnosis (S83.002A) Patellar subluxation, left, 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 (primary encounter diagnosis) No orders found for this visit on 07/04/24. PLAN 1. Patellar subluxation, left, 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 (S83.002A) 2. Subluxation of left patella, 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 (S83.002A) - Exam reveals tenderness and swelling in the left knee, with pain exacerbated by movement of the patella. X-ray shows no fractures or dislocations, but evidence of swelling is present. - Diagnosed with subluxation of the left patella, likely due to weakened quadriceps muscles allowing the patella to deviate from its normal track. - Discussed the importance of strengthening the quadriceps to prevent further subluxations and potential cartilage damage leading to arthritis. - Prescribed diclofenac for pain and inflammation management; prescription sent to [facility] pharmacy. - Fitted with a J-brace to stabilize the patella and prevent further subluxations. - Advised to monitor symptoms and report any persistent or worsening pain. - If current management is ineffective, discussed the possibility of corticosteroid injection for symptom relief. - Informed about potential surgical intervention for patellar stabilization if conservative measures fail. FOLLOW-UP: No follow-ups on file. You have been prescribed diclofenac for knee pain and inflammation; please take it as directed by your pharmacy. You are provided with a J-brace to help stabilize your kneecap; please use it as instructed today. Continue to keep weight off your knee as much as possible and monitor your symptoms. If you notice that your pain or swelling does not improve with these measures, contact our office so we can discuss additional options, such as a possible injection. SIGNATURE: Armando Corcoran DO PATIENT NAME: Manjinder Winter DATE: July 04, 2024 TIME: 2:47 PM * Alma Singh MA - 07/04/2024 2:35 PM EDT Patient presents with: Left Knee Pain: Referred by Geo Washburn [facility] INTAKE FLOWSHEET DATA Pain Pain Level: 8 Pain Location: Knee-Left Description: Sharp, Numbness Duration Amount of Time: 6 Duration Units: Days Frequency: Intermittent Intervention/Comfort measure: Medication (Agustin wrap) X-rays done on 06/29/24 documented in this encounterOhiohealth [facility]04-16-2025 NoteHNO ID: [id number] Author: RICOGERARDOARMANDO, DO Service: ? Author Type: Physician Type: Progress Notes Filed: 07/04/2024 15:57 Note Text: SERVICE DATE: July 04, 2024 PCP: Hi Wyatt MD Subjective Patient ID: Manjinder is a 19 year old female. Chief Complaint: Patient presents with: Left Knee Pain: Referred by Geo Washburn PAIN EVALUATION 07/04/2024 1436 Pain Level: 8 Pain Location: Knee-Left Description: Sharp;Numbness Duration Amount of Time: 6 Duration Units: Days Frequency: Intermittent Intervention/Comfort measure: Medication Agustin wrap HPI Knee Injury: - Injury occurred last while pushing heavy equipment into the house; slipped in the rain, causing the knee to almost pop out of place. - Describes the knee as having buckled. - Pain localized to the lateral aspect of the knee, radiating to the hip when ambulating. - Reports significant swelling and fluid accumulation in the knee. - Pain severity rated as 9/10 at times; constant throughout the day. - Pain exacerbated by ambulation; attempts to keep weight off the knee have reduced swelling slightly. - Has tried OTC analgesics (naproxen, ibuprofen, Advil) with no relief. - Has been using an AGUSTIN wrap with minimal reduction in swelling. - Lost knee brace; no longer using it. - No previous surgical interventions on the knee. - Denies possibility of . 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) Eliu (Generalized Anxiety Disorder) PAST MEDICAL HISTORY Diagnosis Date NEGATIVE MEDICAL HISTORY normal color vision PAST SURGICAL HISTORY Procedure Laterality Date NONE FAMILY HISTORY Problem Relation Age of Onset Cancer Other MGGMo - Breast Cancer Cancer Other MGGFa - Prostate Cancer other (congestive heart failure) Other PGGMo Social History Tobacco Use Smoking status: Never Passive exposure: Yes Smokeless tobacco: Never Tobacco comments: smokers outside Vaping Use Vaping status: Never Used Substance Use Topics Alcohol use: No Drug use: No ALLERGIES No Known Allergies MEDICATIONS: diclofenac, EC, (VOLTAREN) 75 mg EC tablet Take 1 tablet by mouth two times a day. FOR PAIN Allergies, medications, past surgical history, family history and past medical history were reviewed per this encounter. Objective Ortho Exam General: No acute distress. MSK/Ext: Swelling in knee; tenderness to palpation; pain with quadriceps contraction; pain with passive knee flexion; increased pain with patellar manipulation. Imaging: - X-ray: No fractures or dislocation. Shadows consistent with swelling. Assessment/Plan ASSESSMENT Diagnosis (S83.002A) Patellar subluxation, left, 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 (primary encounter diagnosis) No orders found for this visit on 07/04/24. PLAN 1. Patellar subluxation, left, 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 (S83.002A) 2. Subluxation of left patella, 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 (S83.002A) - Exam reveals tenderness and swelling in the left knee, with pain exacerbated by movement of the patella. X-ray shows no fractures or dislocations, but evidence of swelling is present. - Diagnosed with subluxation of the left patella, likely due to weakened quadriceps muscles allowing the patella to deviate from its normal track. - Discussed the importance of strengthening the quadriceps to prevent further subluxations and potential cartilage damage leading to arthritis. - Prescribed diclofenac for pain and inflammation management; prescription sent to [facility] pharmacy. - Fitted with a J-brace to stabilize the patella and prevent further subluxations. - Advised to monitor symptoms and report any persistent or worsening pain. - If current management is ineffective, discussed the possibility of corticosteroid injection for symptom relief. - Informed about potential surgical intervention for patellar stabilization if conservative measures fail. FOLLOW-UP: No follow-ups on file. You have been prescribed diclofenac for knee pain and inflammation; please take it as directed by your pharmacy. You are provided with a J-brace to help stabilize your kneecap; please use it as instructed today. Continue to keep weight off your knee as much as possible and monitor your symptoms. If you notice that your pain or swelling does not improve with these measures, contact our office so we can discuss additional options, such as a possible injection. SIGNATURE: Armando Corcoran DO PATIENT NAME: Manjinder Winter DATE: July 04, 2024 TIME: 2:47 [facility] [place]04-16-2025 NoteHNO ID: [id number] Author: ALMA SINGH MA Service: ? Author Type: Digester Capper Type: Progress Notes Filed: 07/04/2024 15:57 Note Text: Patient presents with: Left Knee Pain: Referred by Geo Washburn [facility] ROOMING INTAKE FLOWSHEET DATA Pain Pain Level: 8 Pain Location: Knee-Left Description: Sharp, Numbness Duration Amount of Time: 6 Duration Units: Days Frequency: Intermittent Intervention/Comfort measure: Medication (Agustin wrap) [facility] 06/29/24[facility]04-11-[facility]25 NoteHNO ID: [id number] Author: RITESH WASHBURN APRN.BORDER MACHINE OPERATOR Service: ? Author Type: Nurse Practitioner Type: Progress Notes Filed: 06/29/2024 11:48 Note Text: Subjective HPI Nontoxic-appearing 19-year-old female presents urgent care chief complaint left knee pain. Duration of symptoms 24 hours. Associated symptoms left knee discomfort. States was walking yesterday when she slipped twisting her left knee. Presents today for evaluation. Has noticed some swelling. No other injuries. No numbness or tingling. No decrease sensation. Is not is not breast-feeding. Past medical history prescription medications allergies reviewed. .Patient presents with: Left Knee Pain: X1 day, twisted knee, pain shooting up to buttocks with walking PAST MEDICAL HISTORY Diagnosis Date NEGATIVE MEDICAL HISTORY normal color vision PAST SURGICAL HISTORY Procedure Laterality Date NONE ALLERGIES Patient has no known allergies. MEDICATIONS norgestimate 0.25 mg-ethinyl estradiol 35 mcg (SPRINTEC) 0.25-35 mg-mcg per tablet Take 1 tablet by mouth once daily. (Patient not taking: Reported on 09/19/2023) melatonin 10 mg tab Take by mouth. (Patient not taking: Reported on 02/18/2023) benzonatate (TESSALON PERLES) 100 mg capsule Take 1 capsule by mouth three times daily as needed for cough. (Patient not taking: Reported on 02/18/2023) fluticasone (FLONASE) 50 mcg/actuation nasal spray Use 2 Sprays in each nostril once daily. Rinse mouth after use. (Patient not taking: Reported on 12/16/2023) polyethylene glycol 3350 (MIRALAX) 17 gram/dose powder Take 1 capful 1-2 times per day for goal of soft and daily BM (Patient not taking: Reported on 02/23/2021) FAMILY HISTORY Problem Relation Age of Onset Cancer Other MGGMo - Breast Cancer Cancer Other MGGFa - Prostate Cancer other (congestive heart failure) Other PGGMo Social History Tobacco Use Smoking status: Never Passive exposure: Yes Smokeless tobacco: Never Tobacco comments: smokers outside Vaping Use Vaping status: Never Used Substance Use Topics Alcohol use: No Drug use: No BP 123/67 Pulse 67 Temp 36.6 ?C (97.9 ?F) Resp 18 Wt 55.6 kg (122 lb 9.2 oz) LMP (LMP Unknown) SpO2 100% Review of Systems Constitutional: Negative for chills, fever and malaise/fatigue. Musculoskeletal: Positive for joint pain. Negative for back pain, falls, myalgias and neck pain. Neurological: Negative for dizziness, loss of consciousness, weakness and headaches. Objective Physical Exam Constitutional: General: She is not in acute distress. Appearance: She is not toxic-appearing. HENT: Head: Normocephalic. Nose: Nose normal. Eyes: Pupils: Pupils are equal, round, and reactive to light. Cardiovascular: Rate and Rhythm: Normal rate. Pulmonary: Effort: Pulmonary effort is normal. No respiratory distress. Musculoskeletal: Cervical back: Normal range of motion. Left hip: Tenderness present. No bony tenderness. Normal range of motion. Normal strength. Left upper leg: Normal. Left knee: Swelling present. No deformity, effusion, erythema or ecchymosis. Normal range of motion. Tenderness present over the medial joint line, lateral joint line and patellar tendon. Left lower leg: Normal. Skin: General: Skin is warm and dry. Neurological: General: No focal deficit present. Mental Status: She is alert. ASSESSMENT/PLAN: 1. Acute pain of left knee - ICD9: 719.46, ICD10: M25.562 - XR KNEE GENERAL 4V AP BOTH/PA BOTH/LAT/MERC LEFT IMPRESSION: No acute osseous abnormality. Small LEFT knee joint effusion Small joint effusion noted. sprain. Concern about ligament tendon injury. Referred to orthopedic. Patient was educated on supportive therapies. Patient will follow up with primary care provider as needed. Patient was instructed to immediately proceed to emergency room for any new, worsening, or symptoms lasting longer than anticipated. The patient's clinical presentation is otherwise unremarkable at this time. Based on exam and clinical finding, the patient is stable for discharge. Plan of care was discussed with patient. Patient verbalizes understanding and agrees to plan of care. This note was generated using [employer] software. It may contain errors in wording, punctuation, or spelling. Ritesh Washburn APRN.[facility]04-11-2025 History of Present illness Narrative* Ritesh Washburn APRN.BORDER MACHINE OPERATOR - 06/29/2024 11:10 AM EDT Subjective HPI Nontoxic-appearing 19-year-old female presents urgent care chief complaint left knee pain. Durationof symptoms 24 hours. Associated symptoms left knee discomfort. States was walking yesterday when she slipped twisting her left knee. Presents today for evaluation. Has noticed some swelling. No other injuries. No numbness or tingling. No decrease sensation. Is not is not breast-feeding. Past medical history prescription medications allergies reviewed. .Patient presents with: Left Knee Pain: X1 day, twisted knee, pain shooting up to buttocks with walking PAST MEDICAL HISTORY Diagnosis Date NEGATIVE MEDICAL HISTORY normal color vision PAST SURGICAL HISTORY Procedure Laterality Date NONE ALLERGIES Patient has no known allergies. MEDICATIONS norgestimate 0.25 mg-ethinyl estradiol 35 mcg (SPRINTEC) 0.25-35 mg-mcg per tablet Take 1 tablet bymouth once daily. (Patient not taking: Reported on 09/19/2023) melatonin 10 mg tab Take by mouth. (Patient not taking: Reported on 02/18/2023) benzonatate (TESSALON PERLES) 100 mg capsule Take 1 capsule by mouth three times daily as needed for cough. (Patient not taking: Reported on 02/18/2023) fluticasone (FLONASE) 50 mcg/actuation nasal spray Use 2 Sprays in each nostril once daily. Rinse mouth after use. (Patient not taking: Reported on 12/16/2023) polyethylene glycol 3350 (MIRALAX) 17 gram/dose powder Take 1 capful 1-2 times per day for goal of soft and daily BM (Patient not taking: Reported on 02/23/2021) FAMILY HISTORY Problem Relation Age of Onset Cancer Other MGGMo - Breast Cancer Cancer Other MGGFa - Prostate Cancer other (congestive heart failure) Other PGGMo Social History Tobacco Use Smoking status: Never Passive exposure: Yes Smokeless tobacco: Never Tobacco comments: smokers outside Vaping Use Vaping status: Never Used Substance Use Topics Alcohol use: No Drug use: No BP 123/67 Pulse 67 Temp 36.6 C (97.9 F) Resp 18 Wt 55.6 kg (122 lb 9.2 oz) LMP (LMP Unknown) SpO2 100% Review of Systems Constitutional: Negative for chills, fever and malaise/fatigue. Musculoskeletal: Positive for joint pain. Negative for back pain, falls, myalgias and neck pain. Neurological: Negative for dizziness, loss of consciousness, weakness and headaches. Objective Physical Exam Constitutional: General: She is not in acute distress. Appearance: She is not toxic-appearing. HENT: Head: Normocephalic. Nose: Nose normal. Eyes: Pupils: Pupils are equal, round, and reactive to light. Cardiovascular: Rate and Rhythm: Normal rate. Pulmonary: Effort: Pulmonary effort is normal. No respiratory distress. Musculoskeletal: Cervical back: Normal range of motion. Left hip: Tenderness present. No bony tenderness. Normal range of motion. Normal strength. Left upper leg: Normal. Left knee: Swelling present. No deformity, effusion, erythema or ecchymosis. Normal range of motion. Tenderness present over the medial joint line, lateral joint line and patellar tendon. Left lower leg: Normal. Skin: General: Skin is warm and dry. Neurological: General: No focal deficit present. Mental Status: She is alert. ASSESSMENT/PLAN: 1. Acute pain of left knee - ICD9: 719.46, ICD10: M25.562 - XR KNEE GENERAL 4V AP BOTH/PA BOTH/LAT/MERC LEFT IMPRESSION: No acute osseous abnormality. Small LEFT knee joint effusion Small joint effusion noted. sprain. Concern about ligament tendon injury. Referred to orthopedic. Patient was educated on supportive therapies. Patient will follow up with primary care provider as needed. Patient was instructed to immediately proceed to emergency room for any new, worsening, or symptoms lasting longer than anticipated. The patient's clinical presentation is otherwise unremarkable at this time. Based on exam and clinical finding, the patient is stable for discharge. Plan of care was discussed with patient. Patient verbalizes understanding and agrees to plan of care. This note was generated using [employer] software. It may contain errors in wording, punctuation, or spelling. Ritesh Washburn APRN.LUIGI documented in this encounterOhio[facility]04-11-2025 History of Present illness Narrative* Jesus Uriarte Tech - 06/29/2024 11:10 AM EDT Radiology Service Progress Note PATIENT NAME: Manjinder Winter DATE OF SERVICE: June 29, 2024 TIME: 11:10 AM PATIENT IDENTITY VERIFICATION COMPLETED USING TWO (2) IDENTIFIERS: Name and Date of confirmedby patient verbally. FALL SCREENING: Has the patient had 2 falls in the last year or 1 fall with injury or currently using an Ambulatory Assistive Device (Walker, Cane, Wheelchair, Crutches, etc.)? No PATIENT GENDER DATA: Assigned female at . status: : No status:NO. PATIENT RELEVANT IMPLANT DATA REVIEWED: Not Applicable PATIENT PRESENTS WITH AN IMPLANTABLE OR ATTACHED GENERAL II FARMWORKER: No RADIOLOGY DEPARTMENT: General X-ray: Exam(s) Completed: Lower Extremity X- Ray(s): Knee, AP / Lat / Tunne / Merchant Left PERIPHERAL IV DATA: Not applicable SIGNED BY: Doug Mercado June 29, 2024 11:10 AM documented in this encounterOhio[facility]04-11-2025 NoteHNO ID: [id number] Author: JESUS URIARTE Tech Service: ? Author Type: Technologist Type: Progress Notes Filed: 06/29/2024 11:27 Note Text: Radiology Service Progress Note PATIENT NAME: Manjinder Winter DATE OF SERVICE: June 29, 2024 TIME: 11:10 AM PATIENT IDENTITY VERIFICATION COMPLETED USING TWO (2) IDENTIFIERS: Name and Date of confirmed by patient verbally. FALL SCREENING: Has the patient had 2 falls in the last year or 1 fall with injury or currently using an Ambulatory Assistive Device (Walker, Cane, Wheelchair, Crutches, etc.)? No PATIENT GENDER DATA: Assigned female at . status: : No status: NO. PATIENT RELEVANT IMPLANT DATA REVIEWED: Not Applicable PATIENT PRESENTS WITH AN IMPLANTABLE OR ATTACHED GENERAL II FARMWORKER: No RADIOLOGY DEPARTMENT: General X-ray: Exam(s) Completed: Lower Extremity X-Ray(s): Knee, AP / Lat / Tunne / Merchant Left PERIPHERAL IV DATA: Not applicable SIGNED BY: Doug Mercado June 29, 2024 11:10 [facility]12-26-2024 NoteHNO ID: [id number] Author: SEVERINO TUCKER MD Service: ? Author Type: Physician Type: Progress Notes Filed: 03/15/2024 19:40 Note Text: Express Care Triage Note: Patient presents to the [facility] with complaint of vaginal bleeding. She reports she is 6 weeks . She has some abdominal pain with it. Referred to the ED to rule out ectopic .[facility]12-26-2024 History of Present illness Narrative* Severino Tucker MD - 03/15/2024 7:38 PM EST Express Care Triage Note: Patient presents to the [facility] with complaint of vaginal bleeding. She reports she is 6 weeks. She has some abdominal pain with it. Referred to the ED to rule out ectopic . documented in this encounterOhio[facility]09-27-2024 History of Present illness Narrative* Tamika Knutson RT(R) - 12/16/2023 3:20 PM EDT Radiology Service Progress Note PATIENT NAME: Manjinder Winter DATE OF SERVICE: December 16, 2023 TIME: 3:24 PM PATIENT IDENTITY VERIFICATION COMPLETED USING TWO (2) IDENTIFIERS: Name and Date of confirmedby patient verbally. FALL SCREENING: Has the patient had 2 falls in the last year or 1 fall with injury or currently using an Ambulatory Assistive Device (Walker, Cane, Wheelchair, Crutches, etc.)? No PATIENT GENDER DATA: Female. status: : No status: NO. PATIENT RELEVANT IMPLANT DATA REVIEWED: Yes PATIENT PRESENTS WITH AN IMPLANTABLE OR ATTACHED GENERAL II FARMWORKER: No RADIOLOGY DEPARTMENT: General X-ray: Exam(s) Completed: Chest X-Ray PERIPHERAL IV DATA: Not applicable SIGNED BY: RT Skyler(R) December 16, 2023 3:24 PM documented in this encounterOhio[facility]09-27-2024 History of Present illness Narrative* Macarena Bradley APRN.[facility] - 12/16/2023 3:01 PM EDT CC: Patient presents with: Ear Pain: L ear pain, cough, chest congestion x2 weeks, + Covid x8 days HPI: Manjinder Winter is a 18 year old female who presents to the office with complaint of chest congestion and cough, productive for 2 weeks. Symptoms are worsening Associated symptoms includes nausea, vomiting , and diarrhea. Denies rash. Treatments tried include nothing so far. with no relief of symptoms. Sick contacts: unknown. History of asthma, frequent episodes of bronchitis, chronic bronchitis, bronchiectasis or COPD: No Smoker: marijuana Seasonal/environmental allergies: No The ROS is otherwise negative. The patient's pmh, medications, allergies, and past visits are reviewed. PHYSICAL EXAM: BP 137/88 Pulse 79 Temp 36.8 C (98.2 F) Resp 18 Wt 46.2 kg (101 lb 13.6 oz) LMP (LMP Unknown) SpO2 98% General appearance: alert, cooperative, pleasant, in no acute distress Head: Normocephalic Eyes: EOM's intact, conjunctiva pink and moist, no icterus, sclera white, non-injected Ears: Right ear: External ear/canal- Normal, TM - clear with good landmarks. Left ear: External ear/canal- cerumen impaction, Oropharynx:moist without lesions, No erythema, exudates or tonsillar hypertrophy. Heart: Negative. RRR without obvious murmur, gallop, or rubs. No ectopy. Lungs: clear to auscultation, without rales or wheeze, good air exchange PAST MEDICAL HISTORY Diagnosis Date NEGATIVE MEDICAL HISTORY normal color vision PAST SURGICAL HISTORY Procedure Laterality Date NONE ALLERGIES Patient has no known allergies. MEDICATIONS norgestimate 0.25 mg-ethinyl estradiol 35 mcg (SPRINTEC) 0.25-35 mg-mcg per tablet Take 1 tablet bymouth once daily. (Patient not taking: Reported on 09/19/2023) melatonin 10 mg tab Take by mouth. (Patient not taking: Reported on 02/18/2023) benzonatate (TESSALON PERLES) 100 mg capsule Take 1 capsule by mouth three times daily as needed for cough. (Patient not taking: Reported on 02/18/2023) fluticasone (FLONASE) 50 mcg/actuation nasal spray Use 2 Sprays in each nostril once daily. Rinse mouth after use. (Patient not taking: Reported on 12/16/2023) polyethylene glycol 3350 (MIRALAX) 17 gram/dose powder Take 1 capful 1-2 times per day for goal of soft and daily BM (Patient not taking: Reported on 02/23/2021) FAMILY HISTORY Problem Relation Age of Onset Cancer Other MGGMo - Breast Cancer Cancer Other MGGFa - Prostate Cancer other (congestive heart failure) Other PGGMo Social History Tobacco Use Smoking status: Never Passive exposure: Yes Smokeless tobacco: Never Tobacco comments: smokers outside Vaping Use Vaping status: Never Used Substance Use Topics Alcohol use: No Drug use: No ASSESSMENT/PLAN: 1. Acute cough - ICD9: 786.2, ICD10: R05.1 (primary diagnosis) - XR CHEST 2V FRONTAL/LAT * * * * Physician Interpretation * * * * EXAMINATION: CHEST RADIOGRAPH (2 VIEW FRONTAL & LATERAL) CLINICAL HISTORY: Acute cough MQ: [id number] EXAM DATE/TIME: 12/16/2023 3:33 PM COMPARISON: Chest x-ray on 07/22/2020 RESULT: Lines, tubes, and devices: None. Lungs and pleura: No consolidation. No lung mass. No pleural effusion. No pneumothorax. Cardiomediastinal silhouette: Normal cardiomediastinal silhouette. Bones and soft tissues: Unremarkable. IMPRESSION IMPRESSION: No acute radiographic abnormality. Hand Touch Up Painter: TR Transcribe Date/Time: Dec 16 2023 3:42P Dictated by : JED IGLESIAS MD 2. Impacted cerumen of left ear - ICD9: 380.4, ICD10: H61.22 - REMOVAL OF IMPACTED CERUMEN - MA flushed ear patient still had partial impaction TM was visible and within normal limits. [id number]-azyohda medication for supportive therapies. Potential red flag symptoms discussed with the patient. Reviewed appropriate action plan to take if red flag symptoms occur. Patient agreeable totreatment plan. Macarena Bradley APRN.BORDER MACHINE OPERATOR documented in this encounterOhiohealth [facility]07-03-2024 Telephone encounter Note * Telephone Encounter - Aleyda Chino - 09/21/2023 9:10 AM EDT Patient returned call and given message below with no further questions. [facility]07-03-2024 Miscellaneous Notes* Telephone Encounter - Aleyda Chino - 09/21/2023 9:10 AM EDT Patient returned call and given message below with no further questions. * Telephone Encounter - Hi Magaña MA - 09/21/2023 7:26 AM EDT Unable to reach patient. Mailbox full/Mailbox not set up/ Number incorrect. Please try again later. Hi Magaña MA * Telephone Encounter - Hi Magaña MA - 09/21/2023 7:25 AM EDT ----- Message from Severion Tucker MD sent at 09/21/2023 7:12 AM EDT ----- Urine culture showed a urinary tract infection which should respond to the Keflex prescribed. Follow up if not improving. documented in this encounterOhiohealth [facility]07-03-2024 Telephone encounter Note * Telephone Encounter - Hi Magaña MA - 09/21/2023 7:26 AM EDT Unable to reach patient. Mailbox full/Mailbox not set up/ Number incorrect. Please try again later. Hi Magaña MA [facility]07-03-2024 Telephone encounter Note* Telephone Encounter - Hi Magaña MA - 09/21/2023 7:25 AM EDT ----- Message from Severino Tucker MD sent at 09/21/2023 7:12 AM EDT ----- Urine culture showed a urinary tract infection which should respond to the Keflex prescribed. Follow up if not improving. [facility]07-01-2024 History of Present illness Narrative* Juan Badillo PA - 09/19/2023 4:25 PM EDT This note was created using [employer]. Subjective Manjinder Winter is a 18 year old female. HPI 18-year-old female presents for UTI symptoms. Patient has been having suprapubic pressure, dysuria, frequency and urgency for the past week. No blood in the urine. No abdominal pain, but does report pressure in the abdomen. She has a little bit of low back pain. No fevers. She has had nausea, no vomiting. She has had UTIs in the past and this feels similar. Patient denies any vaginal discharge. No concern for STD. Her LMP was about 3 months ago. She is not on oral contraceptives, she quit taking them about 2 months ago. She is sexually active. She states that she does have irregular menstrual cycles. Patient did take Azo today. No other complaint. Review of Systems Constitutional: Negative for chills and fever. HENT: Negative for congestion, ear pain and sore throat. Respiratory: Negative for cough and shortness of breath. Cardiovascular: Negative for chest pain. Gastrointestinal: Positive for abdominal pain (Pressure) and nausea. Negative for diarrhea and vomiting. Genitourinary: Positive for dysuria, frequency and urgency. Negative for hematuria, vaginal discharge and vaginal pain. Objective BP 110/62 Pulse 86 Temp 37.1 C (98.8 F) Resp 21 Wt 48.7 kg (107 lb 5.8 oz) LMP (LMP Unknown) SpO2 99% Physical Exam Vitals and nursing note reviewed. Constitutional: General: She is not in acute distress. Appearance: Normal appearance. She is not toxic-appearing. HENT: Nose: Nose normal. Mouth/Throat: Mouth: Mucous membranes are moist. Eyes: Conjunctiva/sclera: Conjunctivae normal. Cardiovascular: Rate and Rhythm: Normal rate and regular rhythm. Pulmonary: Effort: Pulmonary effort is normal. Breath sounds: Normal breath sounds. Abdominal: General: Abdomen is flat. Palpations: Abdomen is soft. Tenderness: There is abdominal tenderness (Mild suprapubic). There is no right CVA tenderness, leftCVA tenderness, guarding or rebound. Skin: General: Skin is warm and dry. Neurological: Mental Status: She is alert. Assessment and Plan ASSESSMENT/PLAN: 1. Urinary frequency - ICD9: 788.41, ICD10: R35.0 acute - UA positive for daniel esterase, hematuria, proteinuria, and nitrates. On Azo. - Send urine for culture - Begin treatment with Keflex for 7 days. - Patient education for prevention given - UA DIP, URINE (POC) - URINE CULTURE - UA DIP,URINE HCG (POC)-ordered due to irregular menstrual cycle, there was an error running the test due to urine discoloration from Azo. Patient states she does not believe she is . I did offer hCG blood test, but patient states she does not believe she has health insurance at this time,so declines. -Patient was given Keflex which discussed what is safe in if she happened to be .Did recommend she do a home test. She understands. Diagnosis and treatment plan were discussed and questions were answered to the patient's satisfaction. Pt acknowledged understanding of concepts and follow up plan. Specific signs and symptoms that would indicate the need for higher level of care were discussed in detail warranting prompt ER evaluation. Diagnosis and treatment plan were discussed and questions were answered to the patient's satisfaction. Pt acknowledged understanding of concepts and follow up plan. Specific signs and symptoms that would indicate the need for higher level of care were discussed in detail warranting prompt ER evaluation.Juan PA documented in this encounterOhiohealth [facility]12-01-2023 Instructions* Patient Instructions* Alana Bacon APRN.CN - 02/18/2023 1:43 PM EST Oral Contraceptives: The Pill Beginning the Pill Pills come in either a 21 day pack or a 28 day pack. With the 21 day pack you will take one pill for 21 days then no pill for 7 days, during which time you will have what is known as withdrawal bleeding. The 28 day pack allows you to take a pill every day of the cycle with no interruptions. The first 21 pills are the pills with the active ingredients and the last 7 are the nonmedical pills (placebo) or they may contain iron. There will be bleeding during the week you are taking the nonmedical pills. The advantage to the 28 day pack is that you don t have to keep track of when you stopped the pill. Unless otherwise instructed, you should start your pills the Tuesday following your first day of bleeding with your next period (if your period starts on a Tuesday, you should start pills the same day) Read your information packet that comes with the pills. Pill Benefits The pill is the most popular method of reversible control being used today. Millions of womenrely on oral contraceptives as their control method. It is important to have an examination by your physician to determine if the pill is safe for you. There are several advantages associated with the pill: it is 97-98% effective; may improve acne; periods are more regular and less painful; there is less iron deficiency anemia in pill users. manager long term care use is associated with a decreased incidence of ovarian and uterine cancer. There is also no evidence that the pill increases the incidenceof any cancer. How Oral Contraceptives Work Oral contraceptives come in two varieties. One is the combination pill which contains both estrogenand progesterone. Combination pills are considered 98-99% effective in preventing . This pill comes in either monophasic, which delivers the same amount of estrogen and progesterone throughout the cycle; and triphasic, which try tries to mimic the normal hormone cycle by changing the levels of the hormones in the pills during the month. There is no real advantage to taking the one over the other. The other type of pill only contains progesterone. It is best used for women who can t take estrogen. This type of pill is slightly less effective than the combination pill in preventing preg zenobia. Oral contraceptives prevent ovulation (release of an egg from the ovary) by suppressing the pituitary gland s action. The pill does NOT prevent sexually transmitted disease. Obtaining a Prescription It is important to see your doctor before starting oral contraceptives so that you can have a full medical history taken and a physical examination given. Certain medical conditions may make the pillinappropriate for you, therefore it is very important to be honest and as complete as possible withthe information you share with your doctor. The types of predisposing factors which would make the pill a poor choice of control would include: History of blood clots Stroke Serious liver disease or impaired liver function Unexplained vaginal bleeding or Cancer of the reproductive system Active gall bladder disease Hypertension Possible Side Effects It can take up to three months for your body to become adjusted to the pill. The more common side effects experienced at this time are: breakthrough spotting or bleeding, which is bleeding at any other time other than when you should be having a period; nausea or vomiting; breast tenderness; and mild fluid retention. There is no residential weight gain with the use of the pill. Breakthrough bleeding is the most common complaint of new pill users. There is no way to predict who will have it and there is no way of preventing it. Breakthrough bleeding usually subsides on its own with no further treatment after the first three months of taking the pill. If these symptoms continue to occur after the first three months you should check with your physician to see if there is any physical cause andpossibly change to another control pill. Problems: Missed 1 pill: Take 2 pills the next day. Missed 2 pills: Take 2 pills the next day and 2 pills the following day. Also use another form of control (condoms) along with the pill for the rest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 demonstrating more upright posture with less inconsistencies this date Recumbent bike Lv 3 x 10 min Single leg stance cone taps x 3 (maintained SLS for ~ 4 seconds each rep) x 10 bilaterally Goals: Goal Date Met: Progress Towards Goal: Manjinder Winter will perform bed mobility and transfers independently 12/25/21 Manjinder Winter will ambulate 150 ' with least restrictive device SBA 12/25/21 Manjinder Winter will ascend/descend 1 flight of stairs for home going. 12/25/21 Manjinder Winter will demonstrate good sitting and standing balance 12/25/21 Manjinder Winter will demonstrate at least 4/5 MMT in all LE's muscles Ongoing Manjinder Winter caregivers will be educated in HEP Ongoing Education: Transfers: Ambulation: Equipment: HEP: Other: Pain: 0/10 via numerical scale Assessment: Manjinder tolerated session very well. Gait pattern was less inconsistent this date on level surface. Patient reports she feels she still needs the walker for long distance ambulation to cafeteria so allowed patient to keep over the weekend but encouraged her she hasnt used it in therapy for several days and she doesn't need to use it. Plan: Manjinder will be seen 1-2x/day M-F and 1x/day on Sat. Hanna Whitney PT * Ancillary Progress Note - Ayesha Hensley, OT - 12/26/2021 10:58 AM EDT Occupational Therapy Inpatient Rehab Daily Note Patient Name:Manjinder Winter : 2005 Date of Service: 12/26/2021 Start: 0800 Stop: 0900 Time Spent: 60 minutes Precautions/Restrictions: none Equipment Needs: shower chair Basic Functional Status: Functional Mobility: SBA Diet: no dietary restrictions Communication: verbal Subjective: Manjinder Winter completed OT session throughout hospital and in rehab gym. Objective: Therapeutic Interventions: Sit <> stand transfers throughout session with SBA. Donned socks with SBA using figure 4 technique. Completing morning grooming routine at sink with SBA. Ambulating from room on 7100 to KJP to rehab department with 1 brief sit break with SBA. Standing while in KJP for 5 minutes with good balance and endurance with SBA. Sitting on therapy ball while playing TAISHA with good balance. Arm bike x7 minutes with good UE strength and endurance. Caregiver/Patient education: None provided, no family present Goals: Date Met: Progress Towards Goals: Manjinder will complete toilet and tub transfers I'ly. Ongoing Manjinder will complete bathing routine with SBA. Ongoing Manjinder will complete LB dressing with SBA. Ongoing Manjinder will complete meal prep activity with appropriate endurance with SBA. Ongoing Manjinder will complete up to 60 minutes of standing activities with appropriate endurance and no morethan 2 brief rest breaks in preparation for return to employment. Ongoing Manjinder and caregivers will be educated in HEP and verbalize understanding. Ongoing Assessment: Manjinder demonstrated functional strength and endurance throughout session. She was motivated throughout. Pain: No pain reported. Family & Patient Goals & Preferences: Discharge Training & Education: Training Item (ie. Bath transfer) to be completed before discharge Full Name of Caregiver Completing training Date Completed Caregiver would benefit from continued training/education for this item (Y/N) Plan: Manjinder will be seen QD/BID 5-6x per week over the next 3 weeks while in the inpatient rehab program. VAMSHI Rangel, OTR/L Occupational Therapist * Ancillary Progress Note - Beena Medina, PT - 12/25/2021 4:11 PM EDT Physical Therapy Inpatient Rehab Daily Note Patient Name: Manjinder Winter : 2005 Date of Service: 12/25/2021 Start: 1404 Stop: 1447 Time Spent: 43 minutes Precautions/Restrictions: none Recommendations: Communication method: Transfers: SBA Dietary Restrictions: Subjective: Patient present to therapy without family. Patient seen in rehab department. Parent/caregiver goals/concerns: Return to baseline Objective: 2# lower extremity exercises: prone: hamstring curls 2x10, hip IR/ER 2x10, hip extension with knee bent x10. Sidelying: clamshells x10, hip abduction x10 Ambulation: throughout session with SBA, occasionally CGA when fatigued; encouragement for relaxed gait and increased arm swing; stopping with turns with CGA for safety; >700 ft, with 1 seated and1 standing rest break due to fatigue Stairs: ascend 2 flights of stairs reciprocally without handrails supervision assist; descend 2 flights of steeper stairs with use of handrail and SBA Agility ladder with CGA for safety: High knees with encouragement for increased speed, x4 lengths of ladder Large steps with continuous movement x2 ladder lengths Jumping forward alternating wide and narrow JANEY x2 ladder lengths Goals: Goal Date Met: Progress Towards Goal: Manjinder Winter will perform bed mobility and transfers independently 12/25/21 Manjinder Winter will ambulate 150 ' with least restrictive device SBA 12/25/21 Manjinder Winter will ascend/descend 1 flight of stairs for home going. 12/25/21 Manjinder Winter will demonstrate good sitting and standing balance 12/25/21 Manjinder Winter will demonstrate at least 4/5 MMT in all LE's muscles Ongoing Manjinder Winter caregivers will be educated in HEP Ongoing Education: Transfers: Ambulation: Equipment: HEP: Other: Pain: 0/10 via numerical scale Assessment: Manjinder tolerated session very well. Gait pattern and distance with endurance continues to improve with some initial inconsistencies but improves her fluidity of stepping and her salima with further distances. Patient able to complete higher level balance and coordination activities with CGA. Patient in room in care of mother at end of session. Patient reporting fatigue at end of session. Plan: Manjinder will be seen 1-2x/day M-F and 1x/day on Sat. Beena Medina PT, DPT * Ancillary Progress Note - Griselda Dasilva OT - 12/25/2021 3:55 PM EDT Occupational Therapy Inpatient Rehab Daily Note Patient Name:Manjinder Winter : 2005 Date of Service: 12/25/2021 Start: 1305 Stop: 1400 Time Spent: 55 minutes Precautions/Restrictions: none Equipment Needs: FWW and shower chair Basic Functional Status: Functional Mobility: SBA - CGA with FWW Diet: no dietary restrictions Communication: verbal Subjective: Manjinder Winter completed PM OT session patient room and in rehab department. . Objective: Therapeutic Interventions: Bathing: Manjinder completed bathing in her room. Shower transfer close SBAto step over and seated on shower chair. Completed bathing seated with distant supervision. UB and LB dressing: Close SBA in standing. Alivea demonstrating good dynamic balance while threading pants. Donned socks independently in seated with figure 4. Patient ambulated without FWW with [facility] and then to gym with close SBA and no rest breaks Sit <> stand throughout session with Supervision. Standing ax x10-15 min with patient using B UE with supervision, no loss of balance noted. Dynamic balance activities without loss of balance. Completed squats and marching during [employer] game. Caregiver/Patient education: None provided, no family present Goals: Date Met: Progress Towards Goals: Felicea will complete toilet and tub transfers I'ly. Ongoing Alivea will complete bathing routine with SBA. Ongoing Alivea will complete LB dressing with SBA. Ongoing Alivea will complete meal prep activity with appropriate endurance with SBA. Ongoing Alivea will complete up to 60 minutes of standing activities with appropriate endurance and no morethan 2 brief rest breaks in preparation for return to employment. Ongoing Alivea and caregivers will be educated in HEP and verbalize understanding. Ongoing Assessment: Manjinder demonstrated improved strength, endurance and motivation throughout session. Pain: No pain reported. Family & Patient Goals & Preferences: Discharge Training & Education: Training Item (ie. Bath transfer) to be completed before discharge Full Name of Caregiver Completing training Date Completed Caregiver would benefit from continued training/education for this item (Y/N) Plan: Manjinder will be seen QD/BID 5-6x per week over the next 3 weeks while in the inpatient rehab program. Griselda Dasilva, STEFFANY, OTR/L Occupational Therapist * Ancillary Progress Note - Hanna Whitney PT - 12/25/2021 3:07 PM EDT Physical Therapy Inpatient Rehab Daily Note Patient Name: Manjinder Winter : 2005 Date of Service: 12/25/2021 Start: 1100 Stop: 1150 Time Spent: 50 minutes Precautions/Restrictions: none Recommendations: Communication method: Transfers: SBA Dietary Restrictions: Subjective: Patient present to therapy without family. Patient seen in rehab department. Parent/caregiver goals/concerns: Return to baseline Objective: Standing squats x 10 2# lower extremity exercises: standing SLR, hip abduction, hip extension x 10, CGA Ambulation: throughout session with SBA Stairs: ascend/descend 1 flight of stairs reciprocally without handrails supervision assist Standing wobble board, CGA Laterally: weight shifts/statically Anterior/posterior: weight shifts/statically Squats to place dog treats, dynamic weight shifts to knock treats off Tall kneeling on wobble board: short sit <> tall kneel x 10; weight shifts, throwing dog treats Goals: Goal Date Met: Progress Towards Goal: Manjinder Winter will perform bed mobility and transfers independently 12/25/21 Manjinder Winter will ambulate 150 ' with least restrictive device SBA 12/25/21 Manjinder Winter will ascend/descend 1 flight of stairs for home going. 12/25/21 Manjinder Winter will demonstrate good sitting and standing balance 12/25/21 Manjinder Winter will demonstrate at least 4/5 MMT in all LE's muscles Ongoing Manjinder Winter caregivers will be educated in HEP Ongoing Education: Transfers: Ambulation: Equipment: HEP: Other: Pain: 0/10 via numerical scale Assessment: Manjinder tolerated session very well. Gait pattern continues to improve with some initialinconsistencies but improves her fluidity of stepping and her salima with further distances. Plan: Manjinder will be seen 1-2x/day M-F and 1x/day on Sat. Hanna Whitney PT * Ancillary Progress Note - Griselda Dasilva, OT - 12/25/2021 12:54 PM EDT Occupational Therapy Inpatient Rehab Daily Note Patient Name:Manjinder Winter : 2005 Date of Service: 12/25/2021 Start: 1000 Stop: 1100 Time Spent: 60 minutes Precautions/Restrictions: none Equipment Needs: FWW and shower chair Basic Functional Status: Functional Mobility: SBA - CGA with FWW Diet: no dietary restrictions Communication: verbal Subjective: Manjinder Winter completed AM OT session patient room and in rehab department. . Objective: Therapeutic Interventions: Grooming: Functional mobility in room with close SBA. Standing at sink with supervision for morning grooming. Toileting: toilet transfer with supervision, toileting SBA. Patient ambulated with FWW with gait belt from room to gym with CGA, but could have been SBA Walking throughout rehab space without FWW, gaitbelt and SBA to CGA when turning quickly. Sit <> stand throughout session with Supervision. LB dressing: Manjinder reported difficulty completing LB dressing due to difficulty achieving figure 4with LLE. Completed blocked practice of simulated skill with theraband. Alivea able to thread BLE in seated with bilateral figure 4 position and stand to pull up over hips x5 with supervision. BUE therex in standing with theraband including bicep curls, chest openers, int/ex rotation of shoulders 15 reps x 1. Standing ax x10-15 min with patient using B UE with supervision, no loss of balance noted. Dynamic balance activities without loss of balance. Caregiver/Patient education: None provided, no family present Goals: Date Met: Progress Towards Goals: Manjinder will complete toilet and tub transfers I'ly. Ongoing Alivea will complete bathing routine with SBA. Ongoing Alivea will complete LB dressing with SBA. Ongoing Alivea will complete meal prep activity with appropriate endurance with SBA. Ongoing Alivea will complete up to 60 minutes of standing activities with appropriate endurance and no morethan 2 brief rest breaks in preparation for return to employment. Ongoing Alivea and caregivers will be educated in HEP and verbalize understanding. Ongoing Assessment: Manjinder demonstrated improved strength, endurance and motivation throughout session. Pain: No pain reported. Family & Patient Goals & Preferences: Discharge Training & Education: Training Item (ie. Bath transfer) to be completed before discharge Full Name of Caregiver Completing training Date Completed Caregiver would benefit from continued training/education for this item (Y/N) Plan: Manjinder will be seen QD/BID 5-6x per week over the next 3 weeks while in the inpatient rehab program. STEFFANY Curiel, OTR/L Occupational Therapist * Plan of Care - Alvaro Parra RN - 12/25/2021 12:50 PM EDT Problem: Falls, Risk of Goal: Absence of falls Outcome: Ongoing Goal: Absence of physical injury Outcome: Ongoing Problem: Activity Intolerance Goal: Improved activity tolerance Outcome: Ongoing Goal: Able to perform prescribed physical activity Outcome: Ongoing Problem: Coping - Ineffective, Individual Goal: Effective coping Outcome: Ongoing Goal: Participation in desired activities Outcome: Ongoing Problem: Mobility - Impaired Goal: Able to ambulate independently Outcome: Ongoing Goal: Able to ambulate with assistance Outcome: Ongoing Problem: Pain Goal: Reduced pain sensation Outcome: Ongoing Goal: Able to cope with pain Outcome: Ongoing Problem: Transition Readiness Goal: Able to safely transition to next level of care Outcome: Ongoing Goal: Knowledge of care transition plan Outcome: Ongoing Goal: Knowledge of prescribed medications Outcome: Ongoing * Case Management - Jorge Ambrose RN - 12/25/2021 8:00 AM EDT Multidisciplinary Team Meeting Assessment/Plan of Care Reviewed Are there Case Management needs identified at this time? Yes - coordination of follow up appointments, outpatient therapies, and home going supplies. Representatives: Case Management: Jorge Ambrose RN and Cami Carmona RN Physician: Dr. Mathew Rehab Services: PT: Hanna Lopes OT: Griselda Dasilva SENIOR QUALITY ANALYST: Walter Guthrie, Psych: Evita Will, Rehab Coordinator: Alycia Wallace Physician Financial Sales Advisor: Emily Corcoran [phone]; Faxed over most recent PT, OT, Physiatry and Speech notes to [place] for insurance review withrequest for additional inpatient rehabilitation days. Awaiting response. * Plan of Care - Piyush Stoner RN - 12/25/2021 5:52 AM EDT Problem: Activity Intolerance Goal: Improved activity tolerance Outcome: Ongoing Goal: Able to perform prescribed physical activity Outcome: Ongoing Problem: Coping - Ineffective, Individual Goal: Effective coping Outcome: Ongoing Goal: Participation in desired activities Outcome: Ongoing Problem: Mobility - Impaired Goal: Able to ambulate independently Outcome: Ongoing Goal: Able to ambulate with assistance Outcome: Ongoing Problem: Pain Goal: Reduced pain sensation Outcome: Ongoing Goal: Able to cope with pain Outcome: Ongoing Problem: Transition Readiness Goal: Able to safely transition to next level of care Outcome: Ongoing Goal: Knowledge of care transition plan Outcome: Ongoing Goal: Knowledge of prescribed medications Outcome: Ongoing * Ancillary Progress Note - Tala León LPC - 12/24/2021 4:34 PM EDT 12/24/21 1634 Individual Session Time Spent 45 minutes Type of Expressive Therapy Art Reason for Referral Not specified Session Occurred In Patient's Room Patient Response to Session Accepted Session Individuals Attending Session Patient Who participated Patient Observed Mental Status Before Start of Session Appropriate Observed Mental Status During Session Appropriate Behavior During Session Cooperative;Engaged Interventions/Goals Addressed Psycho-Emotional Support;Stress Management;Relaxation Training Outcome Will continue to offer expressive therapy Late Entry. Narrative: Art therapist entered room and found patient to be awake and alert, sitting up in bed, displaying euthymic affect; mom at bedside. Mom stepped out to allow time and space for patient to engage in session. Patient endorsed generalized anxiety in her daily life and stated that her current trauma experience has heightened her anxiety. Patient receptive to calming and mindfulness art interventions, therefore art therapist introduced use of alcohol ink. Patient used alcohol ink on photo paper to drip, blow and tilt to make several different abstract designs. Patient verbalized feeling more calm and relaxed during active art intervention. Patient spoke about her support system and relationships in herlife. Art therapist provided active and reflective listening, validation and support. Patient verbalized she does have an outpatient counselor to work on her mood and anxiety. Patient receptive to further follow up from art therapy during hospitalization. Plan: Art therapy will continue to follow and provide opportunities for active art engagement to assist with mood regulation. Tala León, LIBRADO-SHAKIRA, GYNECOLOGICAL ASSISTANT, CCTP Board Certified Art Therapist and Licensed Professional Counselor [facility] [place] Hours of Operation: M-F 8a-4:30p Office phone: [phone] * Ancillary Progress Note - Maryellen Yuan COTA - 12/24/2021 4:13 PM EDT Occupational Therapy Inpatient Rehab Daily Note Patient Name:Manjinder Winter : 2005 Date of Service: 12/24/2021 Start: 1302 Stop: 1400 Time Spent: 60 minutes Precautions/Restrictions: none Equipment Needs: FWW and shower chair Basic Functional Status: Functional Mobility: SBA - CGA with FWW Diet: no dietary restrictions Communication: verbal Subjective: Manjinder Winter completed PM OT session the gym. Objective: Therapeutic Interventions: Patient ambulated with FWW with gait belt from room to gym Sit <> stand throughout session with Supervision. Transferred from standing to seated at arm bike with CGA. Completed arm bike x10 min on level 1.3 Standing ax x10-15 min with patient using B UE. Patient then sat for a rest break and said her legsfeel like they are on fire after standing. Caregiver/Patient education: None provided, no family present Goals: Date Met: Progress Towards Goals: Alivea will complete toilet and tub transfers I'ly. Ongoing Alivea will complete bathing routine with SBA. Ongoing Alivea will complete LB dressing with SBA. Ongoing Alivea will complete meal prep activity with appropriate endurance with SBA. Ongoing Alivea will complete up to 60 minutes of standing activities with appropriate endurance and no morethan 2 brief rest breaks in preparation for return to employment. Ongoing Alivea and caregivers will be educated in HEP and verbalize understanding. Ongoing Assessment: Felicea demonstrated improved strength, endurance and motivation throughout session. Pain: No pain reported. Family & Patient Goals & Preferences: Discharge Training & Education: Training Item (ie. Bath transfer) to be completed before discharge Full Name of Caregiver Completing training Date Completed Caregiver would benefit from continued training/education for this item (Y/N) Plan: Manjinder will be seen QD/BID 5-6x per week over the next 3 weeks while in the inpatient rehab program. Maryellen BOOKER/Brennan Occupational Therapy VAMSHI Golden, OTR/L Occupational Therapist * Ancillary Progress Note - Hanna Whitney PT - 12/24/2021 2:59 PM EDT Physical Therapy Inpatient Rehab Daily Note Patient Name: Manjinder Winter : 2005 Date of Service: 12/24/2021 Start: 1400 Stop: 1455 Time Spent: 55 minutes Precautions/Restrictions: none Recommendations: Communication method: Transfers: SBA Dietary Restrictions: Subjective: Patient present to therapy without family. Patient seen in rehab department. Parent/caregiver goals/concerns: Return to baseline Objective: Ambulation: SBA during session outside without walker; ambulated across grass outside CGA Several bursts of ambulation outside of > 300-400' bursts including inclines, declines and uneven surfaces Stairs: ascend 1 flight of stairs without handrail CGA but could have been SBA Elliptical x 3 minutes Goals: Goal Date Met: Progress Towards Goal: Manjinder Winter will perform bed mobility and transfers independently Ongoing Manjinder Winter will ambulate 150 ' with least restrictive device SBA Ongoing Manjinder Winter will ascend/descend 1 flight of stairs for home going. Ongoing Manjinder Winter will demonstrate good sitting and standing balance Ongoing Manjinder Winter will demonstrate at least 4/5 MMT in all LE's muscles Ongoing Manjinder Winter caregivers will be educated in HEP Ongoing Education: Transfers: Ambulation: Equipment: HEP: Other: Pain: 0/10 via numerical scale Assessment: Manjinder tolerated session very well. Improvement made in ambulation this date independently. Plan: Manjinder will be seen 1-2x/day M-F and 1x/day on Sat. Hanna Whitney PT * Ancillary Progress Note - Hanna Whitney PT - 12/24/2021 10:31 AM EDT Physical Therapy Inpatient Rehab Daily Note Patient Name: Manjinder Winter : 2005 Date of Service: 12/24/2021 Start: 0905 Stop: 1000 Time Spent: 55 minutes Precautions/Restrictions: none Recommendations: Communication method: Transfers: SBA Dietary Restrictions: Subjective: Patient present to therapy without family. Patient seen in rehab department. Parent/caregiver goals/concerns: Return to baseline Objective: Side stepping and forward tandem walking on line with CGA at gait belt Stairs: ascend/descend 4 stairs x 2 reps with handrail reciprocally with CGA at gait belt 10 step step ups x 10 CGA Standing squats to floor to retrieve dog treats several reps CGA Backwards walking down ramp with CGA, 1 episode of unsteadiness but self corrected her balance Ambulation throughout session with CGA or 1 BLAST FURNACE KEEPER HELPER (no assistance given through BLAST FURNACE KEEPER HELPER) Inconsistent gait pattern: slightly crouched, corrected with verbal cues; pace increased in hallwaywith conversation and crouch pattern was inconsistent Ambulated 1 x 300', several short bursts in gym 50-100' throughout session during activities Goals: Goal Date Met: Progress Towards Goal: Manjinder Winter will perform bed mobility and transfers independently Ongoing Manjinder Winter will ambulate 150 ' with least restrictive device SBA Ongoing Manjinder Winter will ascend/descend 1 flight of stairs for home going. Ongoing Manjinder Winter will demonstrate good sitting and standing balance Ongoing Manjinder Winter will demonstrate at least 4/5 MMT in all LE's muscles Ongoing Manjinder Winter caregivers will be educated in HEP Ongoing Education: Transfers: Ambulation: Equipment: HEP: Other: Pain: 0/10 via numerical scale Assessment: Manjinder tolerated session very well. Inconsistencies still present in gait pattern that improves with further walking but continues to improve each session. CGA provided with all activities but was not necessarily needed as patient was safe with maintaining her balance. Plan: Manjinder will be seen 1-2x/day M-F and 1x/day on Sat. Hanna Whitney PT * Ancillary Progress Note - Allegra Sadler, OT - 12/24/2021 9:16 AM EDT Occupational Therapy Inpatient Rehab Daily Note Patient Name:Manjinder Winter : 2005 Date of Service: 12/24/2021 Start: 0800 Stop: 0900 Time Spent: 60 minutes Precautions/Restrictions: none Equipment Needs: FWW and shower chair Basic Functional Status: Functional Mobility: SBA - CGA with FWW Diet: no dietary restrictions Communication: verbal Subjective: Manjinder Winter completed AM OT session in her room, cafeteria, and finished in the finished session in the rehab department on the 2nd floor. Objective: Therapeutic Interventions: Sit <> stand throughout session with min A - CGA. Manjinder completed1 sit <> stand with SBA. Donning bilateral socks while seated EOB using figure 4 techniques, independently completed R sock and required initial tactile cue for left side initiation into figure 4 position. Ambulation from bed to bathroom sink using FWW and SBA. ADLs (brushing teeth, washing face, applying deodorant) while standing at the sink with SBA. Good standing standing balance throughout without holding onto FWW. Transfer on and off toilet with CGA. Completed toileting tasks with SBA.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 no family present Goals: Date Met: Progress Towards Goals: Manjinder will complete toilet and tub transfers I'ly. Ongoing Manjinder will complete bathing routine with SBA. Ongoing Manjinder will complete LB dressing with SBA. Ongoing Manjinder will complete meal prep activity with appropriate endurance with SBA. Ongoing Manjinder will complete up to 60 minutes of standing activities with appropriate endurance and no morethan 2 brief rest breaks in preparation for return to employment. Ongoing Manjinder and caregivers will be educated in HEP and verbalize understanding. Ongoing Assessment: Manjinder demonstrated functional strength and endurance throughout session. She was motivated throughout. Pain: No pain reported. Family & Patient Goals & Preferences: Discharge Training & Education: Training Item (ie. Bath transfer) to be completed before discharge Full Name of Caregiver Completing training Date Completed Caregiver would benefit from continued training/education for this item (Y/N) Plan: Manjinder will be seen QD/BID 5-6x per week over the next 3 weeks while in the inpatient rehab program. VAMSHI Rangel, OTR/L Occupational Therapist [facility]10-07-2022 Progress note* Ancillary Progress Note - Beena Medina, PT - 12/25/2021 4:11 PM EDT Physical Therapy Inpatient Rehab Daily Note Patient Name: Manjinder Winter : 2005 Date of Service: 12/25/2021 Start: 1404 Stop: 1447 Time Spent: 43 minutes Precautions/Restrictions: none Recommendations: Communication method: Transfers: SBA Dietary Restrictions: Subjective: Patient present to therapy without family. Patient seen in rehab department. Parent/caregiver goals/concerns: Return to baseline Objective: 2# lower extremity exercises: prone: hamstring curls 2x10, hip IR/ER 2x10, hip extension with knee bent x10. Sidelying: clamshells x10, hip abduction x10 Ambulation: throughout session with SBA, occasionally CGA when fatigued; encouragement for relaxed gait and increased arm swing; stopping with turns with CGA for safety; >700 ft, with 1 seated and1 standing rest break due to fatigue Stairs: ascend 2 flights of stairs reciprocally without handrails supervision assist; descend 2 flights of steeper stairs with use of handrail and SBA Agility ladder with CGA for safety: High knees with encouragement for increased speed, x4 lengths of ladder Large steps with continuous movement x2 ladder lengths Jumping forward alternating wide and narrow JANEY x2 ladder lengths Goals: Goal Date Met: Progress Towards Goal: Manjinder Winter will perform bed mobility and transfers independently 12/25/21 Manjinder Winter will ambulate 150 ' with least restrictive device SBA 12/25/21 Manjinder Winter will ascend/descend 1 flight of stairs for home going. 12/25/21 Manjinder Winter will demonstrate good sitting and standing balance 12/25/21 Manjinder Winter will demonstrate at least 4/5 MMT in all LE's muscles Ongoing Manjinder Winter caregivers will be educated in HEP Ongoing Education: Transfers: Ambulation: Equipment: HEP: Other: Pain: 0/10 via numerical scale Assessment: Manjinder tolerated session very well. Gait pattern and distance with endurance continues to improve with some initial inconsistencies but improves her fluidity of stepping and her salima with further distances. Patient able to complete higher level balance and coordination activities with CGA. Patient in room in care of mother at end of session. Patient reporting fatigue at end of session. Plan: Manjinder will be seen 1-2x/day M-F and 1x/day on Sat. Beena Medina, PT, DPT [id number] Progress note* Ancillary Progress Note - Griselda Dasilva, OT - 12/25/2021 3:55 PM EDT Occupational Therapy Inpatient Rehab Daily Note Patient Name:Manjinder Winter : 2005 Date of Service: 12/25/2021 Start: 1305 Stop: 1400 Time Spent: 55 minutes Precautions/Restrictions: none Equipment Needs: FWW and shower chair Basic Functional Status: Functional Mobility: SBA - CGA with FWW Diet: no dietary restrictions Communication: verbal Subjective: Manjinder Winter completed PM OT session patient room and in rehab department. . Objective: Therapeutic Interventions: Bathing: Manjinder completed bathing in her room. Shower transfer close SBAto step over and seated on shower chair. Completed bathing seated with distant supervision. UB and LB dressing: Close SBA in standing. Manjinder demonstrating good dynamic balance while threading pants. Donned socks independently in seated with figure 4. Patient ambulated without FWW with gait [facility] and then to gym with close SBA and no rest breaks Sit <> stand throughout session with Supervision. Standing ax x10-15 min with patient using B UE with supervision, no loss of balance noted. Dynamic balance activities without loss of balance. Completed squats and marching during [employer] game. Caregiver/Patient education: None provided, no family present Goals: Date Met: Progress Towards Goals: Manjinder will complete toilet and tub transfers I'ly. Ongoing Alivea will complete bathing routine with SBA. Ongoing Alivea will complete LB dressing with SBA. Ongoing Alivea will complete meal prep activity with appropriate endurance with SBA. Ongoing Alivea will complete up to 60 minutes of standing activities with appropriate endurance and no morethan 2 brief rest breaks in preparation for return to employment. Ongoing Alivea and caregivers will be educated in HEP and verbalize understanding. Ongoing Assessment: Manjinder demonstrated improved strength, endurance and motivation throughout session. Pain: No pain reported. Family & Patient Goals & Preferences: Discharge Training & Education: Training Item (ie. Bath transfer) to be completed before discharge Full Name of Caregiver Completing training Date Completed Caregiver would benefit from continued training/education for this item (Y/N) Plan: Manjinder will be seen QD/BID 5-6x per week over the next 3 weeks while in the inpatient rehab program. STEFFANY Curiel, OTR/L Occupational Therapist [facility]10-07-2022 Progress note* Ancillary Progress Note - Hanna Whitney, PT - 12/25/2021 3:07 PM EDT Physical Therapy Inpatient Rehab Daily Note Patient Name: Manjinder Winter : 2005 Date of Service: 12/25/2021 Start: 1100 Stop: 1150 Time Spent: 50 minutes Precautions/Restrictions: none Recommendations: Communication method: Transfers: SBA Dietary Restrictions: Subjective: Patient present to therapy without family. Patient seen in rehab department. Parent/caregiver goals/concerns: Return to baseline Objective: Standing squats x 10 2# lower extremity exercises: standing SLR, hip abduction, hip extension x 10, CGA Ambulation: throughout session with SBA Stairs: ascend/descend 1 flight of stairs reciprocally without handrails supervision assist Standing wobble board, CGA Laterally: weight shifts/statically Anterior/posterior: weight shifts/statically Squats to place dog treats, dynamic weight shifts to knock treats off Tall kneeling on wobble board: short sit <> tall kneel x 10; weight shifts, throwing dog treats Goals: Goal Date Met: Progress Towards Goal: Manjinder Winter will perform bed mobility and transfers independently 12/25/21 Manjinder Winter will ambulate 150 ' with least restrictive device SBA 12/25/21 Manjinder Winter will ascend/descend 1 flight of stairs for home going. 12/25/21 Manjinder Winter will demonstrate good sitting and standing balance 12/25/21 Manjinder Winter will demonstrate at least 4/5 MMT in all LE's muscles Ongoing Manjinder Winter caregivers will be educated in HEP Ongoing Education: Transfers: Ambulation: Equipment: HEP: Other: Pain: 0/10 via numerical scale Assessment: Manjinder tolerated session very well. Gait pattern continues to improve with some initialinconsistencies but improves her fluidity of stepping and her salima with further distances. Plan: Manjinder will be seen 1-2x/day M-F and 1x/day on Sat. Hanna Whitney PT [facility] [id number] Progress note* Ancillary Progress Note - Griselda Dasilva, OT - 12/25/2021 12:54 PM EDT Occupational Therapy Inpatient Rehab Daily Note Patient Name:Manjinder Winter : 2005 Date of Service: 12/25/2021 Start: 1000 Stop: 1100 Time Spent: 60 minutes Precautions/Restrictions: none Equipment Needs: FWW and shower chair Basic Functional Status: Functional Mobility: SBA - CGA with FWW Diet: no dietary restrictions Communication: verbal Subjective: Manjinder Winter completed AM OT session patient room and in rehab department. . Objective: Therapeutic Interventions: Grooming: Functional mobility in room with close SBA. Standing at sink with supervision for morning grooming. Toileting: toilet transfer with supervision, toileting SBA. Patient ambulated with FWW with gait belt from room to gym with CGA, but could have been SBA Walking throughout rehab space without FWW, gaitbelt and SBA to CGA when turning quickly. Sit <> stand throughout session with Supervision. LB dressing: Manjinder reported difficulty completing LB dressing due to difficulty achieving figure 4with LLE. Completed blocked practice of simulated skill with theraband. Manjinder able to thread BLE in seated with bilateral figure 4 position and stand to pull up over hips x5 with supervision. BUE therex in standing with theraband including bicep curls, chest openers, int/ex rotation of shoulders 15 reps x 1. Standing ax x10-15 min with patient using B UE with supervision, no loss of balance noted. Dynamic balance activities without loss of balance. Caregiver/Patient education: None provided, no family present Goals: Date Met: Progress Towards Goals: Alivea will complete toilet and tub transfers I'ly. Ongoing Alivea will complete bathing routine with SBA. Ongoing Alivea will complete LB dressing with SBA. Ongoing Alivea will complete meal prep activity with appropriate endurance with SBA. Ongoing Alivea will complete up to 60 minutes of standing activities with appropriate endurance and no morethan 2 brief rest breaks in preparation for return to employment. Ongoing Alivea and caregivers will be educated in HEP and verbalize understanding. Ongoing Assessment: Alivea demonstrated improved strength, endurance and motivation throughout session. Pain: No pain reported. Family & Patient Goals & Preferences: Discharge Training & Education: Training Item (ie. Bath transfer) to be completed before discharge Full Name of Caregiver Completing training Date Completed Caregiver would benefit from continued training/education for this item (Y/N) Plan: Felicea will be seen QD/BID 5-6x per week over the next 3 weeks while in the inpatient rehab program. STEFFANY Curiel, OTR/L Occupational Therapist [facility]10-07-2022 Plan of care note* Plan of Care - Alvaro Parra RN - 12/25/2021 12:50 PM EDT Problem: Falls, Risk of Goal: Absence of falls Outcome: Ongoing Goal: Absence of physical injury Outcome: Ongoing Problem: Activity Intolerance Goal: Improved activity tolerance Outcome: Ongoing Goal: Able to perform prescribed physical activity Outcome: Ongoing Problem: Coping - Ineffective, Individual Goal: Effective coping Outcome: Ongoing Goal: Participation in desired activities Outcome: Ongoing Problem: Mobility - Impaired Goal: Able to ambulate independently Outcome: Ongoing Goal: Able to ambulate with assistance Outcome: Ongoing Problem: Pain Goal: Reduced pain sensation Outcome: Ongoing Goal: Able to cope with pain Outcome: Ongoing Problem: Transition Readiness Goal: Able to safely transition to next level of care Outcome: Ongoing Goal: Knowledge of care transition plan Outcome: Ongoing Goal: Knowledge of prescribed medications Outcome: Ongoing [facility]10-07-2022 Progress note* Case Management - Jorge Ambrose RN - 12/25/2021 8:00 AM EDT Multidisciplinary Team Meeting Assessment/Plan of Care Reviewed Are there Case Management needs identified at this time? Yes - coordination of follow up appointments, outpatient therapies, and home going supplies. Representatives: Case Management: Jorge Ambrose RN and Cami Carmona RN Physician: Dr. Mathew Rehab Services: PT: Meena Welsh, Hanna Whitney OT: Griselda Dasilva SENIOR QUALITY ANALYST: Walter Guthrie, Psych: Evita Will, Rehab Coordinator: Alycia Wallace Physician Financial Sales Advisor: Emily Corcoran [phone]; Faxed over most recent PT, OT, Physiatry and Speech notes to [place] for insurance review withrequest for additional inpatient rehabilitation days. Awaiting response. [facility]10-07-2022 Plan of care note* Plan of Care - Piyush Stoner RN - 12/25/2021 5:52 AM EDT Problem: Activity Intolerance Goal: Improved activity tolerance Outcome: Ongoing Goal: Able to perform prescribed physical activity Outcome: Ongoing Problem: Coping - Ineffective, Individual Goal: Effective coping Outcome: Ongoing Goal: Participation in desired activities Outcome: Ongoing Problem: Mobility - Impaired Goal: Able to ambulate independently Outcome: Ongoing Goal: Able to ambulate with assistance Outcome: Ongoing Problem: Pain Goal: Reduced pain sensation Outcome: Ongoing Goal: Able to cope with pain Outcome: Ongoing Problem: Transition Readiness Goal: Able to safely transition to next level of care Outcome: Ongoing Goal: Knowledge of care transition plan Outcome: Ongoing Goal: Knowledge of prescribed medications Outcome: Ongoing [facility]10-06-2022 Progress note* Ancillary Progress Note - Tala León LPC - 12/24/2021 4:34 PM EDT 12/24/21 1634 Individual Session Time Spent 45 minutes Type of Expressive Therapy Art Reason for Referral Not specified Session Occurred In Patient's Room Patient Response to Session Accepted Session Individuals Attending Session Patient Who participated Patient Observed Mental Status Before Start of Session Appropriate Observed Mental Status During Session Appropriate Behavior During Session Cooperative;Engaged Interventions/Goals Addressed Psycho-Emotional Support;Stress Management;Relaxation Training Outcome Will continue to offer expressive therapy Late Entry. Narrative: Art therapist entered room and found patient to be awake and alert, sitting up in bed, displaying euthymic affect; mom at bedside. Mom stepped out to allow time and space for patient to engage in session. Patient endorsed generalized anxiety in her daily life and stated that her current trauma experience has heightened her anxiety. Patient receptive to calming and mindfulness art interventions, therefore art therapist introduced use of alcohol ink. Patient used alcohol ink on photo paper to drip, blow and tilt to make several different abstract designs. Patient verbalized feeling more calm and relaxed during active art intervention. Patient spoke about her support system and relationships in herlife. Art therapist provided active and reflective listening, validation and support. Patient verbalized she does have an outpatient counselor to work on her mood and anxiety. Patient receptive to further follow up from art therapy during hospitalization. Plan: Art therapy will continue to follow and provide opportunities for active art engagement to assist with mood regulation. Tala León, ATR-BC, GYNECOLOGICAL ASSISTANT, CCTP Board Certified Art Therapist and Licensed Professional Counselor [facility]ondoR[facility] [place] Hours of Operation: M-F 8a-4:30p Office phone: [phone] [facility]10-06-2022 Progress note* Ancillary Progress Note - Maryellen Yuan COTA - 12/24/2021 4:13 PM EDT Occupational Therapy Inpatient Rehab Daily Note Patient Name:Manjinder Winter : 2005 Date of Service: 12/24/2021 Start: 1302 Stop: 1400 Time Spent: 60 minutes Precautions/Restrictions: none Equipment Needs: FWW and shower chair Basic Functional Status: Functional Mobility: SBA - CGA with FWW Diet: no dietary restrictions Communication: verbal Subjective: Manjinder Winter completed PM OT session the gym. Objective: Therapeutic Interventions: Patient ambulated with FWW with gait belt from room to gym Sit <> stand throughout session with Supervision. Transferred from standing to seated at arm bike with CGA. Completed arm bike x10 min on level 1.3 Standing ax x10-15 min with patient using B UE. Patient then sat for a rest break and said her legsfeel like they are on fire after standing. Caregiver/Patient education: None provided, no family present Goals: Date Met: Progress Towards Goals: Manjinder will complete toilet and tub transfers I'ly. Ongoing Alivea will complete bathing routine with SBA. Ongoing Alivea will complete LB dressing with SBA. Ongoing Alivea will complete meal prep activity with appropriate endurance with SBA. Ongoing Alivea will complete up to 60 minutes of standing activities with appropriate endurance and no morethan 2 brief rest breaks in preparation for return to employment. Ongoing Alivea and caregivers will be educated in HEP and verbalize understanding. Ongoing Assessment: Manjinder demonstrated improved strength, endurance and motivation throughout session. Pain: No pain reported. Family & Patient Goals & Preferences: Discharge Training & Education: Training Item (ie. Bath transfer) to be completed before discharge Full Name of Caregiver Completing training Date Completed Caregiver would benefit from continued training/education for this item (Y/N) Plan: Manjinder will be seen QD/BID 5-6x per week over the next 3 weeks while in the inpatient rehab program. Maryellen BOOKER/Brennan Occupational Therapy VAMSHI Golden, OTWilliam/Brennan Occupational Therapist [facility] [id number] Progress note* Ancillary Progress Note - Hanna Whitney, PT - 12/24/2021 2:59 PM EDT Physical Therapy Inpatient Rehab Daily Note Patient Name: Manjinder Winter : 2005 Date of Service: 12/24/2021 Start: 1400 Stop: 1455 Time Spent: 55 minutes Precautions/Restrictions: none Recommendations: Communication method: Transfers: SBA Dietary Restrictions: Subjective: Patient present to therapy without family. Patient seen in rehab department. Parent/caregiver goals/concerns: Return to baseline Objective: Ambulation: SBA during session outside without walker; ambulated across grass outside CGA Several bursts of ambulation outside of > 300-400' bursts including inclines, declines and uneven surfaces Stairs: ascend 1 flight of stairs without handrail CGA but could have been SBA Elliptical x 3 minutes Goals: Goal Date Met: Progress Towards Goal: Manjinder Winter will perform bed mobility and transfers independently Ongoing Manjinder Winter will ambulate 150 ' with least restrictive device SBA Ongoing Manjinder Winter will ascend/descend 1 flight of stairs for home going. Ongoing Manjinder Winter will demonstrate good sitting and standing balance Ongoing Manjinder Winter will demonstrate at least 4/5 MMT in all LE's muscles Ongoing Manjinder Winter caregivers will be educated in HEP Ongoing Education: Transfers: Ambulation: Equipment: HEP: Other: Pain: 0/10 via numerical scale Assessment: Manjinder tolerated session very well. Improvement made in ambulation this date independently. Plan: Manjinder will be seen 1-2x/day M-F and 1x/day on Sat. Hanna Whitney PT [facility]10-06-2022 Progress note* Ancillary Progress Note - Hanna Whitney PT - 12/24/2021 10:31 AM EDT Physical Therapy Inpatient Rehab Daily Note Patient Name: Manjinder Winter : 2005 Date of Service: 12/24/2021 Start: 0905 Stop: 1000 Time Spent: 55 minutes Precautions/Restrictions: none Recommendations: Communication method: Transfers: SBA Dietary Restrictions: Subjective: Patient present to therapy without family. Patient seen in rehab department. Parent/caregiver goals/concerns: Return to baseline Objective: Side stepping and forward tandem walking on line with CGA at gait belt Stairs: ascend/descend 4 stairs x 2 reps with handrail reciprocally with CGA at gait belt 10 step step ups x 10 CGA Standing squats to floor to retrieve dog treats several reps CGA Backwards walking down ramp with CGA, 1 episode of unsteadiness but self corrected her balance Ambulation throughout session with CGA or 1 BLAST FURNACE KEEPER HELPER (no assistance given through BLAST FURNACE KEEPER HELPER) Inconsistent gait pattern: slightly crouched, corrected with verbal cues; pace increased in hallwaywith conversation and crouch pattern was inconsistent Ambulated 1 x 300', several short bursts in gym 50-100' throughout session during activities Goals: Goal Date Met: Progress Towards Goal: Manjinder Winter will perform bed mobility and transfers independently Ongoing Manjinder Winter will ambulate 150 ' with least restrictive device SBA Ongoing Manjinder Winter will ascend/descend 1 flight of stairs for home going. Ongoing Manjinder Winter will demonstrate good sitting and standing balance Ongoing Manjinder Winter will demonstrate at least 4/5 MMT in all LE's muscles Ongoing Manjinder Winter caregivers will be educated in HEP Ongoing Education: Transfers: Ambulation: Equipment: HEP: Other: Pain: 0/10 via numerical scale Assessment: Manjinder tolerated session very well. Inconsistencies still present in gait pattern that improves with further walking but continues to improve each session. CGA provided with all activities but was not necessarily needed as patient was safe with maintaining her balance. Plan: Manjinder will be seen 1-2x/day M-F and 1x/day on Sat. Hanna Whitney PT [facility]10-06-2022 Progress note* Ancillary Progress Note - Allegra Sadler, OT - 12/24/2021 9:16 AM EDT Occupational Therapy Inpatient Rehab Daily Note Patient Name:Manjinder Winter : 2005 Date of Service: 12/24/2021 Start: 0800 Stop: 0900 Time Spent: 60 minutes Precautions/Restrictions: none Equipment Needs: FWW and shower chair Basic Functional Status: Functional Mobility: SBA - CGA with FWW Diet: no dietary restrictions Communication: verbal Subjective: Manjinder Winter completed AM OT session in her room, cafeteria, and finished in the finished session in the rehab department on the 2nd floor. Objective: Therapeutic Interventions: Sit <> stand throughout session with min A - CGA. Manjinder completed1 sit <> stand with SBA. Donning bilateral socks while seated EOB using figure 4 techniques, independently completed R sock and required initial tactile cue for left side initiation into figure 4 position. Ambulation from bed to bathroom sink using FWW and SBA. ADLs (brushing teeth, washing face, applying deodorant) while standing at the sink with SBA. Good standing standing balance throughout without holding onto FWW. Transfer on and off toilet with CGA. Completed toileting tasks with SBA. Transported down to cafeteria in wheelchair. Ambulation 1 loop around cafeteria using FWW and CGA. Ambulation down to rehab department in wheelchair. Ambulation from hallway to EOM in rehab gym using FWW with SBA. Completed various UE strengthening exercises with 2000g weighted ball and 3 lb dumbbell for 10 repetitions 3 times. Ambulation from rehab gym to other rehab gym with FWW and with SBA with improved hip and knee flexion of L and R observed. Caregiver/Patient education: None provided, no family present Goals: Date Met: Progress Towards Goals: Alivea will complete toilet and tub transfers I'ly. Ongoing Alivea will complete bathing routine with SBA. Ongoing Alivea will complete LB dressing with SBA. Ongoing Alivea will complete meal prep activity with appropriate endurance with SBA. Ongoing Alivea will complete up to 60 minutes of standing activities with appropriate endurance and no morethan 2 brief rest breaks in preparation for return to employment. Ongoing Alivea and caregivers will be educated in HEP and verbalize understanding. Ongoing Assessment: Alivea demonstrated improved strength, endurance and motivation throughout session. Shedemonstrated slight inconsistent LE function throughout session, however overall improved function of LE. Pain: No pain reported. Alivea did report some popping in LUE while completing UE strengthening activities and stretching. Family & Patient Goals & Preferences: Discharge Training & Education: Training Item (ie. Bath transfer) to be completed before discharge Full Name of Caregiver Completing training Date Completed Caregiver would benefit from continued training/education for this item (Y/N) Plan: Alivea will be seen QD/BID 5-6x per week over the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
[2025-02-16 13:32] VITALS: PULSE 103; O2SAT 99
[2025-02-16 13:33] VITALS: BP 127/77; PULSE 86
[2025-02-16 13:40] VITALS: BMI 27.7
[2025-02-16 13:56] LABS: Mucous, Urine 0 SEEN /hpf (<or=2+)
[2025-02-16] MEDS: Lactated Ringers 1,000 ML 999 ML IV ×2 (13:58→15:02)
[2025-02-16 14:07] LABS: Color, Urine Yellow (Yellow); Glucose, Dipstick 250 mg/dl (Normal); Ketone-Dipstick 50 mg/dl (Negative); Leukocyte Esterase-Dipstick 500 /ul (Negative); Nitrite-Dipstick Negative (Negative); Occult Blood-Urine 10 /ul (Negative); Protein-Dipstick 30 mg/dl (Negative); Specific Gravity, Urine 1.020 (1.002-1.030); Urine Bilirubin Dipstick Negative (Negative)
[2025-02-16 14:15] LABS: Red Blood Cells-Urine 0-5 SEEN /hpf (0-5); Squamous Epithelial Cells - UA 5-10 SEEN /hpf (5-10)
--- NOTE | 2025-02-16 14:38 | OB.TRI.NOTE ---
HPI - General General Date of Admission: 02/15/25 Date of Service: 02/15/25 Chief Complaint: N/V HPI Narrative DANIELA DIEZ, is a 19 F who presents with flulike symptoms. Seen at urgent care and sent to the hospital for IV fluids. Positive for covid. Received 2 liters of fluid. Cat I. Closed cervix. Sent home with paxlovid Rx Maternal Data Information Final ANA MARIA: 03/22/25 Gestational age: 35+1 PFSH PFSH Medical History Substance abuse Bipolar disorder Anxiety Depression History of miscarriage Home Medications ?Medication ?Instructions ?Recorded ?Last Taken ?Type multivitamin (Daily Multi-Vitamin 1 tab PO DAILY 03/15/24 Unknown History tablet) nirmatrelvir 300 mg (150 mg See Rx Instructions PO .COMPLEX 02/16/25 Unknown Rx x2)-ritonavir 100 mg tablet,dose #30 tabs pack (Paxlovid) Allergy/AdvReac Type Severity Reaction Status Date / Time No Known Allergies Allergy Verified 02/16/25 13:28 Social History Smoking Status: Current every day smoker tobacco type: e-cigarettes substance use type: marijuana NST FHR Rate Baby A Baseline: 150 Variability:: Moderate Accelerations:: 15 x 15 Decelerations:: None NST Reactive:: Yes Assessment & Plan (1) COVID-19: (2) 35 weeks gestation of : PLAN: Plan Increase PO fluids Paxlovid
== END 2025-02-16 16:10 | disposition home or self-care (01) ==
LOC: WPOUT 13:22 → WP 13:23
PROVIDERS: Referring Provider Obstetrics & Gynecology; Visit Provider Obstetrics & Gynecology
DX: O98.513 Other viral diseases complicating pregnancy, third trimester (principal); O99.333 Smoking (tobacco) complicating pregnancy, third trimester; F17.290 Nicotine dependence, other tobacco product, uncomplicated; Z3A.35 35 weeks gestation of pregnancy; U07.1 COVID-19
CPT/HCPCS: 96374; 96361; 59025; 59050; 81001; 87086; 87088; 87502; 87811; 99221; G0378; J2405

== ENCOUNTER 2025-02-27 16:20 | Outpatient (CLI) | payer MEDICAID, SELFPAY ==
[2025-02-27 16:51] VITALS: BP 119/75; PULSE 100; O2SAT 96
[2025-02-27 16:52] VITALS: RESP 13; TEMP 36.6; O2SAT 98
[2025-02-27 17:08] VITALS: BMI 28.1
--- NOTE | 2025-02-27 17:24 | OB.TRI.NOTE ---
HPI - General HPI Narrative DANIELA DIEZ, is a 19 F who presents with cramping and loss of fluid. Maternal Data Information ANA MARIA Calculator Estimated Delivery Date Method Current WG Current Estimate 03/22/25 Manual 36w 5d PFSH PFS Medical History (Updated 02/27/25 @ 17:28 by Maribel Kaplan CNM) Substance abuse Bipolar disorder Anxiety Depression History of miscarriage Home Medications ?Medication ?Instructions ?Recorded ?Last Taken ?Type multivitamin (Daily Multi-Vitamin 1 tab PO DAILY 03/15/24 Unknown History tablet) nirmatrelvir 300 mg (150 mg See Rx Instructions PO .COMPLEX 02/16/25 Unknown Rx x2)-ritonavir 100 mg tablet,dose #30 tabs pack (Paxlovid) Allergy/AdvReac Type Severity Reaction Status Date / Time No Known Allergies Allergy Verified 02/16/25 13:28 Social History Smoking Status: Current every day smoker tobacco type: e-cigarettes substance use type: marijuana ROS Eyes Eyes: Denies blurry vision Cardiovascular Cardiovascular: Reports none; Denies chest pain at rest, chest pain with activity or dizziness Respiratory/Chest Respiratory/Chest: Denies cough or dyspnea Gastrointestinal Gastrointestinal: Reports none and other; Denies diarrhea or vomiting Genitourinary Genitourinary: Denies dysuria Musculoskeletal Musculoskeletal: Reports none Integumentary Integumentary: Reports none; Denies rash Neurologic Neurologic: Denies dizziness, headache(s) or other visual disturbances Psychiatric Psychiatric: Reports none Physical Exam Const alert and no apparent distress General Appearance: cooperative Orientation / Consciousness: awake Exam Limitations: no limitations HEENT normocephalic Eyes General Eye: normal appearance of both eyes Neck full ROM Chest inspection of chest normal Resp normal respiratory effort and normal air movement Effort and Inspection: symmetric chest movement Auscultation: clear to auscultation bilaterally Cardio regular rate GI soft to palpation, non-tender and non-distended Inspection: and other Back/Spine normal ROM Extremity full ROM, normal capillary refill and no calf tenderness Skin no rashes or lesions noted Neuro oriented x3 and CN's II-XII intact bilaterally Psych mental status grossly normal NST FHR Rate Baby A Baseline: 115-125 Variability:: Moderate Accelerations:: 15 x 15 Decelerations:: None NST Reactive:: Yes Uterine Activity:: Irregular Assessment & Plan (1) contractions: (2) Marijuana use: (3) Depression: (4) 36 weeks gestation of : (5) Anxiety: (6) Bipolar disorder: PLAN: Plan ROM plus- NEG CE unchanged- 1cm Option given to stay for extended monitoring and patient declines and wants to go home PTL precautions reviewed and when to call office
[2025-02-27 17:32] LABS: ROM Internal Control Test YES-OK TO RESULT pt. (Internal QC); ROM Patient Test Negative (Negative); Record Kit Lot#, ROM+ K3607
[2025-03-07 16:19] VITALS: RESP 16; TEMP 36.4
[2025-03-07 16:21] VITALS: BP 135/84; PULSE 83
== END 2025-02-27 18:55 | disposition home or self-care (01) ==
LOC: WPOUT 16:28 → WP 16:29
PROVIDERS: Referring Provider Advanced Practice Midwife; Visit Provider Advanced Practice Midwife
DX: O47.03 False labor before 37 completed weeks of gestation, third trimester (principal); F31.9 Bipolar disorder, unspecified; O99.333 Smoking (tobacco) complicating pregnancy, third trimester; F17.290 Nicotine dependence, other tobacco product, uncomplicated; Z3A.36 36 weeks gestation of pregnancy; O99.323 Drug use complicating pregnancy, third trimester; F12.99 Cannabis use, unspecified with unspecified cannabis-induced disorder; O99.343 Other mental disorders complicating pregnancy, third trimester; F41.9 Anxiety disorder, unspecified
CPT/HCPCS: 59025; 59050; 84112; 99221; G0378

== ENCOUNTER 2025-03-07 15:55 | Outpatient (CLI) | payer MEDICAID, SELFPAY ==
[2025-03-07 16:26] VITALS: BMI 27.6
--- NOTE | 2025-03-07 16:31 | OB.TRI.NOTE ---
HPI - General HPI Narrative DANIELA DIEZ, is a 19 F @ 37.6 weeks c/o right rib pain and contractions. denies CP, SOB, reports irregular ctx and no vaginal bleeding or LOF. Maternal Data Information ANA MARIA Calculator Estimated Delivery Date Method Current WG Current Estimate 03/22/25 Manual 37w 6d PFSH PFS Medical History (Updated 03/07/25 @ 16:[address] Ines Candelaria MD) Substance abuse Bipolar disorder Anxiety Depression History of miscarriage Home Medications ?Medication ?Instructions ?Recorded ?Last Taken ?Type multivitamin (Daily Multi-Vitamin 1 tab PO DAILY 03/15/24 03/06/25 21:00 History tablet) 1 TAB lamotrigine 25 mg tablet,extended 25 mg PO DAILY 03/07/25 03/07/25 08:00 History release 24 hr (Lamictal XR) 25 mg Allergy/AdvReac Type Severity Reaction Status Date / Time No Known Allergies Allergy Verified 03/07/25 16:26 Social History Smoking Status: Current every day smoker tobacco type: e-cigarettes substance use type: marijuana Physical Exam Narrative ABD: Soft, gravid, non tender to palaption. Const alert and oriented x3 NST FHR Rate Baby A Baseline: 130 Variability:: Moderate Decelerations:: None NST Reactive:: Yes FHR Category:: Category I Uterine Activity:: q2 min Assessment & Plan (1) 37 weeks gestation of : (2) Uterine contractions: (3) Rib pain: PLAN: Plan @ 37.6 weeks- with contractions and non acute rib pain 1) will monitor for labor- pt was 1-2cm on last cervical exam will monitor and repeat cervical exam in one hour- if unchanged will dc home 2) rib pain reviewed - no acute process - reassurance given
== END 2025-03-07 17:50 | disposition home or self-care (01) ==
LOC: WPOUT 16:03 → WP 16:03
PROVIDERS: Referring Provider Obstetrics & Gynecology; Visit Provider Obstetrics & Gynecology
DX: O47.1 False labor at or after 37 completed weeks of gestation (principal); F31.9 Bipolar disorder, unspecified; O99.891 Other specified diseases and conditions complicating pregnancy; O99.343 Other mental disorders complicating pregnancy, third trimester; R07.89 Other chest pain; F41.9 Anxiety disorder, unspecified; Z79.899 Other long term (current) drug therapy; Z3A.37 37 weeks gestation of pregnancy
CPT/HCPCS: 59025; 59050; 99221; G0378

== ENCOUNTER 2025-03-15 15:00 | Outpatient (CLI) | payer MEDICAID, SELFPAY ==
[2025-03-15] VITALS (23 sets, daily range): BP systolic 133; BP diastolic 87; PULSE 79–108; RESP 12; TEMP 36.8; O2SAT 93–100; BMI 28.7
--- OUTSIDE RECORDS SUMMARY | 2025-03-15 15:03 | XMS RPT_ITS | CCD ---
Author Organization [facility] ion Partnership [facility] Care Team Providers Care Top Flavor Attendant Name Role Phone Hi Wyatt MD Primary Care Provider PROVIDER, UNKNOWN Attending Unavailable PROVIDER, UNKNOWN Admitting Unavailable No supervisor char house, Md Primary Care Provider Corrie Hi Darnell [...] Dr. Hi Wyatt MD Primary Care Provider [phone] Dr. Chip Ring DO Emergency Provider Care Physician, No Primary Primary Care Provider Unavailable Dr. Rupert Guerra DO Emergency Provider Dr. Rupert Guerra DO Attending Provider Dr. Alvaro Carlton DO Referring Provider [phone] Dr. Alvaro Carlton DO Emergency Provider Care Physician, No Primary Primary Care Unava [...] Unavailable [place] Primary Care Unavailable MCT LU ZMARINA CONNORS Attending Unavail able [place], [place] Primary [...] rachna 100 mg 21 day ethinyl estradiol 0.449603 mg/hr / etonogestrel 0.005 mg/hr vaginal system [...] 10/27/2024 Start: 08-08-2024 take 1 capsule by [facility] twice daily Cephalexin 500 mg capsule Active [...] (ROXICODONE) tablet 5 mg polyethylene glycol 3350 76610 mg powder for oral solution (20 sources) Osmotic Laxative Start: 12-24-2021 End: 12-24-2021 polyethylene glycol (GLYCOLAX) packet 17 g Start: 12-22-2021 End: 12-23-2021 polyethylene glycol (GLYCOLA X) packet 17 g Start: 12-16-2021 End: 12-17-2021 polyethylene glycol (GLYCOLA X) packet 17 g Start: 07-22-2020 End: 07-04-2024 polyethylene glycol 3350 ([place] RALAX) 17 gram/dose powder Take 1 capful [...] 12-29-2021 pseudoephedrine (SUDAFED) tablet 60 mg sennosides, half-way 8.6 mg oral tablet (2 sources) Start: [...] of ; Translations: [30 weeks gestation of ([facility])] Onset: 01-15-2025 Episodic Residual codes; unclassified (1 source) 24 weeks gestation of ; Translations: [24 weeks gestation of ([facility])] Onset: 01-01-2025 Episodic Residual codes; unclassified (1 source) 28 weeks gestation of ; Translations: [28 weeks gestation of ([facility])] Onset: 01-01-2025 Episodic Residual codes; unclassified (1 source) 20 weeks gestation of ; Translations: [20 weeks gestation of ([facility])] Onset: 11-07-2024 Episodic Spondylosis; intervertebral disc disorders; [...] of ; Translations: [16 weeks gestation of ([facility])] Onset: 10-10-2024 Episodic Residual codes; unclassified (1 source) 12 weeks gestation of ; Translations: [12 weeks gestation of ([facility])] Onset: 09-12-2024 Episodic Residual codes; unclassified (1 source) Less than 8 weeks gestation of ; Translations: [6 weeks gestation of ([facility])] Onset: 09-12-2024 Episodic Screening and history of [...] Unsp challenge [Mass/Vol] 166 mg/dL Normal 74-179 [facility] Comment on above: Order Comment: Speci men Type: BLOOD SPECIMENOrdering Facility: [facility] Address: [address] [place] [address] Result Comment: [facility] Congress of Obstetricians and Gynecologists (Mehul/Leah) guidelines state gestational diabetes mellitus is present when 2 or more of the plasma glucose concentrations meet or exceed the following levels: fastin mg/dl, 1 hr: 180 mg/dl, 2 hr: 155 mg/dl, and 3 hr: 140 mg/dl. Performed By: #### G TGST1 ####[facility] [id number] [place] [address] [place] GLUCOSE GESTATIONAL, 2 HOURo n 01-07-2025 Glucose 2 Hr post Unsp challenge [Mass/Vol] 139 mg/dL Normal 74-154 [facility] Comment on above: Order Comment: Speci men Type: SWAB Ordering Facility: [facility] Address: [address] [place] [address] Result Comment: [facility] Congress of Obstetricians and Gynecologists (Carver/Leah) guidelines state gestational diabetes mellitus is present when 2 or more of the plasma glucose concentrations meet or exceed the following levels: fastin mg/dl, 1 hr: 180 mg/dl, 2 hr: 155 mg/dl, and 3 hr: 140 mg/dl. Performed By: #### B KINGSLEY CVTV #### [facility] CLIA [id number] [address] [place] [address] [place] GLUCOSE GESTATIONAL, 3 HOURo n 01-07-2025 Glucose 3 Hr post Unsp challenge [Mass/Vol] 112 mg/dL Normal 74-139 [facility] Comment on above: Order Comment: Speci men Type: BLOOD SPECIMENOrdering Facility: [facility] Address: [address] [place] [address] Result Comment: [facility] Congress of Obstetricians and Gynecologists (Carver/Leah) guidelines state gestational diabetes mellitus is present when 2 or more of the plasma glucose concentrations meet or exceed the following levels: fastin mg/dl, 1 hr: 180 mg/dl, 2 hr: 155 mg/dl, and 3 hr: 140 mg/dl. Performed By: #### G TGST3 ####[facility] [id number] [address] OF [facility] GLUCOSE GESTATIONAL, FASTING on 01-07-2025 Glucose post fast [Mass/Vol] 84 mg/dL Normal 74-94 [facility] Comment on above: Order Comment: Speci men Type: BLOOD SPECIMENOrdering Facility: [facility] Address: [facility] [place] [address] Result Comment: [facility] Congress of Obstetricians and Gynecologists (Mehul/Leah) guidelines state gestational diabetes mellitus is present when 2 or more of the plasma glucose concentrations meet or exceed the following levels: fastin mg/dl, 1 hr: 180 mg/dl, 2 hr: 155 mg/dl, and 3 hr: 140 mg/dl. Performed By: #### G TGSTF ####[facility] [id number] [address] CNPNon 01-04-2025 [facility] Telephone (OBGYWM) MANJINDER WINTER ([id number]) 3 F Date Time Provider Department 01/04/25 MARU ALEXANDER OBGYWM During your visit today, we recorded the following information about you: Kayleen Vizcaino RN 01/04/2025 3:38 PM Signed Maru Alexander MD to [facility] [employer] [facility] 01/01/25 6:18 PM Result Note Abnormal 1 hr. Needs 3hr gtt. Order entered. Maru Alexander MD GESTATIONAL GLUCOSE SCREEN, 1-HOUR, 50 GRAM, NON-FASTING ___ Kayleen Vizcaino RN 01/04/2025 3:38 PM Signed Maru Alexander MD to [facility] 01/01/25 6:19 PM Result Note labs are normal other than anemia. See my chart message. COMPLETE BLOOD COUNT; EXTRA TUBE ORTEGA Kayleen Vizcaino RN 01/04/2025 3:38 PM Signed Left message for patient to call office. VALERIE Vora Jennifer, RN 01/04/2025 3:44 PM Signed Patient notified of both abnormal 1 hour glucose and anemia. Reviewed [employer] messages sent by . Need a 3 [...] 3-HR, 100 GM, FASTING [[id number]] Order #: [id number] FUTURE Prescriptions as of 01/04/2025 - haloperidol [...] Status:Closed by KAYLEEN VIZCAINO on 01/04/25 Normal [facility] CBC panel Auto (Bld)on 01-01 Erythrocyte distribution width (RBC) [Ratio] 13.2 % Normal 11.5-15.0 [facility] Comment on above: Order Comment: Speci men Type: BLOOD SPECIMENOrdering Facility: [facility] Address: [address] [place] [address] Performed By: #### 5 8410-2 ####[facility] GISEL ISRAELDILCIA [id number] [place] [id number] [place] Hematocrit (Bld) [Volume fraction] 27.4 % Low 36.0-46.0 [facility] Comment on above: Order Comment: Speci men Type: BLOOD SPECIMENOrdering Facility: [facility] Address: [address] [place] [address] Performed By: #### 5 8410-2 ####[facility] ELIUDWESTPOINTDILCIA [id number] [place] [address] [place] Hemoglobin (Bld) [Mass/Vol] 9.6 g/dL Low 11.5-15.5 [facility] Comment on above: Order Comment: Speci men Type: BLOOD SPECIMENOrdering Facility: [facility] Address: [address] [place] [address] Performed By: #### 5 8410-2 ####[facility] [id number] [place] [address] [place] MCH (RBC) [Entitic mass] 29.6 pg Normal 26.0-34.0 [facility] Comment on above: Order Comment: Speci men Type: BLOOD SPECIMENOrdering Facility: [facility] Address: [address] [place] [address] Performed By: #### 5 8410-2 ####[facility] [id number] [address] [place] MCHC (RBC) [Mass/Vol] 35.0 g/dL Normal 30.5-36.0 [facility] Comment on above: Order Comment: Speci men Type: BLOOD SPECIMENOrdering Facility: [facility] Address: [address] [place] [address] Performed By: #### 5 8410-2 ####[facility] [id number] [place] [address] [place] MCV (RBC) [Entitic vol] 84.6 fL Normal 80.0-100.0 [facility] Comment on above: Order Comment: Speci men Type: BLOOD SPECIMENOrdering Facility: [facility] Address: [address] [place] [address] Performed By: #### 5 8410-2 ####[facility] MILLWNCLIA [id number] [place] [address] [place] Nucleated RBC (Bld) [#/Vol] 10*3/uL Normal <0.01 [facility] Comment on above: Order Comment: Speci men Type: BLOOD SPECIMENOrdering Facility: [facility] Address: [address] [place] [address] Performed By: #### 5 8410-2 ####[facility] [id number] [place] [address] [place] Platelet mean volume (Bld) [Entitic vol] 9.8 fL Normal 9.0-12.7 [facility] Comment on above: Order Comment: Speci men Type: BLOOD SPECIMENOrdering Facility: [facility] Address: [address] [place] [address] Performed By: #### 5 8410-2 ####[facility] [id number] [place] [address] [place] Platelets (Bld) [#/Vol] 242 10*3/uL Normal 150-400 [facility] Comment on above: Order Comment: Speci men Type: BLOOD SPECIMENOrdering Facility: [facility] Address: [address] [place] [address] Performed By: #### 5 8410-2 ####[facility] [id number] [place] [address] [place] RBC (Bld) [#/Vol] 3.24 10*6/uL Low 3.90-5.20 [facility] Comment on above: Order Comment: Speci men Type: BLOOD SPECIMENOrdering Facility: [facility] Address: [address] [place] [address] Performed By: #### 5 8410-2 ####[facility] [id number] [place] [address] [place] WBC (Bld) [#/Vol] 8.74 10*3/uL Normal 3.70-11.00 [facility] Comment on above: Order Comment: Speci men Type: BLOOD SPECIMENOrdering Facility: [facility] Address: [facility] [place] [address] Performed By: #### 5 8410-2 ####[facility] GISEL [facility]IT[facility]IA [id number] [place] [address] [place] CNPNon 01-01-2025 CNPN Telephone (OBGYWM) MANJINDER WINTER ([id number]) 3 F Date Time Provider Department 01/01/25 [...] Status:Closed by GIL MARTÍNEZ on 01/04/25 Normal [facility] Ferritin SerPl-mCncon 2024 Ferritin [Mass/Vol] 13.5 ng/mL Low 14.7-205.1 [facility] Comment on above: Order Comment: Speci men Type: BLOOD SPECIMENOrdering Facility: [facility] Address: [address] [place] [address] Performed By: #### 5 0190-8, 2276-4 ####[facility] LABCLIA [id number] [place] [address] [place] GESTATIONAL GLUCOSE SCREEN, 1-HOUR, 50 GRAM, NON-FASTINGon 01-01-2025 Glucose [Mass/Vol] 156 mg/dL High 74-134 [facility] Comment on above: Order Comment: Speci men Type: BLOOD SPECIMENOrdering Facility: [facility] Address: [address] [place] [address] Result Comment: [facility] Congress of Obstetricians and Gynecologists (Mehul/Leah) guidelines state a gestational diabetes mellitus positive screen is made, in women not previously diagnosed with overt diabetes, when the 1 hr plasma glucose level is equal to or above 140 mg/dL. [facility] Volumetric [facility] recommends a 135 mg/dL cutoff. Performed By: #### G LTGST ####[facility] [id number] [place] [address] [place] Iron and Iron binding capaci ty panelon 01-01-2025 Iron [Mass/Vol] 40 ug/dL Low 41-186 [facility] Comment on above: Order Comment: Speci men Type: BLOOD SPECIMENOrdering Facility: [facility] Address: [address] [place] [address] Performed By: #### 5 0190-8, 2275-4 ####[facility] LABCLIA [id number] [place] [address] [place] Iron binding capacity [Mass/Vol] 524 ug/dL High 232-386 [facility] Comment on above: Order Comment: Speci men Type: BLOOD SPECIMENOrdering Facility: [facility] Address: [address] [place] [address] Performed By: #### 5 0190-8, 2275-4 ####[facility] LABCLIA [id number] [place] [address] [place] Iron/TIBC [Molar ratio] 7.6 % Low 15.0-57.0 [facility] Comment on above: Order Comment: Speci men Type: BLOOD SPECIMENOrdering Facility: [facility] Address: [address] [place] [address] Performed By: #### 5 0190-8, 2276-4 ####[facility] LABCLIA [id number] [place] [address] [place] Reagin and Treponema pallidu m IgG and IgM [Interp]on 01-01-2025 T. pallidum IgG+IgM IA Ql (S) Non-Reactive Normal Nonreactive [facility] Comment on above: Order Comment: Speci men Type: BLOOD SPECIMENOrdering Facility: [facility] Address: [address] [place] [address] Performed By: #### 7 3752-8 ####[facility] LABCLIA [id number] [place] [address] [place] Reagin+T pallidum IgG+IgM Se rPl-Impon 01-01-2025 Reagin and Treponema pallidum IgG and IgM [Interp] Cannot exclude recent Treponemal infection if specimen collected within 7-10 days after appearance of suspect lesions or 2-3 weeks after an exposure. Clinical correlation is required. Normal [facility] Comment on above: Order Comment: Speci men Type: BLOOD SPECIMENOrdering Facility: [facility] Address: [address] [place] [address] Performed By: #### 7 3752-8 ####[facility] LABCLIA [id number] [place] [address] [place] ED MED ADMINISTRATION DETAIL on 12-24-2024 ED MED ADMINISTRATION DETAIL Database Design Analyst - MANJINDER WINTER, : 2005, , Medication Administration Record [address] [address] [id number] 12/05/2024 Patient: MANJINDER WINTER Sex: Female : [...] 05:51 Maritza Mack R.N. 1 of 2 Database Design Analyst - MOY, FELICEHeather, : 2005, , Zofran [...] Rodriguez R.N. Scanned 2 of 2 Normal [facility] ED NURSES CLINICAL NOTEon ED NURSES CLINICAL NOTE Nurse Narrative - MANJINDER WINTER, : 2005, , Nurse Clinical Narrative [facility] [address] [place] [address] [id number] 12/05/2024 18:19:00 Patient: MANJINDER WINTER Sex: Female : 2005 Age: 19y Disposition: Transfer to [facility] Disposition Decision Time: 12:59 12/06/2024 Departure [...] 12-Lead EKG was ordered and performed by sc. -- 19:04 12/05/24 EDT Valorie Rodriguez R.N. [...] precautions. Ve (more content not included)... Normal [facility] ED ORDER SHEET (CPOE ONLY)on 12-24-2024 ED ORDER SHEET (CPOE ONLY) Order Sheet - MANJINDER WINTER, : 2005, , Order Sheet [address] [place] [address] [id number] 12/05/2024 Patient: MANJINDER WINTER Sex: Female : [...] D.O. (12/24/2024 23:32 EDT)] [address] [facility] ED PHYSICIAN CLINICAL REPORT on 12-24-2024 ED PHYSICIAN CLINICAL REPORT Narrative - MANJINDER WINTER, : 2005, , Physician Clinical Narrative [address] [address] [id number] 12/05/2024 18:19:00 Patient: MANJINDER WINTER Sex: Female : 2005 Age: 19y Disposition: Transfer to [facility] Disposition Decision Time: 12:59 12/06/2024 Departure [...] - 10.0 Final EDT 4 of 19 [facility] - MANJINDER WINTER, : 2005, , 12/05/2024 19:12 EO % 0.5 % 0.0 - 7.0 Final EDT 12/05/2024 19:12 BASO % 0.2 % 0.0 - 2.0 Final EDT 12/05/2024 19:12 Lymph # 1.52 x10/UL 0.80 - 2.80 Final EDT (more content not included)... Normal [facility] ED SUPER BILL 12-24-2024 ED SUPER BILL [facility] MANJINDER WINTER, : 2005, , [address] [place] [address] [id number] 12/05/2024 Patient: MANJINDER WINTER Sex: Female : 2005 Age: 19y Item Facility Profession Category Description Code al Code Quantity Fee Total Nurse/E/M EMERGENCY 316051 1 $0.00 $0.00 DEPT VISIT H[facility] SEVERITYFU [facility] (15634- 25) Nurse/IV/IM/ IVP 014217 1 $0.00 $0.00 Infusions additional push (25914) Nurse/IV/IM/ IVP initial 314959 1 $0.00 $0.00 Infusions (10196) Nurse/IV/IM/ IVP same 273490 1 $0.00 $0.00 Infusions med (31 min apart) (35117) Grand Total $0.00 Providers Darlene Chery D.O. 1 of 2 [facility] MANJINDER WINTER, : 2005, , Jaden Falcon D.O. Chief Complaints DEPRESSED. ANXIOUS and DEPRESSED. 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 ICD-10 Codes F33.3: Major depressive disorder, recurrent, severe with psychotic symptoms 2 of 2 Normal [facility] ED VISIT SUMMARYon ED VISIT SUMMARY Visit Overview - MANJINDER WINTER, : 2005, , Visit [place] [address] [place] [address] [id number] 12/05/2024 Patient: MANJINDER WINTER Sex: Female : [...] AND SUICIDAL IDEATION 3 of 3 Normal [facility] ED VITALS FLOW SHEETon 12-24 ED VITALS FLOW SHEET Vitals - MANJINDER WINTER, : 2005, , Vital Sign Flow Sheet [address] [address] [id number] 12/05/2024 Patient: MANJINDER WINTER Sex: Female : [...] F 0 12/05/2024 1 of 1 Normal [facility] ALCOHOL-BLOOD MEDICALon 11-19 Ethanol [Mass/Vol] 5 mg/dL Normal 0 - 50 [facility] Comment on above: Performed By: #### 2 86072 #### [facility],[address] [place] [address] CBC + DIFFon 12-05-2024 Baso # 0.02 x10EE3/UL Normal 0.00 - 0.10 [facility] Comment on above: Performed By: #### 2 37224 #### [facility],[address] [place], [place] [id number] Basophils/100 WBC (Bld) 0.2 % Normal 0.0 - 2.0 [facility] Comment on above: Performed By: #### 2 86054 #### [facility],[address] [place] [address] CBC + DIFF Normal [facility] Comment on above: Result Comment: CBC- COMPLETE BLOOD COUNT Performed By: #### 2 22397 #### [facility],[address] [place] [address] EO # 0.06 x10EE3/UL Normal 0.00 - 0.50 [facility] Comment on above: Performed By: #### 2 51068 #### [address] [address] Eosinophils/100 WBC (Bld) 0.5 % Normal 0.0 - 7.0 [facility] Comment on above: Performed By: #### 2 15915 #### [facility],[address] [place] [address] Erythrocyte distribution width (RBC) [Ratio] 13.4 % Normal 12.0 - 15.6 [facility] Comment on above: Performed By: #### 2 23403 #### [facility],[address] [place] [address] Hematocrit (Bld) [Volume fraction] 32.7 % Low 34.0 - 46.0 [facility] Comment on above: Performed By: #### 2 68009 #### [facility],[address] [place] [address] Hemoglobin (Bld) [Mass/Vol] 11.5 g/dL Low 12.0 - 16.0 [facility] Comment on above: Performed By: #### 2 59788 #### [facility],[address] [place] [address] Lymph # 1.52 x10EE3/UL Normal 0.80 - 2.80 [facility] Comment on above: Performed By: #### 2 17501 #### [facility],[address] [place], [place] [id number] Lymphocytes/100 WBC (Bld) 14.1 % Low 20.0 - 45.0 [facility] Comment on above: Performed By: #### 2 33472 #### [facility],[address] [place], [place] [id number] MANUAL DIFF N/A Normal [facility] Comment on above: Performed By: #### 2 50154 #### [facility],[address] [place], [place] [address] MCH (RBC) [Entitic mass] 30 pg Normal 27 - 33 [facility] Comment on above: Performed By: #### 2 00947 #### [facility],[address] [place] [address] MCHC 35 X10 3 Normal 32 - 36 [facility] Comment on above: Performed By: #### 2 81150 #### [facility],[address] [place], [place] [address] MCV (RBC) [Entitic vol] 86 fL Normal 80 - 99 [facility] Comment on above: Performed By: #### 2 07126 #### [facility],[address] [place] [address] [place] # 0.76 x10EE3/UL Normal 0.20 - 1.00 [facility] Comment on above: Performed By: #### 2 82431 #### [facility],[address] [place] [address] MONOS % 7.0 % Normal 0.0 - 10.0 [facility] Comment on above: Performed By: #### 2 79822 #### [facility],[address] [place] [address] Morphology Ravi (Bld) [Interp] N/A Normal [facility] Comment on above: Performed By: #### 2 32204 #### [facility],[address] [place] [address] Neut # 8.44 x10EE3/UL High 1.50 - 7.10 [facility] Comment on above: Performed By: #### 2 27707 #### [place] [address] Neutrophils/100 WBC (Bld) 78.2 % High 46.0 - 76.0 [facility] Comment on above: Performed By: #### 2 36656 #### [facility],[address] [place] [address] PLATELET 265 x10EE3/UL Normal 150 - 450 [facility] Comment on above: Performed By: #### 2 58189 #### [place] [address] Platelet mean volume (Bld) [Entitic vol] 8.2 fL Normal 6.6 - 10.5 [facility] Comment on above: Result Comment: AUTO MATED DIFFERENTIAL Performed By: #### 2 69064 #### [address],[place] [address] RBC 3.83 x 10EE6/UL Low 4.10 - 5.30 [facility] Comment on above: Performed By: #### 2 08630 #### [facility],[address] [place] [address] WBC 10.8 x 10EE3/UL Normal 4.5 - 10.8 [facility] Comment on above: Performed By: #### 2 72145 #### [facility],[address] [place] [address] CMP with eGFRon 12-05-2024 AGE 19 years Normal [facility] Comment on above: Performed By: #### 2 47942 #### [facility],[address] [place] [address] Albumin [Mass/Vol] 3.3 g/dL Low 3.4 - 5.0 [facility] Comment on above: Performed By: #### 2 65835 #### [facility],[address] [place] [address] Albumin/Globulin [Mass ratio] 0.9 {ratio} Normal 0.9 - 1.6 [facility] Comment on above: Performed By: #### 2 52076 #### [facility],[address] [place] [address] ALK PHOS 82 U/L Normal 46 - 116 [facility] Comment on above: Performed By: #### 2 39655 #### [facility],[address] [place] [address] ALT [Catalytic activity/Vol] 14 U/L Low 16 - 63 [facility] Comment on above: Performed By: #### 2 82081 #### [facility],[address] [place] [address] Anion gap [Moles/Vol] 16 mmol/L Normal 10 - 20 [facility] Comment on above: Performed By: #### 2 27028 #### [facility],[address] [place] [address] AST [Catalytic activity/Vol] 13 U/L Normal 13 - 39 [facility] Comment on above: Performed By: #### 2 80961 #### [facility],[address] [place] [address] B/C RATIO 14 ratio Normal 0 - 30 [facility] Comment on above: Performed By: #### 2 30890 #### [facility],[address] [place] [address] Bilirubin [Mass/Vol] 0.3 mg/dL Normal 0.2 - 1.0 [facility] Comment on above: Performed By: #### 2 55794 #### [facility],[address] [place] [address] Calcium [Mass/Vol] 8.7 mg/dL Normal 8.5 - 10.1 [facility] Comment on above: Performed By: #### 2 50399 #### [facility],[address] [place] [address] 11383 Chloride [Moles/Vol] 103 mmol/L Normal 98 - 107 [facility] Comment on above: Performed By: #### 2 40916 #### [facility],[address] [place] [address] 28583 CMP with eGFR Normal [facility] Comment on above: Result Comment: COMP REHENSIVE METABOLIC PANEL Performed By: #### 2 52770 #### [facility],[address] [place] [address] 66126 CO2 [Moles/Vol] 23.8 mmol/L Normal 21.0 - 32.0 [facility] Comment on above: Performed By: #### 2 45332 #### [facility],[address] [place] [address] 09045 Creatinine [Mass/Vol] 0.35 mg/dL Low 0.55 - 1.02 [facility] Comment on above: Performed By: #### 2 25875 #### [facility],[address] [place] [address] 41326 GFR/1.73 sq M.predicted among non-blacks MDRD (S/P/Bld) [Vol rate/Area] mL/min/{1.73_m2} Normal 60 - 999 [facility] Comment on above: Performed By: #### 2 61508 #### [facility],[address] [place] [address] 95895 Result Comment: ACCO RDING TO THE NATIONAL KIDNEY DISEASE EDUCATION PROGRAM(NKDE), A NORMAL eGFR IS A VALUE GREATER THAN OR EQUAL TO 60 ML/MIN/1.73 SQ METERS. CHRONIC KIDNEY DISEASE: <60mL/MIN/1.73 SQ METERS KIDNEY FAILURE: <15mL/MIN/1.73 SQ METERS THIS TEST SHOULD ONLY BE USED FOR PATIENTS 18 YEARS OF AGE AND OLDER. Globulin (S) [Mass/Vol] 3.5 g/dL Normal 1.5 - 3.8 [facility] Comment on above: Performed By: #### 2 91350 #### [facility],[address] [place] [address] 15793 Glucose [Mass/Vol] 73 mg/dL Low 74 - 106 [facility] Comment on above: Performed By: #### 2 16932 #### [facility],[address] [place] [address] 20176 Potassium [Moles/Vol] 3.5 mmol/L Normal 3.5 - 5.1 [facility] Comment on above: Performed By: #### 2 43713 #### [facility],[address] [place] [address] 45419 Protein [Mass/Vol] 6.8 g/dL Normal 6.4 - 8.2 [facility] Comment on above: Performed By: #### 2 85608 #### [facility],[address] [place] [address] 06915 Sodium [Moles/Vol] 139 mmol/L Normal 136 - 145 [facility] Comment on above: Performed By: #### 2 36597 #### [facility],[address] [place] [address],[facility] [address] Urea nitrogen [Mass/Vol] 5 mg/dL Low - [facility] Comment on above: Performed By: #### 2 95400 #### [facility],[address] [place] [address] 09986 DRUG SCREEN URINE MEDICon AMPHETAMINES Negative Normal [facility] Comment on above: Performed By: #### 2 06108 #### [facility],[address] [place] [address],[facility] 36177 B-DIAZEPINES Negative Normal [facility] Comment on above: Performed By: #### 2 54763 #### [facility],[address] [place] [address] [facility] Comment on above: Performed By: #### 2 58045 #### [facility],[address] [place] [address] [facility] Comment on above: Performed By: #### 2 56521 #### [facility],[address] [place] [address] 65882 DRUG SCREEN URINE MEDIC Normal [facility] Comment on above: Result Comment: DRUG SCREEN - URINE Performed By: #### 2 62464 #### [facility],[address] [place] [address] [facility] Comment on above: Performed By: #### 2 56491 #### [facility],[address] [place] [address] [facility] Comment on above: Performed By: #### 2 45567 #### [facility],[address] [facility] 24753 PCP Negative Normal [facility] Comment on above: Performed By: #### 2 12666 #### [facility],[address] [place] [address] 85779 THC Positive Normal [facility] Comment on above: Result Comment: JUAN JOSE ENTS RECEIVING PROTON PUMP INHIBITORS MAY DEMONSTRATE FALSE POSITIVE THC/CANNABINOID RESULTS. AN ALTERNATIVE CONFIRMATORY METHOD SHOULD BE CONSIDERED TO VERIFY POSITIVE RESULTS. Performed By: #### 2 31808 #### [facility],[address] [place] [address] 69794 URINALYSISon 12-05-2024 Amorphous NONE Normal [facility] Comment on above: Performed By: #### 2 42318 #### [facility],[address] [place] [address] 30780 Bacteria 2+ Normal [facility] Comment on above: Performed By: #### 2 50487 #### [facility],[address] [place], [place] [address] Bilirubin Ql (U) Negative Normal NORMAL: NEGATIVE [facility] Comment on above: Performed By: #### 2 91109 #### [facility],[address] [place], [place] [address] Casts NONE Normal [facility] Comment on above: Performed By: #### 2 06046 #### [facility],[address] [place] [address] 56237 Clarity (U) clear Normal NORMAL: CLEAR [facility] Comment on above: Performed By: #### 2 59985 #### [facility],[address] [place] [address] 03063 Color (U) yellow Normal NORMAL: YELLOW [facility] Comment on above: Performed By: #### 2 84543 #### [facility],[address] [place] [address] 27206 Crystals LM Nom (Urine sed) NONE Normal [facility] Comment on above: Performed By: #### 2 50319 #### [facility],[address] [place] [address] 16164 Epi Cells MODERATE Normal [facility] Comment on above: Performed By: #### 2 92616 #### [facility],[address] [place] [address] 73003 Glucose Ql (U) NORM Normal NORMAL: NORMAL [facility] Comment on above: Performed By: #### 2 18320 #### [facility],[address] [place] [address] 28060 Hemoglobin Ql (U) Negative Normal NORMAL: NEGATIVE [facility] Comment on above: Performed By: #### 2 80774 #### [facility],[address] [place] [address] 99988 Ketone 15 Abnormal NORMAL: NEGATIVE [facility] Comment on above: Performed By: #### 2 97792 #### [facility],[address] [place] [address] 80458 Leukocytes 500 Abnormal NORMAL: NEGATIVE [facility] Comment on above: Performed By: #### 2 98188 #### [facility],[address] [place] [address] 26200 Mucous NONE Normal [facility] Comment on above: Performed By: #### 2 47041 #### [facility],[address] [place] [address] 90762 Nitrite Ql (U) Negative Normal NORMAL: NEGATIVE [facility] Comment on above: Performed By: #### 2 98109 #### [facility],[address] [place] [address] 95329 pH (U) 6 [pH] Normal NORMAL: 5.0-8.0 [facility] Comment on above: Performed By: #### 2 71772 #### [facility],[address] [place] [address] 21688 Protein Ql (U) 15 Abnormal NORMAL: NEGATIVE [facility] Comment on above: Performed By: #### 2 73208 #### [facility],[address] [place] [address] 62613 Rbc NONE Normal 0-3/hpf [facility] Comment on above: Performed By: #### 2 13899 #### [facility],[address] [place] [address] Sp [place] 1.015 Normal NORMAL: 1.010-1.030 [facility] Comment on above: Performed By: #### 2 74628 #### [facility],[address] [place] [address] Specimen Type R Normal [facility] Comment on above: Performed By: #### 2 26281 #### [facility],[address] [place] [address] Urinalysis dipstick W Reflex Microscopic panel (U) SEE BELOW Normal [facility] Comment on above: Result Comment: MICR OSCOPIC Performed By: #### 2 08933 #### [facility],[address] [place] [address] Urobilinog NORM Normal NORMAL: NORMAL [facility] Comment on above: Performed By: #### 2 39800 #### [facility],[address] [place] [address] Wbc 1-5 Normal 0-5/hpf [facility] Comment on above: Performed By: #### 2 29629 #### [facility],[address] [place] [address] Yeast NONE Normal [facility] Comment on above: Performed By: #### 2 04797 #### [facility],[address] [place] [address] CNPAmara 11-19-2024 JOSEFA Telephone (BULMAROGYMinalM) MANJINDER WITNER ([id number]) 3 F Date Time Provider Department 11/19/24 [...] Status:Closed by NAOMI KELSEY on 11/19/24 Normal [facility] Examination level ultrasound on 11-08-2024 Indication Standard [...] 13 oz EFW by: Hadlock (HC-AC-FL) Extended Coding Spec 5.8 mm CM 2.7 mm 1% Nicolaides [...] normal LVOT view: normal 3-vessel view: normal 7-rjzpns-lauhzfb view: normal Heart / Thorax Situs: situs [...] Read By: Hi Connolly M.D. MATERNAL MEDICINE [facility] Examination level ultrasound on 11-07-2024 Radiology Study observation (narrative) [facility] BACTERIAL VAGINOSIS NAATon 0 10-22-2024 Lactobacillus crispatus+gasseri+cano ii + Gardnerella vaginalis + Atopobium vaginae rRNA NICO+probe Ql (Vag fld) Not detected Normal Not detected [facility] Comment on above: Order Comment: Speci men Type: SWAB Ordering Facility: [facility] Address: [address] [place] [address] Performed By: #### B VAMP, CVTV #### [facility] CLIA [id number] [address] [place] [address] [place] Bacteria Ur Culton Bacteria identified Cx Nom (U) ORGANISM ID: 1 50,000-<100,000 CFU/ml Normal urogenital jovana Normal [facility] Comment on above: Performed By: #### 6 30-4 ####[facility] [id number] [place] [address] [place] BHARATHI/TRICHOMONAS NAATon 0 10-22-2024 C. glabrata RNA NICO+probe Ql (Vag fld) Not detected Normal Not detected [facility] Comment on above: Order Comment: Speci men Type: SWAB Ordering Facility: [facility] Address: [address] [place] [address] Performed By: #### B VAMP, CVTV #### [facility] CLIA [id number] [address] [place] [address] [place] Bharathi sp DNA NICO+probe Ql (Vag fld) Detected Abnormal Not detected [facility] Comment on above: Order Comment: Speci men Type: SWAB Ordering Facility: [facility] Address: [address] [place] [address] Result Comment: The Bharathi species group target includes C. albicans, C. tropicalis, C. parapsilosis, and C. dubliniensis. Performed By: #### B VAMP, CVTV #### [facility] CLIA [id number] [address] [place] [address] [place] T. vaginalis DNA NICO+probe Ql (Unsp spec) Not detected Normal Not detected [facility] Comment on above: Order Comment: Speci men Type: SWAB Ordering Facility: [facility] Address: [address] [place] [address] Performed By: #### B VAMP, CVTV #### [facility] CLIA [id number] [address] [place] [address] [place] CNOVon 10-22-2024 CNOV Office Visit (WOUCA) MANJINDER WINTER ([id number]) 3 F Date Time Provider Department 10/22/24 3:30 PM RITESH WASHBURN During your visit today, we recorded the following information about you: Temperature Pulse Respiration Blood pressure 98.8 degrees 104/minute 17/minute 110/80 Weight 57.9 kg Ritesh Washburn APRN.ACCOUNTING SYSTEMS MANAGER 10/22/2024 4:09 PM Signed [facility] [...] 90 Physical Exam Exam conducted with a antique automobiles repairer present. Constitutional: Appearance: Normal appearance. HENT: Mouth/Throat: [...] agrees with plan of care. Ritesh Washburn APRN.ACCOUNTING SYSTEMS MANAGER History and Record Review Clinical information obtained [...] [N89.8] Order(s):BHARATHI/TRI CHOMONAS NAAT [SQCVTV] Order #: [id number]. #:[id number] BACTERIAL VAGINOSIS NAAT [SQBVAMP] Order #: [id number]. #:[id number] cephALEXin (KEFLEX) 500 mg capsuleTake 1 capsule by mouth two times a day for 5 days.Disp: 10 capsuleRfl: 0 UA DIP, URINE (POC) [] Order #: [id number]. #:[id number] UA DIP, URINE (POC) [] Order #: [id number] BACTERIAL CULTURE, URINE [SQURCUL] Order #: [id number]. #:[id number] Prescriptions as of 10/22/2024 - cephALEXin (KEFLEX) [...] 08/01/2024 Bi (more content not included)... Normal [facility] UA DIP, URINE (POC)on 2024 BILIRUBIN UA (POCT) Negative Negative [facility] CLARITY UA (POCT) Cloudy [facility] COLOR UA (POCT) Yellow [facility] GLUCOSE UA (POCT) Negative Negative mg/dL [facility] Hemoglobin Ql (U) Negative Negative [facility] Interpretation and review of laboratory results Abnormal [facility] KETONE UA (POCT) Negative Negative mg/dL [facility] LEUKOCYTES UA (POCT) Small Abnormal Negative [facility] NITRITE UA (POCT) Negative Negative [facility] PH UA (POCT) 7.5 4.5 - 8.0 [facility] Protein Ql (U) Negative Negative mg/dL [facility] SPECIFIC GRAVITY UA (POCT) 1.02 1.005 - 1.030 [facility] UROBILINOGEN UA (POCT) 0.2 Normal E.U./d L [facility] Location:[address], [place], [place], [id number] [place] [address] POINT OF CARE [facility] 09-25-2024 CNPN Telephone (PSWSTR) MANJINDER WINTER ([id number]) 3 F Date Time Provider Department 09/25/24 RHYS MORAN PSWSTR During your visit today, we recorded the following information about you: Blank Tiwari LPN 09/25/2024 10:50 AM Signed [facility] is [facility] referral for you to review. LC Ayon Nishi J, COTTON BAG CLIPPER.ACCOUNTING SYSTEMS MANAGER 09/25/2024 3:58 PM Signed Upon chart review, it was noted that patient used to get services at [facility] for both medication management and therapy and had agreed to reach out to them again to resume services. If patient is not able to re establish care at [facility], please schedule her for a new patient [...] Status:Closed by BLANK TIWARI on 09/25/24 Normal [facility] Examination level ultrasound on 09-13-2024 Indication First trimester anatomic survey Impression The patient is referred for a first trimester anatomy scan including nuchal translucency measurement as clinically indicated. - Single, live, intrauterine . - [place] rump length measurement is consistent with the [...] view: normal 4-chamber view with color: normal 2-jqkxed-sfvyift view: normal Abdominal cord insertion: normal Stomach: [...] Read By: Hi Connolly M.D. MATERNAL MEDICINE [facility] CBC W Auto Differential pane l (Bld)on 09-12-2024 Basophils (Bld) [#/Vol] 10*3/uL Normal <0.11 [facility] Comment on above: Order Comment: Speci men Type: BLOOD SPECIMENOrdering Facility: [facility] Address: [address] [place] [address] Performed By: #### 5 7021-8 ####[facility] [id number] [place] [address] [place] Basophils/100 WBC (Bld) 0.1 % Normal [facility] Comment on above: Order Comment: Speci men Type: BLOOD SPECIMENOrdering Facility: [facility] Address: [address] [place] [address] Performed By: #### 5 7021-8 ####[facility] [id number] [place] [address] [place] Differential cell count method Nom (Bld) Auto Normal [facility] Comment on above: Order Comment: Speci men Type: BLOOD SPECIMENOrdering Facility: [facility] Address: [address] [place] [address] Performed By: #### 5 7021-8 ####[facility] [id number] [place] [address] [place] Eosinophils (Bld) [#/Vol] 0.06 10*3/uL Normal <0.46 [facility] Comment on above: Order Comment: Speci men Type: BLOOD SPECIMENOrdering Facility: [facility] Address: [address] [place] [address] Performed By: #### 5 7021-8 ####[facility] [id number] [place] [address] [place] Eosinophils/100 WBC (Bld) 0.8 % Normal [facility] Comment on above: Order Comment: Speci men Type: BLOOD SPECIMENOrdering Facility: [facility] Address: [address] [place] [address] Performed By: #### 5 7021-8 ####[facility] [id number] [place] [address] [place] Erythrocyte distribution width (RBC) [Ratio] 12.7 % Normal 11.5-15.0 [facility] Comment on above: Order Comment: Speci men Type: BLOOD SPECIMENOrdering Facility: [facility] Address: [address] [place] [address] Performed By: #### 5 7021-8 ####[facility] MISTINALLELYLIA [id number] [place] [address] [place] Hematocrit (Bld) [Volume fraction] 35.4 % Low 36.0-46.0 [facility] Comment on above: Order Comment: Speci men Type: BLOOD SPECIMENOrdering Facility: [facility] Address: [address] [place] [address] Performed By: #### 5 7021-8 ####[facility] ELIUDWESTPOINTNCLIA [id number] [place] [address] [place] Hemoglobin (Bld) [Mass/Vol] 12.6 g/dL Normal 11.5-15.5 [facility] Comment on above: Order Comment: Speci men Type: BLOOD SPECIMENOrdering Facility: [facility] Address: [address] [place] [address] Performed By: #### 5 7021-8 ####[facility] ELIDUWESTPOINTNALLELYLIA [id number] [place] [address] [place] Immature granulocytes (Bld) [#/Vol] 10*3/uL Normal <0.10 [facility] Comment on above: Order Comment: Speci men Type: BLOOD SPECIMENOrdering Facility: [facility] Address: [address] [place] [address] Performed By: #### 5 7021-8 ####[facility] ELIUDWESTPOINTNALLELYLIA [id number] [place] [address] [place] Immature granulocytes/100 WBC (Bld) 0.3 % Normal [facility] Comment on above: Order Comment: Speci men Type: BLOOD SPECIMENOrdering Facility: [facility] Address: [address] [place] [address] Performed By: #### 5 7021-8 ####[facility] [id number] [place] [address] [place] Lymphocytes (Bld) [#/Vol] 1.78 10*3/uL Normal 1.00-4.00 [facility] Comment on above: Order Comment: Speci men Type: BLOOD SPECIMENOrdering Facility: [facility] Address: [address] [place] [address] Performed By: #### 5 7021-8 ####[facility] [id number] [place] [address] [place] Lymphocytes/100 WBC (Bld) 22.8 % Normal [facility] Comment on above: Order Comment: Speci men Type: BLOOD SPECIMENOrdering Facility: [facility] Address: [address] [place] [address] Performed By: #### 5 7021-8 ####[facility] [id number] [place] [address] [place] MCH (RBC) [Entitic mass] 29.5 pg Normal 26.0-34.0 [facility] Comment on above: Order Comment: Speci men Type: BLOOD SPECIMENOrdering Facility: [facility] Address: [address] [place] [address] Performed By: #### 5 7021-8 ####[facility] [id number] [place] [address] [place] MCHC (RBC) [Mass/Vol] 35.6 g/dL Normal 30.5-36.0 [facility] Comment on above: Order Comment: Speci men Type: BLOOD SPECIMENOrdering Facility: [facility] Address: [address] [place] [address] Performed By: #### 5 7021-8 ####[facility] [id number] [place] [address] [place] MCV (RBC) [Entitic vol] 82.9 fL Normal 80.0-100.0 [facility] Comment on above: Order Comment: Speci men Type: BLOOD SPECIMENOrdering Facility: [facility] Address: [address] [place] [address] Performed By: #### 5 7021-8 ####[facility] [id number] [place] [address] [place] Monocytes (Bld) [#/Vol] 0.43 10*3/uL Normal <0.87 [facility] Comment on above: Order Comment: Speci men Type: BLOOD SPECIMENOrdering Facility: [facility] Address: [address] [place] [address] Performed By: #### 5 7021-8 ####[facility] [id number] [place] [address] [place] Monocytes/100 WBC (Bld) 5.5 % Normal [facility] Comment on above: Order Comment: Speci men Type: BLOOD SPECIMENOrdering Facility: [facility] Address: [address] [place] [address] Performed By: #### 5 7021-8 ####[facility] [id number] [place] [address] [place] Neutrophils (Bld) [#/Vol] 5.52 10*3/uL Normal 1.45-7.50 [facility] Comment on above: Order Comment: Speci men Type: BLOOD SPECIMENOrdering Facility: [facility] Address: [address] [place] [address] Performed By: #### 5 7021-8 ####[facility] [id number] [place] [address] [place] Neutrophils/100 WBC (Bld) 70.5 % Normal [facility] Comment on above: Order Comment: Speci men Type: BLOOD SPECIMENOrdering Facility: [facility] Address: [address] [place] [address] Performed By: #### 5 7021-8 ####[facility] ELIUDWNCLIA [id number] [place] [address] [place] Nucleated RBC (Bld) [#/Vol] 10*3/uL Normal <0.01 [facility] Comment on above: Order Comment: Speci men Type: BLOOD SPECIMENOrdering Facility: [facility] Address: [address] [place] [address] Performed By: #### 5 7021-8 ####[facility]ITALNCSARAHA [id number] [place] [address] [place] Nucleated RBC/100 WBC (Bld) [Ratio] 0.0 /100 WBC Normal [facility] Comment on above: Order Comment: Speci men Type: BLOOD SPECIMENOrdering Facility: [facility] Address: [address] [place] [address] Performed By: #### 5 7021-8 ####[facility] [id number] [place] [address] [place] Platelet mean volume (Bld) [Entitic vol] 9.9 fL Normal 9.0-12.7 [facility] Comment on above: Order Comment: Speci men Type: BLOOD SPECIMENOrdering Facility: [facility] Address: [address] [place] [address] Performed By: #### 5 7021-8 ####[facility] [id number] [place] [address] [place] Platelets (Bld) [#/Vol] 281 10*3/uL Normal 150-400 [facility] Comment on above: Order Comment: Speci men Type: BLOOD SPECIMENOrdering Facility: [facility] Address: [address] [place] [address] Performed By: #### 5 7021-8 ####[facility]ITALNCA [id number] [place] [address] [place] RBC (Bld) [#/Vol] 4.27 10*6/uL Normal 3.90-5.20 [facility] Comment on above: Order Comment: Speci men Type: BLOOD SPECIMENOrdering Facility: [facility] Address: [address] [place] [address] Performed By: #### 5 7021-8 ####[facility] [id number] [place] [address] [place] WBC (Bld) [#/Vol] 7.82 10*3/uL Normal 3.70-11.00 [facility] Comment on above: Order Comment: Speci men Type: BLOOD SPECIMENOrdering Facility: [facility] Address: [address] [place] [address] Performed By: #### 5 7021-8 ####[facility] [id number] [place] [address] [place] Examination level ultrasound on 09-12-2024 Radiology Study observation (narrative) [facility] HBV surface Ag Ser Qlon 08-20 HBV surface Ag Ql (S) Negative Normal Negative [facility] Comment on above: Order Comment: Speci men Type: BLOOD SPECIMENOrdering Facility: [facility] Address: [address] [place] [address] Performed By: #### 5 195-3, 94382-3, 34388-5 ####[facility] LABCLIA [id number] [place] [address] [place] HCV Ab Ser Qlon 09-12-2024 HCV Ab Ql (S) Negative Normal Negative [facility] Comment on above: Order Comment: Speci men Type: BLOOD SPECIMENOrdering Facility: [facility] Address: [address] [place] [address] Result Comment: The result suggests no evidence of infection with Hepatitis C virus. Should recent infection be suspected, repeat testing may be considered 4-6 weeks after this draw. Performed By: #### 1 6128-1 ####[facility] LABIA [id number] [place] [address] [place] HIV 1+2 Ab IA Qlon 5 HIV 1 and 2 Ab IA.rapid Nom (S/P/Bld) Normal [facility] Comment on above: Order Comment: Speci men Type: BLOOD SPECIMENOrdering Facility: [facility] Address: [address] [place] [address] Result Comment: Test not indicated. Performed By: #### 5 195-3, 98315-1, 21662-3 ####[facility] [id number] [address] [place] HIV 1+2 Ab+HIV1 p24 Ag IA Ql Non-Reactive Normal Nonreactive [facility] Comment on above: Order Comment: Speci men Type: BLOOD SPECIMENOrdering Facility: [facility] Address: [address] [place] [address] Performed By: #### 5 195-3, 45934-4, 76661-1 ####[facility] [id number] [address] [place] HIV immunoassay testing algorithm interpretation (S/P/Bld) [Interp] Normal [facility] Comment on above: Order Comment: Speci men Type: BLOOD SPECIMENOrdering Facility: [facility] Address: [address] [place] [address] Result Comment: No e vidence of HIV-1 or HIV-2 infection. Should recent infection be suspected, repeat testing may be considered 2-3 weeks after this draw. [place] Rev. Code 3701.243(E): This information has been [...] or diagnoses. Performed By: #### 5 195-3, 01872-7, 95817-3 ####[facility] [id number] [place] [address] [place] HbA1c (Bld)on 09-12-2024 Average glucose Estimated from glycated hemoglobin (Bld) [Mass/Vol] 97 mg/dL Normal [facility] Comment on above: Order Comment: Speci men Type: BLOOD SPECIMENOrdering Facility: [facility] Address: [address] [place] [address] Result Comment: eAG: (Estimated average glucose) is a calculated value from HgbA1c and is customer account representative of the average blood glucose level in the last 2-3 month period. Performed By: #### 5 5454-3 ####[facility] [id number] [address] STATES [facility] HbA1c (Bld) [Mass fraction] 5.0 % Normal 4.3-5.6 [facility] Comment on above: Order Comment: Speci men Type: BLOOD SPECIMENOrdering Facility: [facility] Address: [address] [place] [address] Result Comment: Amer ican Diabetes Association guidelines indicate that patients with HgbA1c in the range 5.7-6.4% are at increased risk for development of diabetes, and intervention by lifestyle modification may be beneficial. HgbA1c greater or equal to 6.5% is considered diagnostic of diabetes. Performed By: #### 5 5454-3 ####[facility] LABIA [id number] [place] [id number] [place] [id number] PLUSon 09-12-2024 Cell-free DNA./Cell-free DNA.total Dosage of chromosome-specific cfDNA (cfDNA) [Molar fraction] 20% Normal [facility] Comment on above: Order Comment: Speci men Type: BLOOD SPECIMENOrdering Facility: [facility] Address: [address] [place] [address] Performed By: #### M AT21 ####[facility] LABCLIA [id number] [place] [address] Chr 13+18+21+X+Y aneuploidy Dosage of chromosome-specific cfDNA Ql (cfDNA) Negative Normal [facility] Comment on above: Order Comment: Speci men Type: BLOOD SPECIMENOrdering Facility: [facility] Address: [address] [place] [address] Performed By: #### M AT21 ####[facility] LABCLIA [id number] [place] [address] Chr 21 trisomy Dosage of chromosome-specific cfDNA Ql (cfDNA) Negative Normal [facility] Comment on above: Order Comment: Speci men Type: BLOOD SPECIMENOrdering Facility: [facility] Address: [address] [place] [address] Performed By: #### M AT21 ####[facility] LABCLIA [id number] [place] [address] Chr X and Y aneuploidy risk Sequencing Ql (cfDNA) [Interp] Not detected Normal [facility] Comment on above: Order Comment: Speci men Type: BLOOD SPECIMENOrdering Facility: [facility] Address: [address] [place] [address] Result Comment: Not Detected Not Detected Performed By: #### M AT21 ####[facility] LABCLIA [id number] [place] [address] Citation Ravi (Reference lab test) Comment Normal [facility] Comment on above: Order Comment: Speci men Type: BLOOD SPECIMENOrdering Facility: [facility] Address: [address] [place] [address] Result Comment: 1. P star WATKINS, et al. Ramandeep Med. 2012;14(3):296-305. 2. Nicolas WEEKS et al. Prenat Diag. 2013;33(6):591-597. 3. Johan Pickett et al. Clin Chem. 2015 Apr;61(4):608-616. 4. Deangelo WATKINS, et al. Ramandeep Med. 2011;13(11):913-920. 5. ACOG/SMFM Practice Bulletin No. 226, Dec 2019. Performed By: #### M AT21 ####[facility] LABCLIA [id number] [place] [address] Gestational age Estimated from conception date Carvajal Normal [facility] Comment on above: Order Comment: Speci men Type: BLOOD SPECIMENOrdering Facility: [facility] Address: [address] [place] [address] Performed By: #### M AT21 ####[facility] LABCLIA [id number] [place] [address] GESTATIONALAGE AGE > OR = 9W Yes Normal [facility] Comment on above: Order Comment: Speci men Type: BLOOD SPECIMENOrdering Facility: [facility] Address: [address] [place] [address] Performed By: #### M AT21 ####[facility] LABCLIA [id number] [place] [id number] Laboratory comment Ravi (Report) Comment Normal [facility] Comment on above: Order Comment: Speci men Type: BLOOD SPECIMENOrdering Facility: [facility] Address: [address] [place] [address] Result Comment: The MaterniT(R) 21 PLUS laboratory-developed test (LDT) analyzes circulating cell-free DNA from a maternal blood sample. This test is used for screening purposes and not diagnostic. Clinical correlation is recommended. Validation data on twin pregnancies is limited and the ability of this test to detect aneuploidy in higher multiple gestations has not yet been validated. Performed By: #### M AT21 ####[facility] LABCLIA [id number] [place] [address] director treasurer name Nom (Provider) Comment Normal [facility] Comment on above: Order Comment: Speci men Type: BLOOD SPECIMENOrdering Facility: [facility] Address: [address] [place] [address] Result Comment: This specimen showed an expected representation of chromosome 21, 18 and 13 material. Clinical correlation is suggested. Comment Ric Torres MD, PhD, Director, [facility] Performed By: #### M AT21 ####[facility] LABIA [id number] [place] [address] LIMITATIONS OF THE TEST Comment Normal [facility] Comment on above: Order Comment: Speci men Type: BLOOD SPECIMENOrdering Facility: [facility] Address: [address] [place] [address] Result Comment: Tramaine samuel the results of [...] and Fragmin(R)). Performed By: #### M AT21 ####[facility] LABCLIA [id number] [place] [id number] Monosomy X risk Dosage of chromosome-specific cfDNA Ql (Plasma cell-free+WBC DNA) [Interp] Not detected Normal [facility] Comment on above: Order Comment: Tatyana morales Type: BLOOD SPECIMENOrdering Facility: [facility] Address: [address] [place] [address] Performed By: #### M AT21 ####[facility] LABCLIA [id number] [place] [address] NEGATIVE PREDICTIVE VALUE Note Normal [facility] Comment on above: Order Comment: Tatyana morales Type: BLOOD SPECIMENOrdering Facility: [facility] Address: [address] [place] [address] Result Comment: The Negative Predictive Value (NPV) for trisomy 21, 18, and 13 is greater than 99%. The NPV for SCA and ESS cannot be calculated as SCA and ESS are only reported when an abnormality is detected. Performed By: #### M AT21 ####[facility] LABCLIA [id number] [place] [address] PERFORMANCE CHARACTERISTICS Note Normal [facility] Comment on above: Order Comment: Tatyana morales Type: BLOOD SPECIMENOrdering Facility: [facility] Address: [address] [place] [address] Result Comment: ! Sex ! Accuracy: 99.4% [...] ! ! ! * As reported in [facility] database nstd37 [https://www.ncbi.nlm.nih.gov/dbvar/studies/nstd37/ ] # Estimated Sensitivity. [...] gestation only. Performed By: #### M AT21 ####[facility] LABCLIA [id number] [place] [address] POSITIVE PREDICTIVE VALUE N/A Normal [facility] Comment on above: Order Comment: Speci men Type: BLOOD SPECIMENOrdering Facility: [facility] Address: [address] [place] [address] Performed By: #### M AT21 ####[facility] LABCLIA [id number] [place] [address] Reference Lab Test Method Comment Normal [facility] Comment on above: Order Comment: Speci men Type: BLOOD SPECIMENOrdering Facility: [facility] Address: [address] [place] [address] Result Comment: Circ ulating cell-free DNA was [...] and 22. Performed By: #### M AT21 ####[facility] LABCLIA [id number] [place] [address] Service comment (Unsp spec) [Interp] Comment Normal [facility] Comment on above: Order Comment: Speci men Type: BLOOD SPECIMENOrdering Facility: [facility] Address: [address] [place] [address] Result Comment: [employer] is a subsidiary of [employer], using the brand [employer]. This test was developed and its performance characteristics determined by [employer]. It has not been cleared or approved by the Food and Drug Administration. This laboratory is certified under the Clinical Laboratory Improvement Amendments (CLIA) as qualified to perform high complexity clinical laboratory testing and accredited by the [employer] (CAP). If there is future clinical need for adding MaterniT GENOME testing, this specimen will be available until term. [facility] samples will not be retained beyond 60 days. [facility] patients will have to send a new sample for re-sequencing ([facility] Test Code: 398064). Performed By: #### M AT21 ####[facility] LABCLIA [id number] [place] [address] Sex Dosage of chromosome-specific cfDNA Nom (cfDNA) Comment Normal [facility] Comment on above: Order Comment: Speci men Type: BLOOD SPECIMENOrdering Facility: [facility] Address: [address] [place] [address] Result Comment: Cons istent with Male Performed By: #### M AT21 ####[facility] LABCLIA [id number] [place] [address] Test performance information Ravi (Unsp spec) Comment Normal [facility] Comment on above: Order Comment: Speci men Type: BLOOD SPECIMENOrdering Facility: [facility] Address: [address] [place] [address] Result Comment: The performance characteristics of the MaterniT(R) 21 PLUS laboratory-developed test (LDT) have been determined in a clinical validation study with women at increased risk for chromosomal aneuploidy.[1-4] Performed By: #### M AT21 ####[facility] LABCLIA [id number] [place] [address] Trisomy 13 risk Dosage of chromosome-specific cfDNA Ql (cfDNA) [Interp] Negative Normal [facility] Comment on above: Order Comment: Speci men Type: BLOOD SPECIMENOrdering Facility: [facility] Address: [address] [place] [address] Performed By: #### M AT21 ####[facility] LABCLIA [id number] [place] [address] Trisomy 18 risk Dosage of chromosome-specific cfDNA Ql (Plasma cell-free+WBC DNA) [Interp] Negative Normal [facility] Comment on above: Order Comment: Speci men Type: BLOOD SPECIMENOrdering Facility: [facility] Address: [address] [place] [address] Performed By: #### M AT21 ####[facility] LABCLIA [id number] [place] [address] RUBELLA IGG ANTIBODYon 09-12 RUBELLA IGG AB, QUAL Positive Normal Positive [facility] Comment on above: Order Comment: Speci men Type: BLOOD SPECIMENOrdering Facility: [facility] Address: [address] [place] [address] Result Comment: The result suggests recent or past exposure to Rubella virus or history of Rubella vaccination. Positive result may also be seen due to presence of passively-transferred antibodies. Please correlate with patient's history. Performed By: #### R UBIGG ####[facility] LABCLIA [id number] [place] [address] [place] Reagin and Treponema pallidu m IgG and IgM [Interp]on 09-12-2024 T. pallidum IgG+IgM IA Ql (S) Non-Reactive Normal Nonreactive [facility] Comment on above: Order Comment: Speci men Type: BLOOD SPECIMENOrdering Facility: [facility] Address: [address] [place] [address] Performed By: #### 5 195-3, 99232-5, 55675-0 ####[facility] LABCLIA [id number] [place] [address] [place] Reagin+T pallidum IgG+IgM Se rPl-Impon 09-12-2024 Reagin and Treponema pallidum IgG and IgM [Interp] Cannot exclude recent Treponemal infection if specimen collected within 7-10 days after appearance of suspect lesions or 2-3 weeks after an exposure. Clinical correlation is required. Normal [facility] Comment on above: Order Comment: Speci [facility] Type: BLOOD SPECIMENOrdering Facility: [facility] Address: [address] [place] [address] Performed By: #### 5 195-3, 00649-0, 78758-0 ####[facility] LABCLIA [id number] [place] [address] [place] TYPE + SCREEN PRENATALon -2024 ABO O Normal [facility] Comment on above: Order Comment: Speci men Type: SWAB Ordering Facility: [facility] Address: [address] [place] [address] Performed By: #### B VAMP, CVTV #### [facility] CLIA [id number] [address] [place] [address] [place] Rh Nom (Bld) Positive Normal [facility] Comment on above: Order Comment: Speci men Type: SWAB [facility]ing Facility: [facility] Address: [address] [place] [address] Performed By: #### B VAMP, CVTV #### [facility] CLIA [id number] [address] [place] [address] [place] TYPE AND SCREEN EXPIRATION 09/15/2024 23:59 Normal [facility] Comment on above: Order Comment: Speci men Type: SWAB Ordering Facility: [facility] Address: [address] [place] [address] Performed By: #### B VAMP, CVTV #### [facility] CLIA [id number] [address] [place] [address] [place] CNOVon 09-07-2024 CNOV Office Visit (UCWSTR) MANJINDER WINTER ([id number]) 3 F Date Time Provider Department 6/20/25 5:45 PM [facility] During your visit today, we recorded the following information about you: Temperature Pulse Respiration Blood pressure 98.6 degrees 98/minute 20/minute 114/70 Weight 55 kg Ritesh Washburn APRN.ACCOUNTING SYSTEMS MANAGER 09/07/2024 6:53 PM Signed Subjective HPI Nontoxic-appearing [...] with p (more content not included)... Normal [facility] 09-04-2024 CNPN Telephone (OBGYWM) MANJINDER WINTER ([id number]) 3 F Date Time Provider Department 09/04/24 MARU ALEXANDER OBGYWM During your visit today, we recorded the following information about you: Kayleen Vizcaino RN 09/04/2024 4:58 PM Signed 11w4d Pt called stating she has a cold/congestion and asking what she can take OTC. Reviewed healthy guide safe medications she can take. Advised Pt that I could send link via [employer]. Texted link to activate [employer] to Pt. Pt denies additional questions at this time. Kayleen Vizcaino RN Allergies As of Date: 09/04/2024 (No Known Allergies) Date Reviewed: 08/01/2024 Reviewed by: Darvin Peng APRN.ACCOUNTING SYSTEMS MANAGER - Fully Assessed Reason for Visit: Cold [...] Status:Closed by KAYLEEN VIZCAINO on 09/04/24 Normal [facility] Urine Cultureon 08-19-2024 URC Urine Culture Urine Culture Urine Culture Streptococcus agalactiae (B) Roggen Count <1000 Streptococcus agalactiae (B): REACTION Ampicillin Islt LEE ANN <=0.25 cefTRIAXone Islt LEE ANN <=0.12 S Clindamycin.induced Susc Islt NEG Linezolid Islt LEE ANN <=2 S Vancomycin Islt LEE ANN 0.5 S Normal [facility] Comment on above: Performed By: #### M 100.2200 #### [facility] [address] [place], [address] Anion gap in Serum or Plasma Ordered By: Alvaro Carlton on 08-16-2024 Anion gap [Moles/Vol] 13 mmol/L - [facility] BUN/creatinine ratioOrdered By: Alvaro Carlton on 08-16-2024 Urea nitrogen/Creatinine [Mass ratio] 9.0 mg/mg Low 10- [facility] Basic Metabolic Profile (BMP )on 08-16-2024 BUN/CRE 9.0 RATIO Low - [facility] Comment on above: Performed By: #### L 500.2500 ####[facility] [address] [place], [address] Performed By: #### L 500.2500 #### [facility] [address] [place], [address] Calcium [Mass/Vol] 9.3 mg/dL Normal 7.6-11.0 [facility] Comment on above: Performed By: #### L 500.2500 ####[facility] [address] [place], [address] Performed By: #### L 500.2500 #### [facility] [address] [place], [address] Chloride [Moles/Vol] 103 mmol/L Normal 98-108 [facility] Comment on above: Performed By: #### L 500.2500 ####[facility] [address] [place], [address] Performed By: #### L 500.2500 #### [facility] [address] [place], [address] CO2 [Moles/Vol] 19.3 mmol/L Low 21.0-32.0 [facility] Comment on above: Performed By: #### L 500.2500 ####[facility] [address] [place], [address] Performed By: #### L 500.2500 #### [facility] [address] [place], [address] Creatinine [Mass/Vol] 0.39 mg/dL Low 0.70-1.20 [facility] Comment on above: Performed By: #### L 500.2500 ####[facility] [address] [place], [address] Performed By: #### L 500.2500 #### [facility] [address] [place], [address] ECRCL 190.34 ml/min Normal 50-250 [facility] Comment on above: Performed By: #### L 500.2500 ####[facility] [address] [place], [address] Performed By: #### L 500.2500 #### [facility] [address] [place], [address] GAP 13 Normal 5-15 [facility] Comment on above: Performed By: #### L 500.2500 ####[facility] [address] [place], [address] Performed By: #### L 500.2500 #### [facility] [address] [place], [address] GFR/1.73 sq M.predicted among non-blacks MDRD (S/P/Bld) [Vol rate/Area] 146 mL/min/{1.73_m2} Normal >60 [facility] Comment on above: Result Comment: mL/m in/1.73m2 CKD-EPI Creatinine Equation (2020) Performed By: #### L 500.2500 ####[facility] [address] [place], [address] Performed By: #### L 500.2500 #### [facility] [address] [place], [address] Glucose [Mass/Vol] 87 mg/dL Normal 70-99 [facility] Comment on above: Performed By: #### L 500.2500 ####[facility] [address] [place], [address] Performed By: #### L 500.2500 #### [facility] [address] [place], [address] Potassium [Moles/Vol] 3.4 mmol/L Normal 3.3-5.1 [facility] Comment on above: Performed By: #### L 500.2500 ####[facility] [address] [place], [address] Performed By: #### L 500.2500 #### [facility] [address] [place], [address] Sodium [Moles/Vol] 135 mmol/L Normal 133-145 [facility] Comment on above: Performed By: #### L 500.2500 ####[facility] [address] [place], [address] Performed By: #### L 500.2500 #### [facility] [address] [place], [address] Urea nitrogen [Mass/Vol] 4 mg/dL Normal 4-19 [facility] Comment on above: Performed By: #### L 500.2500 ####[facility] [address] [place], [address] Performed By: #### L 500.2500 #### [facility] [address] [place], [address] Bilirubin Test strip Ql (U)O rdered By: Alvaro Carlton on 08-16-2024 Bilirubin Ql (U) Negative Negative [facility] CNPNon 08-16-2024 CNPN Telephone (OBGYWM) MANJINDER WINTER ([id number]) 3 F Date Time Provider Department 08/16/24 [...] Date Reviewed: 08/01/2024 Reviewed by: Darvin Peng APRN.ACCOUNTING SYSTEMS MANAGER - Fully Assessed Reason for Visit: Early [...] Encounter Status:Closed by BARBARA LOOMIS on 08/16/24 [facility] Carbon dioxide, total [Moles /volume] in Central venous bloodOrdered By: Alvaro Carlton on 08-16-2024 CO2 [Moles/Vol] 19.3 mmol/L Low 21.0-32.0 [facility] Chloride assayOrdered By: Cholo Carlton on 08-16-2024 Chloride [Moles/Vol] 103 mmol/L 98-108 [facility] Emergency Department Summary on 08-16-2024 Emergency Department Summary [facility] Medical Records Department [address] [place] [address] Emergency Department Summary 08/16/24 MR#: [id number] Acct: [id number] Name: MANJINDER WINTER Rep #: [id number] : 2005 19 From: Alvaro Carlton DO [...] she already had an appointment with her CAN CLEANER and they had a ultrasound performed and this did confirm intrauterine per the patient. Patient denies or sick contacts denies abdominal pain. [facility] Medical History History of miscarriage Home Medications [...] following commands knew that she was at [facility] year is 2024 Skin: Warm, dry, [...] She is advised to follow-up with her CAN CLEANER and return with worsening symptoms or concerns. She is agreeable to plan all course concerns answered she is discharged home in stable condition. Lab Data Labs: Laboratory R (more content not included)... Normal [facility] Emergency Department Summary [facility] Medical Records Department [address] [place] [address] Emergency Department Summary 08/16/24 MR#: [id number] Acct: [id number] Name: MANJINDER WINTER Rep #: [id number] : 2005 19 From: Alvaro Carlton DO [...] she already had an appointment with her CAN CLEANER and they had a ultrasound performed and this did confirm intrauterine per the patient. Patient denies or sick contacts denies abdominal pain. [facility] Medical History History of miscarriage Home Medications [...] following commands knew that she was at [facility] year is 2024 Skin: Warm, dry, intact [...] She is advised to follow-up with her CAN CLEANER and return with worsening symptoms or concerns. She is agreeable to plan all course concerns answered she is discharged home in stable condition. Lab Data Labs: Laboratory R (more content not included)... Normal [facility] Glomerular filtration rate ( GFR) estimation/1.73 sq m using serum, plasma, or whole bOrdered By: Alvaro Carlton on 08-16-2024 GFR/1.73 sq M.predicted among non-blacks MDRD (S/P/Bld) [Vol rate/Area] 146 mL/min/{1.73_m2} >60 [facility] Comment on above: mL/min/1.73m2 CKD-EP I Creatinine Equation (2020) Ketones Test strip Ql (U)Ord ered By: Alvaro Carlton on 08-16-2024 Ketones Ql (U) 50 mg/dl High Negative [facility] Microscopic analysis of urin e for red blood cells (RBC)Ordered By: Alvaro Carlton on 08-16-2024 Microscopic analysis of urine for red blood cells (RBC) 0 SEEN /hpf 0-5 [facility] Mucus LM Ql (Urine sed)Order ed By: Alvaro Carlton on 08-16-2024 Mucus Ql (Urine sed) 0 SEEN /hpf [facility] Nitrite Test strip Ql (U)Ord ered By: Alvaro Carlton on 08-16-2024 Nitrite Ql (U) Negative Negative [facility] Potassium measurement (mass/ volume)Ordered By: Alvaro Carlton on 08-16-2024 Potassium (Unsp spec) [Mass/Vol] 3.4 mmol/L 3.3-5.1 [facility] Protein Test strip Ql (U)Ord ered By: Alvaro Carlton on 08-16-2024 Protein Ql (U) 15 mg/dl High Negative [facility] Serum creatinine measurement (mass/volume)Ordered By: Alvaro Carlton on 08-16-2024 Creatinine [Mass/Vol] 0.39 mg/dL Low 0.70-1.20 [facility] Serum glucose measurement (m ass/volume)Ordered By: Alvaro Carlton on 08-16-2024 Glucose [Mass/Vol] 87 mg/dL 70-99 [facility] Serum or plasma calcium rigo urement (mass/volume)Ordered By: Alvaro Carlton on 08-16-2024 Calcium [Mass/Vol] 9.3 mg/dL 7.6-11.0 [facility] Serum or plasma urea nitroge n measurement (mass/volume)Ordered By: Alvaro Carlton on 08-16-2024 Urea nitrogen [Mass/Vol] 4 mg/dL 4-19 [facility] Sodium levelOrdered By: Chintan Carlton on 08-16-2024 Sodium [Moles/Vol] 135 mmol/L 133-145 [facility] Squamous epithelial cells de tection in urine sediment by light microscopyOrdered By: Alvaro Carlton on 08-16-2024 Epithelial cells.squamous LM Ql (Urine sed) 5-10 SEEN /hpf 5-10 [facility] Urinalysis, Completeon 08-16 BACTERIA 2+ /hpf Normal None Seen [facility] Comment on above: Order Comment: CLEAN CATCH Performed By: #### L 400.0001 ####[facility] [address] [place], [address] Performed By: #### L 400.0001 #### [facility] [address] [place], [address] EPI,SQUAMOUS 5-10 SEEN Normal 5-10 [facility] Comment on above: Order Comment: CLEAN CATCH Performed By: #### L 400.0001 ####[facility] [address] [place], [address] Performed By: #### L 400.0001 #### [facility] [address] [place], [address] WBC 0-5 SEEN Normal 0-5 [facility] Comment on above: Order Comment: CLEAN CATCH Performed By: #### L 400.0001 ####[facility] [address] [place], [address] Performed By: #### L 400.0001 #### [facility] [address] [place], [address] Mucus Ql (Urine sed) 0 SEEN Normal [facility] Comment on above: Order Comment: CLEAN CATCH Performed By: #### L 400.0001 ####[facility] [address] [place], [address] Performed By: #### L 400.0001 #### [facility] [address] [place], [place], [id number] RBC 0 SEEN Normal 0-5 [facility] Comment on above: Order Comment: CLEAN CATCH Performed By: #### L 400.0001 ####[facility] [address] [place], [address] Performed By: #### L 400.0001 #### [facility] [address] [place], [place], [id number] Urine clarityOrdered By: Kayy Carlton on 08-16-2024 Clarity (U) Sl. Cloudy Clear [facility] Urine color determinationOrd ered By: Alvaro Carlton on 08-16-2024 Color (U) Yellow Yellow [facility] Urine glucose detectionOrder ed By: Alvaro Carlton on 08-16-2024 Glucose Ql (U) Normal mg/dl Normal [facility] Urine leukocyte esterase det ection by dipstickOrdered By: Alvaro Carlton on 08-16-2024 Leukocyte esterase Test strip Ql (U) 25 /ul High Negative [facility] Urine pHOrdered By: Alvaro morgan on 08-16-2024 pH (U) 6.5 [pH] 5.0 - 8.0 [facility] Urine sediment bacteria coun t by microscopy (number/high power field)Ordered By: Alvaro Carlton on 08-16-2024 Bacteria LM.HPF (Urine sed) [#/Area] 2 /[HPF] None Seen [facility] Urine specific gravity measu rementOrdered By: Alvaro Carlton on 08-16-2024 Specific gravity (U) [Rel density] 1.015 1.002-1.030 [facility] Urine urobilinogen measureme ntOrdered By: Alvaro Carlton on 08-16-2024 Urobilinogen Ql (U) Normal mg/dl Normal [facility] White blood cell countOrdere d By: Alvaro Carlton on 08-16-2024 White blood cell count 0-5 SEEN /hpf 0-5 [facility] CNPNon 08-10-2024 CNPN Telephone (PSYRMN) MANJINDER WINTER ([id number]) 3 F Date Time Provider Department 08/10/24 [...] in making appt at: Other Providers name: [facility] [employer] Location address: [address] [place] [address] Phone number: Appointment date and time: Pt to call to schedule Current priority status of the referral Medium Additional information Patient and SW discussed [facility] referral. Patient noted she is open to both counseling and psychiatry services. Patient noted previously being established with [facility]. Patient reported happy with services received, doesn't know why she stopped going. SW and patient discussed resuming services at [facility] or new provider. Patient noted preference for resuming care at [facility]. SW encouraged patient to call to schedule or complete appointment form online. Pt to schedule with [facility] for counseling and psychiatry. Allergies As of Date: 08/10/2024 (No Known Allergies) Date Reviewed: 08/01/2024 Reviewed by: Darvin Peng APRN.ACCOUNTING SYSTEMS MANAGER - Fully Assessed Reason for Visit: Integrated [...] Encounter Status:Closed by REYNALDO BEARD on 08/10/24 [facility] CNPNon 08-09-2024 CNPN Telephone (OBGYWM) MANJINDER WINTER ([id number]) 3 F Date Time Provider Department 08/09/24 NAOMI KELSEY During your visit today, we recorded the following information about you: Naomi Guerin RN 08/09/2024 4:47 PM Signed 7w6d Patient called to report that she was seen at [facility] ER yesterday for bleeding. Was dx with [...] Date Reviewed: 08/01/2024 Reviewed by: Darvin Peng APRN.ACCOUNTING SYSTEMS MANAGER - Fully Assessed Reason for Visit: Early [...] Status:Closed by NAOMI GUERIN on 08/16/24 Normal [facility] Absolute lymphocyte countOrd ered By: Rupert Guerra on 08-08-2024 Lymphocytes Auto (Unsp spec) [#/Vol] 2.06 10*3/uL 0.83-4.51 [facility] Absolute neutrophil countOrd ered By: Rupert Guerra on 08-08-2024 Neutrophils (Bld) [#/Vol] 7.8 10*3/uL High 2.0-7.7 [facility] Anion gap in Serum or Plasma Ordered By: Rupert Guerra on 08-08-2024 Anion gap [Moles/Vol] 12 mmol/L 5-15 [facility] Automated lymphocyte count a s percentage of total leukocytesOrdered By: Rupert Guerra on 08-08-2024 Lymphocytes/100 WBC Auto (Unsp spec) 19.2 % [facility] BUN/creatinine ratioOrdered By: Rupert [facility] on 08-08-2024 Urea nitrogen/Creatinine [Mass ratio] 22.8 mg/mg High 01-07 [facility] Basic Metabolic Profile (BMP )on 08-08-2024 BUN/CRE 22.8 RATIO High 01-07 [facility] Comment on above: Performed By: #### L 700.8000, L500.2500, L100.0100 ####[facility] [address] [place], [address] Performed By: #### M 100.2200 #### [facility] [address] [place], [address] Calcium [Mass/Vol] 9.8 mg/dL Normal 7.6-11.0 [facility] Comment on above: Performed By: #### L 700.8000, L500.2500, L100.0100 ####[facility] [address] [place], [address] Performed By: #### M 100.2200 #### [facility] [address] [place], [address] Chloride [Moles/Vol] 102 mmol/L Normal 98-108 [facility] Comment on above: Performed By: #### L 700.8000, L500.2500, L100.0100 ####[facility] [address] [place], [address] Performed By: #### M 100.2200 #### [facility] [address] [place], [address] CO2 [Moles/Vol] 21.8 mmol/L Normal 21.0-32.0 [facility] Comment on above: Performed By: #### L 700.8000, L500.2500, L100.0100 ####[facility] [address] [place], [address] Performed By: #### M 100.2200 #### [facility] [address] [place], [address] Creatinine [Mass/Vol] 0.49 mg/dL Low 0.70-1.20 [facility] Comment on above: Performed By: #### L 700.8000, L500.2500, L100.0100 ####[facility] [address] [place], [address] Performed By: #### M 100.2200 #### [facility] [address] [place], [address] ECRCL 151.50 ml/min Normal 50-250 [facility] Comment on above: Performed By: #### L 700.8000, L500.2500, L100.0100 ####[facility] [address] [place], [address] Performed By: #### M 100.2200 #### [facility] [address] [place], [address] GAP 12 Normal 5-15 [facility] Comment on above: Performed By: #### L 700.8000, L500.2500, L100.0100 ####[facility] [address] [place], [address] Performed By: #### M 100.2200 #### [facility] [address] [place], [address] GFR/1.73 sq M.predicted among non-blacks MDRD (S/P/Bld) [Vol rate/Area] 138 mL/min/{1.73_m2} Normal >60 [facility] Comment on above: Result Comment: mL/m in/1.73m2 CKD-EPI Creatinine Equation (2020) Performed By: #### L 700.8000, L500.2500, L100.0100 ####[facility] [address] [place], [address] Performed By: #### M 100.2200 #### [facility] [address] [place], [address] Glucose [Mass/Vol] 93 mg/dL Normal 70-99 [facility] Comment on above: Performed By: #### L 700.8000, L500.2500, L100.0100 ####[facility] [address] [place], [address] Performed By: #### M 100.2200 #### [facility] [address] [place], [address] Potassium [Moles/Vol] 3.8 mmol/L Normal 3.3-5.1 [facility] Comment on above: Result Comment: Hemo lysis present, Results??could be affected. ?? Performed By: #### L 700.8000, L500.2500, L100.0100 ####[facility] [address] [place], [address] Performed By: #### M 100.2200 #### [facility] [address] [place], [address] Sodium [Moles/Vol] 136 mmol/L Normal 133-145 [facility] Comment on above: Performed By: #### L 700.8000, L500.2500, L100.0100 ####[facility] [address] [place], [address] Performed By: #### M 100.2200 #### [facility] [address] [place], [address] Urea nitrogen [Mass/Vol] 11 mg/dL Normal 4-19 [facility] Comment on above: Performed By: #### L 700.8000, L500.2500, L100.0100 ####[facility] [address] [place], [address] Performed By: #### M 100.2200 #### [facility] [address] [place], [address] Basophil percentageOrdered B y: Rupert Guerra on 08-08-2024 Basophils/100 WBC (Bld) 0.3 % 0-1 [facility] Bilirubin Test strip Ql (U)O rdered By: Rupert Guerra on 08-08-2024 Bilirubin Ql (U) Negative Negative [facility] CBC W/Diff, Automatedon 07-20 Absolute Lymph 2.06 X10 3/uL Normal 0.83-4.51 [facility] Comment on above: Performed By: #### L 700.8000, L500.2500, L100.0100 ####[facility] [address] [place], [address] Performed By: #### M 100.2200 #### [facility] [address] [place], [address] Absolute Neut 7.8 X10 3/uL High 2.0-7.7 [facility] Comment on above: Performed By: #### L 700.8000, L500.2500, L100.0100 ####[facility] [address] [place], [address] Performed By: #### M 100.2200 #### [facility] [address] [place], [address] Basophils/100 WBC (Bld) 0.3 % Normal 0-1 [facility] Comment on above: Performed By: #### L 700.8000, L500.2500, L100.0100 ####[facility] [address] [place], [address] Performed By: #### M 100.2200 #### [facility] [address] [place], [address] Eosinophils/100 WBC (Bld) 0.5 % Normal 0-5 [facility] Comment on above: Performed By: #### L 700.8000, L500.2500, L100.0100 ####[facility] [address] [place], [address] Performed By: #### M 100.2200 #### [facility] [address] [place], [address] Erythrocyte distribution width (RBC) [Ratio] 12.5 % Normal 11.6-14.6 [facility] Comment on above: Performed By: #### L 700.8000, L500.2500, L100.0100 ####[facility] [address] [place], [address] Performed By: #### M 100.2200 #### [facility] [address] [place], [address] Hematocrit (Bld) [Volume fraction] 36.9 % Low 37-47 [facility] Comment on above: Performed By: #### L 700.8000, L500.2500, L100.0100 ####[facility] [address] [place], [address] Performed By: #### M 100.2200 #### [facility] [address] [place], [address] Hemoglobin (Bld) [Mass/Vol] 13.0 g/dL Normal 12.0-15.0 [facility] Comment on above: Performed By: #### L 700.8000, L500.2500, L100.0100 ####[facility] [address] [place], [address] Performed By: #### M 100.2200 #### [facility] [address] [place], [address] IG% 0.200 Normal 0.0-0.9 [facility] Comment on above: Result Comment: IG% - Immature Granulocytes (promyelocytes, myelocytes and metamyelocytes) > 1% indicates that a LEFT SHIFT is Present. Performed By: #### L 700.8000, L500.2500, L100.0100 ####[facility] [address] [place], [address] Performed By: #### M 100.2200 #### [facility] [address] [place], [address] Lymphocytes/100 WBC (Bld) 19.2 % Normal 19-41 [facility] Comment on above: Performed By: #### L 700.8000, L500.2500, L100.0100 ####[facility] [address] [place], [address] Performed By: #### M 100.2200 #### [facility] [address] [place], [address] MCH (RBC) [Entitic mass] 30.2 pg Normal 27.0-32.0 [facility] Comment on above: Performed By: #### L 700.8000, L500.2500, L100.0100 ####[facility] [address] [place], [address] Performed By: #### M 100.2200 #### [facility] [address] [place], [address] MCHC (RBC) [Mass/Vol] 35.2 g/dL Normal 32-36 [facility] Comment on above: Performed By: #### L 700.8000, L500.2500, L100.0100 ####[facility] [address] [place], [address] Performed By: #### M 100.2200 #### [facility] [address] [place], [address] MCV (RBC) [Entitic vol] 85.8 fL Normal 81-99 [facility] Comment on above: Performed By: #### L 700.8000, L500.2500, L100.0100 ####[facility] [address] [place], [address] Performed By: #### M 100.2200 #### [facility] [address] [place], [address] Monocytes/100 WBC (Bld) 7.2 % Normal 0-10 [facility] Comment on above: Performed By: #### L 700.8000, L500.2500, L100.0100 ####[facility] [address] [place], [address] Performed By: #### M 100.2200 #### [facility] [address] [place], [address] Neutrophils/100 WBC (Bld) 72.6 % High 47-70 [facility] Comment on above: Performed By: #### L 700.8000, L500.2500, L100.0100 ####[facility] [address] [place], [address] Performed By: #### M 100.2200 #### [facility] [address] [place], [address] Nucleated RBC (Bld) [#/Vol] 0 10*3/uL Normal 0-5 [facility] Comment on above: Performed By: #### L 700.8000, L500.2500, L100.0100 ####[facility] [address] [place], [address] Performed By: #### M 100.2200 #### [facility] [address] [place], [address] Platelet mean volume (Bld) [Entitic vol] 10.2 fL Normal 6.2-12.0 [facility] Comment on above: Performed By: #### L 700.8000, L500.2500, L100.0100 ####[facility] [address] [place], [address] Performed By: #### M 100.2200 #### [facility] [address] [place], [address] Platelets (Bld) [#/Vol] 282 10*3/uL Normal 150-450 [facility] Comment on above: Performed By: #### L 700.8000, L500.2500, L100.0100 ####[facility] [address] [place], [address] Performed By: #### M 100.2200 #### [facility] [address] [place], [address] RBC (Bld) [#/Vol] 4.30 10*6/uL Normal 4.2-5.4 [facility] Comment on above: Performed By: #### L 700.8000, L500.2500, L100.0100 ####[facility] [address] [place], [address] Performed By: #### M 100.2200 #### [facility] [address] [place], [address] RDW SD 39.2 fl Normal 35.1-43.9 [facility] Comment on above: Performed By: #### L 700.8000, L500.2500, L100.0100 ####[facility] [address] [place], [address] Performed By: #### M 100.2200 #### [facility] [address] [place], [address] WBC (Bld) [#/Vol] 10.7 10*3/uL Normal 4.4-11.0 [facility] Comment on above: Performed By: #### L 700.8000, L500.2500, L100.0100 ####[facility] [address] [place], [address] Performed By: #### M 100.2200 #### [facility] [address] [place], [address] Carbon dioxide, total [Moles /volume] in Central venous bloodOrdered By: Rupert Guerra on 08-08-2024 CO2 [Moles/Vol] 21.8 mmol/L 21.0-32.0 [facility] Chloride assayOrdered By: Manolo Guerra on 08-08-2024 Chloride [Moles/Vol] 102 mmol/L 98-108 [facility] Emergency Department Summary on 08-08-2024 Emergency Department Summary [facility] Medical Records Department [address] [facility] [place] [address] Emergency Department Summary 08/08/24 MR#: [id number] Acct: [id number] Name: MANJINDER WINTER Rep #: [id number] : 2005 19 From: Rupert Guerra DO [...] miscarriage in January. States she follows with [facility]. States she had an ultrasound performed approximately [...] intact Psych: Cooperative, appropriate mood and affect [facility] Home Medications ???Medication ???Instructions ???Recorded ???Last Taken [...] secondary to this. 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 She agrees no further management at this [...] (Auto) 72.6 H Lymph % (Auto) 19.2 [place] % (Auto) 7.2 Eos % (Auto) 0.5 Baso % (Auto) 0.3 Absolute Neuts (au (more content not included)... Normal [facility] Emergency Department Summary [facility] Medical Records Department [address] [place] [address] Emergency Department Summary 08/08/24 MR#: [id number] Acct: [id number] Name: MANJINDER WINTER Rep #: [id number] : 2005 19 From: Rupert Guerra DO [...] miscarriage in January. States she follows with [facility] CAN [facility]. States she had an ultrasound performed approximately [...] secondary to this. 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 She agrees no further management at this [...] (Auto) 72.6 H Lymph % (Auto) 19.2 [place] % (Auto) 7.2 Eos % (Auto) 0.5 Baso % (Auto) 0.3 Absolute Neuts (au (more content not included)... Normal [facility] Eosinophil percentageOrdered By: Rupert Guerra on 08-08-2024 Eosinophils/100 WBC (Bld) 0.5 % 0-5 [facility] Erythrocyte distribution wid th ratioOrdered By: [place] Mari on 08-08-2024 Erythrocyte distribution width (RBC) [Ratio] 12.5 % 11.6-14.6 [facility] Erythrocyte distribution wid th standard deviationOrdered By: [place] Jerald Tolbert on 08-08-2024 Erythrocyte distribution width (RBC) [Ratio] 39.2 fl 35.1-43.9 [facility] Glomerular filtration rate ( GFR) estimation/1.73 sq m using serum, plasma, or whole bOrdered By: Rupert Guerra on 08-08-2024 GFR/1.73 sq M.predicted among non-blacks MDRD (S/P/Bld) [Vol rate/Area] 138 mL/min/{1.73_m2} >60 [facility] Comment on above: mL/min/1.73m2 CKD-EP I Creatinine Equation (2020) Hematocrit Auto (Bld) [Volum e fraction]Ordered By: Rupert Guerra on 08-08-2024 Hematocrit (Bld) [Volume fraction] 36.9 % Low 37-47 [facility] Hemoglobin measurementOrdere d By: Rupert Guerra on 08-08-2024 Hemoglobin (Bld) [Mass/Vol] 13.0 g/dL 12.0-15.0 [facility] Immature granulocytes/100 WB C Auto (Bld)Ordered By: Rupert Guerra on 08-08-2024 Immature granulocytes/100 WBC (Bld) 0.200 % 0.0-0.9 [facility] Comment on above: IG% - Immature Granu locytes (promyelocytes, myelocytes and metamyelocytes) > 1% indicates that a LEFT SHIFT is Present. Ketones Test strip Ql (U)Ord ered By: Rupert Guerra on 08-08-2024 Ketones Ql (U) 5 mg/dl High Negative [facility] MCV (mean corpuscular volume ) determinationOrdered By: Rupert Guerra on 08-08-2024 MCV (RBC) [Entitic vol] 85.8 fL 81-99 [facility] [facility] Mean corpuscular hemoglobin (MCH) determinationOrdered By: Rupert Guerra on 08-08-2024 MCH (RBC) [Entitic mass] 30.2 pg 27.0-32.0 [facility] Mean corpuscular hemoglobin concentration (MCHC) determinationOrdered By: Rupert Guerra on 08-08-2024 MCHC (RBC) [Mass/Vol] 35.2 g/dL 32-36 [facility] Mean platelet volume determi nationOrdered By: Rupert Guerra on 08-08-2024 Platelet mean volume (Bld) [Entitic vol] 10.2 fL 6.2-12.0 [facility] Microscopic analysis of urin e for red blood cells (RBC)Ordered By: Rupert Guerra on 08-08-2024 Microscopic analysis of urine for red blood cells (RBC) 0-5 SEEN /hpf 0-5 [facility] Monocyte percentageOrdered B y: Rupert Guerra on 08-08-2024 Monocytes/100 WBC (Bld) 7.2 % 0-10 [facility] Mucus LM Ql (Urine sed)Order ed By: Rupert Guerra on 08-08-2024 Mucus Ql (Urine sed) 0 SEEN /hpf [facility] Neutrophil percentageOrdered By: Rupert Guerra on 08-08-2024 Neutrophils/100 WBC (Bld) 72.6 % High 47-70 [facility] Nitrite Test strip Ql (U)Ord ered By: Rupert Guerra on 08-08-2024 Nitrite Ql (U) Negative Negative [facility] Nucleated red blood cell per centageOrdered By: Rupert Guerra on 08-08-2024 Nucleated RBC/100 WBC (Bld) [Ratio] 0 % 0-5 [facility] Platelet countOrdered By: Manolo Guerra on 08-08-2024 Platelets (Bld) [#/Vol] 282 10*3/uL 150-450 [facility] Potassium measurement (mass/ volume)Ordered By: Rupert Guerra on 08-08-2024 Potassium (Unsp spec) [Mass/Vol] 3.8 mmol/L 3.3-5.1 [facility] Comment on above: Hemolysis present, R esults could be affected. Protein Test strip Ql (U)Ord ered By: Rupert Guerra on 08-08-2024 Protein Ql (U) 15 mg/dl High Negative [facility] RBC Auto (Bld) [#/Vol]Ordere d By: Rupert Guerra on 08-08-2024 RBC (Bld) [#/Vol] 4.30 10*6/uL 4.2-5.4 [facility] Serum creatinine measurement (mass/volume)Ordered By: Rupert Guerra on 08-08-2024 Creatinine [Mass/Vol] 0.49 mg/dL Low 0.70-1.20 [facility] Serum glucose measurement (m ass/volume)Ordered By: Rupert Guerra on 08-08-2024 Glucose [Mass/Vol] 93 mg/dL 70-99 [facility] Serum human chorionic gonado tropin detection for pregnancyOrdered By: Rupert Guerra on 08-08-2024 HCG ( test) Ql 604577 mIU/mL High <9 [facility] Comment on above: Gestational Age0.2-1 Week: 5-50 mIU/mL1-2 Weeks: 50-500 mIU/mL2-3 Weeks: 100-5000 mIU/mL3-4 Weeks: 500-10,000 mIU/mL4-5 Weeks:1000-50,000 mIU/mL5-6 Weeks: 10,000-100,000 mIU/mL6-8 Weeks: 15,000-200,000 mIU/mL2-3 Months:10,000-100,000 mIU/mL Serum or plasma calcium rigo urement (mass/volume)Ordered By: Rupert Tolbert on 08-08-2024 Calcium [Mass/Vol] 9.8 mg/dL 7.6-11.0 [facility] Serum or plasma urea nitroge n measurement (mass/volume)Ordered By: Rupert Guerra on 08-08-2024 Urea nitrogen [Mass/Vol] 11 mg/dL 4-19 [facility] Sodium levelOrdered By: Tu Guerra on 08-08-2024 Sodium [Moles/Vol] 136 mmol/L 133-145 [facility] Squamous epithelial cells de tection in urine sediment by light microscopyOrdered By: Rupert Guerra on 08-08-2024 Epithelial cells.squamous LM Ql (Urine sed) 0-5 SEEN /hpf 5-10 [facility] Transvaginal w/Preg USon Transvaginal w/Preg US [facility] [address] [place] [address] Transvaginal w/Preg US MR#: [id number] Acct: [id number] Name: MANJINDER WINTER Rep #: [id number] : 2005 F 19 From: Abelardo Morfin MD PCP: Care Physician,No Primary Status: REG ER Study: Transvaginal w/Preg US Date of Exam: 08/08/24 Exam# [id number] Ordering Dr: Rupert Guerra DO PROCEDURE: TRANSVAGINAL [...] intrauterine . Small subchorionic hematoma. Reading Location: [place] [address] CC: Dr. Rupert Guerra DO; No Primary Care Physician Court Reporter: Signed Normal [facility] Transvaginal w/Preg US [facility] [address] [place] [address] [id number] Transvaginal w/Preg US MR#: [id number] Acct: [id number] Name: MANJINDER WINTER Rep #: [id number] : 2005 F 19 From: Abelardo Morfin MD PCP: Care Physician,No Primary Status: [facility] ER Study: Transvaginal w/Preg US Date of Exam: 08/08/24 Exam# [id number] Ordering Dr: Rupert Guerra DO PROCEDURE: TRANSVAGINAL [...] intrauterine . Small subchorionic hematoma. Reading Location: [id number] CC: Dr. Rupert Guerra, DO; No Primary Care Physician Court Reporter: Signed Normal [facility] Urinalysis, Completeon 08-08 BACTERIA 1+ /hpf Normal None Seen [facility] Comment on above: Order Comment: CLEAN CATCH Performed By: #### L 400.0001 #### [facility] [address] [place], [address] EPI,SQUAMOUS 0-5 SEEN Normal 5-10 [facility] Comment on above: Order Comment: CLEAN CATCH Performed By: #### L 400.0001 #### [facility] [address] [place], [address] RBC 0-5 SEEN Normal 0-5 [facility] Comment on above: Order Comment: CLEAN CATCH Performed By: #### L 400.0001 #### [facility] [address] [place], [address] Mucus Ql (Urine sed) 0 SEEN Normal [facility] Comment on above: Order Comment: CLEAN CATCH Performed By: #### L 400.0001 #### [facility] [address] [place], [address] WBC 0 SEEN Normal 0-5 [facility] Comment on above: Order Comment: CLEAN CATCH Performed By: #### L 400.0001 #### [facility] [place], [address] Urine clarityOrdered By: Oz Guerra on 08-08-2024 Clarity (U) Sl. Cloudy Clear [facility] Urine color determinationOrd ered By: Rupert Guerra on 08-08-2024 Color (U) Yellow Yellow [facility] Urine glucose detectionOrder ed By: Rupert Guerra on 08-08-2024 Glucose Ql (U) Normal mg/dl Normal [facility] Urine leukocyte esterase det ection by dipstickOrdered By: Rupert Guerra on 08-08-2024 Leukocyte esterase Test strip Ql (U) Negative Negative [facility] Urine pHOrdered By: Rupert Roman on 08-08-2024 pH (U) 6.0 [pH] 5.0 - 8.0 [facility] Urine sediment bacteria coun t by microscopy (number/high power field)Ordered By: Rupert Guerra on 08-08-2024 Bacteria LM.HPF (Urine sed) [#/Area] 1 /[HPF] None Seen [facility] Urine specific gravity measu rementOrdered By: Rupert Guerra on 08-08-2024 Specific gravity (U) [Rel density] 1.025 1.002-1.030 [facility] Urine urobilinogen measureme ntOrdered By: Rupert Guerra on 08-08-2024 Urobilinogen Ql (U) Normal mg/dl Normal [facility] White blood cell (WBC) count Ordered By: Rupert Guerra on 08-08-2024 WBC (Bld) [#/Vol] 10.7 10*3/uL 4.4-11.0 [facility] White blood cell countOrdere d By: Rupert Guerra on 08-08-2024 White blood cell count 0 SEEN /hpf 0-5 [facility] hCG Titer Quant., Serumon HCG QUANT. 300924 mIU/mL High <9 non-preg [facility] Comment on above: Result Comment: Gest ational Age 0.2-1 Week: 5-50 mIU/mL 1-2 Weeks: 50-500 mIU/mL 2-3 Weeks: 100-5000 mIU/mL 3-4 Weeks: 500-10,000 mIU/mL 4-5 Weeks:1000-50,000 mIU/mL 5-6 Weeks: 10,000-100,000 mIU/mL 6-8 Weeks: 15,000-200,000 mIU/mL 2-3 Months:10,000-100,000 mIU/mL Performed By: #### L 700.8000, L500.2500, L100.0100 ####[facility] [address] [place], [place], [address] Performed By: #### M 100.2200 #### [facility] [address] [place], [address] [facility] CNPN Telephone (PSYRMN) MANJINDER WINTER ([id number]) 3 F Date Time Provider Department 08/02/24 REYNALDO BEARD PSYRMN During your visit today, we recorded the following information about you: Reynaldo Beard LISW 08/02/2024 1:18 PM Signed Phone call to patient regarding [facility] referral. Patient did not answer, left message. 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 - Other [3602] Cmt: [facility] Consult Follow [...] Status:Closed by REYNALDO BEARD on 08/02/24 Normal [facility] BACTERIAL VAGINOSIS NAATon 0 08-01-2024 Lactobacillus crispatus+gasseri+cano ii + Gardnerella vaginalis + Atopobium vaginae rRNA NICO+probe Ql (Vag fld) Not detected Normal Not detected [facility] Comment on above: Order Comment: Speci men Type: SWABOrdering Facility: [facility] Address: [address] [place] [address] Performed By: #### B KINGSLEY, 54919-5 ####[facility] LABCLIA [id number] [place] [address] [place] Bacteria Ur Culton 5 Bacteria identified Cx Nom (U) ORGANISM ID: 1 <10,000 CFU/ml Normal urogenital jovana Normal [facility] Comment on above: Performed By: #### 6 30-4 ####[facility]IA [id number] [address] [place] [address] [place] C. trachomatis+N. gonorrhoea e DNA NICO+probe Ql (Unsp spec)on 08-01-2024 C. trachomatis rRNA NICO+probe Ql (Unsp spec) Not detected Normal Not detected [facility] Comment on above: Order Comment: Speci men Type: SWABOrdering Facility: [facility] Address: [address] [place] [address] Performed By: #### B VAMP, 27574-4 ####[facility] LABCLIA [id number] [address] N. gonorrhoeae rRNA NICO+probe Ql (Unsp spec) Not detected Normal Not detected [facility] Comment on above: Order Comment: Speci men Type: SWABOrdering Facility: [facility] Address: [address] [place] [address] Performed By: #### B VAMP, 72487-2 ####[facility] LABCLIA [id number] [address] [place] BHARATHI/TRICHOMONAS NAATon 0 08-01-2024 C. glabrata RNA NICO+probe Ql (Vag fld) Not detected Normal Not detected [facility] Comment on above: Order Comment: Speci men Type: SWABOrdering Facility: [facility] Address: [address] [place] [address] Performed By: #### C VTV ####[facility] LABCLIA [id number] [address] [place] Bharathi sp DNA NICO+probe Ql (Vag fld) Detected Abnormal Not detected [facility] Comment on above: Order Comment: Speci men Type: SWABOrdering Facility: [facility] Address: [address] [place] [address] Result Comment: The Bharathi species group target includes C. albicans, C. tropicalis, C. parapsilosis, and C. dubliniensis. Performed By: #### C VTV ####[facility] LABCLIA [id number] [address] [place] T. vaginalis DNA NICO+probe Ql (Unsp spec) Not detected Normal Not detected [facility] Comment on above: Order Comment: Speci men Type: SWABOrdering Facility: [facility] Address: [address] [place] [address] Performed By: #### C VTV ####[facility]CLIA [id number] [address] [place] CNCOon 08-01-2024 CNCO Letter Text Normal [facility] POC RIPSAWYER ULTRASOUNDon 08-02-19 Indication Viability; confirm cardiac activity [...] Read By: Darvin Peng NP MATERNAL MEDICINE [facility] Radiology Study observation (narrative) [facility] B. burgdorferi IgG and IgM p anitha (S)on 07-26-2024 B. burgdorferi IgG+IgM Qn (S) Negative Normal Negative [facility] Comment on above: Order Comment: Speci men Type: BLOOD SPECIMENOrdering Facility: [facility] Address: [address] [place] [address] Result Comment: Rece nt infection with B. burgdorferi sensu lato cannot be excluded if the specimen collected within four weeks after the onset of signs and symptoms or within six weeks after a known tick exposure. Clinical and epidemiological correlation is required. Performed By: #### 3 4942-3 ####[facility] LABCLIA [id number] [address] [place] Bilirubin Test strip Ql (U)O rdered By: Chip Ring on 07-26-2024 Bilirubin Ql (U) Negative Negative [facility] CBC W Auto Differential pane l (Bld)on 07-26-2024 Basophils (Bld) [#/Vol] 0.05 10*3/uL [facility] Basophils/100 WBC (Bld) 0.7 % [facility] Differential cell count method Nom (Bld) Auto [facility] Eosinophils (Bld) [#/Vol] 0.03 10*3/uL [facility] Eosinophils/100 WBC (Bld) 0.4 % [facility] Erythrocyte distribution width (RBC) [Ratio] 12.6 % 11.5 - 15.0 % [facility] Hematocrit (Bld) [Volume fraction] 37.4 % 36.0 - 46.0 % [facility] Hemoglobin (Bld) [Mass/Vol] 12.7 g/dL 11.5 - 15.5 g/dL [facility] Immature granulocytes (Bld) [#/Vol] [facility] Immature granulocytes/100 WBC (Bld) 0.3 % [facility] Lymphocytes (Bld) [#/Vol] 1.67 10*3/uL [facility] Lymphocytes/100 WBC (Bld) 23 % [facility] MCH (RBC) [Entitic mass] 29.3 pg 26.0 - 34.0 pg [facility] MCHC (RBC) [Mass/Vol] 34 g/dL 30.5 - 36.0 g/dL [facility] MCV (RBC) [Entitic vol] 86.4 fL 80.0 - 100.0 fL [facility] Monocytes (Bld) [#/Vol] 0.52 10*3/uL [facility] Monocytes/100 WBC (Bld) 7.2 % C [facility] Neutrophils (Bld) [#/Vol] 4.97 10*3/uL [facility] Neutrophils/100 WBC (Bld) 68.4 % [facility] Nucleated RBC (Bld) [#/Vol] NINF [facility] Nucleated RBC/100 WBC (Bld) [Ratio] 0 % /100 WBC [facility] Platelet mean volume (Bld) [Entitic vol] 11 fL 9.0 - 12.7 fL [facility] Platelets (Bld) [#/Vol] 240 10*3/uL [facility] RBC (Bld) [#/Vol] 4.33 10*6/uL 3.90 - 5.2 0 m/uL [facility] WBC (Bld) [#/Vol] 7.26 10*3/uL [facility] Basophils (Bld) [#/Vol] 0.05 10*3/uL Normal <0.11 [facility] Comment on above: Order Comment: Speci men Type: BLOOD SPECIMEN Ordering Facility: [facility] Address: [address] [place] [address] Performed By: #### 5 7021-8 #### [facility] [id number] [address] [place] [address] [place] Basophils/100 WBC (Bld) 0.7 % Normal [facility] Comment on above: Order Comment: Speci men Type: BLOOD SPECIMEN Ordering Facility: [facility] Address: [address] [place] [address] Performed By: #### 5 7021-8 #### [facility] CLIA [id number] [address] [place] [address] [place] Differential cell count method Nom (Bld) Auto Normal [facility] Comment on above: Order Comment: Speci men Type: BLOOD SPECIMEN Ordering Facility: [facility] Address: [address] [place] [address] Performed By: #### 5 7021-8 #### [facility] CLIA [id number] [address] [place], [place] [address] [place] Eosinophils (Bld) [#/Vol] 0.03 10*3/uL Normal <0.46 [facility] Comment on above: Order Comment: Speci men Type: BLOOD SPECIMEN Ordering Facility: [facility] Address: [address] [place] [address] Performed By: #### 5 7021-8 #### [facility] CLIA [id number] [address] [place] [address] [place] Eosinophils/100 WBC (Bld) 0.4 % Normal [facility] Comment on above: Order Comment: Speci men Type: BLOOD SPECIMEN Ordering Facility: [facility] Address: [address] [place] [address] Performed By: #### 5 7021-8 #### [facility] CLIA [id number] [address] [place] [address] [place] Erythrocyte distribution width (RBC) [Ratio] 12.6 % Normal 11.5-15.0 [facility] Comment on above: Order Comment: Speci men Type: BLOOD SPECIMEN Ordering Facility: [facility] Address: [address] [place] [address] Performed By: #### 5 7021-8 #### [facility] CLIA [id number] [address] [place] [address] [place] Hematocrit (Bld) [Volume fraction] 37.4 % Normal 36.0-46.0 [facility] Comment on above: Order Comment: Speci men Type: BLOOD SPECIMEN Ordering Facility: [facility] Address: [address] [place] [address] Performed By: #### 5 7021-8 #### [facility] [id number] [address] [place] [address] [place] Hemoglobin (Bld) [Mass/Vol] 12.7 g/dL Normal 11.5-15.5 [facility] Comment on above: Order Comment: Speci men Type: BLOOD SPECIMEN Ordering Facility: [facility] Address: [address] [place] [address] Performed By: #### 5 7021-8 #### [facility] CLIA [id number] [address] [place] [address] [place] Immature granulocytes (Bld) [#/Vol] 10*3/uL Normal <0.10 [facility] Comment on above: Order Comment: Speci men Type: BLOOD SPECIMEN Ordering Facility: [facility] Address: [address] [place] [address] Performed By: #### 5 7021-8 #### [facility] CLIA [id number] [address] [place] [address] [place] Immature granulocytes/100 WBC (Bld) 0.3 % Normal [facility] Comment on above: Order Comment: Speci men Type: BLOOD SPECIMEN Ordering Facility: [facility] Address: [address] [place] [address] Performed By: #### 5 7021-8 #### [facility] CLIA [id number] [address] [place] [address] [place] Lymphocytes (Bld) [#/Vol] 1.67 10*3/uL Normal 1.00-4.00 [facility] Comment on above: Order Comment: Speci men Type: BLOOD SPECIMEN Ordering Facility: [facility] Address: [address] [place] [address] Performed By: #### 5 7021-8 #### [facility] CLIA [id number] [address] [place] [address] [place] Lymphocytes/100 WBC (Bld) 23.0 % Normal [facility] Comment on above: Order Comment: Speci men Type: BLOOD SPECIMEN Ordering Facility: [facility] Address: [address] [place] [address] Performed By: #### 5 7021-8 #### [facility] CLIA [id number] [address] [place] [address] [place] MCH (RBC) [Entitic mass] 29.3 pg Normal 26.0-34.0 [facility] Comment on above: Order Comment: Speci men Type: BLOOD SPECIMEN Ordering Facility: [facility] Address: [address] [place] [address] Performed By: #### 5 7021-8 #### [facility] CLIA [id number] [address] [place] [address] [place] MCHC (RBC) [Mass/Vol] 34.0 g/dL Normal 30.5-36.0 [facility] Comment on above: Order Comment: Speci men Type: BLOOD SPECIMEN Ordering Facility: [facility] Address: [address] [place] [address] Performed By: #### 5 7021-8 #### [facility] [id number] [address] [place] [address] [place] MCV (RBC) [Entitic vol] 86.4 fL Normal 80.0-100.0 [facility] Comment on above: Order Comment: Speci men Type: BLOOD SPECIMEN Ordering Facility: [facility] Address: [address] [place] [address] Performed By: #### 5 7021-8 #### [facility] [id number] [address] [place] [address] [place] Monocytes (Bld) [#/Vol] 0.52 10*3/uL Normal <0.87 [facility] Comment on above: Order Comment: Speci men Type: BLOOD SPECIMEN Ordering Facility: [facility] Address: [address] [place] [address] Performed By: #### 5 7021-8 #### [facility] [id number] [address] [place] [address] [place] Monocytes/100 WBC (Bld) 7.2 % Normal [facility] Comment on above: Order Comment: Speci men Type: BLOOD SPECIMEN Ordering Facility: [facility] Address: [address] [place] [address] Performed By: #### 5 7021-8 #### [facility] CLIA [id number] [address] [place] [address] [place] Neutrophils (Bld) [#/Vol] 4.97 10*3/uL Normal 1.45-7.50 [facility] Comment on above: Order Comment: Speci men Type: BLOOD SPECIMEN Ordering Facility: [facility] Address: [address] [place] [address] Performed By: #### 5 7021-8 #### [facility] CLIA [id number] [address] [place] [address] [place] Neutrophils/100 WBC (Bld) 68.4 % Normal [facility] Comment on above: Order Comment: Speci men Type: BLOOD SPECIMEN Ordering Facility: [facility] Address: [address] [place] [address] Performed By: #### 5 7021-8 #### [facility] CLIA [id number] [address] [place] [address] [place] Nucleated RBC (Bld) [#/Vol] 10*3/uL Normal <0.01 [facility] Comment on above: Order Comment: Speci men Type: BLOOD SPECIMEN Ordering Facility: [facility] Address: [address] [place] [address] Performed By: #### 5 7021-8 #### [facility] CLIA [id number] [address] [place] [address] [place] Nucleated RBC/100 WBC (Bld) [Ratio] 0.0 /100 WBC Normal [facility] Comment on above: Order Comment: Speci men Type: BLOOD SPECIMEN Ordering Facility: [facility] Address: [address] [place] [address] Performed By: #### 5 7021-8 #### [facility] CLIA [id number] [address] [place] [address] [place] Platelet mean volume (Bld) [Entitic vol] 11.0 fL Normal 9.0-12.7 [facility] Comment on above: Order Comment: Speci men Type: BLOOD SPECIMEN Ordering Facility: [facility] Address: [address] [place] [address] Performed By: #### 5 7021-8 #### [facility] CLIA [id number] [address] [place] [address] [place] Platelets (Bld) [#/Vol] 240 10*3/uL Normal 150-400 [facility] Comment on above: Order Comment: Speci men Type: BLOOD SPECIMEN Ordering Facility: [facility] Address: [address] [place] [address] Performed By: #### 5 7021-8 #### [facility] CLIA [id number] [address] [place] [address] [place] RBC (Bld) [#/Vol] 4.33 10*6/uL Normal 3.90-5.20 [facility] Comment on above: Order Comment: Speci men Type: BLOOD SPECIMEN Ordering Facility: [facility] Address: [address] [place], [place] [address] Performed By: #### 5 7021-8 #### [facility] CLIA [id number] [address] [place] [address] [place] WBC (Bld) [#/Vol] 7.26 10*3/uL Normal 3.70-11.00 [facility] Comment on above: Order Comment: Speci men Type: BLOOD SPECIMEN Ordering Facility: [facility] Address: [address] [place] [address] Performed By: #### 5 7021-8 #### [facility] CLIA [id number] [place] [id number] [place] [address] STATES OF [facility] CNOVon 07-26-2024 CNOV Office Visit (UCWSTR) MANJINDER WINTER ([id number]) 3 F Date Time Provider Department 07/26/24 9:15 AM RITESH WASHBURN [facility] [[email or web address]] During your visit today, we recorded the following information about you: Temperature Pulse Respiration Blood pressure 98.1 degrees 70/minute 16/minute 120/68 Weight 53.7 kg Ritesh Washburn APRN.ACCOUNTING SYSTEMS MANAGER 07/26/2024 11:41 AM Signed Subjective HPI Nontoxic-appearing [...] a couple months ago. Has not seen [facility]ER or been established at this point. Upcoming [...] (more content not included)... [facility] Telephone (UCWSTR) MANJINDER WINTER ([id number]) 3 F Date Time Provider Department 07/26/24 RITESH WASHBURN [facility] [[email or web address]] During your visit today, we recorded the [...] Date Reviewed: 07/26/2024 Reviewed by: Ritesh Washburn APRN.ACCOUNTING SYSTEMS MANAGER - Fully Assessed Reason for Visit: Results [...] Status:Closed by LATHA OBRIEN on 07/31/24 Normal [facility] Comprehensive metabolic 2000 panelOrdered By: Sierra Maradiaga on 07-26-2024 Albumin [Mass/Vol] 4.7 g/dL 3.9 - 4.9 g/dL [facility] ALP [Catalytic activity/Vol] 75 U/L 34 - 123 U/L [facility] ALT [Catalytic activity/Vol] 14 U/L 7 - 38 U/L [facility] Anion gap [Moles/Vol] 8 mmol/L 8 - 15 mmol/L [facility] AST [Catalytic activity/Vol] 14 U/L 13 - 35 U/L [facility] Bilirubin [Mass/Vol] 0.2 mg/dL 0.2 - 1 .3 mg/dL [facility] Calcium [Mass/Vol] 9.9 mg/dL 8.5 - 10. 2 mg/dL [facility] Chloride [Moles/Vol] 102 mmol/L 98 - 10 7 mmol/L [facility] CO2 [Moles/Vol] 26 mmol/L 22 - 30 mmol/L [facility] Creatinine [Mass/Vol] 0.46 mg/dL Low 0.58 - 0.96 mg/dL [facility] GFR/1.73 sq M.predicted among non-blacks MDRD (S/P/Bld) [Vol rate/Area] 141 mL/min/{1.73_m2} - PINF [facility] Comment on above: Estimated Glomerular Filtration [...] [facility] Comment on above: The [place] Diabete s Association (ADA) provides guidance for [...] Standards of Medical Care in Diabetes 2016, [place] Diabetes Association. Diabetes Care. 2016.39(Suppl 1). Interpretation and review of laboratory results Abnormal [facility] Potassium [Moles/Vol] 4 mmol/L 3.7 - 5.1 mmol/L [facility] Protein [Mass/Vol] 7.5 g/dL 6.3 - 8.0 g/dL [facility] Sodium [Moles/Vol] 136 mmol/L 136 - 144 mmol/L [facility] Urea nitrogen [Mass/Vol] 12 mg/dL 7 - 21 mg/d L [facility] Comprehensive metabolic 2000 panelon 07-26-2024 Albumin [Mass/Vol] 4.7 g/dL Normal 3.9-4.9 [facility] Comment on above: Order Comment: Speci men Type: BLOOD SPECIMENOrdering Facility: [facility] Address: [facility] [place] [address] Performed By: #### 2 4323-8 ####[facility] GISEL ANTONYLIA [id number] [place] [address] [place] ALP [Catalytic activity/Vol] 75 U/L Normal 34-123 [facility] Comment on above: Order Comment: Speci men Type: BLOOD SPECIMENOrdering Facility: [facility] Address: [address] [place] [address] Performed By: #### 2 4323-8 ####[facility] MILLTOWNCLIA [id number] [place] [address] [place] ALT [Catalytic activity/Vol] 14 U/L Normal 7-38 [facility] Comment on above: Order Comment: Speci men Type: BLOOD SPECIMENOrdering Facility: [facility] Address: [address] [place] [address] Performed By: #### 2 4323-8 ####[facility] [id number] [place] [address] [place] Anion gap [Moles/Vol] 8 mmol/L Normal 8-15 [facility] Comment on above: Order Comment: Speci men Type: BLOOD SPECIMENOrdering Facility: [facility] Address: [address] [place] [address] Performed By: #### 2 4323-8 ####[facility] [id number] [place] [address] [place] AST [Catalytic activity/Vol] 14 U/L Normal 13-35 [facility] Comment on above: Order Comment: Speci men Type: BLOOD SPECIMENOrdering Facility: [facility] Address: [address] [place] [address] Performed By: #### 2 4323-8 ####[facility] MILLWESTPOINTNCLIA [id number] [place] [address] [place] Bilirubin [Mass/Vol] 0.2 mg/dL Normal 0.2-1.3 [facility] Comment on above: Order Comment: Speci men Type: BLOOD SPECIMENOrdering Facility: [facility] Address: [address] [place] [address] Performed By: #### 2 4323-8 ####[facility] GISEL MISTINCLIA [id number] [place] [address] [place] Calcium [Mass/Vol] 9.9 mg/dL Normal 8.5-10.2 [facility] Comment on above: Order Comment: Speci men Type: BLOOD SPECIMENOrdering Facility: [facility] Address: [address] [place] [address] Performed By: #### 2 4323-8 ####[facility] [id number] [place] [address] [place] Chloride [Moles/Vol] 102 mmol/L Normal 98-107 [facility] Comment on above: Order Comment: Speci men Type: BLOOD SPECIMENOrdering Facility: [facility] Address: [address] [place] [address] Performed By: #### 2 4323-8 ####[facility]CL[facility] [id number] [place] [address] [place] CO2 [Moles/Vol] 26 mmol/L Normal 22-30 [facility] Comment on above: Order Comment: Speci men Type: BLOOD SPECIMENOrdering Facility: [facility] Address: [address] [place] [address] Performed By: #### 2 4323-8 ####[facility] [id number] [place] [address] [place] Creatinine [Mass/Vol] 0.46 mg/dL Low 0.58-0.96 [facility] Comment on above: Order Comment: Speci men Type: BLOOD SPECIMENOrdering Facility: [facility] Address: [address] [place] [address] Performed By: #### 2 4323-8 ####[facility] [id number] [place] [address] [place] Creatinine and Glomerular filtration rate.predicted panel (S/P/Bld) 141 mL/min/1.73m??? Normal >=60 [facility] Comment on above: Order Comment: Tatyana morales Type: BLOOD SPECIMENOrdering Facility: [facility] Address: [address] [place] [address] Result Comment: Dagmar mated Glomerular Filtration Rate [...] actual GFR. Performed By: #### 2 4323-8 ####[facility] [id number] [place] [address] [place] Glucose [Mass/Vol] 91 mg/dL Normal 74-99 [facility] Comment on above: Order Comment: Tatyana morales Type: BLOOD SPECIMENOrdering Facility: [facility] Address: [address] [place] [address] Result Comment: The [place] Diabetes Association (ADA) provides guidance for cutoff [...] Standards of Medical Care in Diabetes 2016, [place] Diabetes Association. Diabetes Care. 2016.39(Suppl 1). Performed By: #### 2 4323-8 ####[facility] [id number] [place] [address] [place] Potassium [Moles/Vol] 4.0 mmol/L Normal 3.7-5.1 [facility] Comment on above: Order Comment: Speci men Type: BLOOD SPECIMENOrdering Facility: [facility] Address: [address] [place] [address] Performed By: #### 2 4323-8 ####[facility] MILLWNALLELYLIA [id number] [place] [address] [place] Protein [Mass/Vol] 7.5 g/dL Normal 6.3-8.0 [facility] Comment on above: Order Comment: Speci men Type: BLOOD SPECIMENOrdering Facility: [facility] Address: [address] [place] [address] Performed By: #### 2 4323-8 ####[facility] MILLWNALLELYLIA [id number] [place] [address] [place] Sodium [Moles/Vol] 136 mmol/L Normal 136-144 [facility] Comment on above: Order Comment: Speci men Type: BLOOD SPECIMENOrdering Facility: [facility] Address: [address] [place] [address] Performed By: #### 2 4323-8 ####[facility] ELIUDCANDIDOWNCLIA [id number] [place] [address] [place] Urea nitrogen [Mass/Vol] 12 mg/dL Normal 7-21 [facility] Comment on above: Order Comment: Speci men Type: BLOOD SPECIMENOrdering Facility: [facility] Address: [address] [place] [address] Performed By: #### 2 4323-8 ####[facility] MILLWNCLIA [id number] [place] [address] [place] Emergency Department Summary on 07-26-2024 Emergency Department Summary [facility] Medical Records Department [address] [place] [address] Emergency Department Summary 07/26/24 MR#: [id number] Acct: [id number] Name: MANJINDER WINTER Rep #: [id number] : 2005 19 From: Chip Bonilla PCP: Dr. Hi Wyatt MD Status:DEP ER Location: ED HPI HPI - Female History of Present Illness Chief Complaint: Female C/O Informant: patient Narrative Narrative: G2, P0 7 weeks gestation by dates. Her OB follow-up was on the 14 and 6 days with [facility]. Noting lower pelvic cramping for the past [...] clinician: N/A (more content not included)... Normal [facility] Ketones Test strip Ql (U)Ord ered By: Chip Ring on 07-26-2024 Ketones Ql (U) Negative Negative [facility] Microscopic analysis of urin e for red blood cells (RBC)Ordered By: Chip Ring on 07-26-2024 Microscopic analysis of urine for red blood cells (RBC) 0 SEEN /hpf 0-5 [facility] Mucus LM Ql (Urine sed)Order ed By: Chip Ring on 07-26-2024 Mucus Ql (Urine sed) 0 SEEN /hpf [facility] Nitrite Test strip Ql (U)Ord ered By: Chip Ring on 07-26-2024 Nitrite Ql (U) Negative Negative [facility] Protein Test strip Ql (U)Ord ered By: Chip Ring on 07-26-2024 Protein Ql (U) 15 mg/dl High Negative [facility] Serum human chorionic gonado tropin detection for pregnancyOrdered By: Chip Ring on 07-26-2024 HCG ( test) [place] [address] mIU/mL High <9 [facility] Comment on above: Gestational Age0.2-1 Week: 5-50 mIU/mL1-2 Weeks: 50-500 mIU/mL2-3 Weeks: 100-5000 mIU/mL3-4 Weeks: 500-10,000 mIU/mL4-5 Weeks:1000-50,000 mIU/mL5-6 Weeks: 10,000-100,000 mIU/mL6-8 Weeks: 15,000-200,000 mIU/mL2-3 Months:10,000-100,000 mIU/mL Squamous epithelial cells de tection in urine sediment by light microscopyOrdered By: Chip Ring on 07-26-2024 Epithelial cells.squamous LM Ql (Urine sed) 5-10 SEEN /hpf 5-10 [facility] Transvaginal w/Preg USon Transvaginal w/Preg US [facility] [address] [place] [address] Transvaginal w/Preg US MR#: [id number] Acct: [id number] Name: MANJINDER WINTER Rep #: [id number] : 2005 F 19 From: Venkat Ring MD PCP: Dr. Hi Wyatt MD Status: DEP ER Study: Transvaginal w/Preg US Date of Exam: 07/26/24 Exam# [id number] Ordering Dr: Cihp Ring DO EXAM: US First Trimester , [...] intrauterine as above. Reading Location: [facility] CC: Dr. Hi Wyatt MD; Dr. Chip Ring DO Court Reporter: Signed Normal [facility] Urinalysis, Completeon 07-26 BACTERIA 1+ /hpf Normal None Seen [facility] Comment on above: Order Comment: CLEAN CATCH Performed By: #### L 400.0001 #### [facility] [address] [place], [place], [id number] EPI,SQUAMOUS 5-10 SEEN Normal 5-10 [facility] Comment on above: Order Comment: CLEAN CATCH Performed By: #### L 400.0001 #### [facility] [address] [place], [place], [id number] WBC 0-5 SEEN Normal 0-5 [facility] Comment on above: Order Comment: CLEAN CATCH Performed By: #### L 400.0001 #### [facility] [address] [place], [place], [id number] Mucus Ql (Urine sed) 0 SEEN Normal [facility] Comment on above: Order Comment: CLEAN CATCH Performed By: #### L 400.0001 #### [facility] [address] [place], [place], [id number] RBC 0 SEEN Normal 0-5 [facility] Comment on above: Order Comment: CLEAN CATCH Performed By: #### L 400.0001 #### [facility] [address] [place], [address] Urine clarityOrdered By: Victor Hugo Ring on 07-26-2024 Clarity (U) Clear Clear [facility] Urine color determinationOrd ered By: Chip Ring on 07-26-2024 Color (U) Straw Yellow [facility] Urine glucose detectionOrder ed By: Chip Ring on 07-26-2024 Glucose Ql (U) Normal mg/dl Normal [facility] Urine leukocyte esterase det ection by dipstickOrdered By: Chip Ring on 07-26-2024 Leukocyte esterase Test strip Ql (U) Negative Negative [facility] Urine pHOrdered By: Chip Ring on 07-26-2024 pH (U) 7.0 [pH] 5.0 - 8.0 [facility] Urine sediment bacteria coun t by microscopy (number/high power field)Ordered By: Chip Ring on 07-26-2024 Bacteria LM.HPF (Urine sed) [#/Area] 1 /[HPF] None Seen [facility] Urine specific gravity measu rementOrdered By: Chip Ring on 07-26-2024 Specific gravity (U) [Rel density] 1.010 1.002-1.030 [facility] Urine urobilinogen measureme ntOrdered By: Chip Ring on 07-26-2024 Urobilinogen Ql (U) Normal mg/dl Normal [facility] White blood cell countOrdere d By: Chip Ring on 07-26-2024 White blood cell count 0-5 SEEN /hpf 0-5 [facility] hCG Titer Quant., Serumon HCG QUANT. 16545 mIU/mL High <9 non-preg [facility] Comment on above: Result Comment: Gest ational Age 0.2-1 Week: 5-50 mIU/mL 1-2 Weeks: 50-500 mIU/mL 2-3 Weeks: 100-5000 mIU/mL 3-4 Weeks: 500-10,000 mIU/mL 4-5 Weeks:1000-50,000 mIU/mL 5-6 Weeks: 10,000-100,000 mIU/mL 6-8 Weeks: 15,000-200,000 mIU/mL 2-3 Months:10,000-100,000 mIU/mL Performed By: #### M 100.2200 #### [facility] [place], [address] CNOVon 07-24-2024 [facility] Office Visit (UCTR) MANJINDER WINTER ([id number]) 3 F Date Time Provider Department 07/24/24 6:30 PM DONYA MACHADO [facility] [[email or web address] During your visit today, we recorded the following information about you: Temperature Pulse Respiration Blood pressure 99.2 degrees 110/minute 18/minute 128/72 Weight Last Period 54.7 kg 04/29/24 Donya Machado APRN.[facility] 07/24/2024 6:39 PM Signed [facility] Subjective Manjinder Sanders Moy is [...] - CEPHALEXIN 500 MG CAPSULE Donya Machado APRN.ACCOUNTING SYSTEMS MANAGER Differential Diagnoses - cellulitis is more likely [...] for Encounter Date Provider Department Center 07/24/2024 [id number]-IGSCENDONYA MACHADO UCWSTR [facility] Encounter Status:Closed by DONYA MACHADO on 07/24/24 [facility] 07-20-2024 CNPN Telephone (OBGYWM) MANJINDER WINTER ([id number]) 3 F Date Time Provider Department 07/20/24 [...] Encounter Status:Closed by JACK KAPLAN on 07/20/24 [facility] CNOVon 07-04-2024 CNOV Office Visit (FRFHWS) MANJINDER WINTER ([id number]) 3 F Date Time Provider Department 07/04/24 2:30 PM [facility] During your visit today, we recorded the [...] pain and inflammation management; prescription sent to [facility] pharmacy. - Fitted with a J-brace to [...] your p (more content not included)... Normal [facility] CNOVon 06-29-2024 CNOV Office Visit (UCTR) MANJINDER WINTER ([id number]) 3 F Date Time Provider Department 06/29/24 10:45 AM RITESH WASHBURN [facility] [[email or web address]] During your visit today, we recorded the following information about you: Temperature Pulse Respiration Blood pressure 97.9 degrees 67/minute 18/minute 123/67 Weight 55.6 kg Ritesh Washburn APRN.ACCOUNTING SYSTEMS MANAGER 06/29/2024 11:48 AM Signed Subjective HPI Nontoxic-appearing [...] of care. This note was generated using [employer] software. It may contain errors in wording, punctuation, or spelling. Ritesh Washburn APRN.ACCOUNTING SYSTEMS MANAGER Allergies As of Date: 06/29/2024 (No Known Allergies) Date Reviewed: 06/29/2024 Reviewed by: Ritesh Washburn APRN.ACCOUNTING SYSTEMS MANAGER - Fully Assessed Reason for Visit: Left Knee Pain [1208] Cmt: X1 day, twisted knee, pain shooting up to buttocks with walking Primary Visit Diagnosis:Acute pain of left knee [ (more content not included)... Normal [facility] XR KNEE 4V AP/PA BOTH+LAT/ME R LTon [...] osseous abnormality. Small LEFT knee joint effusion. Court Reporter: TR Transcribe Date/Time: Jun 29 2024 11:32A Dictated by : DAYANNA MADRIGAL DO This examination was interpreted and the report reviewed and electronically signed by: DAYANNA MADRIGAL DO on Jun 29 2024 11:35AM EST [id number] Normal [facility] XR Knee - left 4 Viewson IMPRESSION: No acute osseous abnormality. Small LEFT knee joint effusion. Court Reporter: TR Transcribe Date/Time: Jun 29 2024 11:32A [...] maintained. Bipartite patella. DIVISION OF RADIOLOGY Provider, [facility] [place] - 06/29/2024 * * *Final Report* * [...] osseous abnormality. Small LEFT knee joint effusion. Court Reporter: PSCB Transcribe Date/Time: Jun 29 2024 11:32A Dictated by : DAYANNA MADRIGAL DO This examination was interpreted and the report reviewed and electronically signed by: DAYANNA MADRIGAL DO on Jun 29 2024 11:35AM EST [facility] Radiology Study observation (narrative) [facility] XR Knee - left 4 ViewsOrdere d By: Ccf Provider on 06-29-2024 [facility] [id number] 03-15-2024 ABO and Rh group Nom (Bld) Blood group O Rh(D) positive Normal [facility] Comment on above: Performed By: #### L 100.0600, L700.8000, B882-1 #### [facility] [address] [place], [address] CNOVon 03-15-2024 CNOV [facility] MANJINDER WINTER ([id number]) 3 F Date Time Provider Department 03/15/24 7:45 PM SEVERINO TUCKER [facility] [[email or web address] During your visit today, we recorded the following information about you: Severino Tucker MD 03/15/2024 7:40 PM Signed [facility] Care Triage Note: Patient presents to the [facility] care with complaint of vaginal bleeding. She [...] Status:Closed by SEVERINO TUCKER on 03/15/24 Normal [facility] Emergency Department Summary on 03-15-2024 Emergency Department Summary [facility] Medical Records Department [address] [place] [address] Emergency Department Summary 03/15/24 MR#: [id number] Acct: [id number] Name: MANJINDER WINTER Rep #: [id number] : 2005 18 From: Karla HUTTON PCP: [...] pain. She denies any chronic medical conditions. [facility] Medical History (Updated 03/15/24 @ 23:01 by [...] Sl. Cloudy Urine pH 6.5 Ur Specific [place] 1.020 Urine Protein Negative Urine Glucose (UA) [...] Impression(s) f (more content not included)... Normal [facility] HH, Hemoglobin AND Hematocri ton 03-15-2024 Hematocrit (Bld) [Volume fraction] 42.3 % Normal 37-47 [facility] Comment on above: Performed By: #### L 100.0600, L700.8000, B882-1 #### [facility] [address] [place], [place], [id number] Hemoglobin (Bld) [Mass/Vol] 14.2 g/dL Normal 12.0-15.0 [facility] Comment on above: Performed By: #### L 100.0600, L700.8000, B882-1 #### [facility] [address] [place], [place], [address] Transvaginal w/Preg USon Transvaginal w/Preg US [facility] [address] [address] Transvaginal w/Preg US MR#: [id number] Acct: [id number] Name: MANJINDER WINTER Rep #: [id number] : 2005 F 18 From: Donte ryan MD PCP: Dr. Hi Wyatt MD Status: REG ER Study: Transvaginal w/Preg US Date of Exam: 03/15/24 Exam# [id number] Ordering Dr: Karla Claros [id number] INDICATION: vaginal bleeding EXAMINATION: US OB Transvaginal [...] CC: Dr. Hi Wyatt MD; ANNI Cruz Court Reporter: Signed Normal [facility] Urinalysis, Completeon 03-15 AMORPHOUS 4+ Normal [facility] Comment on above: Order Comment: CLEAN CATCH Performed By: #### L 400.0001 #### [facility] [address] [place], [address] EPI,SQUAMOUS 5-10 SEEN Normal 5-10 [facility] Comment on above: Order Comment: CLEAN CATCH Performed By: #### L 400.0001 #### [facility] [address] [place], [address] RBC 5-10 SEEN Normal 0-5 [facility] Comment on above: Order Comment: CLEAN CATCH Performed By: #### L 400.0001 #### [facility] [address] [place], [address] WBC 0-5 SEEN Normal 0-5 [facility] Comment on above: Order Comment: CLEAN CATCH Performed By: #### L 400.0001 #### [facility] [address] [place], [address] BACTERIA 0 SEEN Normal None Seen [facility] Comment on above: Order Comment: CLEAN CATCH Performed By: #### L 400.0001 #### [facility] [address] [place], [address] Mucus Ql (Urine sed) 0 SEEN Normal [facility] Comment on above: Order Comment: CLEAN CATCH Performed By: #### L 400.0001 #### [facility] [address] [place], [address] hCG Titer Quant., Serumon HCG QUANT. < 1 Normal 1-3 [facility] Comment on above: Result Comment: hCG levels with Gestational Age Gestational Age hCG mIU/mL (IU/L) 0.2 - 1 week 5 - 50 1-2 weeks 50 - 500 2-3 weeks 100 - 5000 3-4 weeks 500 - 88070 4-5 weeks 1000 - 64218 5-6 weeks 78762 - 100,000 6-8 weeks 10551 - 200,000 2-3 months 51083 - 100,000 Performed By: #### L 100.0600, L700.8000, B882-1 #### [facility] [address] [place], [address] XR Chest PA and Lateralon IMPRESSION: No acute radiographic abnormality. Court Reporter: PSCB Transcribe Date/Time: Dec 16 2023 3:42P Dictated by : JED IGLESIAS MD This examination was interpreted and the report reviewed and electronically signed by: JED IGLESIAS MD on Dec 16 2023 3:42PM [facility] DIVISION OF RADIOLOGY * * *Final Report* [...] soft tissues: Unremarkable. DIVISION OF RADIOLOGY Provider, [facility] - 12/16/2023 * * *Final Report* * [...] Unremarkable. IMPRESSION IMPRESSION: No acute radiographic abnormality. Court Reporter: PSCB Transcribe Date/Time: Dec 16 2023 3:42P Dictated by : JED IGLESIAS MD This examination was interpreted and the report reviewed and electronically signed by: JED IGLESIAS MD on Dec 16 2023 3:42PM EST [facility] Radiology Study observation (narrative) [facility] XR Chest PA and LateralOrder ed By: [facility] Provider on 12-16-2023 [facility] CBC W/Diff, Automatedon 11-19 Absolute Lymph 1.27 X10 3/uL Normal 0.83-4.51 [facility] Comment on above: Performed By: #### L 700.6800, L100.0100, L501.2450, L500.4050 #### [facility] [address] [place], [address] Performed By: #### L 500.4050, L700.6800, L100.0100, L501.2450 #### [facility] [address] [place], [address] Absolute Neut 7.7 X10 3/uL Normal 2.0-7.7 [facility] Comment on above: Performed By: #### L 700.6800, L100.0100, L501.2450, L500.4050 #### [facility] [address] [place], [address] Performed By: #### L 500.4050, L700.6800, L100.0100, L501.2450 #### [facility] [address] [place], [address] Basophils/100 WBC (Bld) 0.5 % Normal 0-1 [facility] Comment on above: Performed By: #### L 700.6800, L100.0100, L501.2450, L500.4050 #### [facility] [address] [place], [address] Performed By: #### L 500.4050, L700.6800, L100.0100, L501.2450 #### [facility] [address] [place], [address] Eosinophils/100 WBC (Bld) 0.1 % Normal 0-5 [facility] Comment on above: Performed By: #### L 700.6800, L100.0100, L501.2450, L500.4050 #### [facility] [address] [place], [address] Performed By: #### L 500.4050, L700.6800, L100.0100, L501.2450 #### [facility] [address] [place], [address] Erythrocyte distribution width (RBC) [Ratio] 13.1 % Normal 11.6-14.6 [facility] Comment on above: Performed By: #### L 700.6800, L100.0100, L501.2450, L500.4050 #### [facility] [address] [place], [address] Performed By: #### L 500.4050, L700.6800, L100.0100, L501.2450 #### [facility] [address] [place], [address] Hematocrit (Bld) [Volume fraction] 42.0 % Normal 37-47 [facility] Comment on above: Performed By: #### L 700.6800, L100.0100, L501.2450, L500.4050 #### [facility] [address] [place], [address] Performed By: #### L 500.4050, L700.6800, L100.0100, L501.2450 #### [facility] [address] [place], [address] Hemoglobin (Bld)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 ed PTTon 12-15-2021 aPTT Coag (Bld) [Time] 23.5 s Normal 0.0-40.[address] [facility] Comment on above: Order Comment: Relea se to patient->Automatic 53378&Blood Result Comment: Children < 1 yr of age may have a slightly prolonged activated partial thromboplastin time as the test is dependent on the level to which their coagulation factors have developed. Performed By: #### P TPTT #### [place] [address] INR 0.9 Normal 0.7-1.3 [facility] Comment on above: Order Comment: Relea se to patient->Automatic 57436&Blood Result Comment: Therapeutic Range for Oral Anticoagulant [...] reasons. Performed By: #### P TPTT #### [address] [address] PT Coag (PPP) [Time] 9.9 s Normal 8.5-14.0 [facility] Comment on above: Order Comment: Relea se to patient->Automatic 66148&Blood Result Comment: Children < 1 yr of age may have a slightly prolonged prothrombin time as the test is dependent on the level to which their coagulation factors have developed. Performed By: #### P TPTT #### [place] [address] Prothrombin Time & Activated PTTon 12-15-2021 aPTT Coag (Bld) [Time] 23.[address] [facility] Comment on above: Children < 1 yr of age may have a slightly prolonged activated partial thromboplastin time as the test is dependent on the level to which their coagulation factors have developed. INR Coag (PPP) [Relative time] 0.9 {INR} [facility] Comment on above: Therapeutic Range for [...] reasons. PT Coag (PPP) [Time] 9.9 s [facility] Comment on above: Children < 1 yr of age may have a slightly prolonged prothrombin time as the test is dependent on the level to which their coagulation factors have developed. Release to patient->Automatic [facility] Serum or plasma albumin rigo urement (mass/volume)on 12-15-2021 Albumin [Mass/Vol] 4.3 g/dL Normal 3.2-4.5 [facility] Comment on above: Order Comment: Relea se to patient->Automatic 58399&Blood Performed By: #### C MP #### [address] [address] Serum or plasma albumin/glob ulin mass ratioon 12-15-2021 Albumin/Globulin [Mass ratio] 1.0 {ratio} 0.9-2.4 [facility] Work Phone: Serum or plasma calcium rigo urement (mass/volume)on 12-15-2021 Calcium [Mass/Vol] 10.0 mg/dL 8.5-10.1 [facility] Work Phone: Serum or plasma creatinine m easurement (mass/volume)on 12-15-2021 Creatinine [Mass/Vol] 0.68 mg/dL 0.55-1.02 [facility] Work Phone: Comment on above: The validity of the calculated GFR & GFRAA in patients over 70 years has not been determined. Clinical correlation is essential. Serum or plasma urea nitroge n measurement (mass/volume)on 12-15-2021 Urea nitrogen [Mass/Vol] 11 mg/dL 7-18 [facility] Work Phone: Thin prep Papanicolaou smear with manual screeningon 12-15-2021 Thin prep Papanicolaou smear with manual screening 101 U/L 15-37 [facility] Work Phone: Thin prep Papanicolaou smear with manual screening 10 5-15 [facility] Work Phone: Type AND Antibody Screenon 0 12-15-2021 Direct Antiglobulin Test Negative Normal [facility] Comment on above: Performed By: #### U ACOM #### [address] [address] Screening Cells Negative Normal [facility] Comment on above: Performed By: #### U ACOM #### [address] [address] ABO Type O Normal [facility] Comment on above: Performed By: #### U ACOM #### [address] [address] RH Type Positive Normal [facility] Comment on above: Performed By: #### U ACOM #### [address] [address] Type & Screenon 12-15-2021 ABO Type O [facility] Direct Antiglobulin Test Negative [facility] Rh Type Positive [facility] Screening Cells Negative [facility] Urinalysis, Automated-Crystalo n 12-15-2021 Hyaline Casts, UA 1.0 /uL [facility] Mucous Ur Small [facility] RBC, Urine 15.0 /uL 0 - 20 /uL [facility] WBC UR 0.0 /uL 0 - 20 /uL [facility] Urinalysis, Complete (Chemis try & Micro)on 12-15-2021 Bilirubin Ur Negative Negative mg/dL [facility] Character Clear [facility] Color Ur Straw [facility] Glucose Ur Negative Negative mg/dL [facility] Hemoglobin Ur 2+ Abnormal Negative RBC's/uL [facility] Interpretation and review of laboratory results Abnormal [facility] Ketones Ur Negative Negative mg/dL [facility] Leukocyte Esterase Ur Negative Negati ve leuk/ul [facility] Nitrite Ql (U) Negative Negative mg/dl [facility] pH Ur 6.0 [facility] Protein Ur Negative Neg.-Trace mg/dL [facility] Specific gravity (U) [Rel density] 1.028 [facility] Urobilinogen (U) [Mass/Vol] 0.2 mg/dL Negative [facility] Volume Ur 12 ml 12 [facility] Urinalysis,Automatedon 12-15 Hyaline casts LM Ql (Urine sed) 1.0 /uL Normal [facility] Comment on above: Order Comment: Relea se to patient->Automatic 10272&Urine Reason for preventing automatic release->Other Release to patient->Manual release only 61895&Urine Performed By: #### H CGUR #### [facility] [address] [place] [address] Mucous Small Normal [facility] Comment on above: Order Comment: Relea se to patient->Automatic 93982&Urine Reason for preventing automatic release->Other Release to patient->Manual release only 54871&Urine Performed By: #### H CGUR #### [place] [address] RBC (U) [#/Vol] 15.0 /uL Normal 0.0-20.0 [facility] Comment on above: Order Comment: Relea se to patient->Automatic 86635&Urine Reason for preventing automatic release->Other Release to patient->Manual release only 32034&Urine Performed By: #### H CGUR #### [place] [address] WBC (U) [#/Vol] 0.0 /uL Normal 0.0-20.0 [facility] Comment on above: Order Comment: Relea se to patient->Automatic 43833&Urine Reason for preventing automatic release->Other Release to patient->Manual release only 89301&Urine Performed By: #### H CGUR #### [place] [address] Urinalysis,Completeon 2021 Bilirubin,urine Negative Normal Negative [facility] Comment on above: Order Comment: Relea se to patient->Automatic 16646&Urine Reason for preventing automatic release->Other Release to patient->Manual release only 98927&Urine Performed By: #### U ACOM #### [place] [address] Character Clear Normal [facility] Comment on above: Order Comment: Relea se to patient->Automatic 31499&Urine Reason for preventing automatic release->Other Release to patient->Manual release only 16681&Urine Performed By: #### U ACOM #### [address] [address] Color (U) Straw Normal [facility] Comment on above: Order Comment: Relea se to patient->Automatic 30356&Urine Reason for preventing automatic release->Other Release to patient->Manual release only 37384&Urine Performed By: #### U ACOM #### [address] [address] Glucose Ql (U) Negative Normal Negative [facility] Comment on above: Order Comment: Relea se to patient->Automatic 97521&Urine Reason for preventing automatic release->Other Release to patient->Manual release only 45775&Urine Performed By: #### U ACOM #### [address] [address] Ketones Ql (U) Negative Normal Negative [facility] Comment on above: Order Comment: Relea se to patient->Automatic 19761&Urine Reason for preventing automatic release->Other Release to patient->Manual release only 98500&Urine Performed By: #### U ACOM #### [address] [address] Leukocyte esterase Test strip Ql (U) Negative Normal Negative [facility] Comment on above: Order Comment: Relea se to patient->Automatic 29263&Urine Reason for preventing automatic release->Other Release to patient->Manual release only 02838&Urine Performed By: #### U ACOM #### [address] [address] Nitrite Ql (U) Negative Normal Negative [facility] Comment on above: Order Comment: Relea se to patient->Automatic 82731&Urine Reason for preventing automatic release->Other Release to patient->Manual release only 29668&Urine Performed By: #### U ACOM #### [address] [address] pH, Urine 6.0 Normal 5.0-8.0 [facility] Comment on above: Order Comment: Relea se to patient->Automatic 98482&Urine Reason for preventing automatic release->Other Release to patient->Manual release only 47977&Urine Performed By: #### U ACOM #### [place] [address] Protein,Ur Negative Normal Neg.-Trace [facility] Comment on above: Order Comment: Relea se to patient->Automatic 13140&Urine Reason for preventing automatic release->Other Release to patient->Manual release only 92998&Urine Performed By: #### U ACOM #### [place] [address] Specific gravity (U) [Rel density] 1.028 Normal 1.005-1.030 [facility] Comment on above: Order Comment: Relea se to patient->Automatic 75096&Urine Reason for preventing automatic release->Other Release to patient->Manual release only 95676&Urine Performed By: #### U ACOM #### [place] [address] Urobilinogen (U) [Mass/Vol] 0.2 mg/dL Normal Negative [facility] Comment on above: Order Comment: Relea se to patient->Automatic 73502&Urine Reason for preventing automatic release->Other Release to patient->Manual release only 76013&Urine Performed By: #### U ACOM #### [place] [address] Volume 12 ml Normal 12 [facility] Comment on above: Order Comment: Relea se to patient->Automatic 88061&Urine Reason for preventing automatic release->Other Release to patient->Manual release only 67785&Urine Performed By: #### U ACOM #### [place] [address] eGFRon 12-15-2021 eGFR see below Normal [facility] Comment on above: Order Comment: Relea se to patient->Automatic 44619&Blood Result Comment: Refe rence range: > 3 months: >90 ml/min/1.73m^2 Ref. Range change effective 06/13/2017 Unable to calculate EGFR; height not available. - To manually calculate eGFR use Bedside Boyce equation. - (0.41 X height in centimeters)/serum creatinine mg/dL Performed By: #### E GFR #### [facility] of [address] [address] eGFR see below [facility] Comment on above: Reference range: > 3 months: >90 ml/min/1.73m^2 Ref. Range change effective 06/13/2017 Unable to calculate EGFR; height not available. - To manually calculate eGFR use Bedside Boyce equation. - (0.41 X height in centimeters)/serum creatinine mg/dL Coronavirus 2019on 2 SARS-CoV-2 (COVID-19) RNA NICO+probe Ql (Unsp spec) Abnormal Negative for COVID19 (SARS CoV2) by RT-PCR or equival [facility] Comment on above: Result Comment: Posi tive for This test was developed and its performance characteristics determined by [facility] [place]. This test has been authorized by FDA under an Emergency Use Authorization (EUA). This test has been validated in accordance with the FDA's Guidance Document Policy for Diagnostics Testing in Laboratories Certified to Perform High Complexity Testing under CLIA prior to Emergency use Authorization for Coronavirus Disease 2019 during the Public Health Emergency issued on May 19, 2019. Test performed by [facility], [facility] [place], [address] [place] [id number]. COVID19 (SARS This test was developed and its performance characteristics determined by [facility] [place]. This test has been authorized by FDA under an Emergency Use Authorization (EUA). This test has been validated in accordance with the FDA's Guidance Document Policy for Diagnostics Testing in Laboratories Certified to Perform High Complexity Testing under CLIA prior to Emergency use Authorization for Coronavirus Disease 2019 during the Public Health Emergency issued on May 19, 2019. Test performed by [facility], [facility] [place], [address] [place] [id number]. CoV2) by RT-PCR This test was developed and its performance characteristics determined by [facility]'s [facility] [place]. This test has been authorized by FDA under an Emergency Use Authorization (EUA). This test has been validated in accordance with the FDA's Guidance Document Policy for Diagnostics Testing in Laboratories Certified to Perform High Complexity Testing under CLIA prior to Emergency use Authorization for Coronavirus Disease 2019 during the Public Health Emergency issued on May 19, 2019. Test performed by [facility], [facility], [address] [address]. or equivalent This test was developed and its performance characteristics determined by [facility]'s [facility]. This test has been authorized by FDA under an Emergency Use Authorization (EUA). This test has been validated in accordance with the FDA's Guidance Document Policy for Diagnostics Testing in Laboratories Certified to Perform High Complexity Testing under CLIA prior to Emergency use Authorization for Coronavirus Disease 2019 during the Public Health Emergency issued on May 19, 2019. Test performed by [facility], [facility], [address] [place] [address]. ethod.(*) This test was developed and its performance characteristics determined by [facility]. This test has been authorized by FDA under an Emergency Use Authorization (EUA). This test has been validated in accordance with the FDA's Guidance Document Policy for Diagnostics Testing in Laboratories Certified to Perform High Complexity Testing under CLIA prior to Emergency use Authorization for Coronavirus Disease 2019 during the Public Health Emergency issued on May 19, 2019. Test performed by [facility], [facility], [address] [address]. SARS-CoV-2 (COVID-19) RNA NICO+probe Ql (Unsp spec) URTS Normal [facility] Reference Lab XR Knee - left 4 Viewson IMPRESSION: * Soft tissue swelling, but no acute fracture. * Appearance of the left patella may represent a normal variant bipartite patella or evidence of a remote injury. Court Reporter: TR Transcribe Date/Time: Feb 23 2021 5:10P Dictated by : MIKAEL SALES MD This examination was interpreted and the report reviewed and electronically signed by: MIKAEL SALES MD on Feb 23 2021 5:12PM [facility] DIVISION OF RADIOLOGY * * *Final Report* [...] mildly hypertrophic contour. DIVISION OF RADIOLOGY Provider, [facility] [place] - 02/23/2021 * * *Final Report* * [...] patella or evidence of a remote injury. Court Reporter: PSCB Transcribe Date/Time: Feb 23 2021 5:10P Dictated by : MIKAEL SALES MD This examination was interpreted and the report reviewed and electronically signed by: MIKAEL SALES MD on Feb 23 2021 5:12PM EST [facility] Radiology Study observation (narrative) [facility] XR Knee - left 4 ViewsOrdere d By: Ccf Provider on 02-23-2021 [facility] No Panel Informationon 07-22 Radiology Study observation (narrative) [facility] XR Abdomen Supine and Uprigh ton 07-22-2020 IMPRESSION: 1. Non-obstructive bowel gas pattern. 2. Moderate stool burden. Court Reporter: [facility] Transcribe Date/Time: Jul 22 2020 11:10A Dictated by : NAMAN PEREZ MD This examination was interpreted and the report reviewed and electronically signed by: YULIA DIAZ DO on Jul 22 2020 12:04PM [facility] DIVISION OF RADIOLOGY * * *Final Report* [...] are otherwise unremarkable. DIVISION OF RADIOLOGY Provider, [facility] [place] - 07/22/2020 * * *Final Report* * [...] bowel gas pattern. 2. Moderate stool burden. Court Reporter: TR Transcribe Date/Time: Jul 22 2020 11:10A Dictated by : NAMAN PEREZ MD This examination was interpreted and the report reviewed and electronically signed by: YULIA DIAZ DO on Jul 22 2020 12:04PM EST [facility] XR Chest PA and Lateralon IMPRESSION: No focal airspace opacity. Court Reporter: TR Transcribe Date/Time: Jul 22 2020 10:38A Dictated by : NAMAN PEREZ MD This examination was interpreted and the report reviewed and electronically signed by: YULIA DIAZ DO on Jul 22 2020 11:04AM [facility] DIVISION OF RADIOLOGY * * *Final Report* [...] a mild scoliosis. DIVISION OF RADIOLOGY Provider, [facility] [place] - 07/22/2020 * * *Final Report* * [...] scoliosis. IMPRESSION IMPRESSION: No focal airspace opacity. Court Reporter: TR Transcribe Date/Time: Jul 22 2020 10:38A Dictated by : NAMAN PEREZ MD This examination was interpreted and the report reviewed and electronically signed by: YULIA DIAZ DO on Jul 22 2020 11:04AM EST [facility] XR Chest PA and LateralOrder ed By: Lurdes Provider on 07-22-2020 [facility] Vital Signs Date Time Vital Sign Value Performing Clinician Facility 11-07-2024 14:46-0400 Body mass index (BMI) [Ratio] 22.41 kg/m2 Jack Kaplan [employer].CNM Work Phone: [facility] 11-07-2024 14:46-0400 Body weight 59.6 kg Jack Kaplan [employer].CNM Work Phone: [facility] 11-07-2024 14:46-0400 Diastolic blood pressure 66 mm[Hg] Jack Kaplan [employer] CL[employer]PER.CNM Work Phone: [facility] 11-07-2024 14:46-0400 Systolic blood pressure 112 mm[Hg] Jack Kaplan [employer]IPPER.CNM Work Phone: [facility] 10-22-2024 15:34-0400 Body mass index (BMI) [Ratio] 21.77 kg/m2 Ritesh Washburn [employer]PER.ACCOUNTING SYSTEMS MANAGER Work Phone: [facility] 10-22-2024 15:34-0400 Body temperature 98.8 [degF] Ritesh Washburn [employer] CLIPPER.ACCOUNTING SYSTEMS MANAGER Work Phone: [facility] 10-22-2024 15:34-0400 Body weight 57.9 kg Ritesh Washburn [employer] CLIPPER.ACCOUNTING SYSTEMS MANAGER Work Phone: [facility] 10-22-2024 15:34-0400 Diastolic blood pressure 80 mm[Hg] Ritesh Washburn [employer] CLIPPER.ACCOUNTING SYSTEMS MANAGER Work Phone: [facility] 10-22-2024 15:34-0400 Heart rate 104 /min Ritesh Almanzaryu [employer] CLIPPER.ACCOUNTING SYSTEMS MANAGER Work Phone: [facility] 10-22-2024 15:34-0400 Respiratory rate 17 /min Ritesh Almanzaryu [employer] CLIPPER.ACCOUNTING SYSTEMS MANAGER Work Phone: [facility] 10-22-2024 15:34-0400 SaO2% (BldA) [Mass fraction] 99 % Ritesh Almanzaryu [employer]IPPER.ACCOUNTING SYSTEMS MANAGER Work Phone: [facility] 10-22-2024 15:34-0400 Systolic blood pressure 110 mm[Hg] Ritesh Almanzaryu [employer] CLIPPER.ACCOUNTING SYSTEMS MANAGER Work Phone: [facility] 10-10-2024 14:29-0400 Body mass index (BMI) [Ratio] 21.14 kg/m2 Luz Marina Connors MD Work Phone: [facility] 10-10-2024 14:29-0400 Body weight 56.25 kg Luz Marina Connors MD Work Phone: [facility] 10-10-2024 14:29-0400 Diastolic blood pressure 62 mm[Hg] Luz Marina Connors MD Work Phone: [facility] 10-10-2024 14:29-0400 Systolic blood pressure 118 mm[Hg] Luz Marina Connors MD Work Phone: [facility] 09-12-2024 14:43-0400 Body mass index (BMI) [Ratio] 20.46 kg/m2 Alana Bacon [employer].CNM Work Phone: [facility] 09-12-2024 14:43-0400 Body weight 54.43 kg Alana Bacon APRN.CNM Work Phone: [facility] 09-12-2024 14:43-0400 Diastolic blood pressure 68 mm[Hg] Alana Bacon [employer] CLIPPER.CNM Work Phone: [facility] 09-12-2024 14:43-0400 Systolic blood pressure 112 mm[Hg] Alana Bacon [employer]IPPER.CNM Work Phone: [facility] 09-07-2024 17:49-0400 Body mass index (BMI) [Ratio] 20.68 kg/m2 Ritesh Washburn [employer]IPPER.ACCOUNTING SYSTEMS MANAGER Work Phone: [facility] 09-07-2024 17:49-0400 Body temperature 98.6 [degF] Ritesh Washburn [employer] CLIPPER.ACCOUNTING SYSTEMS MANAGER Work Phone: [facility] 09-07-2024 17:49-0400 Body weight 55 kg Ritesh Washburn [employer] CLIPPER.ACCOUNTING SYSTEMS MANAGER Work Phone: [facility] 09-07-2024 17:49-0400 Diastolic blood pressure 70 mm[Hg] Ritesh Washburn [employer] CLIPPER.ACCOUNTING SYSTEMS MANAGER Work Phone: [facility] 09-07-2024 17:49-0400 Heart rate 98 /min Ritesh Washburn [employer] CLIPPER.ACCOUNTING SYSTEMS MANAGER Work Phone: [facility] 09-07-2024 17:49-0400 Respiratory rate 20 /min Ritesh Washburn [employer] CLIPPER.ACCOUNTING SYSTEMS MANAGER Work Phone: [facility] 09-07-2024 17:49-0400 SaO2% (BldA) [Mass fraction] 99 % Ritesh Washburn [employer]IPPER.ACCOUNTING SYSTEMS MANAGER Work Phone: [facility] 09-07-2024 17:49-0400 Systolic blood pressure 114 mm[Hg] Ritesh Washburn [employer] CLIPPER.ACCOUNTING SYSTEMS MANAGER Work Phone: [facility] 08-16-2024 20:44-0400 Body temperature 98.7 [degF] No Primary Care Physician [facility] 08-16-2024 20:44-0400 Diastolic blood pressure 69 mm[Hg] No Primary Care Physician [facility] 08-16-2024 20:44-0400 Heart rate 77 /min No Primary Care Physician [facility] 08-16-2024 20:44-0400 Respiratory rate 14 /min No Primary Care Physician [facility] 08-16-2024 20:44-0400 SaO2% (BldA) [Mass fraction] 100 % No Primary Care Physician [facility] 08-16-2024 20:44-0400 Systolic blood pressure 117 mm[Hg] No Primary Care Physician [facility] 08-16-2024 16:38-0400 Body height 160.02 cm No Primary Care Physician [facility] 08-16-2024 16:38-0400 Body mass index (BMI) [Ratio] 21.2 kg/m2 No Primary Care Physician [facility] 08-16-2024 16:38-0400 Body weight 54.43 kg No Primary Care Physician [facility] 08-08-2024 23:12-0400 Body temperature 98 [degF] No Primary Care Physician [facility] 08-08-2024 23:12-0400 Diastolic blood pressure 62 mm[Hg] No Primary Care Physician [facility] 08-08-2024 23:12-0400 Heart rate 70 /min No Primary Care Physician [facility] 08-08-2024 23:12-0400 Respiratory rate 18 /min No Primary Care Physician [facility] 08-08-2024 23:12-0400 SaO2% (BldA) [Mass fraction] 100 % No Primary Care Physician [facility] 08-08-2024 23:12-0400 Systolic blood pressure 118 mm[Hg] No Primary Care Physician [facility] 08-08-2024 19:48-0400 Body height 160.02 cm No Primary Care Physician [facility] 08-08-2024 19:48-0400 Body mass index (BMI) [Ratio] 21.3 kg/m2 No Primary Care Physician [facility] 08-08-2024 19:48-0400 Body weight 54.6 kg No Primary Care Physician [facility] 08-01-2024 13:57-0400 Body height 163.1 cm Darvin Peng APRN.ACCOUNTING SYSTEMS MANAGER Work Phone: [facility] 08-01-2024 13:57-0400 Body mass index (BMI) [Ratio] 20.46 kg/m2 Darvin Peng [employer] CLIPPER.ACCOUNTING SYSTEMS MANAGER Work Phone: [facility] 08-01-2024 13:57-0400 Body weight 54.43 kg Darvin Peng [employer] CLIPPER.ACCOUNTING SYSTEMS MANAGER Work Phone: [facility] 08-01-2024 13:57-0400 Diastolic blood pressure 58 mm[Hg] Darvin Peng C[employer] CLIPPER.ACCOUNTING SYSTEMS MANAGER Work Phone: [facility] 08-01-2024 13:57-0400 Systolic blood pressure 110 mm[Hg] Darvin Peng [employer]AG CLIPPER.ACCOUNTING SYSTEMS MANAGER Work Phone: 2(771)562-637394 [place] [address] 07-26-2024 13:39-0400 Body temperature 98 [degF] Dr. Hi Wyatt MD Work Phone: 0(892)959-642197 [place] [address] 07-26-2024 13:39-0400 Diastolic blood pressure 75 mm[Hg] Dr. Hi Wyatt MD Work Phone: 7(671)383-679883 [place] [address] 07-26-2024 13:39-0400 Heart rate 66 /min Dr. Hi Wyatt MD Work Phone: 5(904)279-322083 [place] [address] 07-26-2024 13:39-0400 Respiratory rate 18 /min Dr. Hi Wyatt MD Work Phone: 4(314)875-191997 [place] [address] 07-26-2024 13:39-0400 SaO2% (BldA) [Mass fraction] 100 % Dr. Hi Wyatt MD Work Phone: 5(924)629-583883 [place] [address] 07-26-2024 13:39-0400 Systolic blood pressure 118 mm[Hg] Dr. Hi Wyatt MD Work Phone: 7(650)600-336383 [place] [address] 07-26-2024 10:19-0400 Body height 160.[address] Hi Wyatt MD Work Phone: 7(156)191-890583 [place] [address] 07-26-2024 10:19-0400 Body mass index (BMI) [Ratio] 21.1 kg/m2 Dr. Hi Wyatt MD Work Phone: 1(090)689-622483 [place] [address] 07-26-2024 10:19-0400 Body weight 54.[address] Hi Wyatt MD Work Phone: [facility] 07-26-2024 09:21-0400 Body temperature 98.1 [degF] Ritesh Washburn [employer] CLIPPER.ACCOUNTING SYSTEMS MANAGER Work Phone: [facility] 07-26-2024 09:21-0400 Body weight 53.7 kg Ritesh Washburn [employer] CLIPPER.ACCOUNTING SYSTEMS MANAGER Work Phone: [facility] 07-26-2024 09:21-0400 Diastolic blood pressure 68 mm[Hg] Ritesh Washburn [employer] CLIPPER.ACCOUNTING SYSTEMS MANAGER Work Phone: [facility] 07-26-2024 09:21-0400 Heart rate 70 /min Ritesh Washburn C[employer] CLIPPER.ACCOUNTING SYSTEMS MANAGER Work Phone: [facility] 07-26-2024 09:21-0400 Respiratory rate 16 /min Ritesh Washburn C[employer] CLIPPER.ACCOUNTING SYSTEMS MANAGER Work Phone: [facility] 07-26-2024 09:21-0400 SaO2% (BldA) [Mass fraction] 99 % Ritesh Washburn [employer] CLIPPER.ACCOUNTING SYSTEMS MANAGER Work Phone: [facility] 07-26-2024 09:21-0400 Systolic blood pressure 120 mm[Hg] Ritesh Washburn C[employer] CLIPPER.ACCOUNTING SYSTEMS MANAGER Work Phone: [facility] 07-24-2024 18:22-0400 Body temperature 99.19 [degF] Donya Machado C[employer] CLIPPER.ACCOUNTING SYSTEMS MANAGER Work Phone: [facility] 07-24-2024 18:22-0400 Body weight 54.7 kg Donya Machado [employer] CLIPPER.ACCOUNTING SYSTEMS MANAGER Work Phone: [facility] 07-24-2024 18:22-0400 Diastolic blood pressure 72 mm[Hg] Donya Machado C[employer]AG CLIPPER.ACCOUNTING SYSTEMS MANAGER Work Phone: [facility] 07-24-2024 18:22-0400 Heart rate 110 /min Donya Machado C[employer]AG CLIPPER.ACCOUNTING SYSTEMS MANAGER Work Phone: [facility] 07-24-2024 18:22-0400 Respiratory rate 18 /min Donya Machado C[employer] BAG CLIPPER.ACCOUNTING SYSTEMS MANAGER Work Phone: [facility] 07-24-2024 18:22-0400 SaO2% (BldA) [Mass fraction] 100 % Donya Machado C[employer] BAG CLIPPER.ACCOUNTING SYSTEMS MANAGER Work Phone: [facility] 07-24-2024 18:22-0400 Systolic blood pressure 128 mm[Hg] Donya Machado C[employer]AG CLIPPER.ACCOUNTING SYSTEMS MANAGER Work Phone: [facility] 06-29-2024 10:58-0400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 [facility] Work Phone: Comment on above: Expected: 01/31/2023, Expires: 4 Start: 01-31-2023 End: 05-02-2023 TESTOSTERONE, FREE AND TOTAL [facility] Work Phone: Comment on above: Expected: 01/31/2023, Expires: 4 Start: 01-31-2023 End: 05-02-2023 Thyrotropin [Units/volume] in Serum or Plasma [facility] Work Phone: Comment on above: Expected: 01/31/2023, Expires: 4 Start: 11-19-2022 Covid-19 Vaccine ( season) Covid-19 Vaccine ( season) [facility] Start: 11-19-2022 Influenza vaccination Influenza Vaccine (#1) [facility] Start: 2022 Chlamydia Screening (18-24) Chlamydia Screening (18-24) [facility] Start: 2022 GC (Gonorrhea) Screening (18-24) GC (Gonorrhea) Screening (18-24) [facility] Start: 2022 Hepatitis C Screening Hepatitis C Screening [facility] Start: 2022 Hepatitis C screening Hepatitis C Screening [facility] Start: 2022 HIV Screening HIV Screening [facility] Start: 2022 HIV screening HIV Screening [facility] Start: 2022 Screening for Chlamydia trachomatis Chlamydia Screening (18-24) [facility] Start: 03-06-2022 CHLAMYDIA SCREENING (<18) CHLAMYDIA SCREENING (<18) [facility] Start: 03-06-2022 GC (GONORRHEA) SCREENING (<18) GC (GONORRHEA) SCREENING (<18) [facility] Start: 03-03-2022 End: 03-17-2022 COVID, FLU A/B + RSV, ROUTINE COVID, FLU A/B + RSV, ROUTINE Microbiology Routine Flu-like symptoms Expected: 03/03/2022, Expires: 03/17/2022 [facility] Work Phone: Comment on above: Expected: 03/03/2022, Expires: Start: 02-01-2022 End: 02-01-2022 Patient encounter procedure 02/01/2022 Office Visit Psychology Serenity Pearce, PHD [address] [facility] [address] [place] [address] [facility] [place] Start: 01-26-2022 End: 01-26-2022 Patient encounter procedure 01/26/2022 Office Visit Physical Medicine and Rehab [place] [address] [facility] [place] Start: 11-19-2021 FLU (#1) FLU (#1) [facility] Start: 11-19-2021 Influenza vaccination [facility] Start: 01-06-2021 Adult depression screening assessment DEPRESSION SCREENING [facility] Start: 2020 MenACWY (1 - 2-dose series) MenACWY (1 - 2-dose series) [facility] Start: 2020 MenB (1 of 2 - MenB 2-Dose Series) MenB (1 of 2 - MenB 2-Dose Series) [facility] Start: 2020 Meningococcal B Vaccine (1 of 2 - Standard) Meningococcal B Vaccine (1 of 2 - Standard) [facility] Start: 2020 Meningococcal B Vaccine: Consider Based On Risk (1 of 2 - Patient Seeks Protection) Meningococcal B Vaccine: Consider Based On Risk (1 of 2 - Patient Seeks Protection) [facility] Start: 2020 MENINGOCOCCAL CONJUGATE (2 - 2-dose series) MENINGOCOCCAL CONJUGATE (2 - 2-dose series) [facility] Start: 2020 Meningococcal Conjugate Vaccine (2 - 2-dose series) Meningococcal Conjugate Vaccine (2 - 2-dose series) [facility] Start: 06-19-2019 Hearing Screening Hearing Screening [facility] Start: 06-19-2019 Vision Screening Vision Screening [facility] Start: 2018 PEDS TO ADULT TRANSITION ANNUAL ASSESSMENT PEDS TO ADULT TRANSITION ANNUAL ASSESSMENT [facility] Start: 2016 PEDS TO ADULT TRANSITION INITIAL DISCUSSION PEDS TO ADULT TRANSITION INITIAL DISCUSSION [facility] Start: 05-10-2016 HPV VACCINE (2 - 2-dose series) HPV VACCINE (2 - 2-dose series) [facility] Start: 06-19-2015 HPV (1 - 2-dose series) HPV (1 - 2-dose series) [facility] Start: 2014 MENINGOCOCCAL B: Consider based on risk (1 of 2 - Risk Bexsero 2-dose series) MENINGOCOCCAL B: Consider based on risk (1 of 2 - Risk Bexsero 2-dose series) [facility] Start: 06-19-2011 Tetanus Diphtheria and Pertussis Vaccines (1 - Tdap) Tetanus Diphtheria and Pertussis Vaccines (1 - Tdap) [facility] Start: 2009 COVID-19 VACCINE (1) COVID-19 VACCINE (1) [facility] Start: 2005 Hepatitis A (1 of 2 - 2-dose series) Hepatitis A (1 of 2 - 2-dose series) [facility] Start: 2005 MMR (1 of 2 - Standard series) MMR (1 of 2 - Standard series) [facility] Start: 2005 Varicella (1 of 2 - 2-dose childhood series) Varicella (1 of 2 - 2-dose childhood series) [facility] Start: 2004 COVID-19 (#1) COVID-19 (#1) [facility] Start: 2004 COVID-19 VACCINE (#1) COVID-19 VACCINE (#1) [facility] Start: 2004 Polio (1 of 3 - 4-dose series) Polio (1 of 3 - 4-dose series) [facility] Start: 2004 Hepatitis B (1 of 3 - 3-dose series) Hepatitis B (1 of 3 - 3-dose series) [facility] Bacteria identified in Urine by Culture URINE CULTURE Microbiology Routine Urinary frequency Ordered: 09/19/2023 [facility] Work Phone: Comment on above: Ordered: 09/19/2023 Bacteria identified in Urine by Culture BACTERIAL CULTURE, URINE Microbiology Routine with uncertain dates in first trimester ([facility]) 08/01/2024 2:39 PM EDT [facility] Bacteria identified in Urine by Culture BACTERIAL CULTURE, URINE Microbiology Routine Vaginal discharge 10/22/2024 4:08 PM EDT [facility] BACTERIAL VAGINOSIS NAAT BACTERIAL VAGINOSIS NAAT Lab Routine Acute vaginitis 08/01/2024 2:39 PM EDT [facility] BACTERIAL VAGINOSIS NAAT BACTERIAL VAGINOSIS NAAT Lab Routine Vaginal discharge 10/22/2024 3:56 PM EDT [facility] BHARATHI/TRICHOMONAS NAAT BHARATHI/TRICHOMONAS NAAT Lab Routine Acute vaginitis 08/01/2024 2:39 PM EDT [facility] BHARATHI/TRICHOMONAS NAAT BHARATHI/TRICHOMONAS NAAT Lab Routine Vaginal discharge 10/22/2024 3:56 PM EDT [facility] Chlamydia trachomatis+Neisseria gonorrhoeae DNA [Presence] in Unspecified specimen by NICO with probe detection GONORRHEA/CHLAMYDIA NAAT Lab Routine with uncertain dates in first trimester (HCC) Screen for STD (sexually transmitted disease) 08/01/2024 2:39 PM EDT [facility] Patient Education [facility] Work Phone: Patient referral [facility] Work Phone: Removal impacted cerumen instrumentation unilat REMOVAL OF IMPACTED CERUMEN - INSTRUMENTATION Procedures Routine Impacted cerumen of left ear Ordered: 12/16/2023 [facility] Work Phone: Comment on above: Ordered: 12/16/2023 ROUTINE FLU A/B + RSV ROUTINE FL U A/B + RSV Lab Routine Flu-like symptoms Ordered: 03/03/2022 [facility] Work Phone: Comment on above: Ordered: 03/03/2022 SARS-CoV-2 (COVID-19 ) RNA [Presence] in Respiratory specimen by NICO with probe detection 2019 CORONAVIRUS Microbiology Routine Flu-like symptoms Ordered: 03/03/2022 [facility] Work Phone: Comment on above: Ordered: 03/03/2022 UA DIP, URINE (POC) UA DIP, URIN E (POC) Lab Routine Vaginal discharge Ordered: 10/22/2024 [facility] Work Phone: Comment on above: Ordered: 10/22/2024 UA DIP,URINE HCG (POC) UA DIP,UR INE HCG (POC) Lab Routine Urinary frequency Ordered: 09/19/2023 [facility] Comment on above: Ordered: 09/19/2023 Urine culture [facility] End: 03-02-2024 Us transvaginal US FEMALE PELVIS TRANSVAG Radiology Routine Secondary amenorrhea 1 Occurrences starting 01/31/2023 until 03/02/2024 [facility] Work Phone: Comment on above: 1 Occurrences starting 01/31/2023 until 03/02/2024 [facility] c Immunizations Immunization Date Immunization Notes Care Provider [facility] 11-08-2015 Human Papillomavirus 9-valent vaccine Hi Wyatt MD Work Phone: [facility] 11-08-2015 meningococcal polysaccharide (groups A, C, Y and W-135) diphtheria toxoid conjugate vaccine (MCV4P) Hi Wyatt MD Work Phone: [facility] 11-08-2015 tetanus toxoid, redu sherry diphtheria toxoid, and acellular pertussis vaccine, adsorbed Hi Wyatt MD Work Phone: [facility] 05-01-2011 hepatitis A vaccine, unspecified formulation Hi Wyatt MD Work Phone: [facility] Work Phone: 10-08-2009 diphtheria, tetanus toxoids and acellular pertussis vaccine Hi Wyatt MD Work Phone: [facility] 10-08-2009 measles, mumps and rubella virus vaccine Hi Wyatt MD Work Phone: [facility] 10-08-2009 varicella virus vaccine Alyssa Wyatt MD Work Phone: [facility] 06-20-2006 hepatitis A vaccine, unspecified formulation Hi Wyatt MD Work Phone: [facility] 10-19-2005 diphtheria, tetanus toxoids and acellular pertussis vaccine Hi Wyatt MD Work Phone: [facility] Work Phone: 10-19-2005 haemophilus influenz ae type b vaccine, HbOC conjugate Hi Wyatt MD Work Phone: [facility] Work Phone: 10-19-2005 pneumococcal conjuga te vaccine, 7 valent Hi Wyatt MD Work Phone: [facility] Work Phone: 10-18-2005 diphtheria, tetanus toxoids and acellular pertussis vaccine, unspecified formulation Hi Wyatt MD Work Phone: [facility] 10-18-2005 haemophilus influenz ae type b vaccine, PRP-T conjugate Hi Wyatt MD Work Phone: [facility] 10-18-2005 pneumococcal conjuga te vaccine, 7 valent Hi Wyatt MD Work Phone: [facility] 06-24-2005 measles, mumps and rubella virus vaccine Hi Wyatt MD Work Phone: [facility] 06-24-2005 varicella virus vaccine Alyssa Wyatt MD Work Phone: [facility] 03-24-2005 poliovirus vaccine, inactivated Hi Wyatt MD Work Phone: [facility] Work Phone: 2004 DTaP-hepatitis B and poliovirus vaccine Hi Wyatt MD Work Phone: [facility] Work Phone: 2004 haemophilus influenz ae type b vaccine, HbOC conjugate Hi Wyatt MD Work Phone: [facility] Work Phone: 2004 haemophilus influenz ae type b vaccine, PRP-T conjugate Hi Wyatt MD Work Phone: [facility] 2004 pneumococcal conjuga te vaccine, 7 valent Hi Wyatt MD Work Phone: [facility] Work Phone: 2004 DTaP-hepatitis B and poliovirus vaccine Hi Wyatt MD Work Phone: [facility] Work Phone: 2004 haemophilus influenz ae type b vaccine, HbOC conjugate Hi Wyatt MD Work Phone: [facility] Work Phone: 2004 haemophilus influenz ae type b vaccine, PRP-T conjugate Hi Wyatt MD Work Phone: [facility] 2004 hepatitis B vaccine, pediatric or pediatric/adolescent dosage Hi Wyatt MD Work Phone: [facility] Work Phone: 2004 pneumococcal conjuga te vaccine, 7 valent Hi Wyatt MD Work Phone: [facility] Work Phone: 2004 DTaP-hepatitis B and poliovirus vaccine Hi Wyatt MD Work Phone: [facility] Work Phone: 2004 haemophilus influenz ae type b vaccine, HbOC conjugate Hi Wyatt MD Work Phone: [facility] Work Phone: 2004 haemophilus influenz ae type b vaccine, PRP-T conjugate Hi Wyatt MD Work Phone: [facility] 2004 hepatitis B vaccine, pediatric or pediatric/adolescent dosage Hi Wyatt MD Work Phone: [facility] Work Phone: 2004 pneumococcal conjuga te vaccine, 7 valent Hi Wyatt MD Work Phone: [facility] Work Phone: 2004 hepatitis B vaccine, pediatric or pediatric/adolescent dosage Hi Wyatt MD Work Phone: [facility] Work Phone: Payers Date Payer Category Payer Private Health Insurance [facility] [employer] [id number] 2024 Self-pay [id number] 2023 Self-pay 2021 Unknown [id number] 2020 Unknown DARA BUSTAMANTE PPO [id number] 2020-Present [phone] [address] [place] [address] [facility] [id number] 2020 Unknown [id number] 2020 Unknown [id number] 2004 Unknown [id number] 1984 Unknown [id number] 1984 Unknown [id number] Unknown [id number] Unknown [id number] Unknown [id number] Unknown [id number] Unknown [id number] Unknown [id number] Unknown [id number] Unknown [id number] Unknown [id number] Unknown [id number] Social History Date Type Detail Facility Start: 05-01-2011 End: 03-03-2022 Tobacco smoking status [facility] Never smoked tobacco [facility] Work Phone: Start: 05-01-2011 End: 03-03-2022 Tobacco use and exposure Smokeless tobacco non-user [facility] Work Phone: Start: 07-22-2020 End: 09-12-2024 Alcohol intake Current non-drinker of alcohol (finding) [facility] Start: 05-01-2011 End: 03-03-2022 Tobacco Comment smokers outside [facility] Start: 2004 Sex Assigned At Not on file [facility] Start: 06-22-2020 End: 12-21-2021 Exposure to SARS-CoV-2 (event) Not sure [facility] Start: 12-15-2021 Tobacco smoking stat us MDIS Unknown if ever smoked [facility] Work Phone: Start: 2004 Sex Assigned At Female W [facility] History of tobacco use Passive smoker [facility] Work Phone: Start: 01-31-2023 End: 07-04-2024 History of Social function [facility] Start: 01-31-2023 End: 07-04-2024 Tobacco use panel [facility] Start: 02-20-2012 National Score (1-100), lower number is lower risk Not on file [facility] Start: 07-18-2020 Tobacco Use Tobacco Use [facility] Start: 06-29-2024 [facility] Start: 08-08-2024 [facility] Start: 08-16-2024 [facility]finding[facility] Functional Status Date Assessment Result Facility 04-11-2014 Are you deaf, or do you have serious difficulty hearing No 04/11/2014 9:08 AM Shannon Saini LPN No [facility] 04-11-2014 Are you blind, or do you have serious difficulty seeing, even when wearing glasses No 04/11/2014 9:08 AM Shannon Saini LPN No [facility] 04-11-2014 Do you have serious difficulty walking or climbing stairs No 04/11/2014 9:08 AM Shannon Saini LPN No [facility] 04-11-2014 Do you have difficul ty dressing or bathing No 04/11/2014 9:08 AM Shannon Saini LPN No [facility] Mental Status Date Assessment Result Facility 04-11-2014 Because of a physica l, mental, or emotional condition, do you have serious difficulty concentrating, remembering, or making decisions No 04/11/2014 9:08 AM Shannon Saini LPN No [facility] Clinical Notes 07-22-2020 to 01-08-2025 Telephone Encounter - Naomi Kelsey MD - 11/19/2024 11:59 AM EDTTelephone Encounter - Naomi Kelsey MD - 11/19/2024 11:59 AM EDTPatient InstructionsPatient InstructionsPatient Instructions Note Date & Type Note Facility 01-08-2025 Note HNO ID: [id number] Author: NAMRATA MERCER LISW Service: ? Author Type: Presser Automatic Type: Progress Notes Filed: 01/08/2025 15:23 Note Text: Summary: Integrated Mental Health Plan of Care Review of referral with patient. Was patient aware of WB referral placement by provider?Yes Is the patient currently connected for care : No Was LENNOX sent to patient? No Is the patient agreeable to connecting to services? No declined Other Pt seeking care outside of [facility] system Current priority status of the referral Medium Additional information: 19 year old at 29 weeks EGA. Second [facility] referral. Pt initially contacted by [facility] NASIMA Hassan and [facility] POC created on 08/10/24. Plan was for Pt to establish services at [facility]. New [facility] consult placed 01/01 and Pt was low on medication. This SW did not speak with Pt directly. Pt contacted OB office and RN assisted Pt with scheduling appointment with community-based mental health provider. [facility] 11-19-2024 Telephone encount er Note Reglan not helping. Wants to go back to zofran [facility] 11-19-2024 Miscellaneous Notes Formattin g of this note might be different from the original. Reglan not helping. Wants to go back to zofran documented in this encounter [facility] 11-07-2024 Progress note Formatting of t [...] able to keep down Jack Kaplan APRN.CNM [facility] 11-07-2024 Miscellaneous Notes Formattin g of [...] Jack Kaplan APRN.CNM documented in this encounter [facility] 11-07-2024 Instructions Danita Dugan LPN - 11/07/2024 2:22 PM EDT SEQUENTIAL SCREENINGS The [facility] offers sequential screenings for women who [...] It will require an appointment with our windows deployment technician. This is not an ultrasound performed by [...] the above symptoms, contact our office at [phone] and ask to speak with a nurse. After hours, you can call doctors registry at [phone] OR call [facility] at [phone] and ask to have the doctor group segment consultant paged. If you consider this an emergency, dial 11-19-4 or go to your nearest emergency department. NEED HELP? Are you dealing with a violent or abusive relationship? Are you a victim of rape or sexual assult? Call [facility] ([place]) 24 hour Crisis Hotline: 479.253.8994 or 559-264-5353. MANUAL Your Guide to a Healthy manual is now on-line. Visit [email or web address] [email or web address] to download your free copy documented in this encounter [facility] 10-31-2024 Telephone encount er Note Attempted again to reach patient-she finally answered and then hung up on me-tried to call her back and she would not answer-will wait for her to call us back if she continues to have problems.Humera Morel LPN [facility] 10-31-2024 Miscellaneous Notes Formattin g of [...] picked up any of her medications from [facility] in [place]. Latha Obrien MA Still unable to reach [...] treated for this. documented in this encounter [facility] 10-30-2024 Telephone encount er Note MyChart message sent to patient to try to reach her as we have been trying to contact her by phone with no success and she has NOT picked up any of her medications from [facility] in [place]. Latha Obrien MA [facility] 10-29-2024 Telephone encount er Note Still unable to reach patient.Humera Morel LPN [facility] 10-29-2024 Telephone encount er Note 19w3d Last OV 10/10/24 Requested Prescriptions Pending Prescriptions Disp Refills ondansetron (ZOFRAN) 4 mg tablet 30 tablet 0 Sig: Take 1 tablet by mouth every 8 hours as needed for nausea/vomiting. Pt asking just this one time Rx go to [facility] in [place]. Kayleen Vizcaino RN [facility] 10-29-2024 Miscellaneous Notes Formattin g of this note is different from the original. 19w3d Last OV 10/10/24 Requested Prescriptions Pending Prescriptions Disp Refills ondansetron (ZOFRAN) 4 mg tablet 30 tablet 0 Sig: Take 1 tablet by mouth every 8 hours as needed for nausea/vomiting. Pt asking just this one time Rx go to [facility] in [place]. Kayleen Vizcaino RN documented in this encounter [facility] 10-26-2024 Telephone encount er Note Unable to reach patient. Please try again later. Alejandra Baron LPN [facility] 10-23-2024 Telephone encount er Note Unable to reach patient and mailbox is full-try later.Humera Morel LPN [facility] 10-23-2024 Telephone encount er Note Please let patient know she tested positive for yeast. BV was negative. I have sent cream to her pharmacy. Please advise patient to update OB that she is being treated for this. [facility] 10-22-2024 Note HNO ID: [id number] Author: RITESH WASHBURN APRN.[facility] Service: ? Author Type: Nurse Practitioner Type: [...] 90 Physical Exam Exam conducted with a antique automobiles repairer present. Constitutional: Appearance: Normal appearance. HENT: Mouth/Throat: [...] agrees with plan of care. Ritesh Washburn APRN.ACCOUNTING SYSTEMS MANAGER History and Record Review Clinical information obtained from an independent historian. History obtained from or confirmed by: parent. External record(s) reviewed: prior outpatient record. Disposition The patient was discharged. Procedures [facility] 10-22-2024 History of Presen t illness Narrative [...] 90 Physical Exam Exam conducted with a antique automobiles repairer present. Constitutional: Appearance: Normal appearance. HENT: Mouth/Throat: [...] agrees with plan of care. Ritesh Washburn APRN.ACCOUNTING SYSTEMS MANAGER History and Record Review Clinical information obtained from an independent historian. History obtained from or confirmed by: parent. External record(s) reviewed: prior outpatient record. Disposition The patient was discharged. Procedures documented in this encounter [facility] 10-10-2024 Telephone encount er Note Ob patient is 16w5d and seen today for ob appointment. patient called requesting refll of zofran. [facility] 10-10-2024 Miscellaneous Notes Formattin g of this note might be different from the original. Ob patient is 16w5d and seen today for ob appointment. patient called requesting refll of zofran. documented in this encounter [facility] 10-10-2024 Progress note Formatting of t [...] as progresses and PP Marijuana use during ([facility]) Reviewed recommend cessation- using occasionally per patient Bipolar 1 disorder (HCC) 16 weeks gestation of ([facility]) Anatomy us in 4 week RTO 4 wks Luz Marina Candelaria MD [facility] 10-10-2024 Miscellaneous Notes Formattin g of [...] as progresses and PP Marijuana use during ([facility]) Reviewed recommend cessation- using occasionally per patient Bipolar 1 disorder (HCC) 16 weeks gestation of ([facility]) Anatomy us in 4 week RTO 4 wks Luz Marina Candelaria MD documented in this encounter [facility] 10-10-2024 Instructions Ute Hardin MA - 10/10/2024 2:27 PM EDT SEQUENTIAL SCREENINGS The [facility] offers sequential screenings for women who [...] It will require an appointment with our windows deployment technician. This is not an ultrasound performed by [...] the above symptoms, contact our office at [phone] and ask to speak with a nurse. After hours, you can call doctors registry at [phone] OR call [facility] at [phone] and ask to have the doctor group segment consultant paged. If you consider this an emergency, dial 9--1 or go to your nearest emergency department. NEED HELP? Are you dealing with a violent or abusive relationship? Are you a victim of rape or sexual assult? Call [facility] ([place]) 24 hour Crisis Hotline: 321.889.5552 or 736-416-0346. MANUAL Your Guide to a Healthy manual is now on-line. Visit [email or web address] [email or web address] to download your free copy documented in this encounter [facility] 09-25-2024 Telephone encount er Note Upon chart review, it was noted that patient used to get services at [facility] for both medication management and therapy and had agreed to reach out to them again to resume services. If patient is not able to re establish care at [facility], please schedule her for a new patient appointment with me. [facility] Work Phone: 09-25-2024 Miscellaneous Notes Formattin g of this note might be different from the original. Upon chart review, it was noted that patient used to get services at [facility] for both medication management and therapy and had agreed to reach out to them again to resume services. If patient is not able to re establish care at [facility], please schedule her for a new patient appointment with me. This is a [facility] referral for you to review. Blank Tiwari LPN documented in this encounter [facility] 09-25-2024 Telephone encount er Note This is a [facility] referral for you to review. Blank Tiwari LPN [facility] 09-12-2024 Progress note Formatting of t [...] 1 -History of Bipolar 1 managed by [facility], last visit 2 years ago. Took zoloft and lexapro in the past. Willing to see provider, psych consult placed. PTL precautions reviewed and when to call RTO in 4 weeks Alana Bacon APRN.DAGOBERTO [facility] 09-12-2024 Miscellaneous Notes Formattin g of [...] Alana Bacon APRN.CNM documented in this encounter [facility] 09-12-2024 Instructions Job Dueñas MA - 09/12/2024 2:44 PM EDT SEQUENTIAL SCREENINGS The [facility] offers sequential screenings for women who [...] It will require an appointment with our windows deployment technician. This is not an ultrasound performed by [...] the above symptoms, contact our office at [phone] and ask to speak with a nurse. After hours, you can call doctors registry at [phone] OR call [facility] at [phone] and ask to have the doctor group segment consultant paged. If you consider this an emergency, dial -0 or go to your nearest emergency department. NEED HELP? Are you dealing with a violent or abusive relationship? Are you a victim of rape or sexual assult? Call [facility] ([place]) 24 hour Crisis Hotline: 730.942.7722 or 790-899-8345. MANUAL Your Guide to a Healthy manual is now on-line. Visit [email or web address] [email or web address] to download your free copy documented in this encounter [facility] 09-07-2024 Note HNO ID: [id number] Author: RITESH WASHBURN APRN.ACCOUNTING SYSTEMS MANAGER Service: ? Author Type: Nurse Practitioner Type: [...] of care. This note was generated using [employer] software. It may contain errors in wording, punctuation, or spelling. Ritesh Washburn APRN.[facility] 09-07-2024 History of Presen t illness [...] of care. This note was generated using [employer] software. It may contain errors in wording, punctuation, or spelling. Ritesh Washburn APRN.LUIGI documented in this encounter [facility] 09-04-2024 Telephone encount er Note 11w4d Pt called stating she has a cold/congestion and asking what she can take OTC. Reviewed healthy guide safe medications she can take. Advised Pt that I could send link via [employer]. Texted link to activate [employer] to Pt. Pt denies additional questions at this time. Kayleen Vizcaino RN [facility] 09-04-2024 Miscellaneous Notes Formattin g of this note might be different from the original. 11w4d Pt called stating she has a cold/congestion and asking what she can take OTC. Reviewed healthy guide safe medications she can take. Advised Pt that I could send link via [employer]. Texted link to activate Endoartt to Pt. Pt denies additional questions at this time. Kayleen Vizcaino RN documented in this encounter [facility] 08-16-2024 Discharge summary [facility] 08-16-2024 Telephone encounter Note See 08/16/24 phone note. Naomi Guerin RN [facility] 08-16-2024 Miscellaneous Notes See 08/16/24 phone note. Naomi Guerin RN Attempted to reach patient. No answer and unable to leave a voicemail. Mailbox is full. GrowOp Technologyhart not set up yet. Naomi Guerin RN Yes, she can be seen sooner to check for a FHR 7w6d Patient called to report that she was seen at [facility] ER yesterday for bleeding. Was dx with [...] Naomi Guerin RN documented in this encounter [facility] 08-16-2024 Telephone encounter Note agree. needs a f/u before 6/12 to discuss treatment regimen/plan. Maru Alexander MD [facility] Work Phone: 08-16-2024 Miscellaneous Notes agree. [...] Barbara Loomis RN documented in this encounter [facility] 08-16-2024 Telephone encounter Note 8w6d Calling c/o n/v. Has been trying vitamin B6 with no improvement. Unable to keep anything down in over 24 hours, not even water today so far. Advised to go to ER and call back to schedule f/u nausea appt if needed. Patient agreed. Barbara Loomis RN [facility] 08-16-2024 Discharge summary Note Date/Time August 16, 2024 9:16p [facility] Medical Records Department [address] [place] [address] Emergency Department Summary 08/16/24 MR#: [id number] Acct: [id number] Name: MANJINDER WINTER Rep #:[id number] : [...] she already had an appointment with her CAN CLEANER and they had a ultrasound performed and [...] following commands knew that she was at [facility] year is 2024 Skin: Warm, dry, intact [...] She is advised to follow-up with her CAN CLEANER and return with worsening symptoms or concerns. [...] Sl. Cloudy Urine pH 6.5 Ur Specific [place] 1.015 Urine Protein 15 H Urine Glucose [...] - Activity Restrictions/Additional Instructions: Follow-up with your CAN CLEANER. Use Zofran as prescribed it is a dissolvable tabletthat goes under your tongue. Take the antibiotic that was sent to your pharmacyas prescribed. Follow-up on the culture results with your doctor as well to ensure that you are on the appropriate antibiotic. Return with any other concerns Print Language: Romanian Disposition Disposition: Home, Self Care What to do if you have Problems For any increased pain, shortness of breath, bleeding, nausea or vomiting, chestpain, or any unexpected problems, contact your Primary Care Provider. Call [facility] ([phone]) or report to the closest Emergency Room. Call 911 if necessary. 05/29/25 2116 <Electronically signed by Alvaro Carlton DO> Cosigner Signature (if applicable): CC: No Primary Care Physician ~ Signed [facility] Work Phone: 1(351) 298-293105-23-2025 Telephone encounter Note* Telephone Encounter - Naomi Guerin RN - 08/10/2024 8:28 AM EDT Attempted to reach patient. No answer and unable to leave a voicemail. Mailbox is full. Mychart notset up yet. Naomi Guerin RN [facility]05-22-2025 Telephone encounter Note* Telephone Encounter - Naomi Kelsey MD - 08/09/2024 4:56 PM EDT Yes, she can be seen sooner to check for a FHR [facility] Work Phone: 1(999) 947-346205-22-2025 Telephone encounter Note* Telephone Encounter - Naomi Guerin RN - 08/09/2024 4:43 PM EDT 7w6d Patient called to report that she was seen at [facility] ER yesterday for bleeding. Was dx with [...] day. Patient voiced understanding. Naomi Guerin RN [facility]05-21-2025 Radiology Diagnostic study note [facility] Imaging Services [address] [place] [address] Transvaginal w/Preg US MR#: [id number] Acct: [id number] Name: MANJINDER WINTER Rep #: [id number] : 2005 F 19 From: Ag Morfin MD PCP: Care Physician,No Primary Status: REG ER Study:Transvaginal w/Preg US Date of Exam: 08/08/24 Exam# [id number] Ordering Dr: Rupert Hernandez DO PROCEDURE: TRANSVAGINAL [...] 169 beats per minute. ANA MARIA by jbpcxatozy23/30/2025. ANA MARIA by LMP 03/21/2025. Small anechoic [...] intrauterine . Small subchorionic hematoma. Reading Location: [id number] CC: Dr. Rupert Gurera DO; No Primary Care Physician ~ Court Reporter: Signed [facility]05-15-2025 Telephone encounter Note* Telephone Encounter - Kayleen Vizcaino RN - 08/02/2024 9:15 AM EDT Pt notified and states she started it yesterday. Kayleen Vizcaino RN [facility]05-15-2025 Miscellaneous Notes* Telephone Encounter - Kayleen Vizcaino RN - 08/02/2024 9:15 AM EDT Pt notified and states she started it yesterday. Kalyeen Vizcaino RN * Telephone Encounter - Barbara Loomis RN - 08/02/2024 9:00 AM EDT Left message for patient to call office. Barbara Loomis RN * Telephone Encounter - Darvin Peng APRN.CNP - 08/02/2024 7:07 AM EDT Please notify patient: Culture confirms yeast. Monistat 7 has been sent to pharmacy. Darvin Peng APRN.CNP [facility] Telephone encounter Note * Telephone Encounter - Barbara Loomis RN - 08/02/2024 9:00 AM EDT Left message for patient to call office. Barbara Loomis RN [facility]05-15-2025 Telephone encounter Note* Telephone Encounter - Darvin Peng APRN.CNP - 08/02/2024 7:07 AM EDT Please notify patient: Culture confirms yeast. Monistat 7 has been sent to pharmacy. Darvin Peng APRN.CNP [facility]05-14-2025 NoteHNO ID: [id number] Author: DARVIN PENG APRN.ACCOUNTING SYSTEMS MANAGER Service: ? Author Type: Nurse Practitioner Type: Progress Notes Filed: 08/01/2024 14:39 Note Text: Stud Master/Mistress offered: Patient declines. INITIAL OB ASSESSMENT HPI: [...] relationship Partner: Name: Raffy Age: 19 Occupation: [employer] Gender: Male PAST MEDICAL HISTORY Diagnosis Date [...] Are you taking medic (more content not included)...[facility] 08-01-2024 History of Present illness Narrative* Darvin Peng APRN.ACCOUNTING SYSTEMS MANAGER - 08/01/2024 1:39 PM EDT Images from the original note were not included. Stud Master/Mistress offered: Patient declines. INITIAL OB ASSESSMENT HPI: [...] relationship Partner: Name: Raffy Age: 20 Occupation: [employer] Gender: Male PAST MEDICAL HISTORY Diagnosis Date [...] to continued use. Encouraged cessation. Darvin Peng, CONI.ACCOUNTING SYSTEMS MANAGER Does patient have penicillin allergy: No REVIEW [...] discussed with the Patient or Patient's Authorized Filler Shredder. As applicable, any other physician, advance practice provider, medical student, or other health professional student that will be observing or involved in the sensitive examination for educational or training purposes was discussed with the Patient or Authorized Filler Shredder. The Patient or Authorized Filler Shredder has agreed to proceed with the sensitive [...] Your guide to a health and the Lock Assembler. Discussed hemoglobin electrophoresis. Patient: is considering Reviewed midwifery and school athletic director services that are available. 2) Screening: Hemoglobin [...] (28-30 weeks): [] Consent [] Contraception [] Crossbar Switch Adjuster [] TeamBirth handout Third trimester (36-40 weeks): [] GBS [] Presentation - [] Scheduled [] yes - Hibiclens, pre-op instructions, CBC, T&S ordered [] no [] H&P [] Preferences workshe With Uncertain Dates in First Trimester ([facility]) - 08/01/2024 Comment: August 01, 2024 POCUS not consistent with LMP. Confirm ANA MARIA with NT. Darvin Peng APRN.LUIGI Acute Vaginitis - 08/01/2024 Comment: August 01, 2024 Exam consistent with yeast. Rx for Monistat 7 sent. Darvin Peng APRN.CNP Marijuana Use During ([facility]) - 08/01/2024 Comment: August 01, 2024 Discussed risks, encouraged decreasing use or cessation. States helps with nausea. Written info provided. Darvin Peng APRN.CNP Nausea and Vomiting During ([facility]) - 08/01/2024 Comment: August 01, 2024 Vitamin B6 doses reviewed. To notify if prescription is needed. Darvin Peng APRN.CNP History of Non-Suicidal Self-Harm - 08/01/2024 Comment: August 01, 2024 Scars to bilateral legs noted. Well healed. Darvin Peng APRN.ACCOUNTING SYSTEMS MANAGER Depression With Anxiety - 05/08/2018 Comment: August [...] gestation. Darvin Peng APRN.CNP [facility] Instructions* Patient Instructions* Darvin Peng APRN.CNP - 08/01/2024 1:39 PM EDT Images from the original note were not included. Please select the following link to access the [facility] Your Guide to a Healthy . www.Ccf.org/healthypregnancyguide Psychotherapy Services at [facility] Call Behavioral Health Access Line at [phone] to schedule Individual psychotherapy In-person or virtual Wait time for first evaluation may be 12 or more weeks. Wait list spots may be available. Due to the high volume of patients this option is recommended if you are looking for short term acute symptomcoping strategies. 2-147-3-CEFH5UXMC - [place] Maternal Mental Health Hotline If you are in suicidal crisis, please call or text [phone]-NEST ( ) or visit the National Suicide Prevention Lifeline website. mchb.[facility] cent[facility].gov If you are in crisis, call 911 or go to your nearest Emergency Department Here are some links for wonderful Providers here in the community and surrounding areas. Do not hesitate to contact their offices, many are offering virtual visits during this time. Psychotherapy Services outside of [facility] Support International Online Provider Directory https://Ateneo Digital.com/ - can assist in finding providers in your area that might be more extensive then the list below. [facility] [place] [address] [place] [address] [id number] [facility] [address] [place], [place] [address] [address] [address] Ara Ruby MD [address] [place] [address] [facility] [address] [facility] [place], [address] [place] [address] [facility] Psychiatric Services [address] [place] [address] [facility] [place] / [place] [phone]/ [phone] Zenobia Vazquezmaryjimmie [address] [facility] [phone] Aves of Counseling and Mediation [place] / [place] [phone] Behavioral health services of [facility] [address] [place] [address]/ coppell and freeman [phone] Miriam Guzman, DEN, CLC [facility] Therapy Workshops, telehealth and at home visits. [phone] Humanistic counseling center [address] [facility], [place], [place], [place], [place], [place], [facility], [place], [place], [place], [place], [place], [place], [facility], [place], [place] ,[facility], [place], [place],[facility], [facility], [place], [facility], [facility], [place] www.Enmetric Systems [phone] Psychotherapy resources outside of [facility] are listed below [facility] InSkin Media Psychotherapy Web: https://www.luxustravel.es/ Support International Online Provider Directory https://Redapt/ [facility] https://ALGAentis.ivi, Inc./ Partners for Behavioral Health and Wellness Web: https://OpenAgent.com.au/ Center for Effective Living Web: https://www.effectivePetMDliving.ivi, Inc./ LifeStance Web: https://simpleFLOORS.ivi, Inc./location/state/[place]/ [facility] Web: https://www.signaturehealthinc.org/ The Centers Web: https://Whale Imagingpittsfield general [facility].org/ Recovery Resources Mental health and substance abuse help Web: https://www.Fugate.cls.org & RESOURCES Support International Direct peer support and connection to professional resources Non-Emergency Helpline Phone: / Text: [phone] Web: https://www..net/ Online Provider Directory: https://Redapt/ Online Support Meetings: https://www..net/get-help/cnn-xcmort-yvuiphv-meetings/ IZABELLA Baby and Video Production Assistant Services Web: https://Grocery Shopping Network/ MotherToBaby Expert information on medication use during and Text: [phone] Web: https://Bizdom/ NATIONAL REGISTRY FOR PSYCHIATRIC MEDICATIONS Currently studying the safety of antidepressants, ADHD medications and atypical antipsychotics taken during TO PARTICIPATE CALL TOLL-FREE: Web: https://womensmentalhealth.org/research/pregnancyregistry/ Support Groups: [facility]- Follow on facebook Baby Bistro support group led by [facility] department [facility] Mamas - Support Group [facility].org The POEM support group [phone] Www.poemonline.org Follow on facebook - POZAK ledezma chapter Online support meetings PSI https://www..net/get-help/bdb-zdcscm-irgkdsm-meetings/ [facility] mommy and me virtual support group 11:30-1pm Support for mothers and new babies and toddlers [place] childbirth education: Childbirth @ccf.org or call [phone] CRISIS: CRISIS HOTLINE [phone], 911 or go to the nearest ER. [facility] [phone] / [facility] [phone] https://www.[facility].org Crisis text line text the word HOME to 680472 [facility] [address] [facility] [address] www.Silicor Materials Gabbi Gray clinical counseling [address] [facility] [address] [place] [address] www.TuVox [phone] Holding space psychotherapy Meena Cadet CARTON FILLING MACHINE OPERATOR ODD PIECE CHECKER-S [address] [facility] www.Search to / [place] [phone] They all offer virtual. All work with trauma Support groups Online support meetings PSI https://www..net/get-help/xwr-liagou-nncrpup-meetings/ Here are the support groups they offer: Support of parents of 1 to 4 years old children POEM ( Outreach and Encouragement for Moms) offers free support for mothers experiencing depression, anxiety, and other mood and anxiety disorders. Masks are recommended but not required. No pre-registration required. Babies in arms welcome. meetings now take place on the and Tuesday of each month Location: [facility] [address] [place] [address] Room 122 (library room) 7-8:00 p.m. When you enter the [facility] parking lot off of [address] the entrance door closest to our meeting room is on the front of the building toward the right. For those who are more comfortable with a virtual platform, POEM offers online support group options several days of the week. To register for an online group or to find out more about POEM, website at: https://mhaohio.org/get-help/mirnadii-rbamho-ignksu/poem-services/ offer a confidential helpline: private Facebook group is called ELPIDIO Del [place] Here are the groups they offer: Traumatic childbirth resources: Http://pattch.org/ https://www.UnityPoint HealthveronicaNovoPedicspattiNetbooks.ivi, Inc./ Name Location (s) Phone # (s) Services Website [facility] [address] [address], [place], [place] - [phone]; [address] [address], [place]- [phone] In-Person GROUPS INDIVIDUAL THERAPY MATERNAL-INFANT MENTAL HEALTH MEDICATION MANAGEMENT PLAY AND ART THERAPY TELETHERAPY https://www.luxustravel.es/services/ Nilesh LEDEZMA? [address] [place], [place] [address] ? [place] [address], [address] [place], [place] [address] ? LIM [address] [place], [place] [address]? Grief Support Groups Individual Grief Counseling Spiritual Care Memorial Events https://ledezma.[facility].org/grief-services [facility] [address] [place], [place] [address]; ; Email: gaby@Satellogic Women's Mental Health; Couples Counseling; Trauma (EMDR); Stress Management; Mood and Anxiety Related Disorders- and much more https://www.Inviragen/ LifeStance Numerous as they have contract providers: access website to find specific providers nearyou Counseling including CBT and EMDR as well as many more modalities; Medication Management; Telehealth and In-Person https://Bunndle/ Optizen labs for Behavioral Health and Wellness [address] [place] [address]; [phone] Personal, Family and Group Therapy; Psychological Testing and Diagnosis; Medication Management; Life and Career Coaching; Psychoanalysis; Literacy Testing; Yoga and Meditation https://Boracci.ivi, Inc./ Fit [facility] [address] [facility] [address] [address] [address] ; [address] [facility], [address] [place] [address]; Office # for both sites: Individual and Couples Counseling https://www.Columbia Property Managers/paymentinsurance.html OCD & Anxiety [facility] [address] [facility], [address], [place] [address]; Specialize in Cognitive-Behavioral Therapy (CBT) for the treatment of anxiety disorders across the lifespan. TELEHEALTH ONLY. https://ocdandanxietycenteroEggCartel/faqs [facility]ly [facility] [address] [place], [address] [place] [address] [facility] [place], [address] [place] [address] [place], [address] [place] [address] [place], [address], [address] [place] [address] [facility] [place], [address] [place] [address] [place], [place], [id number] Transportation Services To minimize patient barriers, [facility] provides transportation services to patients who qualify. If you are unable to get to your appointment at any of our facilities, please let us know. Need help now? Stop by one of our walk-in clinics to establish behavioral health care. Counseling Indvidual, Group, Couples and Family Counseling and EMDR. Medication Management Case Management benefits applications housing assistance Substance abuse treatment Medication assisted treatment https://www.[facility].org/mental-health/ [facility] OFFICE AT [facility] [address] [place] [address] [facility] OFFICE [address] [place] [address] [facility] OFFICE [address] [place] [address] [facility] OFFICE (at [facility]) [address] [place] [address] [facility] S[facility] EXCHANGE PROGRAM & HIV SCREENING [address] [place] [address] ATL[employer]IC M[employer] SYRINGE EXCHANGE PROGRAM [address] [place] [address] Behavioral Health Urgent Care: [facility] Counseling Indvidual and Group Medication Management Case Management benefits applications housing assistance Substance abuse treatment Medication assisted treatment Employment Services/ Job Training https://thePiqniq.org/ Recovery Resources [address] [place], [place] [address]: P: [phone] [address] [facility], [address], [place], [place] [address] P: [phone] Our services include: Addiction Mental Health Treatment Assessment Psychiatry Medical Care Employment Housing Drug and Alcohol Prevention HIV/AIDS Prevention https://www.Fugate.cls.org/ [facility] [place] [address] [place] [address] [place] [address] [place] [address] [place] [address] [place] [address] [place] [address] [facility] [address] [place] [address] [place] [address] [address] [place] [address] TMS Therapy/ Counseling Psychocological Testing for ADHD Medication Management In-Person/ Telemedicine https://www.Beijing Joy China Network/patients-depression Memory & Psychological services [address], [place] [address] Neuropsychological Testing For ADHD https://www.memoryandpsych.com/ [facility] Office [address] [place] [id number] [address] Providing zkra-tp-ztzu and telehealth services. Adult Case Management Community Education and Prevention Employment Outpatient Treatment - Counseling & Psychotherapy Psychiatric Services http://www.ccwhc.org/ [facility] [place] [address] [place] [address] [facility] [address] [place] [address] Virtual Appointments! Now offering safe and convenient virtual client appointments to anyone in [place]! Individual Therapy Couples/Relationship Therapy Trauma/EMDR Therapy Art Therapy Play Therapy Java Grails Developer Support: Parenting Skills, Parent Child Interaction Therapy, Parent Infant Interaction Therapy Meditation Dietitian/Motors And Controls Tester Services Group Therapy Yoga https://www.Marketing Technology Concepts.ivi, Inc./ Tala Hernandez [phone] Private Practice: Telehealth Only Specializes in EMDR for Trauma None MORNING SICKNESS IN by Hallie Lee M.D. for Evernote As you may already know, morning sickness can often be more appropriately called evening sickness or zcekh-eeuisz-ht-the-day sickness. While there are the [place] few, [...] medication, Doxylamine, is currently marketed as an sufx-jpq-gqjdtip sleeping pill. Ask your practitioner if creating a vitamin B6/Doxylaminecombination with vygp-vlr-fpqvaaq medications would be safe for you. Prescription [...] The main active chemical in marijuana is brkge-9-eflzqskdkechxjmxrkqx (THC), which is what causes you to [...] smoke. Most professional organizations such as the [place] Academy of Pediatrics, the Academy of Medicine, and the [place] College of Obstetricians and Gynecologists advise that [...] MotherToBaby fact sheet Paternal Exposures and at https://mothertobaby.org/fact-sheets/ojfldwbx-jrzdhyxoi-hwkiizfsq/pdf/. documented in [facility] Telephone encounter Note * Telephone Encounter - Latha Obrien MA - 07/31/2024 2:56 PM EDT Patient presented to ED same day as [facility] visit for different symptoms, have not received a return call from patient in 6 days and all testing done with [facility] negative, closing encounter. Latha Obrien MA [facility]05-13-2025 Miscellaneous Notes* Telephone Encounter - Latha [...] prescribed. Ritesh Washburn APRN.CNP documented in this encounterJoint [facility]-2025 Telephone encounter Note * Telephone Encounter - Hi Magaña MA - 07/31/2024 10:06 AM EDT Unable to reach patient. Mailbox full/Mailbox not set up/ Number incorrect. Please try again later. Hi aMgaña MA [facility]05-08-2025 Telephone encounter Note* Telephone Encounter - Meagan Jiménez OCCA - 07/26/2024 12:14 PM EDT TC to patient with no answer. Left VM to return call. AYUSH Bueno [facility]05-08-2025 Telephone encounter Note* Telephone Encounter - Ritesh Washburn APRN.CNP - 07/26/2024 11:39 AM EDT Please inform patient that CMP and CBC was within normal limits. No abnormal findings noted on today's labs. Lyme test pending. Continue plan of care as discussed. Continue taking oral antibiotics aspreviously prescribed. Ritesh Washburn APRN.CNP [facility]05-08-2025 NoteHNO ID: [id number] Author: RITESH WASHBURN APRN.ACCOUNTING SYSTEMS MANAGER Service: ? Author Type: Nurse Practitioner Type: [...] a couple months ago. Has not seen CAN CLEANER or been established at this point. Upcoming [...] Will test for Lym (more content not included)...[facility]05-08-[facility]25 History of Present illness Narrative* Ritesh Washburn APRN.ACCOUNTING SYSTEMS MANAGER - 07/26/2024 9:24 AM EDT Images from [...] a couple months ago. Has not seen CAN CLEANER or been established at this point. Upcoming [...] and fever joint pain. Will follow-up with CAN CLEANER as scheduled. At this point we will [...] of care. This note was generated using [employer] software.It may contain errors in wording, punctuation, or spelling. Ritesh Washburn APRN.LUIGI documented in this encounterJoint [facility]05-06-2025 NoteHNO ID: [id number] Author: DONYA MACHADO APRN.LUIGI Service: ? Author [...] - CEPHALEXIN 500 MG CAPSULE Donya Machado APRN.ACCOUNTING SYSTEMS MANAGER Differential Diagnoses - cellulitis is more likely for the following reason(s): suggested by HANDP ProceduresOhio[facility] History of Present illness Narrative* Donya Machado [...] suggested by H&P Procedures documented in this encounterJoint Township District [facility] Hospital05-02-2025 Telephone encounter Note * Telephone Encounter - Jack Kaplan APRN.CNM - 07/20/2024 3:39 PM EDT Agree with plan of care. Jack Kaplan APRN.CNM [facility] Work Phone: [phone]) 547-807005-02-2025 Miscellaneous Notes* Telephone Encounter - Jack Kaplan [...] has new ob 08/01/2024 documented in this encounterJoint Township District Memorial Hospital05-02-2025 Telephone encounter Note * Telephone Encounter [...] 24 hours. Patient has new ob 08/01/2024 [facility]04-16-2025 NoteHNO ID: [id number] Author: ALMA SINGH MA Service: ? Author Type: Constitutional Law Professor Type: Progress Notes Filed: 07/04/2024 15:57 Note Text: PT ASSESSMENT - CASTING ROOM Manjinder presents for Application of brace. Applied DonJoy Lat J hinge knee brace size small to Left knee. Patient tolerated well. Patient has been instructed in Care and proper application of brace. Patient signed [employer] PPA electronically for billing and verbalized understanding. Alma Singh [facility]04-16-2025 History of Present illness Narrative* Alma [...] pain and inflammation management; prescription sent to [facility] pharmacy. - Fitted with a J-brace to [...] Left Knee Pain: Referred by Geo Washburn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
[2025-03-15 17:35] LABS: Color, Urine Yellow (Yellow); Glucose, Dipstick Normal (Normal); Ketone-Dipstick Negative (Negative); Leukocyte Esterase-Dipstick 100 /ul (Negative); Nitrite-Dipstick Negative (Negative); Occult Blood-Urine Negative /ul (Negative); Protein-Dipstick Negative (Negative); Specific Gravity, Urine 1.010 (1.002-1.030); Urine Bilirubin Dipstick Negative (Negative)
--- NOTE | 2025-03-15 21:05 | OB.TRI.NOTE ---
HPI - General General Date of Service: 03/15/25 HPI Narrative DANIELA DIEZ, is a 19 F who presents [ 39 weeks with complaint of lower back pain and abdominal pain. Complaint of back pain radiating up spine. no headache or visual changes. ] Maternal Data Information ANA MARIA Calculator Estimated Delivery Date Method Current WG Current Estimate 03/22/25 Manual 39w 0d PFSH PFSH Medical History (Updated 03/15/25 @ 21:06 by Alana Martin CNM) Substance abuse Bipolar disorder Anxiety Depression History of miscarriage Home Medications ?Medication ?Instructions ?Recorded ?Last Taken ?Type multivitamin (Daily Multi-Vitamin 1 tab PO DAILY 03/15/24 03/06/25 21:00 History tablet) 1 TAB haloperidol 5 mg tablet 5 mg PO QHS 03/07/25 03/06/25 21:00 History 5 mg hydroxyzine HCl 25 mg tablet 25 - 50 mg PO QHS PRN PRN insomnia 03/07/25 03/06/25 21:00 History 25 mg lamotrigine 25 mg tablet,extended 25 mg PO DAILY 03/07/25 03/07/25 08:00 History release 24 hr (Lamictal XR) 25 mg Allergy/AdvReac Type Severity Reaction Status Date / Time No Known Allergies Allergy Verified 03/15/25 15:13 Social History Smoking Status: Current every day smoker tobacco type: e-cigarettes substance use type: marijuana NST FHR Rate Baby A Baseline: 125 Variability:: Moderate Accelerations:: 15 x 15 Decelerations:: None FHR Category:: Category I Uterine Activity:: Irritable Assessment & Plan (1) Back pain affecting : (2) 39 weeks gestation of : PLAN: Plan 1) UA and culture 2) NST reactive 3) Uterine irritability 4) Tylenol, flexeril, and heating pad 5) Improvement in pain and D/C home
== END 2025-03-15 17:55 | disposition home or self-care (01) ==
LOC: WPOUT 15:00 → WP 15:01
PROVIDERS: Referring Provider Advanced Practice Midwife; Visit Provider Advanced Practice Midwife
DX: O99.891 Other specified diseases and conditions complicating pregnancy (principal); F31.9 Bipolar disorder, unspecified; O99.343 Other mental disorders complicating pregnancy, third trimester; Z3A.39 39 weeks gestation of pregnancy; Z79.899 Other long term (current) drug therapy; O99.333 Smoking (tobacco) complicating pregnancy, third trimester; F17.290 Nicotine dependence, other tobacco product, uncomplicated; M54.50 Low back pain, unspecified
CPT/HCPCS: 59025; 59050; 81002; 87086; 87088; 99221; G0378